=== PATIENT | female | born 1935 | race Caucasian/White ===

== ENCOUNTER 2016-12-12 03:39 | Inpatient (IN) | payer MEDICARE, BC ==
[~2016-12-12] VITALS: Ht 157.5 cm; Wt 140.0 kg
[2016-12-12] VITALS (15 sets, daily range): BP systolic 123–216; BP diastolic 53–117; PULSE 79–127; RESP 18–26; TEMP 97.6–99.5; O2SAT 96–100
[~2016-12-12 03:39] MED LIST: ASPI1TAB91 PO; CIPR250T2 PO; FURO1TAB62 PO; GABA300C5 PO; HYDR-3516 PO; HYDR50TA15 PO; LANTINJ SQ; LEVO88TA2 PO; LIPI20TA PO; LISI-515 PO; METF1000 PO; METO25TA3 PO; NIFE30TA61 PO; NITR1CAP36 PO; TRIA1TAB21 PO; WARF-23 PO
[2016-12-12] MEDS ORDERED: SODIUM CHLOR 0.9% 1000 ML INJ 1,000 ML IV SCH (04:05)
[2016-12-12] MEDS ORDERED: ONDANSETRON HCL 4 MG/2 ML VIAL IVP ONE (04:15)
[2016-12-12] MEDS ORDERED: SODIUM CHLORIDE 0.9% FLUSH 5 ML FLUSH IVF PRN ×2 (04:15→06:45)
[2016-12-12] MEDS ORDERED: PANTOPRAZOLE INJ 80 MG in SODIUM CHLORIDE 0.9% INJ 35 ML IV ONE (04:15)
[2016-12-12] MEDS ORDERED: METOCLOPRAMIDE HCL 10 MG/2 ML VIAL IV PUSH ONE (04:30)
--- NOTE | 2016-12-12 04:46 | RADRPT ---
EXAM DATE/TIME: 12/12/2016 04:07 [facility] COMPARISON: CHEST SINGLE AP, October 31, 2016, 12:54. INDICATIONS : Shortness of breath. MEDICAL HISTORY : Hypertension. Cardiovascular disease. Diabetes mellitus type II. SURGICAL HISTORY : None. ENCOUNTER: Initial ACUITY: 1 day PAIN SCORE: 0/10 LOCATION: Bilateral chest FINDINGS: A single view of the chest demonstrates the lungs to be symmetrically aerated without evidence of mas s, infiltrate or effusion. The cardiomediastinal contours are unremarkable. Osseous structures are intact. CONCLUSION: Lungs are clear. Joe Reyes MD on December 12, 2016 at 4:44 Board Certified Radiologist. This report was verified electronically.
[2016-12-12 04:55] LABS: AUTOMATED NEUTROPHIL # 11.4 TH/MM3 (1.8-7.7); BASOPHIL # 0.1 TH/MM3 (0-0.2); BASOPHIL % 0.5 % (0.0-2.0); EOSINOPHIL % 0.1 % (0.0-4.0); HEMATOCRIT 31.3 % (35.0-46.0); LYMPH % 10.3 % (9.0-44.0); LYMPHOCYTE # 1.4 TH/MM3 (1.0-4.8); MEAN CELL VOLUME 77.3 FL (80.0-100.0); MEAN CORPUSCULAR HEMOGLOBIN 23.7 PG (27.0-34.0); MEAN CORPUSCULAR HGB CONC 30.7 % (32.0-36.0); MONO % 5.3 % (0.0-8.0); NEUT % 83.8 % (16.0-70.0); PLATELET COUNT 364 TH/MM3 (150-450); RED BLOOD COUNT 4.04 MIL/MM3 (4.00-5.30); RED CELL DISTRIBUTION WIDTH 18.2 % (11.6-17.2); WHITE BLOOD COUNT 13.6 TH/MM3 (4.0-11.0)
[2016-12-12] MEDS: PANTOPRAZOLE INJ 80 MG in SODIUM CHLORIDE 0.9% INJ 100 ML IV SCH ×2 (04:57→16:47)
[2016-12-12] MEDS ORDERED: HYDROmorphone HCL PF 1 MG/ML VIAL IV PUSH ONE ×2 (05:00)
--- NOTE | 2016-12-12 05:02 | PD ---
HPI Chief Complaint: GI Complaint Time Seen by Provider: 04:05 Travel History International Travel<30 days: No Contact w/Intl Traveler<30days: No Traveled to known affect area: No History of Present Illness HPI 81-year-old female presents to the emergency department for complaint of one day of nausea vomiting blood generalized abdominal pain and black tarry stools. Patient also reports generalized weakness. No near-syncope or syncope. No chest pain or shortness of breath. Patient has history of atrial fibrillation and is prescribed Coumadin. Patient took her last dose of Coumadin Wednesday morning. Patient denies nonsteroidal anti-inflammatory use. No prior history of GI bleed gastritis peptic ulcer disease does have history of diverticulitis. No hematochezia positive melena. PFSH Past Medical History Hx Anticoagulant Therapy: Yes (COUMADIN) Arthritis: Yes Asthma: No Autoimmune Disease: No Blood Disorders: No Anxiety: No Depression: No Heart Rhythm Problems: No Cancer: No Cardiovascular Problems: Yes (A FIB) High Cholesterol: No Chemotherapy: No Chest Pain: Yes Congestive Heart Failure: No COPD: No Cerebrovascular Accident: Yes Diabetes: Yes Patient Takes Glucophage: No Diminished Hearing: Yes Endocrine: Yes GERD: No Genitourinary: No Headaches: Yes Hiatal Hernia: No Hypertension: Yes Immune Disorder: No Kidney Stones: No Musculoskeletal: Yes Neurologic: Yes (cva x3-4 latest 01/07) Psychiatric: No Reproductive: No Respiratory: No Migraines: Yes Radiation Therapy: No Renal Failure: No Seizures: No Sickle Cell Disease: No Sleep Apnea: No Thyroid Disease: No Ulcer: No Influenza Vaccination: Yes ?: Not Menopausal: Yes : 5 Para: 5 Past Surgical History Abdominal Surgery: Yes (GALLBLADDER OUT 1973) AICD: No Arteriovenous Shunt: No Cardiac Surgery: No Cholecystectomy: Yes Ear Surgery: No Endocrine Surgery: No Eye Surgery: Yes (cataracts x 2) Genitourinary Surgery: No Gynecologic Surgery: Yes Hysterectomy: Yes Insulin Pump: No Joint Replacement: Yes (KNEE REPLACEMENTS ) Oral Surgery: No Pacemaker: No Thoracic Surgery: No Other Surgery: Yes Social History Alcohol Use: No Tobacco Use: No Substance Use: No Allergies-Medications (Allergen,Severity, Reaction): Coded Allergies: Penicillin (Verified Allergy, Severe, 12/12/16) *MDRO Multi-Drug Resistant Organism (Verified Adverse Reaction, Unknown, 1 /21/17) 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/02/2016 Reported Meds & Prescriptions Reported Meds & Active Scripts Active Nitrofurantoin Macrocrystal 100 Mg Cap 100 Mg PO BID Ciprofloxacin (Ciprofloxacin HCl) 250 Mg Tab 250 Mg PO BID Metoprolol Tartrate 25 Mg Tab 12.5 Mg PO Q12HR Hydrocodone-Acetaminophen 5-325 mg Tab 1 Tab PO Q4H PRN Gabapentin 300 Mg Cap 300 Mg PO BID Reported Aspirin Adult Low Strength (Aspirin) 81 Mg Tabdr 81 Mg PO DAILY Triazolam 0.25 Mg Tab 0.25 Mg PO HS Lisinopril 20 Mg Tab 20 Mg PO BID Lantus Solostar Pen Inj (Insulin Glargine) 300 Unit/3 Ml Pen 90 Units SQ HS Nifedipine ER 24 HR (Nifedipine) 30 Mg Tab 30 Mg PO DAILY Warfarin 5 Mg Tab 5 Mg PO DAILY Levothyroxine (Levothyroxine Sodium) 88 Mcg Tab 88 Mcg PO DAILY Lipitor (Atorvastatin Calcium) 20 Mg Tab 20 Mg PO HS Metformin (Metformin HCl) 1,000 Mg Tab 1,000 Mg PO BID With meals Lasix (Furosemide) 20 Mg Tab 20 Mg PO DAILY Hydralazine (Hydralazine HCl) 50 Mg Tab 50 Mg PO TID Take with a meal Review of Systems Except as stated in HPI: all other systems reviewed are Neg General / Constitutional: No: Fever, Chills HENT: No: Congestion Cardiovascular: No: Chest Pain or Discomfort Respiratory: No: Shortness of Breath Gastrointestinal: Positive: Nausea, Vomiting, Diarrhea, Abdominal Pain, No: Hematemesis (coffee-ground emesis), Hematochezia, Loss of Appetite (brown stool) Genitourinary: No: Dysuria Skin: No Rash Neurologic: Positive: Weakness Psychiatric: Positive: Anxiety Hematologic/Lymphatic: Positive: Easy Bruising, No: Lymph Node Enlargement Physical Exam Narrative GENERAL: Well-developed morbidly obese female in no respiratory distress appears anxious and ill. SKIN: Warm and dry. HEAD: Normocephalic. EYES: No scleral icterus. No injection or drainage. NECK: Supple, trachea midline. No JVD or lymphadenopathy. CARDIOVASCULAR: Regular rate and rhythm without murmurs, gallops, or rubs. RESPIRATORY: Breath sounds equal bilaterally. No accessory muscle use. GASTROINTESTINAL: Abdomen soft, diffusely mildly tender to direct palpation without guarding or rebound, nondistended. MUSCULOSKELETAL: No cyanosis, or edema. BACK: Nontender without obvious deformity. No CVA tenderness. Data Data Last Documented VS Vital Signs Date Time Temp Pulse Resp B/P Pulse Ox O2 Delivery O2 Flow Rate FiO2 12/12/16 05:52 111 18 168/114 98 Nasal Cannula 2 12/12/16 04:03 99.5 Orders Basic Metabolic Panel (Bmp) (12/12/16 04:05) Comprehensive Metabolic Panel (12/12/16 04:05) Prothrombin Time / Inr (Pt) (12/12/16 04:05) Urinalysis - C+S If Indicated (12/12/16 04:05) Type And Screen (12/12/16 04:05) Chest, Single Ap (12/12/16 04:05) Ecg Monitoring (12/12/16 04:05) Iv Access Insert/Monitor (12/12/16 04:05) Oximetry (12/12/16 04:05) Ondansetron Inj (Zofran Inj) (12/12/16 04:15) Sodium Chlor 0.9% 1000 Ml Inj (Ns 1000 M (12/12/16 04:05) Sodium Chloride 0.9% Flush (Ns Flush) (12/12/16 04:15) Pantoprazole Inj (Protonix Inj) (12/12/16 04:15) Pantoprazole Inj (Protonix Inj) (12/12/16 04:15) Complete Blood Count With Diff (12/12/16 04:23) Lactic Acid (12/12/16 04:23) Blood Culture (12/12/16 04:23) Metoclopramide Inj (Reglan Inj) (12/12/16 04:30) Hydromorphone Pf Inj (Dilaudid Pf Inj) (12/12/16 05:00) Hydromorphone Pf Inj (Dilaudid Pf Inj) (12/12/16 05:00) Ct Abd/Pel W/O Iv Contrast (12/12/16 04:57) Metronidazole 500 Mg Inj (Flagyl 500 Mg (12/12/16 06:00) Levofloxacin 500 Mg Premix Inj (Levaquin (12/12/16 06:00) Troponin I (12/12/16 05:51) Labs Laboratory Tests Test 12/12/16 12/12/16 12/12/16 04:15 04:21 04:50 Lactic Acid Level 2.3 mmol/L White Blood Count 13.6 TH/MM3 Red Blood Count 4.04 MIL/MM3 Hemoglobin 9.6 GM/DL Hematocrit 31.3 % Mean Corpuscular Volume 77.3 FL Mean Corpuscular Hemoglobin 23.7 PG Mean Corpuscular Hemoglobin 30.7 % Concent Red Cell Distribution Width 18.2 % Platelet Count 364 TH/MM3 Mean Platelet Volume 8.1 FL Neutrophils (%) (Auto) 83.8 % Lymphocytes (%) (Auto) 10.3 % Monocytes (%) (Auto) 5.3 % Eosinophils (%) (Auto) 0.1 % Basophils (%) (Auto) 0.5 % Neutrophils # (Auto) 11.4 TH/MM3 Lymphocytes # (Auto) 1.4 TH/MM3 Monocytes # (Auto) 0.7 TH/MM3 Eosinophils # (Auto) 0.0 TH/MM3 Basophils # (Auto) 0.1 TH/MM3 CBC Comment AUTO DIFF Differential Comment AUTO DIFF CONFIRMED Ovalocytes 1+ Prothrombin Time 21.7 SEC Prothromb Time International 1.9 RATIO Ratio Sodium Level 137 MEQ/L Potassium Level 4.6 MEQ/L Chloride Level 101 MEQ/L Carbon Dioxide Level 26.5 MEQ/L Anion Gap 10 MEQ/L Blood Urea Nitrogen 13 MG/DL Creatinine 0.83 MG/DL Estimat Glomerular Filtration 66 ML/MIN Rate Random Glucose 211 MG/DL Calcium Level 9.0 MG/DL Total Bilirubin 0.5 MG/DL Aspartate Amino Transf 36 U/L (AST/SGOT) Alanine Aminotransferase 31 U/L (ALT/SGPT) Alkaline Phosphatase 133 U/L Total Protein 8.4 GM/DL Albumin 3.1 GM/DL Blood Type A POSITIVE Antibody Screen NEGATIVE Blood Bank Comment Urine Color YELLOW Urine Turbidity CLEAR Urine pH 6.5 Urine Specific [place] 1.012 Urine Protein NEG mg/dL Urine Glucose (UA) 300 mg/dL Urine Ketones NEG mg/dL Urine Occult Blood NEG Urine Nitrite NEG Urine Bilirubin NEG Urine Urobilinogen LESS THAN 2.0 MG/DL Urine Leukocyte Esterase NEG Urine RBC 1 /hpf Urine WBC LESS THAN 1 /hpf Urine Squamous Epithelial <1 /hpf Cells Urine Mucus FEW /lpf Microscopic Urinalysis Comment CULT NOT INDICATED MDM Medical Decision Making Medical Screen Exam Complete: Yes Emergency Medical Condition: Yes Medical Record Reviewed: Yes Interpretation(s) EKG: Atrial fibrillation with rapid ventricular response rate [address] elevation or injury pattern change noted Differential Diagnosis gi bleed, gastritis peptic ulcer disease diverticulitis Coumadin coagulopathy Narrative Course Patient placed on patent clerk IV access obtained specimens collected and sent for resulting patient administered Protonix 80 mg IV and Protonix infusion ; IV fluids for maintenance and also Zofran area patient receive Zofran en route and continues to complain of nausea; denies nonsteroidal anti- inflammatory use. Denies issues with INR being out of range. Overall does abdominal discomfort 5/10 in intensity but complains of nausea is worse. Patient administered Reglan for ongoing complaint of nausea no vomiting No bowel movement no hematochezia or melena at this time @ 0450 patient complains of severe new onset abdominal pain; dilaudid administered and patient sent for stat CT abd/pel w/o as no labs available At 5:50 AM patient reports that she feels well denies any nausea denies any abdominal pain and is requesting something to drink. Patient now clarifies that she did have vomiting of brown emesis and she has been having brown watery diarrheal stools but denies any gross blood per rectum and has not vomited any red blood. Patient again denies any fever chills chest pain shortness of breath neck pain. CT results pending. Lab values remarkable for leukocytosis 13,600 with left shift 83% neutrophils patient has normal platelet count with chronic anemia hemoglobin is 9.6 hemoglobin from last visit 10/30/16 was 8.7; lactic acid is elevated however at 2.3 bicarbonate and anion gap values are normal range. INR is 1.9 mildly subtherapeutic. Urinalysis is normal. Chest x -ray reveals no acute infiltrate or abnormality and no subdiaphragmatic free air. Diagnosis Primary Impression: GI bleed Qualified Code: K29.71 - Gastrointestinal hemorrhage associated with gastritis , unspecified gastritis type Additional Impression: Abdominal pain Monalisa Bhakta MD Dec 12, 2016 05:02
[2016-12-12 05:04] LABS: INTERNATIONAL NORMALIZED RATIO 1.9 RATIO; PROTHROMBIN TIME - PATIENT 21.7 SEC (9.8-11.6)
[2016-12-12 05:08] LABS: BLOOD, URINE NEG (NEG); COMMENT (UR) CULT NOT INDICATED; CULTURE IF INDICATED CULT NOT INDICATED; GLUCOSE,URINE 300 mg/dL (NEG); KETONE, URINE NEG (NEG); MUCUS URINE FEW /lpf (OCC); NITRITE,URINE NEG (NEG); PH, URINE 6.5 (5.0-8.5); SQUAMOUS EPITHELIAL CELL URINE <1 /hpf (0-5); URINE COLOR YELLOW (YELLW/STRAW)
[2016-12-12 05:10] LABS: HEMO FLAGS AUTO DIFF
[2016-12-12 05:22] LABS: ALT (GPT) 31 U/L (10-53); ANION GAP 10 MEQ/L (5-15); AST (GOT) 36 U/L (15-37); BICARBONATE 26.5 MEQ/L (21.0-32.0); BLOOD UREA NITROGEN 13 MG/DL (7-18); CHLORIDE 101 MEQ/L (98-107); GLOMERULAR FILTRATION RATE 66 ML/MIN (>89); SODIUM (NA) 137 MEQ/L (136-145)
[2016-12-12 05:23] LABS: ALKALINE PHOSPHATASE 133 U/L (45-117); TOTAL BILIRUBIN ADULT 0.5 MG/DL (0.2-1.0)
[2016-12-12 05:32] LABS: POTASSIUM 4.6 MEQ/L (3.5-5.1)
[2016-12-12 05:52] LABS: OVALOCYTES 1+ (NORMAL)
[2016-12-12 05:53] LABS: SCAN/DIFF AUTO DIFF CONFIRMED
[2016-12-12] MEDS ORDERED: LEVOFLOXACIN 500 MG PREMIX INJ 100 ML IV ONE (06:00)
[2016-12-12] MEDS ORDERED: metroNIDAZOLE 500 MG INJ 100 ML IV ONE (06:00)
--- NOTE | 2016-12-12 06:01 | RADRPT ---
EXAM DATE/TIME: 12/12/2016 05:06 [facility] COMPARISON: CT ABDOMEN & PELVIS W/O CONTRAST, October 26, 2016, 4:41. INDICATIONS : Abdominal pain with blood in stool and vomiting blood. ORAL CONTRAST: No oral contrast ingested. RADIATION DOSE: 24.19 CTDIvol (mGy) MEDICAL HISTORY : Cerebrovascular disease. Cardiovascular disease Diabetes mellitus type 2.Hypertension SURGICAL HISTORY : Cholecystectomy. Total knee replacement, left.Total knee replacement, right. ENCOUNTER: Initial ACUITY: 1 day PAIN SCALE: 7/10 LOCATION: abdomen TECHNIQUE: Volumetric scanning of the abdomen and pelvis was performed. Using automated exposure control and ad justment of the mA and/or kV according to patient size, radiation dose was kept as low as reasonably achievable to obtain optimal diagnostic quality images. FINDINGS: LOWER LUNGS: There is a 9 mm nodule medial right lower lung; this nodule measured 7 mm in October 2016. Small hi atus hernia and surrounding hiatal fat similar configuration to prior. LIVER: Homogeneous density without lesion for noncontrast technique. There is no dilation of the biliary tr ee. Cholecystectomy. SPLEEN: Normal size without lesion. PANCREAS: Within normal limits. KIDNEYS: Normal in size and shape. There is no mass, stone, or hydronephrosis. Again noted is a 2 mm calcifi cation in the proximal right ureter without evidence of hydronephrosis or dilation of the proximal ur eter. ADRENAL GLANDS: Within normal limits. VASCULAR: There is no aortic aneurysm. BOWEL/MESENTERY: No dilated loops of small and large bowel. A few small sigmoid diverticula without radiographic evid ence of diverticulitis. ABDOMINAL WALL: Moderate-sized fat containing hiatus hernia with separation between the rectus muscles measuring 4.8 cm is similar in size and configuration when compared to prior CT. Multiple subcutaneous varices in the lower abdominal wall, stable. RETROPERITONEUM: There is no lymphadenopathy. BLADDER: Valdez catheter in nondistended bladder. REPRODUCTIVE: Within normal limits. INGUINAL: There is no lymphadenopathy or hernia. MUSCULOSKELETAL: Within normal limits for patient age. CONCLUSION: 1. Increase size of right lower lung nodule, now measuring 9 mm. 2. Nonobstructing 2 mm calcified stone in the proximal right ureter is unchanged in position when com pared to prior CT scan. No evidence of hydronephrosis. 3. Multiple other findings are also stable, including fat containing umbilical hernia, scattered sigm oid diverticula, and small hiatus hernia. Joe Reyes MD on December 12, 2016 at 5:51 Board Certified Radiologist. This report was verified electronically.
[2016-12-12] MEDS ORDERED: MORPHINE SULFATE 4 MG/ML INJ IV PRN (06:45)
[2016-12-12] MEDS ORDERED: BISACODYL 10 MG SUPP PR PRN (06:45)
[2016-12-12] MEDS ORDERED: DEXTROSE 50% IN WATER 50 ML VIAL(D50) IV PUSH PRN ×2 (06:45→14:00)
[2016-12-12] MEDS ORDERED: GLUCAGON 1 MG/ML VIAL OTHER PRN ×2 (06:45→14:00)
[2016-12-12] MEDS ORDERED: ACETAMINOPHEN/HYDROcodone 325 MG/5 MG TAB PO PRN (06:45)
[2016-12-12] MEDS ORDERED: SODIUM CHLORIDE 0.9% FLUSH 5 ML FLUSH FLUSH PRN (06:45)
[2016-12-12] MEDS ORDERED: ONDANSETRON HCL 4 MG/2 ML VIAL IVP PRN (06:45)
[2016-12-12] MEDS ORDERED: ACETAMINOPHEN 325 MG TAB PO PRN (06:45)
[2016-12-12] MEDS: metroNIDAZOLE 500 MG INJ 100 ML IV SCH ×3 (06:58→20:07)
[2016-12-12] MEDS: SODIUM CHLOR 0.9% 1000 ML INJ 1,000 ML IV SCH ×2 (07:04→12:49)
[2016-12-12] MEDS: CIPROFLOXACIN 400 MG PREMIX 200 ML IV SCH ×2 (07:28→20:07)
[2016-12-12] MEDS: INSULIN ASPART SUPPLEMENTAL SCALE SQ SCH ×4 (07:28→20:07)
[2016-12-12] MEDS: SODIUM CHLORIDE 0.9% FLUSH 5 ML FLUSH IVF SCH ×2 (09:00→20:07)
--- NOTE | 2016-12-12 09:28 | PD.CONS ---
HPI History of Present Illness This is a 81 year old who called for [facility] because she was having nausea, vomiting, and diarrhea and was not able to eat for a few days. She reports that her diarrhea was brown, but states that the [facility] worker said that it looked like GI bleeding. She was having LUQ pain that "felt like my stomach was going to explode." It was steady without radiation for about 2-3 days and then subsided after she was medicated here in the hospital. She reports her emesis consisted of coffee ground emesis. She reports that she did have heartburn for 2-3 days before her other symptoms began. She reports a decreased appetite and has not been able to eat. She did try an OTC medicine at home, but cannot recall what this was. She takes Coumadin for atrial fibrillation and last took this on Wednesday. She has a remote history of gastric ulcers and was evaluated with endoscopy > 10 years. She does not believe that she has ever had a colonoscopy. She does not take any ibuprofen or aleve and does not drink ETOH. 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/02/2016 Medications Allergies Coded Allergies Type Severity Reaction Last Updated Verified Penicillin Allergy Severe 12/12/16 Yes *MDRO Multi-Drug Resistant Organism Adverse Reaction Unknown 12/12/16 Yes Active Scripts Medications Dose Route/Sig Days Date Category Dose Instructions Nitrofurantoin Macrocrystal 100 Mg Cap 100 Mg PO BID 11/03/16 Rx pt does not know if she is on this Ciprofloxacin (Ciprofloxacin HCl) 250 Mg Tab 250 Mg PO BID 11/03/16 Rx pt does not know if she is on this Metoprolol Tartrate 25 Mg Tab 12.5 Mg PO Q12HR 10/31/16 Rx Hydrocodone-Acetaminophen 5-325 mg Tab 1 Tab PO Q4H PRN 10/29/16 Rx Gabapentin 300 Mg Cap 300 Mg PO BID 10/29/16 Rx Aspirin Adult Low Strength (Aspirin) 81 Mg Tabdr 81 Mg PO DAILY 10/26/16 Reported Triazolam 0.25 Mg Tab 0.25 Mg PO HS 10/26/16 Reported Lisinopril 20 Mg Tab 20 Mg PO BID 10/26/16 Reported Lantus Solostar Pen Inj (Insulin Glargine) 300 Unit/3 Ml Pen 90 Units SQ HS 10/26/16 Reported Nifedipine ER 24 HR (Nifedipine) 30 Mg Tab 30 Mg PO DAILY 10/26/16 Reported Warfarin 5 Mg Tab 5 Mg PO DAILY 10/26/16 Reported Levothyroxine (Levothyroxine Sodium) 88 Mcg Tab 88 Mcg PO DAILY 10/26/16 Reported Lipitor (Atorvastatin Calcium) 20 Mg Tab 20 Mg PO HS 10/26/16 Reported Metformin (Metformin HCl) 1,000 Mg Tab 1,000 Mg PO BID 10/26/16 Reported With meals Lasix (Furosemide) 20 Mg Tab 20 Mg PO DAILY 10/26/16 Reported Hydralazine (Hydralazine HCl) 50 Mg Tab 50 Mg PO TID 10/26/16 Reported Take with a meal Family History No esophageal, gastric, or colorectal cancer. Social History Quit smoking 40 years ago. She did smoke for 10-15 years No etoh No illicit drug use ([place]rina [place]) Review of Systems Constitutional: COMPLAINS OF: Fatigue Respiratory: COMPLAINS OF: Wheezing, Shortness of breath, DENIES: Cough Cardiovascular: DENIES: Chest pain, Lower Extremity Edema Gastrointestinal: COMPLAINS OF: Abdominal pain, Black stools (Pt denies, evac states melena), Diarrhea, Nausea, Vomiting, Heartburn, Hematemesis Musculoskeletal: COMPLAINS OF: Joint pain Integumentary: DENIES: Rash Hematologic/lymphatic: COMPLAINS OF: Bruising Psychiatric: DENIES: Confusion (poor historian) ([place]rina [place]) GI Exam Vitals I&O Vital Signs Date Time Temp Pulse Resp B/P Pulse Ox O2 Delivery O2 Flow Rate FiO2 12/12/16 08:00 94 19 144/71 99 Nasal Cannula 2 12/12/16 07:47 100 Nasal Cannula 3.00 12/12/16 05:52 111 18 168/114 98 Nasal Cannula 2 12/12/16 05:07 190/77 1/21/17 04:30 210/117 12/12/16 04:09 97 Nasal Cannula 2 12/12/16 04:03 99.5 127 26 216/105 96 I/O 12/11/16 12/11/16 12/11/16 12/12/16 12/12/16 12/12/16 07:00 15:00 23:00 07:00 15:00 23:00 Output Total 450 ml Balance -450 ml Output Urine Total 450 ml Imaging Last Impressions Abdomen/Pelvis CT 12/12/16 0457 Signed Impressions: Service Date/Time: Monday, December 12, 2016 05:06 - CONCLUSION: 1. Increase size of right lower lung nodule, now measuring 9 mm. 2. Nonobstructing 2 mm calcified stone in the proximal right ureter is unchanged in position when compared to prior CT scan. No evidence of hydronephrosis. 3. Multiple other findings are also stable, including fat containing umbilical hernia, scattered sigmoid diverticula, and small hiatus hernia. Joe Reyes MD Chest X-Ray 12/12/16 0405 Signed Impressions: Service Date/Time: Monday, December 12, 2016 04:07 - CONCLUSION: Lungs are clear. Joe Reyes MD Laboratory Test 12/12/16 12/12/16 12/12/16 04:15 04:21 04:50 Lactic Acid Level 2.3 mmol/L White Blood Count 13.6 TH/MM3 Red Blood Count 4.04 MIL/MM3 Hemoglobin 9.6 GM/DL Hematocrit 31.3 % Mean Corpuscular Volume 77.3 FL Mean Corpuscular Hemoglobin 23.7 PG Mean Corpuscular Hemoglobin 30.7 % Concent Red Cell Distribution Width 18.2 % Platelet Count 364 TH/MM3 Mean Platelet Volume 8.1 FL Neutrophils (%) (Auto) 83.8 % Lymphocytes (%) (Auto) 10.3 % Monocytes (%) (Auto) 5.3 % Eosinophils (%) (Auto) 0.1 % Basophils (%) (Auto) 0.5 % Neutrophils # (Auto) 11.4 TH/MM3 Lymphocytes # (Auto) 1.4 TH/MM3 Monocytes # (Auto) 0.7 TH/MM3 Eosinophils # (Auto) 0.0 TH/MM3 Basophils # (Auto) 0.1 TH/MM3 CBC Comment AUTO DIFF Differential Comment AUTO DIFF CONFIRMED Ovalocytes 1+ Prothrombin Time 21.7 SEC Prothromb Time International 1.9 RATIO Ratio Sodium Level 137 MEQ/L Potassium Level 4.6 MEQ/L Chloride Level 101 MEQ/L Carbon Dioxide Level 26.5 MEQ/L Anion Gap 10 MEQ/L Blood Urea Nitrogen 13 MG/DL Creatinine 0.83 MG/DL Estimat Glomerular Filtration 66 ML/MIN Rate Random Glucose 211 MG/DL Calcium Level 9.0 MG/DL Total Bilirubin 0.5 MG/DL Aspartate Amino Transf 36 U/L (AST/SGOT) Alanine Aminotransferase 31 U/L (ALT/SGPT) Alkaline Phosphatase 133 U/L Troponin I LESS THAN 0.02 NG/ML Total Protein 8.4 GM/DL Albumin 3.1 GM/DL Blood Type A POSITIVE Antibody Screen NEGATIVE Blood Bank Comment Urine Color YELLOW Urine Turbidity CLEAR Urine pH 6.5 Urine Specific [place] 1.012 Urine Protein NEG mg/dL Urine Glucose (UA) 300 mg/dL Urine Ketones NEG mg/dL Urine Occult Blood NEG Urine Nitrite NEG Urine Bilirubin NEG Urine Urobilinogen LESS THAN 2.0 MG/DL Urine Leukocyte Esterase NEG Urine RBC 1 /hpf Urine WBC LESS THAN 1 /hpf Urine Squamous Epithelial <1 /hpf Cells Urine Mucus FEW /lpf Microscopic Urinalysis Comment CULT NOT INDICATED Date/Time Procedure Status Source Growth 12/12/16 04:20 Aerobic Blood Culture Received Blood Peripheral Pending 12/12/16 04:20 Anaerobic Blood Culture Received Blood Peripheral Pending Physical Examination HEENT: Pupils round and reactive to light; normocephalic; atraumatic; no jaundice. Throat is clear. NECK: Neck is supple, no JVD, no lymphadenopathy. CHEST: Expiratory wheezing, mild shortness of breath, mildly tachypneic CARDIAC: Irregular, HR 90-130 ABDOMEN: Soft, obese, mild distention, large umbilical hernia- some ecchymosis right below this, tenderness at hernia site,no hepatosplenomegaly; bowel sounds are present in all four quadrants. EXTREMITIES: Mild BLE edema. SKIN: Normal; no rash; no jaundice. SYSTEMS SUPPORT ENGINEER: No focal deficits; alert and oriented times three. (Katrina [place]) Assessment and Plan Plan ASSESSMENT: - Upper GIB, Coffee ground emesis, Melena. Reported remote hx of PUD- EGD > 10 years ago. Never had colonoscopy. Not actively bleeding at this time. Had Coumadin on Wednesday. INR 1.9. Protonix gtt. Coumadin on hold. EGD in a few days when more stable. - Anemia secondary to blood loss. 9.6/31.3. No active bleeding at this lion.e - Leukocytosis. WBC 13.6. Flagyl/Cipro per primary - N/V/D, Abdominal pain. Abdomen/Pelvis CT (12/12/16)-----> 1. Increase size of right lower lung nodule, now measuring 9 mm. 2. Nonobstructing 2 mm calcified stone in the proximal right ureter is unchanged in position when compared to prior CT scan. No evidence of hydronephrosis. 3. Multiple other findings are also stable, including fat containing umbilical hernia, scattered sigmoid diverticula, and small hiatus hernia. - Large Umbilical hernia. CT with fat containing umbilical hernia. This is very tender on exam, difficult to reduce- ecchymosis below hernia. - SOB, Wheezing, abnormal imaging on CT with lung nodule. Her lung nodule was described as stable tiny low retrosternal lymph node in January of 2016, 6 mm in October of 2016, and now 9 mm. Per primary. - Atrial fibrillation. On coumadin at home, last had on Wednesday. - HTN, DM, TIA, Hypothyroidism per primary PLAN: - Clear liquids - Cont. Protonix Gtt - Monitor HH - Transfuse as necessary - Hold coumadin for now - Plan for egd in a few days once more stable, ? Wednesday - Supportive care - Further recommendations to follow based on results of above - Pt seen and examined by Dr. Bourgeois and myself and this note is written on his behalf (Katrina South) Physician Comments Seen and examined with Ms. Akosua MAYER, no active bleeding at this time and no diarrhea, possible egd/colonoscopy next week. Monitor for bleeding. Stool tests ordered. Will follow, thank you (Ludwig Bourgeois MD) Katrina South Dec 12, 2016 09:27 Ludwig Bourgeois MD Dec 12, 2016 16:47
[2016-12-12] MEDS: SODIUM CHLORIDE 0.9% FLUSH 5 ML FLUSH FLUSH SCH ×2 (09:29→20:07)
[2016-12-12] MEDS: GABAPENTIN 300 MG CAP PO SCH ×2 (10:20→20:06)
--- NOTE | 2016-12-12 13:09 | HHI.HP ---
[facility] No Primary Care Physician Admission Diagnosis gi bleed/gastritis; h/o afib w/ coumadin Diagnoses: (1) Abdominal pain (2) GI bleed (3) Hernia (4) Lung nodule (5) DM2 (diabetes mellitus, type 2) (6) HTN (hypertension) Chief Complaint: Intractable nausea and vomiting Travel History International Travel<30 Days: No Contact w/Intl Traveler <30 Da: No Traveled to Known Affected Are: No Sepsis Criteria SIRS Criteria (2 or more): Heart rate over 90, WBC > 50423, < 4000 or > 10% bands Sepsis Criteria (SIRS+source): Infect source susp/known Severe Sepsis (+one): Lactate >2 History of Present Illness 81-year-old female with a PMH of HTN, DM, Hypothyroidism and h/o CVA who was brought to the ER by EMS secondary to complaints of abdominal pain, nausea, vomiting and diarrhea x2 days along with black tarry stool 1 day . Abdominal pain rated tender and over [address] abdomen/pelvis with hernia and worsening pulmonary nodule. H&H admission 9.6/31.3 and WBC of 13.6. Patient denies any hemoptysis, hematuria. She has no chest pain however report some shortness of breath. Review of Systems Other Other 12 systems reviewed and are negative except for the one mentioned in history of present illness Past Family Social History Past Medical History Atrial fibrillation PUD HTN DM 3 "mini strokes" Obesity Hypothyroidism Past Surgical History EGD Hysterectomy Cholecystectomy Left elbow surgery Bilateral knee replacement Bilateral cataract surgery Reported Medications Nitrofurantoin Macrocrystal 100 Mg Cap 100 Mg PO BID Ciprofloxacin (Ciprofloxacin HCl) 250 Mg Tab 250 Mg PO BID Metoprolol Tartrate 25 Mg Tab 12.5 Mg PO Q12HR Hydrocodone-Acetaminophen 5-325 mg Tab 1 Tab PO Q4H PRN Gabapentin 300 Mg Cap 300 Mg PO BID Reported Aspirin Adult Low Strength (Aspirin) 81 Mg Tabdr 81 Mg PO DAILY Triazolam 0.25 Mg Tab 0.25 Mg PO HS Lisinopril 20 Mg Tab 20 Mg PO BID Lantus Solostar Pen Inj (Insulin Glargine) 300 Unit/3 Ml Pen 90 Units SQ HS Nifedipine ER 24 HR (Nifedipine) 30 Mg Tab 30 Mg PO DAILY Warfarin 5 Mg Tab 5 Mg PO DAILY Levothyroxine (Levothyroxine Sodium) 88 Mcg Tab 88 Mcg PO DAILY Lipitor (Atorvastatin Calcium) 20 Mg Tab 20 Mg PO HS Metformin (Metformin HCl) 1,000 Mg Tab 1,000 Mg PO BID With meals Lasix (Furosemide) 20 Mg Tab 20 Mg PO DAILY Hydralazine (Hydralazine HCl) 50 Mg Tab 50 Mg PO TID Take with a meal Allergies: Coded Allergies: Penicillin (Verified Allergy, Severe, 12/12/16) *MDRO Multi-Drug Resistant Organism (Verified Adverse Reaction, Unknown, ) 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 positive for DM. Social History Quit smoking 40 years ago. She did smoke for 10-15 years No etoh No illicit drug use Physical Exam Vital Signs Vital Signs Date Time Temp Pulse Resp B/P Pulse Ox O2 Delivery O2 Flow Rate FiO2 12/12/16 12:00 98.5 96 20 153/75 99 Nasal Cannula 2 12/12/16 10:00 86 19 147/73 100 Nasal Cannula 2 12/12/16 08:00 98.8 94 19 144/71 99 Nasal Cannula 2 12/12/16 07:47 100 Nasal Cannula 3.00 12/12/16 05:52 111 18 168/114 98 Nasal Cannula 2 12/12/16 05:07 190/77 12/12/16 04:30 210/117 12/12/16 04:09 97 Nasal Cannula 2 12/12/16 04:03 99.5 127 26 216/105 96 Physical Exam GENERAL: This is a well-nourished, well-developed obese patient, in no apparent distress. SKIN: No rashes, ecchymoses or lesions. Cool and dry. HEAD: Atraumatic. Normocephalic. No temporal or scalp tenderness. EYES: Pupils equal round and reactive. Extraocular motions intact. No scleral icterus. No injection or drainage. ENT: Nose without bleeding, purulent drainage or septal hematoma. Throat without erythema, tonsillar hypertrophy or exudate. Uvula midline. Airway patent. NECK: Trachea midline. No JVD or lymphadenopathy. Supple, nontender, no meningeal signs. CARDIOVASCULAR: Regular rate and rhythm without murmurs, gallops, or rubs. RESPIRATORY: Clear to auscultation. Breath sounds equal bilaterally. No wheezes , rales, or rhonchi. GASTROINTESTINAL: Abdomen soft, mildly tender, nondistended. No hepato- splenomegaly; palpable incisional hernia. No guarding. MUSCULOSKELETAL: Extremities without clubbing, cyanosis, or edema. No joint tenderness, effusion, or edema noted. No calf tenderness. Negative Homans sign bilaterally. NEUROLOGICAL: Awake and alert. Cranial nerves II through XII intact. Motor and sensory grossly within normal limits. Five out of 5 muscle strength in all muscle groups. Normal speech. Laboratory Laboratory Tests Test 12/12/16 12/12/16 12/12/16 04:15 04:21 04:50 Lactic Acid Level 2.3 White Blood Count 13.6 Red Blood Count 4.04 Hemoglobin 9.6 Hematocrit 31.3 Mean Corpuscular Volume 77.3 Mean Corpuscular Hemoglobin 23.7 Mean Corpuscular Hemoglobin 30.7 Concent Red Cell Distribution Width 18.2 Platelet Count 364 Mean Platelet Volume 8.1 Neutrophils (%) (Auto) 83.8 Lymphocytes (%) (Auto) 10.3 Monocytes (%) (Auto) 5.3 Eosinophils (%) (Auto) 0.1 Basophils (%) (Auto) 0.5 Neutrophils # (Auto) 11.4 Lymphocytes # (Auto) 1.4 Monocytes # (Auto) 0.7 Eosinophils # (Auto) 0.0 Basophils # (Auto) 0.1 CBC Comment AUTO DIFF Differential Comment AUTO DIFF CONFIRMED Ovalocytes 1+ Prothrombin Time 21.7 Prothromb Time International 1.9 Ratio Sodium Level 137 Potassium Level 4.6 Chloride Level 101 Carbon Dioxide Level 26.5 Anion Gap 10 Blood Urea Nitrogen 13 Creatinine 0.83 Estimat Glomerular Filtration 66 Rate Random Glucose 211 Calcium Level 9.0 Total Bilirubin 0.5 Aspartate Amino Transf 36 (AST/SGOT) Alanine Aminotransferase 31 (ALT/SGPT) Alkaline Phosphatase 133 Troponin I LESS THAN 0.02 Total Protein 8.4 Albumin 3.1 Blood Type A POSITIVE Antibody Screen NEGATIVE Blood Bank Comment Urine Color YELLOW Urine Turbidity CLEAR Urine pH 6.5 Urine Specific [place] 1.012 Urine Protein NEG Urine Glucose (UA) 300 Urine Ketones NEG Urine Occult Blood NEG Urine Nitrite NEG Urine Bilirubin NEG Urine Urobilinogen LESS THAN 2.0 Urine Leukocyte Esterase NEG Urine RBC 1 Urine WBC LESS THAN 1 Urine Squamous Epithelial <1 Cells Urine Mucus FEW Microscopic Urinalysis Comment CULT NOT INDICATED Date/Time Procedure Status Source Growth 12/12/16 04:20 Aerobic Blood Culture Received Blood Peripheral Pending 12/12/16 04:20 Anaerobic Blood Culture Received Blood Peripheral Pending Result Diagram: 12/12/16 0421 12/12/16 0421 Imaging Last Impressions Abdomen/Pelvis CT 12/12/16 0457 Signed Impressions: Service Date/Time: Monday, December 12, 2016 05:06 - CONCLUSION: 1. Increase size of right lower lung nodule, now measuring 9 mm. 2. Nonobstructing 2 mm calcified stone in the proximal right ureter is unchanged in position when compared to prior CT scan. No evidence of hydronephrosis. 3. Multiple other findings are also stable, including fat containing umbilical hernia, scattered sigmoid diverticula, and small hiatus hernia. Joe Reyes MD Chest X-Ray 12/12/16 0405 Signed Impressions: Service Date/Time: Monday, December 12, 2016 04:07 - CONCLUSION: Lungs are clear. Joe Reyes MD Assessment and Plan Problem List: (1) Sepsis ICD Code: A41.9 Status: Acute (2) GI bleed ICD Code: K92.2 Status: Acute (3) Lung nodule ICD Code: R91.1 Status: Acute (4) DM2 (diabetes mellitus, type 2) ICD Code: E11.9 Status: Chronic (5) HTN (hypertension) ICD Code: I10 Status: Chronic (6) Diabetes mellitus ICD Code: E11.9 Status: Chronic Assessment and Plan 81-year-old female with 1-Severe Sepsis:Heart rate over 90, WBC > 36440, < 4000 or > 10% bands and Lactate >2. Source likely intra-abdominal. Status post Levaquin 1 in ED, currently on Cipro and Flagyl IV and monitor culture. 2-Upper GI bleed: Gastroenterology has been consulted and plan for EGD with possible colonoscopy. Hold Coumadin and continue Protonix gtt. monitor H&H 3-Acute on chronic anemia: Likely GI bleed, H&H's 9.6/31.3 currently stable. Continue to monitor H&H and transfuse for hemoglobin less than 8 or if patient becomes symptomatic 4-Intractable nausea and vomiting: CT abdomen noted and reviewed by me with finding of fat containing umbilical hernia. Patient is known to have a history of umbilical/incisional hernia however at this time it does not appear incarcerated, and in the presence of sepsis patient may not be a surgical candidate. Continue conservative management and only consider surgical evaluation if worsening condition. Treat with Analgesics, antiemetics 5-Atrial fibrillation: Currently rate controlled, hold Coumadin; resume beta brayan 6-Diabetes type 2: Hold Lantus, start insulin sliding scale 7-Hypertension, history of CHF, CAD: Resume outpatient medications 8-Hypothyroidism: Resume Synthroid 9-Lung nodule: CT noted and reviewed by me with finding of Increase size of right lower lung nodule, now measuring 9 mm. outpatient follow-up with pulmonary medicine. May need to repeat CT chest in 3 months. DuoNeb when necessary 10-DVT prophylaxis: Bilateral SCDs Code Status Full code Discussed Condition With Patient Physician Certification 2 Midnight Certification Type: Admission for Inpatient Services Order for Inpatient Services The services are ordered in accordance with Medicare regulations or non- Medicare payer requirements, as applicable. In the case of services not specified as inpatient-only, they are appropriately provided as inpatient services in accordance with the 2-midnight benchmark. Estimated LOS (days): 2 days is the estimated time the patient will need to remain in the hospital, assuming treatment plan goals are met and no additional complications. Post-Hospital Plan: Not yet determined Problem Qualifiers (1) GI bleed: Qualified Code: K29.71 - Gastrointestinal hemorrhage associated with gastritis , unspecified gastritis type Brad Rizvi MD Dec 12, 2016 13:09 specified as inpatient-only, they are appropriately provided as inpatient services in accordance with the 2-midnight benchmark. days is the estimated time the patient will need to remain in the hospital, assuming treatment plan goals are met and no additional complications. Problem Qualifiers (1) GI bleed: Qualified Code: K29.71 - Gastrointestinal hemorrhage associated with gastritis , unspecified gastritis type Brad Rizvi MD Dec 12, 2016 13:09
[2016-12-12] MEDS ORDERED: RESP: ALBUTEROL 2.5 MG/IPRATROPIUM 0.5 MG NEB (PRN) NEB (14:00)
[2016-12-12] MEDS: hydrALAZINE HCL 50 MG TAB PO SCH (16:46)
[2016-12-12] MEDS: LISINOPRIL 20 MG TAB PO SCH (20:06)
[2016-12-12] MEDS: METOPROLOL TARTRATE 25 MG TAB PO SCH (20:06)
[2016-12-12] MEDS: ATORVASTATIN 20 MG TAB PO SCH (20:07)
[2016-12-12] MEDS ORDERED: TRIAZOLAM 0.25 MG PO SCH (21:00)
[2016-12-13] VITALS: BP 127/58; PULSE 77; RESP 18; TEMP 98.4; O2SAT 92
[2016-12-13] MEDS: SODIUM CHLOR 0.9% 1000 ML INJ 1,000 ML IV SCH ×2 (00:35→22:24)
[2016-12-13] MEDS: PANTOPRAZOLE INJ 80 MG in SODIUM CHLORIDE 0.9% INJ 100 ML IV SCH ×3 (00:35→22:39)
[2016-12-13 04:00] VITALS: BP 152/69; PULSE 78; RESP 18; TEMP 98.1; O2SAT 92
[2016-12-13 04:41] LABS: AUTOMATED NEUTROPHIL # 6.3 TH/MM3 (1.8-7.7); BASOPHIL # 0.1 TH/MM3 (0-0.2); EOSINOPHIL # 0.1 TH/MM3 (0-0.4); EOSINOPHIL % 1.4 % (0.0-4.0); HEMATOCRIT 25.8 % (35.0-46.0); HEMO FLAGS DIFF FINAL; LYMPH % 20.3 % (9.0-44.0); LYMPHOCYTE # 1.9 TH/MM3 (1.0-4.8); MEAN CELL VOLUME 77.6 FL (80.0-100.0); MEAN CORPUSCULAR HGB CONC 32.3 % (32.0-36.0); MONO % 10.1 % (0.0-8.0); NEUT % 67.2 % (16.0-70.0); PLATELET COUNT 265 TH/MM3 (150-450); RED BLOOD COUNT 3.32 MIL/MM3 (4.00-5.30); WHITE BLOOD COUNT 9.4 TH/MM3 (4.0-11.0)
[2016-12-13 04:49] LABS: INTERNATIONAL NORMALIZED RATIO 1.8 RATIO; PROTHROMBIN TIME - PATIENT 20.4 SEC (9.8-11.6)
[2016-12-13 04:57] LABS: ALKALINE PHOSPHATASE 110 U/L (45-117); ALT (GPT) 26 U/L (10-53); ANION GAP 9 MEQ/L (5-15); AST (GOT) 35 U/L (15-37); BLOOD UREA NITROGEN 8 MG/DL (7-18); CHLORIDE 108 MEQ/L (98-107); GLOMERULAR FILTRATION RATE 74 ML/MIN (>89); POTASSIUM 4.3 MEQ/L (3.5-5.1); SODIUM (NA) 143 MEQ/L (136-145); TOTAL BILIRUBIN ADULT 0.5 MG/DL (0.2-1.0)
[2016-12-13] MEDS: LEVOTHYROXINE SODIUM 88 MCG TAB PO SCH (05:10)
[2016-12-13] MEDS: metroNIDAZOLE 500 MG INJ 100 ML IV SCH ×3 (05:10→22:41)
[2016-12-13] MEDS: INSULIN ASPART SUPPLEMENTAL SCALE SQ SCH ×4 (05:10→22:40)
[2016-12-13 08:00] VITALS: BP 159/65; PULSE 83; RESP 17; TEMP 99.1; O2SAT 94
[2016-12-13] MEDS: SODIUM CHLORIDE 0.9% FLUSH 5 ML FLUSH IVF SCH ×2 (09:00→21:00)
[2016-12-13] MEDS: CIPROFLOXACIN 400 MG PREMIX 200 ML IV SCH ×2 (09:25→22:23)
[2016-12-13] MEDS: hydrALAZINE HCL 50 MG TAB PO SCH ×3 (09:27→16:37)
[2016-12-13] MEDS: SODIUM CHLORIDE 0.9% FLUSH 5 ML FLUSH FLUSH SCH ×2 (09:28→21:00)
[2016-12-13] MEDS: GABAPENTIN 300 MG CAP PO SCH ×2 (09:28→22:26)
[2016-12-13] MEDS: FUROSEMIDE 20 MG TAB PO SCH (09:28)
[2016-12-13] MEDS: LISINOPRIL 20 MG TAB PO SCH ×2 (09:28→22:25)
[2016-12-13] MEDS: NIFEdipine 30 MG SUSTAINED RELEASE TAB PO SCH (09:28)
[2016-12-13] MEDS: METOPROLOL TARTRATE 25 MG TAB PO SCH ×2 (09:28→22:26)
[2016-12-13 10:00] VITALS: O2SAT 93
[2016-12-13 12:00] VITALS: BP 139/64; PULSE 75; RESP 16; TEMP 98.6; O2SAT 93
--- NOTE | 2016-12-13 12:34 | HHI.PR ---
Subjective Remarks Follow-up GI bleed/severe sepsis 12/13/16-patient seen and examined; currently afebrile and denies any bleeding episodes since admission. Alert and oriented 3 in no acute event overnight. Objective Vitals Vital Signs Date Time Temp Pulse Resp B/P Pulse Ox O2 Delivery O2 Flow Rate FiO2 12/13/16 10:00 93 21 12/13/16 08:00 99.1 83 17 159/65 94 12/13/16 04:00 98.1 78 18 152/69 92 12/13/16 00:00 98.4 77 18 127/58 92 12/12/16 20:07 83 12/12/16 20:00 98.2 83 18 133/57 96 12/12/16 17:27 96 Nasal Cannula 2.00 12/12/16 16:00 97.6 79 19 147/67 96 12/12/16 14:00 98.1 92 18 142/67 96 12/12/16 13:41 84 17 123/53 97 I/O 12/12/16 12/12/16 12/12/16 12/13/16 12/13/16 12/13/16 07:00 15:00 23:00 07:00 15:00 23:00 Intake Total 1505 ml 890 ml Output Total 450 ml 650 ml 1700 ml 1450 ml Balance -450 ml -650 ml -195 ml -560 ml Intake Oral 780 ml 480 ml IV Total 725 ml 410 ml Output Urine Total 450 ml 650 ml 1700 ml 1450 ml # Bowel Movements 0 Result Diagram: 12/13/16 0414 12/13/16 0414 Imaging Last Impressions Abdomen/Pelvis CT 12/12/16 0457 Signed Impressions: Service Date/Time: Monday, December 12, 2016 05:06 - CONCLUSION: 1. Increase size of right lower lung nodule, now measuring 9 mm. 2. Nonobstructing 2 mm calcified stone in the proximal right ureter is unchanged in position when compared to prior CT scan. No evidence of hydronephrosis. 3. Multiple other findings are also stable, including fat containing umbilical hernia, scattered sigmoid diverticula, and small hiatus hernia. Joe Reyes MD Chest X-Ray 12/12/16 0400 Signed Impressions: Service Date/Time: Monday, December 12, 2016 04:07 - CONCLUSION: Lungs are clear. Joe Reyes MD Objective Remarks GENERAL: NAD and sitting in the chair SKIN: Warm and dry. HEAD: Normocephalic. EYES: No scleral icterus. No injection or drainage. NECK: Supple, trachea midline. No JVD or lymphadenopathy. CARDIOVASCULAR: Regular rate and rhythm without murmurs, gallops, or rubs. RESPIRATORY: Breath sounds equal bilaterally. No accessory muscle use. GASTROINTESTINAL: Abdomen soft, non-tender, nondistended. MUSCULOSKELETAL: No cyanosis, or edema. BACK: Nontender without obvious deformity. No CVA tenderness. A/P Problem List: (1) Sepsis ICD Code: A41.9 Status: Acute (2) GI bleed ICD Code: K92.2 Status: Acute (3) Lung nodule ICD Code: R91.1 Status: Acute (4) DM2 (diabetes mellitus, type 2) ICD Code: E11.9 Status: Chronic (5) HTN (hypertension) ICD Code: I10 Status: Chronic (6) Diabetes mellitus ICD Code: E11.9 Status: Chronic Assessment and Plan 81-year-old female with 1-Severe Sepsis: Now resolved. Source likely intra-abdominal. Status post Levaquin 1 in ED, currently on Cipro and Flagyl IV and monitor culture. 2-Upper GI bleed: Gastroenterology has been consulted and plan for EGD with possible colonoscopy 12/14/16. Hold Coumadin and continue Protonix gtt. monitor H&H 3-Acute on chronic anemia: Likely GI bleed, H&H's 9.6/31.3 currently stable. Continue to monitor H&H and transfuse for hemoglobin less than 8 or if patient becomes symptomatic 4-Intractable nausea and vomiting: Now resolved ;CT abdomen with finding of fat containing umbilical hernia. Patient is known to have a history of umbilical/ incisional hernia however at this time it does not appear incarcerated, and in the presence of sepsis patient may not be a surgical candidate. Continue conservative management and only consider surgical evaluation if worsening condition. Treat with Analgesics, antiemetics 5-Atrial fibrillation: Currently rate controlled, hold Coumadin; continue beta brayan 6-Diabetes type 2: Hold Lantus, start insulin sliding scale 7-Hypertension, history of CHF, CAD: Continue outpatient medications 8-Hypothyroidism: Continue Synthroid 9-Lung nodule: CT Abdomen/pelvis with finding of Increase size of right lower lung nodule, now measuring 9 mm. outpatient follow-up with pulmonary medicine. May need to repeat CT chest in 3 months. DuoNeb when necessary 10-DVT prophylaxis: Bilateral SCDs Problem Qualifiers (1) GI bleed: Qualified Code: K29.71 - Gastrointestinal hemorrhage associated with gastritis , unspecified gastritis type Brad Rizvi MD Dec 13, 2016 12:34
[2016-12-13 16:00] VITALS: BP 131/61; PULSE 76; RESP 16; TEMP 99.3; O2SAT 95
[2016-12-13] MEDS: ATORVASTATIN 20 MG TAB PO SCH (22:25)
[2016-12-13] MEDS: TEMAZEPAM 15 MG CAP PO PRN (22:40)
[2016-12-14] VITALS (9 sets, daily range): BP systolic 116–142; BP diastolic 54–62; PULSE 74–116; RESP 18–20; TEMP 96–99; O2SAT 90–96
[2016-12-14] MEDS: LEVOTHYROXINE SODIUM 88 MCG TAB PO SCH (06:37)
[2016-12-14] MEDS: metroNIDAZOLE 500 MG INJ 100 ML IV SCH ×3 (06:38→20:44)
[2016-12-14] MEDS: PANTOPRAZOLE INJ 80 MG in SODIUM CHLORIDE 0.9% INJ 100 ML IV SCH ×3 (06:38→22:27)
[2016-12-14] MEDS: INSULIN ASPART SUPPLEMENTAL SCALE SQ SCH ×4 (06:51→20:44)
[2016-12-14] MEDS: CIPROFLOXACIN 400 MG PREMIX 200 ML IV SCH ×2 (08:17→20:43)
[2016-12-14] MEDS: METOPROLOL TARTRATE 25 MG TAB PO SCH ×2 (08:18→20:43)
[2016-12-14] MEDS: NIFEdipine 30 MG SUSTAINED RELEASE TAB PO SCH (08:18)
[2016-12-14] MEDS: hydrALAZINE HCL 50 MG TAB PO SCH ×3 (08:18→18:08)
[2016-12-14] MEDS: FUROSEMIDE 20 MG TAB PO SCH (08:18)
[2016-12-14] MEDS: GABAPENTIN 300 MG CAP PO SCH ×2 (08:18→20:43)
[2016-12-14] MEDS: LISINOPRIL 20 MG TAB PO SCH ×2 (08:18→20:43)
[2016-12-14] MEDS: SODIUM CHLORIDE 0.9% FLUSH 5 ML FLUSH FLUSH SCH ×2 (08:19→20:43)
[2016-12-14] MEDS: SODIUM CHLORIDE 0.9% FLUSH 5 ML FLUSH IVF SCH ×2 (08:19→20:43)
--- NOTE | 2016-12-14 11:54 | HHI.PR ---
Subjective Remarks Follow-up GI bleed/severe sepsis 12/13/16-patient seen and examined; currently afebrile and denies any bleeding episodes since admission. Alert and oriented 3 in no acute event overnight. 12/14/16-patient seen and examined; up and ambulated this morning, currently afebrile and nothing by mouth. Denies any more GI bleed. Plan for EGD today. Objective Vitals Vital Signs Date Time Temp Pulse Resp B/P Pulse Ox O2 Delivery O2 Flow Rate FiO2 12/14/16 08:18 96 21 12/14/16 08:00 97.8 82 20 131/61 90 12/14/16 04:00 98.6 75 20 129/54 92 12/14/16 00:00 99.0 77 20 131/61 96 12/13/16 16:00 99.3 76 16 131/61 95 12/13/16 12:00 98.6 75 16 139/64 93 I/O 12/13/16 12/13/16 12/13/16 12/14/16 12/14/16 12/14/16 07:00 15:00 23:00 07:00 15:00 23:00 Intake Total 890 ml 1440 ml 1780 ml 541 ml Output Total 1450 ml 1150 ml 1350 ml 1100 ml Balance -560 ml 290 ml 430 ml -559 ml Intake Oral 480 ml 1440 ml 1140 ml 120 ml IV Total 410 ml 640 ml 421 ml Output Urine Total 1450 ml 1150 ml 1350 ml 1100 ml # Bowel Movements 1 Result Diagram: 12/13/16 0414 12/13/16 0414 Objective Remarks GENERAL: NAD and sitting in the chair SKIN: Warm and dry. HEAD: Normocephalic. EYES: No scleral icterus. No injection or drainage. NECK: Supple, trachea midline. No JVD or lymphadenopathy. CARDIOVASCULAR: Regular rate and rhythm without murmurs, gallops, or rubs. RESPIRATORY: Breath sounds equal bilaterally. No accessory muscle use. GASTROINTESTINAL: Abdomen soft, non-tender, nondistended. MUSCULOSKELETAL: No cyanosis, or edema. BACK: Nontender without obvious deformity. No CVA tenderness. A/P Problem List: (1) Sepsis ICD Code: A41.9 Status: Acute (2) GI bleed ICD Code: K92.2 Status: Acute (3) Lung nodule ICD Code: R91.1 Status: Acute (4) DM2 (diabetes mellitus, type 2) ICD Code: E11.9 Status: Chronic (5) HTN (hypertension) ICD Code: I10 Status: Chronic (6) Diabetes mellitus ICD Code: E11.9 Status: Chronic Assessment and Plan 81-year-old female with 1-Severe Sepsis: Now resolved. Source likely intra-abdominal. Status post Levaquin 1 in ED, currently on Cipro and Flagyl IV and culture remain negative. 2-Upper GI bleed: Gastroenterology has been consulted and plan for EGD today . Hold Coumadin and continue Protonix gtt. monitor H&H 3-Acute on chronic anemia: Likely GI bleed, H&H's 9.6/31.3 currently stable. Continue to monitor H&H and transfuse for hemoglobin less than 8 or if patient becomes symptomatic 4-Intractable nausea and vomiting: Now resolved ;CT abdomen with finding of fat containing umbilical hernia. Patient is known to have a history of umbilical/ incisional hernia however at this time it does not appear incarcerated, and in the presence of sepsis patient may not be a surgical candidate. Continue conservative management and only consider surgical evaluation if worsening condition. Treat with Analgesics, antiemetics 5-Atrial fibrillation: Currently rate controlled, hold Coumadin; continue beta brayan 6-Diabetes type 2: Hold Lantus, continue insulin sliding scale 7-Hypertension, history of CHF, CAD: Continue outpatient medications 8-Hypothyroidism: Continue Synthroid 9-Lung nodule: CT Abdomen/pelvis with finding of Increase size of right lower lung nodule, now measuring 9 mm. outpatient follow-up with pulmonary medicine. May need to repeat CT chest in 3 months. DuoNeb when necessary 10-DVT prophylaxis: Bilateral SCDs Problem Qualifiers (1) GI bleed: Qualified Code: K29.71 - Gastrointestinal hemorrhage associated with gastritis , unspecified gastritis type Brad Rizvi MD Dec 14, 2016 11:54
[2016-12-14] MEDS ORDERED: PROPOFOL 200 MG/20 ML AMP IV ONE (16:00)
[2016-12-14] MEDS: SODIUM CHLOR 0.9% 1000 ML INJ 1,000 ML IV SCH (20:43)
[2016-12-14] MEDS: ATORVASTATIN 20 MG TAB PO SCH (20:45)
--- NOTE | 2016-12-14 22:10 | EKG ---
Date Performed: 12/12/2016 Time Performed: 04:46:41 PTAGE: 81 years EKG: ATRIAL FIBRILLATION WITH RAPID VENTRICULAR RESPONSE MODERATE ST DEPRESSION ABNORMAL ECG NO PREVIOUS TRACING Compared to prior tracing no significant change DOCTOR: Papito Aguirre Interpretating Date/Time 12/14/2016 22:08:36
[2016-12-14] MEDS: TEMAZEPAM 15 MG CAP PO PRN (22:27)
[2016-12-15] VITALS: BP 141/74; PULSE 59; RESP 20; TEMP 98.8; O2SAT 94
[2016-12-15 05:29] LABS: AUTOMATED NEUTROPHIL # 7.4 TH/MM3 (1.8-7.7); BASOPHIL # 0.1 TH/MM3 (0-0.2); BASOPHIL % 0.7 % (0.0-2.0); EOSINOPHIL # 0.3 TH/MM3 (0-0.4); EOSINOPHIL % 2.4 % (0.0-4.0); LYMPH % 17.8 % (9.0-44.0); LYMPHOCYTE # 1.9 TH/MM3 (1.0-4.8); MEAN CELL VOLUME 77.7 FL (80.0-100.0); MEAN CORPUSCULAR HEMOGLOBIN 24.5 PG (27.0-34.0); MEAN CORPUSCULAR HGB CONC 31.5 % (32.0-36.0); MONO % 8.8 % (0.0-8.0); NEUT % 70.3 % (16.0-70.0); PLATELET COUNT 268 TH/MM3 (150-450); RED BLOOD COUNT 3.48 MIL/MM3 (4.00-5.30); RED CELL DISTRIBUTION WIDTH 18.3 % (11.6-17.2); WHITE BLOOD COUNT 10.5 TH/MM3 (4.0-11.0)
[2016-12-15 05:33] LABS: HEMO FLAGS AUTO DIFF
[2016-12-15] MEDS: metroNIDAZOLE 500 MG INJ 100 ML IV SCH (05:43)
[2016-12-15] MEDS: LEVOTHYROXINE SODIUM 88 MCG TAB PO SCH (05:43)
[2016-12-15 05:56] LABS: BICARBONATE 25.6 MEQ/L (21.0-32.0); POTASSIUM 3.6 MEQ/L (3.5-5.1)
[2016-12-15] MEDS: INSULIN ASPART SUPPLEMENTAL SCALE SQ SCH ×2 (06:22→10:39)
[2016-12-15 08:00] VITALS: BP 131/60; PULSE 83; RESP 18; TEMP 97.3; O2SAT 96
[2016-12-15 08:04] VITALS: PULSE 85
[2016-12-15 08:25] LABS: SCAN/DIFF AUTO DIFF CONFIRMED
[2016-12-15] MEDS: CIPROFLOXACIN 400 MG PREMIX 200 ML IV SCH (08:34)
[2016-12-15] MEDS: NIFEdipine 30 MG SUSTAINED RELEASE TAB PO SCH (08:36)
[2016-12-15] MEDS: GABAPENTIN 300 MG CAP PO SCH (08:36)
[2016-12-15] MEDS: LISINOPRIL 20 MG TAB PO SCH (08:36)
[2016-12-15] MEDS: hydrALAZINE HCL 50 MG TAB PO SCH ×2 (08:36→13:17)
[2016-12-15] MEDS: FUROSEMIDE 20 MG TAB PO SCH (08:36)
[2016-12-15] MEDS: METOPROLOL TARTRATE 25 MG TAB PO SCH (08:36)
[2016-12-15] MEDS: SODIUM CHLORIDE 0.9% FLUSH 5 ML FLUSH FLUSH SCH (09:00)
[2016-12-15] MEDS: SODIUM CHLORIDE 0.9% FLUSH 5 ML FLUSH IVF SCH (09:00)
[2016-12-15] MEDS: PANTOPRAZOLE INJ 80 MG in SODIUM CHLORIDE 0.9% INJ 100 ML IV SCH (10:33)
[2016-12-15 12:00] VITALS: BP 132/64; PULSE 86; RESP 17; TEMP 97.7; O2SAT 97
--- NOTE | 2016-12-15 13:20 | HHI.FF ---
Face to Face Verification Diagnosis: (1) GI bleed (2) DM2 (diabetes mellitus, type 2) Physical Therapy Order: Evaluate and Treat Home Health Nursing Order: Signs/symptoms of disease process I have seen patient Mirella Lucas on 12/15/16. My clinical findings support the need for the requested home health care services because: Deconditioned w/ increased weakness I certify that my clinical findings support that this patient is homebound because: Poor cardiac reserve Brad Rizvi MD Dec 15, 2016 13:20
[2016-12-15] MEDS ORDERED: REST15CA PO (13:23)
--- NOTE | 2016-12-15 13:27 | HHI.PR ---
Subjective Remarks Follow-up GI bleed/severe sepsis 12/13/16-patient seen and examined; currently afebrile and denies any bleeding episodes since admission. Alert and oriented 3 in no acute event overnight. 12/14/16-patient seen and examined; up and ambulated this morning, currently afebrile and nothing by mouth. Denies any more GI bleed. Plan for EGD today. 12/15/16-patient seen and examined, stable and no complaint. Had EGD yesterday. No acute event overnight. Objective Vitals Vital Signs Date Time Temp Pulse Resp B/P Pulse Ox O2 Delivery O2 Flow Rate FiO2 12/15/16 12:00 97.7 86 17 132/64 97 12/15/16 08:04 85 12/15/16 08:00 97.3 83 18 131/60 96 12/15/16 00:00 98.8 59 20 141/74 94 12/14/16 20:00 96.0 116 19 142/62 94 12/14/16 19:59 94 12/14/16 16:07 71 16 157/69 99 12/14/16 16:00 71 16 156/65 96 12/14/16 16:00 97.9 78 18 116/54 92 12/14/16 15:50 98.3 72 16 134/58 96 12/14/16 14:29 97.8 82 20 131/61 96 I/O 12/14/16 12/14/16 12/14/16 12/15/16 12/15/16 12/15/16 07:00 15:00 23:00 07:00 15:00 23:00 Intake Total 541 ml 0 ml 790 ml 410 ml Output Total 1100 ml 950 ml Balance -559 ml -950 ml 790 ml 410 ml Intake Oral 120 ml 0 ml 240 ml 120 ml IV Total 421 ml 350 ml 290 ml Other 200 ml Output Urine Total 1100 ml 950 ml # Voids 3 3 # Bowel Movements 0 0 1 Result Diagram: 12/15/1644612/15/16446 Imaging Last Impressions Abdomen/Pelvis CT 12/12/16456 Signed Impressions: Service Date/Time: Monday, December 12, 2016 05:06 - CONCLUSION: 1. Increase size of right lower lung nodule, now measuring 9 mm. 2. Nonobstructing 2 mm calcified stone in the proximal right ureter is unchanged in position when compared to prior CT scan. No evidence of hydronephrosis. 3. Multiple other findings are also stable, including fat containing umbilical hernia, scattered sigmoid diverticula, and small hiatus hernia. Joe Reyes MD Chest X-Ray 12/12/16 0405 Signed Impressions: Service Date/Time: Wednesday, December 12, 2016 04:07 - CONCLUSION: Lungs are clear. Joe Reyes MD Objective Remarks GENERAL: NAD and sitting in the chair SKIN: Warm and dry. HEAD: Normocephalic. EYES: No scleral icterus. No injection or drainage. NECK: Supple, trachea midline. No JVD or lymphadenopathy. CARDIOVASCULAR: Regular rate and rhythm without murmurs, gallops, or rubs. RESPIRATORY: Breath sounds equal bilaterally. No accessory muscle use. GASTROINTESTINAL: Abdomen soft, non-tender, nondistended. MUSCULOSKELETAL: No cyanosis, or edema. BACK: Nontender without obvious deformity. No CVA tenderness. Procedures EGD 12/14/16 A/P Problem List: (1) Sepsis ICD Code: A41.9 Status: Acute (2) GI bleed ICD Code: K92.2 Status: Acute (3) Lung nodule ICD Code: R91.1 Status: Acute (4) DM2 (diabetes mellitus, type 2) ICD Code: E11.9 Status: Chronic (5) HTN (hypertension) ICD Code: I10 Status: Chronic (6) Diabetes mellitus ICD Code: E11.9 Status: Chronic Assessment and Plan 81-year-old female with 1-Severe Sepsis: Now resolved. Source likely intra-abdominal. Status post Levaquin 1 in ED, currently on Cipro and Flagyl IV and culture NTD therefore discontinued antibiotics. 2-Upper GI bleed: Gastroenterology has been consulted and s/p EGD 12/14/16 finding of Hooks's esophagus pathology report pending.. Resumed Coumadin on discharge and continue Protonix . monitor H&H 3-Acute on chronic anemia: Likely GI bleed, H&H's 9.6/31.3 currently stable. Continue to monitor H&H and transfuse for hemoglobin less than 8 or if patient becomes symptomatic 4-Intractable nausea and vomiting: Now resolved ;CT abdomen with finding of fat containing umbilical hernia. Patient is known to have a history of umbilical/ incisional hernia however at this time it does not appear incarcerated, and in the presence of sepsis patient may not be a surgical candidate. Continue conservative management and only consider surgical evaluation if worsening condition. Treat with Analgesics, antiemetics 5-Atrial fibrillation: Currently rate controlled, resume Coumadin; continue beta brayan 6-Diabetes type 2: Resume Lantus on discharge, continue insulin sliding scale 7-Hypertension, history of CHF, CAD: Continue outpatient medications 8-Hypothyroidism: Continue Synthroid 9-Lung nodule: CT Abdomen/pelvis with finding of Increase size of right lower lung nodule, now measuring 9 mm. outpatient follow-up with pulmonary medicine. May need to repeat CT chest in 3 months. DuoNeb when necessary 10-DVT prophylaxis: Bilateral SCDs Problem Qualifiers (1) GI bleed: Qualified Code: K29.71 - Gastrointestinal hemorrhage associated with gastritis , unspecified gastritis type Brad Rizvi MD Dec 15, 2016 13:27
[2016-12-15] MEDS ORDERED: PROT40TA PO (13:28)
--- NOTE | 2016-12-15 13:32 | HHI.DS ---
Discharge Summary Admission Date Dec 12, 2016 at 06:35 Discharge Date: Dec 15, 2016 Admitting Diagnosis gi bleed/gastritis; h/o afib w/ coumadin (1) Sepsis ICD Code: A41.9 (2) GI bleed ICD Code: K92.2 (3) Lung nodule ICD Code: R91.1 (4) DM2 (diabetes mellitus, type 2) ICD Code: E11.9 (5) HTN (hypertension) ICD Code: I10 (6) Diabetes mellitus ICD Code: E11.9 Procedures EGD 12/14/16 Brief History - From Admission 81-year-old female with a PMH of HTN, DM, Hypothyroidism and h/o CVA who was brought to the ER by EMS secondary to complaints of abdominal pain, nausea, vomiting and diarrhea x2 days along with black tarry stool 1 day . Abdominal pain rated tender and over [address] abdomen/pelvis with hernia and worsening pulmonary nodule. H&H admission 9.6/31.3 and WBC of 13.6. Patient denies any hemoptysis, hematuria. She has no chest pain however report some shortness of breath. CBC/BMP: 12/15/16 0447 12/15/16 0447 Significant Findings Laboratory Tests Test 12/13/16 12/15/16 04:14 04:47 Red Blood Count 3.32 MIL/MM3 3.48 MIL/MM3 (4.00-5.30) (4.00-5.30) Hemoglobin 8.3 GM/DL 8.5 GM/DL (11.6-15.3) (11.6-15.3) Hematocrit 25.8 % 27.0 % (35.0-46.0) (35.0-46.0) Mean Corpuscular Volume 77.6 FL 77.7 FL (80.0-100.0) (80.0-100.0) Mean Corpuscular Hemoglobin 25.0 PG 24.5 PG (27.0-34.0) (27.0-34.0) Red Cell Distribution Width 18.0 % 18.3 % (11.6-17.2) (11.6-17.2) Monocytes (%) (Auto) 10.1 % 8.8 % (0.0-8.0) (0.0-8.0) Prothrombin Time 20.4 SEC (9.8-11.6) Chloride Level 108 MEQ/L (98-107) Estimat Glomerular Filtration 74 ML/MIN (>89) 68 ML/MIN (>89) Rate Random Glucose 124 MG/DL 177 MG/DL (74-106) (74-106) Calcium Level 7.8 MG/DL 8.0 MG/DL (8.5-10.1) (8.5-10.1) Albumin 2.3 GM/DL (3.4-5.0) Mean Corpuscular Hemoglobin 31.5 % Concent (32.0-36.0) Neutrophils (%) (Auto) 70.3 % (16.0-70.0) Imaging Last Impressions Abdomen/Pelvis CT 12/12/16 5370 Signed Impressions: Service Date/Time: Monday, December 12, 2016 05:06 - CONCLUSION: 1. Increase size of right lower lung nodule, now measuring 9 mm. 2. Nonobstructing 2 mm calcified stone in the proximal right ureter is unchanged in position when compared to prior CT scan. No evidence of hydronephrosis. 3. Multiple other findings are also stable, including fat containing umbilical hernia, scattered sigmoid diverticula, and small hiatus hernia. Joe Reyes MD Chest X-Ray 12/12/16 0405 Signed Impressions: Service Date/Time: Monday, December 12, 2016 04:07 - CONCLUSION: Lungs are clear. Joe Reyes MD PE at Discharge GENERAL: NAD and sitting in the chair SKIN: Warm and dry. HEAD: Normocephalic. EYES: No scleral icterus. No injection or drainage. NECK: Supple, trachea midline. No JVD or lymphadenopathy. CARDIOVASCULAR: Regular rate and rhythm without murmurs, gallops, or rubs. RESPIRATORY: Breath sounds equal bilaterally. No accessory muscle use. GASTROINTESTINAL: Abdomen soft, non-tender, nondistended. MUSCULOSKELETAL: No cyanosis, or edema. BACK: Nontender without obvious deformity. No CVA tenderness. Hospital Course Patient was admitted initially treated for sepsis for which she was started on an continue on antibiotics including Cipro and Flagyl likely secondary to intra- abdominal processes. Culture were monitored and as sepsis resolved, antibiotics were discontinued prior to discharge. On admission, she was found to have upper GI bleed for which gastroenterology was consulted, patient placed on Protonix drip and she underwent colonoscopy on 12/14/16. Oral hypoglycemic agent was held and patient was started on sliding scale insulin with monitoring of blood glucose. She was continued on her treatment for atrial fibrillation except Coumadin and aspirin which were held. Her symptoms of nausea and vomiting improved on her diet was advanced accordingly. PT was consulted. Patient conditions improve prior to discharge and her vitals remained stable. Pt Condition on Discharge: Stable Discharge Disposition: Disch w/ Home Health Serv Discharge Time: > 30 minutes Discharge Instructions DIET: Follow Instructions for: Diabetic Diet Activities you can perform: Regular-No Restrictions Follow up Referrals: Gastroenterology PCP Follow-up - 1 Week New Orders: PT/INR New Medications: Pantoprazole (Protonix) 40 Mg Tab 40 MG PO DAILY Reflux #30 Ref 0 TAB Temazepam (Restoril) 15 Mg Cap 15 MG PO HS PRN INSOMNIA/MAY REPEAT X1 DOSE #10 CAP Continued Medications: Atorvastatin (Lipitor) 20 Mg Tab 20 MG PO HS Cholesterol Management #30 Ref 0 TAB Furosemide (Lasix) 20 Mg Tab 20 MG PO DAILY #30 Ref 0 TAB Gabapentin (Gabapentin) 300 Mg Cap 300 MG PO BID Pain #60 Ref 0 CAP Hydralazine (Hydralazine) 50 Mg Tab 50 MG PO TID Take with a meal Blood Pressure Management Ref 0 TAB Insulin Glargine Inj (Lantus Solostar Pen Inj) 300 Unit/3 Ml Pen 90 UNITS SQ HS Blood Sugar Management Ref 0 PEN Levothyroxine (Levothyroxine) 88 Mcg Tab 88 MCG PO DAILY Thyroid #30 Ref 0 TAB Lisinopril (Lisinopril) 20 Mg Tab 20 MG PO BID #30 Ref 0 TAB Metformin (Metformin) 1,000 Mg Tab 1000 MG PO BID With meals Blood Sugar Management #60 Ref 0 TAB Metoprolol Tartrate (Metoprolol Tartrate) 25 Mg Tab 12.5 MG PO Q12HR Blood Pressure Management #60 TAB Nifedipine ER 24 HR (Nifedipine ER 24 HR) 30 Mg Tab 30 MG PO DAILY #30 Ref 0 TAB Triazolam (Triazolam) 0.25 Mg Tab 0.25 MG PO HS Insomnia #30 Ref 0 TAB Warfarin (Warfarin) 5 Mg Tab 5 MG PO DAILY Blood Clot Prevention #30 Ref 0 TAB Discontinued Medications: Aspirin DR (Aspirin Adult Low Strength) 81 Mg Tabdr 81 MG PO DAILY TAB Hydrocodone-Acetaminophen (Hydrocodone-Acetaminophen) 5-325 mg Tab 1 TAB PO Q4H PRN PAIN SCALE 1 TO 10 #20 TAB Brad Rizvi MD Dec 15, 2016 13:32
== END 2016-12-15 15:49 | disposition home health service (06) | DRG 377 ==
LOC: NEPC 03:39 → NEDA 06:35 → NEDH 10:56 → N07B 13:41
PROVIDERS: ADMIT Hospitalist; ATTEND Hospitalist
PROC: 0DB68ZX Excision of Stomach, Via Natural or Artificial Opening Endoscopic, Diagnostic (ICD-10-PCS; 2016-12-14)
PROC: 0DB58ZX Excision of Esophagus, Via Natural or Artificial Opening Endoscopic, Diagnostic (ICD-10-PCS; principal; 2016-12-14 15:43)
DX: K29.71 Gastritis, unspecified, with bleeding (principal); A41.9 Sepsis, unspecified organism; R65.20 Severe sepsis without septic shock; I48.91 Unspecified atrial fibrillation; I50.9 Heart failure, unspecified; R63.0 Anorexia; N20.1 Calculus of ureter; I10 Essential (primary) hypertension; G43.909 Migraine, unspecified, not intractable, without status migrainosus; E11.9 Type 2 diabetes mellitus without complications; E03.9 Hypothyroidism, unspecified; D50.0 Iron deficiency anemia secondary to blood loss (chronic); H91.90 Unspecified hearing loss, unspecified ear; K44.9 Diaphragmatic hernia without obstruction or gangrene; M19.90 Unspecified osteoarthritis, unspecified site; E66.9 Obesity, unspecified; K42.9 Umbilical hernia without obstruction or gangrene; I25.10 Atherosclerotic heart disease of native coronary artery without angina pectoris; K57.30 Diverticulosis of large intestine without perforation or abscess without bleeding; R91.1 Solitary pulmonary nodule; Z79.4 Long term (current) use of insulin; Z96.653 Presence of artificial knee joint, bilateral; Z87.11 Personal history of peptic ulcer disease; Z79.01 Long term (current) use of anticoagulants; Z86.73 Personal history of transient ischemic attack (TIA), and cerebral infarction without residual deficits; Z87.891 Personal history of nicotine dependence
CPT/HCPCS: 51702; 71010; 74176; 80048; 80053; 81001; 82948; 83605; 84484; 85025; 85610; 86850; 86900; 86901; 87040; 88305; 88312; 93005; 96361; 96365; 96367; 96375; C9113; J0744; J1170; J1815; J1956; J2405; J2765; J7030

== ENCOUNTER 2017-02-09 19:07 | Inpatient (IN) | payer BC, MEDICARE ==
[~2017-02-09] VITALS: Ht 157.5 cm; Wt 113.6 kg
[~2017-02-09 19:07] MED LIST changes: -ASPI1TAB91 PO; -CIPR250T2 PO; -HYDR-3516 PO; -NITR1CAP36 PO; +PROT40TA PO; +REST15CA PO
[2017-02-09 19:13] VITALS: PULSE 124; RESP 16; TEMP 97.9; O2SAT 96
[2017-02-09] MEDS ORDERED: SODIUM CHLOR 0.9% 1000 ML INJ 1,000 ML IV SCH (19:17)
--- NOTE | 2017-02-09 19:18 | PD ---
HPI Chief Complaint: GI Complaint Time Seen by Provider: 19:17 Travel History International Travel<30 days: No Contact w/Intl Traveler<30days: No Traveled to known affect area: No History of Present Illness HPI 81-year-old female arrives to the ER by EMS. She has had nausea vomiting and diarrhea for 2 days. Any oral intake causes vomiting. She also has had chest pain for about 1-2 hours. The onset occurred at rest. Location is epigastric. Patient tried lauren gracia for the nausea which didn't help and in fact cause vomiting. She's had no fever or cough. There is no shortness of breath. The patient lives alone. She is not sure who her primary care provider is. Her past medical history includes atrial fibrillation on Coumadin hypercholesterolemia, hypertension, diabetes, CVA. PFSH Past Medical History Hx Anticoagulant Therapy: Yes (COUMADIN) Arthritis: Yes Asthma: No Autoimmune Disease: No Blood Disorders: No Anxiety: No Depression: No Heart Rhythm Problems: No Cancer: No Cardiovascular Problems: Yes (A FIB) High Cholesterol: No Chemotherapy: No Chest Pain: Yes Congestive Heart Failure: No COPD: No Cerebrovascular Accident: Yes Diabetes: Yes Diminished Hearing: Yes Endocrine: Yes GERD: No Genitourinary: No Headaches: Yes Hiatal Hernia: No Hypertension: Yes Immune Disorder: No Kidney Stones: No Musculoskeletal: Yes Neurologic: Yes (cva x3-4 latest 01/07) Psychiatric: No Reproductive: No Respiratory: No Migraines: Yes Radiation Therapy: No Renal Failure: No Seizures: No Sickle Cell Disease: No Sleep Apnea: No Thyroid Disease: No Ulcer: No Menopausal: Yes : 5 Para: 5 Past Surgical History Abdominal Surgery: Yes (GALLBLADDER OUT 1973) AICD: No Arteriovenous Shunt: No Cardiac Surgery: No Cholecystectomy: Yes Ear Surgery: No Endocrine Surgery: No Eye Surgery: Yes (cataracts x 2) Genitourinary Surgery: No Gynecologic Surgery: Yes Hysterectomy: Yes Insulin Pump: No Joint Replacement: Yes (KNEE REPLACEMENTS ) Oral Surgery: No Pacemaker: No Thoracic Surgery: No Other Surgery: Yes Social History Alcohol Use: No Tobacco Use: No Substance Use: No Allergies-Medications (Allergen,Severity, Reaction): Coded Allergies: Penicillin (Verified Allergy, Severe, 02/09/17) *MDRO Multi-Drug Resistant Organism (Verified Adverse Reaction, Unknown, ) 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/02/2016 Reported Meds & Prescriptions Reported Meds & Active Scripts Active Protonix (Pantoprazole Sodium) 40 Mg Tab 40 Mg PO DAILY Restoril (Temazepam) 15 Mg Cap 15 Mg PO HS PRN Metoprolol Tartrate 25 Mg Tab 12.5 Mg PO Q12HR Gabapentin 300 Mg Cap 300 Mg PO BID Reported Triazolam 0.25 Mg Tab 0.25 Mg PO HS Lisinopril 20 Mg Tab 20 Mg PO BID Lantus Solostar Pen Inj (Insulin Glargine) 300 Unit/3 Ml Pen 90 Units SQ HS Nifedipine ER 24 HR (Nifedipine) 30 Mg Tab 30 Mg PO DAILY Warfarin 5 Mg Tab 5 Mg PO DAILY Levothyroxine (Levothyroxine Sodium) 88 Mcg Tab 88 Mcg PO DAILY Lipitor (Atorvastatin Calcium) 20 Mg Tab 20 Mg PO HS Metformin (Metformin HCl) 1,000 Mg Tab 1,000 Mg PO BID With meals Lasix (Furosemide) 20 Mg Tab 20 Mg PO DAILY Hydralazine (Hydralazine HCl) 50 Mg Tab 50 Mg PO TID Take with a meal Review of Systems Except as stated in HPI: all other systems reviewed are Neg General / Constitutional: No: Fever, Chills Gastrointestinal: Positive: Nausea, Vomiting, Diarrhea, Abdominal Pain Physical Exam Narrative GENERAL: 81-year-old female mild distress speaking full sentences SKIN: Warm and dry. HEAD: Atraumatic. Normocephalic. EYES: Pupils equal and round. No scleral icterus. No injection or drainage. ENT: No nasal bleeding or discharge. Mucous membranes pink and moist. NECK: Trachea midline. No JVD. CARDIOVASCULAR: Regular rate and rhythm. No murmur appreciated. RESPIRATORY: No accessory muscle use. Clear to auscultation. Breath sounds equal bilaterally. GASTROINTESTINAL: Soft. TTP epigastric. No rigidity or guarding. MUSCULOSKELETAL: No obvious deformities. No clubbing. No cyanosis. No edema. NEUROLOGICAL: Awake and alert. No obvious cranial nerve deficits. Motor grossly within normal limits. Normal speech. PSYCHIATRIC: Appropriate mood and affect; insight and judgment normal. Data Data Last Documented VS Vital Signs Date Time Temp Pulse Resp B/P Pulse Ox O2 Delivery O2 Flow Rate FiO2 02/09/17 19:13 97.9 124 16 96 Tachycardia observed Orders Complete Blood Count With Diff (02/09/17:17) Comprehensive Metabolic Panel (02/09/17:) Lipase (02/09/17:) Lactic Acid (02/09/17:) Prothrombin Time / Inr (Pt) (02/09/17:17) Act Partial Throm Time (Ptt) (02/09/17:17) Urinalysis - C+S If Indicated (02/09/17:) Iv Access Insert/Monitor (02/09/17:17) Ecg Monitoring (02/09/17:17) Oximetry (02/09/17:17) Ondansetron Inj (Zofran Inj) (02/09/17 19:30) Sodium Chlor 0.9% 1000 Ml Inj (Ns 1000 M (02/09/17:17) Sodium Chloride 0.9% Flush (Ns Flush) (02/09/17 19:30) Electrocardiogram (02/09/17:) Chest, Single Ap (02/09/17:17) Al-Mag Hy-Si 40-40-4 Mg/Ml Liq (Mag-Al P (02/09/17 19:30) Lidocaine 2% Viscous (Xylocaine 2% Visco (02/09/17 19:30) ^ Straight Catheter (02/09/17 21:01) Urine Culture (02/09/17 22:00) Ceftriaxone Inj (Rocephin Inj) (02/09/17 23:45) Ondansetron Inj (Zofran Inj) (02/09/17 23:45) Diltiazem Inj (Cardizem Inj) (02/09/17 23:45) Insulin Human Regular Inj (Novolin R Inj (02/10/17 00:00) B-Type Natriuretic Peptide (02/10/17 00:07) Place In Observation (02/10/17 ) Vital Signs (Adult) Q4H (02/10/17 00:08) Activity Oob With Assistance (02/10/17 00:08) Break And Load Operator / Telemetry .CONTINUOUS (02/10/17 00:08) Intake + Output PAMELA.QSHIFT (02/10/17 00:08) Diet Heart Healthy (02/10/17 Breakfast) Sodium Chloride 0.9% Flush (Ns Flush) (02/10/17 00:15) Sodium Chloride 0.9% Flush (Ns Flush) (02/10/17 09:00) Ondansetron Inj (Zofran Inj) (02/10/17 00:15) Basic Metabolic Panel (Bmp) (02/11/17 06:00) Complete Blood Count With Diff (02/11/17 06:00) Pt Request For Service (02/10/17 00:08) Case Management Consult (02/10/17 00:08) Enoxaparin Inj (Lovenox Inj) (02/10/17 09:00) Naloxone Inj (Narcan Inj) (02/10/17 00:15) Enteric Path (Stool) (02/10/17 00:11) C Diff Toxin Pcr (02/10/17 00:13) Admit Order (Ed Use Only) (02/10/17 00:45) Labs Laboratory Tests Test 02/09/17 02/09/17 19:48 22:00 White Blood Count 11.2 TH/MM3 Red Blood Count 4.09 MIL/MM3 Hemoglobin 9.5 GM/DL Hematocrit 30.6 % Mean Corpuscular Volume 74.7 FL Mean Corpuscular Hemoglobin 23.3 PG Mean Corpuscular Hemoglobin 31.2 % Concent Red Cell Distribution Width 19.9 % Platelet Count 338 TH/MM3 Mean Platelet Volume 7.8 FL Neutrophils (%) (Auto) 90.6 % Lymphocytes (%) (Auto) 5.8 % Monocytes (%) (Auto) 3.3 % Eosinophils (%) (Auto) 0.0 % Basophils (%) (Auto) 0.3 % Neutrophils # (Auto) 10.1 TH/MM3 Lymphocytes # (Auto) 0.7 TH/MM3 Monocytes # (Auto) 0.4 TH/MM3 Eosinophils # (Auto) 0.0 TH/MM3 Basophils # (Auto) 0.0 TH/MM3 CBC Comment AUTO DIFF Differential Comment AUTO DIFF CONFIRMED Platelet Estimate NORMAL Platelet Morphology Comment NORMAL Ovalocytes 1+ Prothrombin Time 26.3 SEC Prothromb Time International 2.3 RATIO Ratio Activated Partial 32.9 SEC Thromboplast Time Sodium Level 133 MEQ/L Potassium Level 5.3 MEQ/L Chloride Level 98 MEQ/L Carbon Dioxide Level 24.0 MEQ/L Anion Gap 11 MEQ/L Blood Urea Nitrogen 18 MG/DL Creatinine 1.06 MG/DL Estimat Glomerular Filtration 50 ML/MIN Rate Random Glucose 341 MG/DL Lactic Acid Level 2.3 mmol/L Calcium Level 9.2 MG/DL Total Bilirubin 0.5 MG/DL Aspartate Amino Transf 26 U/L (AST/SGOT) Alanine Aminotransferase 34 U/L (ALT/SGPT) Alkaline Phosphatase 124 U/L Total Protein 8.3 GM/DL Albumin 3.2 GM/DL Lipase 66 U/L B-Type Natriuretic Peptide 76 PG/ML Urine Color LIGHT-YELLOW Urine Turbidity CLEAR Urine pH 7.0 Urine Specific [place] 1.013 Urine Protein NEG mg/dL Urine Glucose (UA) 1000 mg/dL Urine Ketones 40 mg/dL Urine Occult Blood NEG Urine Nitrite NEG Urine Bilirubin NEG Urine Urobilinogen LESS THAN 2.0 MG/DL Urine Leukocyte Esterase LARGE Urine RBC 2 /hpf Urine WBC 77 /hpf Urine Squamous Epithelial 1 /hpf Cells Urine Transitional Epithelial 1 /hpf Cells Urine Renal Epithelial Cells <1 /hpf Microscopic Urinalysis Comment CULTURE INDICATED MDM Medical Decision Making Medical Screen Exam Complete: Yes Emergency Medical Condition: Yes Medical Record Reviewed: Yes Differential Diagnosis Constipation, Gastritis, Acute Cholecystitis, Biliary Colic, Pancreatitis, SNEED , Hepatitis, Bowel Obstruction, Cystitis, Mesenteric Ischemia, AAA, Appendicitis , Renal Stone/Hydronephrosis, GERD, perforated viscous Narrative Course CBC & BMP Diagram 02/09/17 19:48 EKG: Afib, rate 100, normal axis Lactic acid 2.3 LFTs are essentially normal Lipase 60 Urinalysis shows UTI INR 2.3 Last 24 hours Impressions Chest X-Ray 02/09/171916 Signed Impressions: Service Date/Time: Thursday, February 09, 2017 19:27 - CONCLUSION: No acute cardiopulmonary disease. KDc Pearson MD Patient has a UTI. She has urinated several times since arrival here. Reassessment at 11:30PM reveals persistent nausea as well as Afiv w RVR tachycardia at a rate of about 105 to 130 or so. Diltiazem ordered. Rocephin ordered. Zofran ordered. 10 units insulin ordered for hyperglycemia/hyperK. The patient will be admitted for antiemetic, antibiotics and rate control. d/w Dr Dorado. Sepsis Criteria SIRS Criteria (2 or more): Heart rate over 90 Sepsis Criteria (SIRS+source): Infect source susp/known Severe Sepsis (+one): Lactate >2 Diagnosis Primary Impression: UTI (urinary tract infection) Qualified Code: N30.00 - Acute cystitis without hematuria Additional Impressions: Atrial fibrillation with RVR Hyperkalemia Admitting Information Admitting Physician Requests: Observation Deeajy Aguirre MD Feb 09, 2017 19:18
[2017-02-09] MEDS ORDERED: LIDOCAINE VISCOUS 2% SOLN 15 ML UDC PO ONE (19:30)
[2017-02-09] MEDS ORDERED: ALUMINUM/MAGNESIUM/SIMETH 30 ML CUP PO ONE (19:30)
[2017-02-09] MEDS ORDERED: ONDANSETRON HCL 4 MG/2 ML VIAL IVP ONE (19:30)
[2017-02-09] MEDS: SODIUM CHLORIDE 0.9% FLUSH 10 ML FLUSH IV FLUSH PRN ×2 (19:51→23:57)
--- NOTE | 2017-02-09 19:59 | RADRPT ---
EXAM DATE/TIME: 02/09/2017 19:27 [facility] COMPARISON: CHEST SINGLE AP, December 12, 2016, 4:07. INDICATIONS : Vomiting. MEDICAL HISTORY : Hypertension. Cardiovascular disease. Diabetes mellitus type II. SURGICAL HISTORY : None. ENCOUNTER: Initial ACUITY: 1 day PAIN SCORE: 0/10 LOCATION: Bilateral chest FINDINGS: The lungs are clear without infiltrate, nodule, or mass. There is no appreciable pleural effusion fo r technique. Heart and mediastinum are unremarkable. There are atherosclerotic calcifications of the aorta due to chronic atherosclerotic disease. CONCLUSION: No acute cardiopulmonary disease. Rae Pearson MD on February 09, 2017 at 19:57 Board Certified Radiologist. This report was verified electronically.
[2017-02-09 20:07] LABS: AUTOMATED NEUTROPHIL # 10.1 TH/MM3 (1.8-7.7); BASOPHIL % 0.3 % (0.0-2.0); HEMATOCRIT 30.6 % (35.0-46.0); LYMPH % 5.8 % (9.0-44.0); LYMPHOCYTE # 0.7 TH/MM3 (1.0-4.8); MEAN CELL VOLUME 74.7 FL (80.0-100.0); MEAN CORPUSCULAR HEMOGLOBIN 23.3 PG (27.0-34.0); MEAN CORPUSCULAR HGB CONC 31.2 % (32.0-36.0); MONO % 3.3 % (0.0-8.0); NEUT % 90.6 % (16.0-70.0); PLATELET COUNT 338 TH/MM3 (150-450); RED BLOOD COUNT 4.09 MIL/MM3 (4.00-5.30); RED CELL DISTRIBUTION WIDTH 19.9 % (11.6-17.2); WHITE BLOOD COUNT 11.2 TH/MM3 (4.0-11.0)
[2017-02-09 20:18] LABS: APTT (PATIENT) 32.9 SEC (24.3-30.1); INTERNATIONAL NORMALIZED RATIO 2.3 RATIO; PROTHROMBIN TIME - PATIENT 26.3 SEC (9.8-11.6)
[2017-02-09 20:20] LABS: HEMO FLAGS AUTO DIFF
[2017-02-09 20:31] LABS: ANION GAP 11 MEQ/L (5-15); AST (GOT) 26 U/L (15-37); BLOOD UREA NITROGEN 18 MG/DL (7-18); CHLORIDE 98 MEQ/L (98-107); GLOMERULAR FILTRATION RATE 50 ML/MIN (>89); POTASSIUM 5.3 MEQ/L (3.5-5.1); SODIUM (NA) 133 MEQ/L (136-145)
[2017-02-09 20:35] LABS: ALKALINE PHOSPHATASE 124 U/L (45-117); ALT (GPT) 34 U/L (10-53); TOTAL BILIRUBIN ADULT 0.5 MG/DL (0.2-1.0)
[2017-02-09 21:24] LABS: OVALOCYTES 1+ (NORMAL)
[2017-02-09 21:25] LABS: PLATELET ESTIMATE SMEAR NORMAL (NORMAL); PLATELET MORPHOLOGY NORMAL (NORMAL); SCAN/DIFF AUTO DIFF CONFIRMED
[2017-02-09 22:47] LABS: BLOOD, URINE NEG (NEG); COMMENT (UR) CULTURE INDICATED; CULTURE IF INDICATED CULTURE INDICATED; GLUCOSE,URINE 1000 mg/dL (NEG); KETONE, URINE 40 mg/dL (NEG); NITRITE,URINE NEG (NEG); RENAL EPITHELIAL CELLS <1 /hpf; SQUAMOUS EPITHELIAL CELL URINE 1 /hpf (0-5); TRANSITIONAL EPI CELLS, URINE 1 /hpf; URINE COLOR LIGHT-YELLOW (YELLW/STRAW)
[2017-02-09] MEDS ORDERED: cefTRIAXone INJ 1,000 MG in SODIUM CHLORIDE 0.9% INJ 100 ML IV ONE (23:45)
[2017-02-09] MEDS ORDERED: DILTIAZEM HCL 25 MG/5 ML VIAL IV ONE (23:45)
[2017-02-09] MEDS ORDERED: ONDANSETRON HCL 4 MG/2 ML VIAL IV PUSH ONE (23:45)
[2017-02-10] VITALS (7 sets, daily range): BP systolic 123–188; BP diastolic 58–84; PULSE 75–102; RESP 17–18; TEMP 97.1–98.1; O2SAT 93–99
[2017-02-10] MEDS ORDERED: INSULIN HUMAN REGULAR 1,000 UNITS/10 ML VIAL OTHER ONE
[2017-02-10] MEDS ORDERED: SODIUM CHLORIDE 0.9% FLUSH 10 ML FLUSH IV FLUSH PRN (00:15)
[2017-02-10] MEDS ORDERED: NALOXONE HCL 0.4 MG/ML AMP IV PRN (00:15)
[2017-02-10] MEDS ORDERED: ONDANSETRON HCL 4 MG/2 ML VIAL IVP PRN (00:15)
--- NOTE | 2017-02-10 03:06 | HHI.HP ---
HPI Service [facility] Primary Care Physician Unknown Admission Diagnosis UTI, N/V/D, AFib RVR Diagnoses: Chief Complaint: Nausea, vomiting, diarrhea Travel History International Travel<30 Days: No Contact w/Intl Traveler <30 Da: No Traveled to Known Affected Are: No History of Present Illness History from patient, your physician communication, and review of medical records. Patient reported that for the past 2 days, she has been having nausea, vomiting , diarrhea. She also reports of lower abdominal pain. States that her vomitus is coffee- ground in color. However denies any black color stool or red color stool. Denies any urinary burning or pain on urination. Patient reports of history of GI ulcers. She also did have recent hospitalization for which she was admitted for GI bleed. EGD results at that timereviewed. Parents esophagus was essentially and. Patient is also on Coumadin at home. Her INR is 2.3 Apart from the above, patient denies any chest pain/shortness of breath/ palpitations/focal weakness. She denies any dizziness/passing out episodes. Review of Systems Except as stated in HPI: all other systems reviewed are Neg Past Family Social History Past Medical History htn dm lipid 3 tia on coumadin afib? 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/02/2016 Family History none that she knows of Social History live by self, cooks herself. no longer driving Uses a walker. Lives with niece. Quit smoking many years ago. Denies any alcohol abuse or drug abuse. Physical Exam Vital Signs Vital Signs Date Time Temp Pulse Resp B/P Pulse Ox O2 Delivery O2 Flow Rate FiO2 02/10/17 01:59 102 18 170/80 99 Nasal Cannula 2 02/09/17 19:13 97.9 124 16 96 Physical Exam GENERAL: This is a well-nourished, well-developed patient, in no apparent distress. Obese. Looks chronically ill. Pallor present. SKIN: No rashes, ecchymoses or lesions. Cool and dry. HEAD: Atraumatic. Normocephalic. No temporal or scalp tenderness. EYES: No scleral icterus. No injection or drainage. ENT: Nose without bleeding, purulent drainage or septal hematoma. Airway patent. NECK: Trachea midline. No JVD CARDIOVASCULAR: Regular rate and rhythm without murmurs, gallops, or rubs. RESPIRATORY: Clear to auscultation. Breath sounds equal bilaterally. No wheezes , rales, or rhonchi. GASTROINTESTINAL: Abdomen soft, non-tender, nondistended. No guarding. MUSCULOSKELETAL: Extremities without clubbing, cyanosis, or edema. . No calf tenderness. NEUROLOGICAL: Awake and alert. Motor and sensory grossly within normal limits. Normal speech. Laboratory Laboratory Tests Test 02/09/17 02/09/17 19:48 22:00 White Blood Count 11.2 Red Blood Count 4.09 Hemoglobin 9.5 Hematocrit 30.6 Mean Corpuscular Volume 74.7 Mean Corpuscular Hemoglobin 23.3 Mean Corpuscular Hemoglobin 31.2 Concent Red Cell Distribution Width 19.9 Platelet Count 338 Mean Platelet Volume 7.8 Neutrophils (%) (Auto) 90.6 Lymphocytes (%) (Auto) 5.8 Monocytes (%) (Auto) 3.3 Eosinophils (%) (Auto) 0.0 Basophils (%) (Auto) 0.3 Neutrophils # (Auto) 10.1 Lymphocytes # (Auto) 0.7 Monocytes # (Auto) 0.4 Eosinophils # (Auto) 0.0 Basophils # (Auto) 0.0 CBC Comment AUTO DIFF Differential Comment AUTO DIFF CONFIRMED Platelet Estimate NORMAL Platelet Morphology Comment NORMAL Ovalocytes 1+ Prothrombin Time 26.3 Prothromb Time International 2.3 Ratio Activated Partial 32.9 Thromboplast Time Sodium Level 133 Potassium Level 5.3 Chloride Level 98 Carbon Dioxide Level 24.0 Anion Gap 11 Blood Urea Nitrogen 18 Creatinine 1.06 Estimat Glomerular Filtration 50 Rate Random Glucose 341 Lactic Acid Level 2.3 Calcium Level 9.2 Total Bilirubin 0.5 Aspartate Amino Transf 26 (AST/SGOT) Alanine Aminotransferase 34 (ALT/SGPT) Alkaline Phosphatase 124 Total Protein 8.3 Albumin 3.2 Lipase 66 B-Type Natriuretic Peptide 76 Urine Color LIGHT-YELLOW Urine Turbidity CLEAR Urine pH 7.0 Urine Specific [place] 1.013 Urine Protein NEG Urine Glucose (UA) 1000 Urine Ketones 40 Urine Occult Blood NEG Urine Nitrite NEG Urine Bilirubin NEG Urine Urobilinogen LESS THAN 2.0 Urine Leukocyte Esterase LARGE Urine RBC 2 Urine WBC 77 Urine Squamous Epithelial 1 Cells Urine Transitional Epithelial 1 Cells Urine Renal Epithelial Cells <1 Microscopic Urinalysis Comment CULTURE INDICATED Date/Time Procedure Status Source Growth 02/09/17 22:00 Urine Culture Received Urine Random Urine Pending Result Diagram: 02/09/17194702/09/171947 Imaging Vital Signs Date Time Temp Pulse Resp B/P Pulse Ox O2 Delivery O2 Flow Rate FiO2 02/10/17 04:01 97.8 96 18 123/84 97 02/10/17 01:59 102 18 170/80 99 Nasal Cannula 2 02/09/17 19:13 97.9 124 16 96 Assessment and Plan Problem List: (1) GI bleed ICD Code: K92.2 Status: Acute (2) Abdominal pain ICD Code: R10.9 Status: Acute (3) UTI (urinary tract infection) ICD Code: N39.0 Status: Acute Assessment and Plan Impression: Nausea/vomiting/diarrhearule out diverticulitis/colitis/perforated ulcer Coffee-ground emesis per patient's reportwould need to rule out GI bleed in a patient on Coumadin, with EGD studies revealing Hooks's esophagus Abnormal UAlikely UTI Lactic acid acidosis Hypertension next and diabetes next and hyperlipidemia History of TIAs 3 Chronic anticoagulation on Coumadin History of atrial fibrillation Previous history of tobacco abusequit 40 years ago Plan: Nothing by mouth. IV hydration. Pain control. Serial hemoglobin hematocrit. Would obtain CT abdomen and pelvis without IV contrast. Start patient on pantoprazole IV drip. GI consult. Hold Coumadin. Hold Lovenox. For now, I would start patient on ciprofloxacin 400 g IV every 12 hours, with Flagyl 500 mg IV every 6 hours. For both UTI and intra-abdominal source of infection. DVT prophylaxisSCDs GI prophylaxis on pantoprazole. Discussed Condition With patient, ER physician, patient's nurse Problem Qualifiers (1) UTI (urinary tract infection): Qualified Code: N30.00 - Acute cystitis without hematuria Genny Dorado MD Feb 10, 2017 03:06
[2017-02-10] MEDS ORDERED: DIATRIZOATE MEGLUM/DIATRIZOATE SOD 9 ML CUP PO ONE (03:15)
[2017-02-10] MEDS ORDERED: MORPHINE SULFATE 4 MG/ML INJ IV PUSH PRN (03:30)
[2017-02-10] MEDS ORDERED: GLUCAGON 1 MG/ML VIAL OTHER PRN (03:30)
[2017-02-10] MEDS ORDERED: DEXTROSE 50% IN WATER 50 ML VIAL(D50) IV PUSH PRN (03:30)
[2017-02-10] MEDS ORDERED: PANTOPRAZOLE INJ 80 MG in SODIUM CHLORIDE 0.9% INJ 35 ML IV ONE (04:15)
[2017-02-10] MEDS: metroNIDAZOLE 500 MG INJ 100 ML IV SCH ×3 (04:22→17:22)
[2017-02-10] MEDS: PANTOPRAZOLE INJ 80 MG in SODIUM CHLORIDE 0.9% INJ 100 ML IV SCH ×2 (05:28→17:18)
[2017-02-10 05:51] LABS: HEMATOCRIT 28.1 % (35.0-46.0)
[2017-02-10 06:02] LABS: REVIEW FLAG FINAL
--- NOTE | 2017-02-10 08:33 | RADRPT ---
EXAM DATE/TIME: 02/10/2017 07:47 [facility] COMPARISON: CT ABDOMEN & PELVIS W/O CONTRAST, December 12, 2016, 5:06. INDICATIONS: Abdominal pain. Nausea and vomiting. ORAL CONTRAST: Partial prescribed oral contrast ingested. RADIATION DOSE: 31.94 CTDIvol (mGy) MEDICAL HISTORY: Cerebrovascular disease. Cardiovascular disease Diabetes mellitus type 2.Hypertension SURGICAL HISTORY: Cholecystectomy. ENCOUNTER: Initial ACUITY: 2 days PAIN SCALE: 3/10 LOCATION: Abdomen TECHNIQUE: Volumetric scanning of the abdomen and pelvis was performed. Using automated exposure control and ad justment of the mA and/or kV according to patient size, radiation dose was kept as low as reasonably achievable to obtain optimal diagnostic quality images. FINDINGS: There has been interval increase in size of the right lower nodule which now measures 12 mm. PET/CT scan would be helpful for further characterization of this nodule. A small hiatal hernia is noted. Evaluation of the solid organs of the abdomen is limited by the lack of intravenous contrast. Uncomplicated sigmoid diverticulosis is noted. No acute diverticulitis is noted. There i s a midline ventral abdominal wall hernia which contains only fat. Patient is status post cholecystectomy. Dege nerative changes and scoliosis of the thoracolumbar spine are noted. No bowel obstruction is noted. There is air within the urinary bladder which may be related to previous instrumentation. CONCLUSION: 1. Non-calcified nodule within the right lower lobe has increased in size compared to previous exami nation and now measures 12 mm. PET/CT scan would be helpful for further characterization of this justin picious nodule. 2. Uncomplicated sigmoid diverticulosis. 3. Small hiatal hernia. 4. Stable midline ventral abdominal wall hernia containing only fat. 5. Degenerative changes and scoliosis of the thoracolumbar spine. Olman Noland MD on February 10, 2017 at 8:16 Board Certified Radiologist. This report was verified electronically.
[2017-02-10] MEDS ORDERED: ENOXAPARIN SODIUM 40 MG/0.4 ML SYRINGE SQ SCH (09:00)
[2017-02-10] MEDS: SODIUM CHLORIDE 0.9% FLUSH 10 ML FLUSH IV FLUSH SCH ×2 (09:00→21:00)
[2017-02-10] MEDS: CIPROFLOXACIN 400 MG PREMIX 200 ML IV SCH ×2 (09:21→21:54)
--- NOTE | 2017-02-10 09:46 | EKG ---
Date Performed: 02/09/2017 Time Performed: 20:28:12 PTAGE: 81 years EKG: Sinus rhythm WITH PREMATURE ATRIAL COMPLEXES LOW QRS VOLTAGE IN PRECORDIAL LEADS ABNORMAL RHYTHM ECG PREVIOUS TRACING : 12/12/2016 04.46 DOCTOR: Luis Alejandre Interpretating Date/Time 02/10/2017 09:45:54
[2017-02-10 13:25] LABS: HEMATOCRIT 26.2 % (35.0-46.0)
[2017-02-10 13:26] LABS: REVIEW FLAG FINAL
--- NOTE | 2017-02-10 14:14 | PD.CONS ---
HPI History of Present Illness This is a 81 year old female patient who came to the er for evaluation of nausea and vomiting, consisting of dark colored emesis. When this initially started 2 nights ago, she was vomiting undigested food and clear and later bilious material. She reports that she did not have any other symptoms at first , just the nausea and vomiting. She took an over the counter antiemetic, but this did not help. She denies any fevers, chills, abdominal pain. She does not typically have any issues with heartburn or reflux. Yesterday, she reports that her emesis became a dark color and she passed a liquid brown stool. She also reports that she had severe generalized weakness to the point that she was not able to get out of bed and she was not able to keep anything down so she called [facility] for help. She denies any sick contacts, suspicious foods. Prior to two nights ago, her appetite was good and she has not had any abnormal weight loss. She does not take any NSAIDs. She does take coumadin for a hx of CVA. She last took this 2 days ago. Of note, she does have a hx of DM and reports that this is not well controlled. 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/02/2016 Medications Allergies Coded Allergies Type Severity Reaction Last Updated Verified Penicillin Allergy Severe 02/09/17 Yes *MDRO Multi-Drug Resistant Organism Adverse Reaction Unknown 02/09/17 Yes Active Scripts Medications Dose Route/Sig Days Date Category Dose Instructions Protonix (Pantoprazole Sodium) 40 Mg Tab 40 Mg PO DAILY 12/15/16 Rx Restoril (Temazepam) 15 Mg Cap 15 Mg PO HS PRN 12/15/16 Rx Metoprolol Tartrate 25 Mg Tab 12.5 Mg PO Q12HR 10/31/16 Rx Gabapentin 300 Mg Cap 300 Mg PO BID 10/29/16 Rx Triazolam 0.25 Mg Tab 0.25 Mg PO HS 10/26/16 Reported Lisinopril 20 Mg Tab 20 Mg PO BID 10/26/16 Reported Lantus Solostar Pen Inj (Insulin Glargine) 300 Unit/3 Ml Pen 90 Units SQ HS 10/26/16 Reported Nifedipine ER 24 HR (Nifedipine) 30 Mg Tab 30 Mg PO DAILY 10/26/16 Reported Warfarin 5 Mg Tab 5 Mg PO DAILY 10/26/16 Reported Levothyroxine (Levothyroxine Sodium) 88 Mcg Tab 88 Mcg PO DAILY 10/26/16 Reported Lipitor (Atorvastatin Calcium) 20 Mg Tab 20 Mg PO HS 10/26/16 Reported Metformin (Metformin HCl) 1,000 Mg Tab 1,000 Mg PO BID 10/26/16 Reported With meals Lasix (Furosemide) 20 Mg Tab 20 Mg PO DAILY 10/26/16 Reported Hydralazine (Hydralazine HCl) 50 Mg Tab 50 Mg PO TID 10/26/16 Reported Take with a meal Family History No esophageal, gastric, or colorectal cancer. Father from [place] Social History Quit smoking 40 years ago. She did smoke for 10-15 years No etoh No illicit drug use (Katrina South) Review of Systems Constitutional: COMPLAINS OF: Fatigue, DENIES: Fever, Weight loss, Chills, Change in appetite Respiratory: COMPLAINS OF: Shortness of breath, DENIES: Cough Cardiovascular: COMPLAINS OF: Chest pain, Lower Extremity Edema (loose stool x 1) Gastrointestinal: COMPLAINS OF: Diarrhea, Hematemesis (Questionable , dark emesis), DENIES: Abdominal pain, Black stools, Bloody stools, Constipation, Swelling of Abdomen, Heartburn Musculoskeletal: COMPLAINS OF: Back pain Hematologic/lymphatic: COMPLAINS OF: Bruising Neurologic: COMPLAINS OF: Headache Psychiatric: DENIES: Confusion (Katrina South) GI Exam Vitals I&O Vital Signs Date Time Temp Pulse Resp B/P Pulse Ox O2 Delivery O2 Flow Rate FiO2 02/10/17 08:10 97.5 95 17 188/82 96 02/10/17 04:01 97.8 96 18 123/84 97 02/10/17 01:59 102 18 170/80 99 Nasal Cannula 2 02/09/17 19:13 97.9 124 16 96 Imaging Last Impressions Abdomen/Pelvis CT 02/10/17 0000 Signed Impressions: Service Date/Time: Friday, February 10, 2017 07:47 - CONCLUSION: 1. Non-calcified nodule within the right lower lobe has increased in size compared to previous examination and now measures 12 mm. PET/CT scan would be helpful for further characterization of this suspicious nodule. 2. Uncomplicated sigmoid diverticulosis. 3. Small hiatal hernia. 4. Stable midline ventral abdominal wall hernia containing only fat. 5. Degenerative changes and scoliosis of the thoracolumbar spine. Olman Noland MD Chest X-Ray 02/09/17 1917 Signed Impressions: Service Date/Time: Thursday, February 09, 2017 19:27 - CONCLUSION: No acute cardiopulmonary disease. Rae Pearson MD Laboratory Test 02/09/17 02/09/17 02/10/17 02/10/17 19:48 22:00 05:40 13:05 White Blood Count 11.2 TH/MM3 Red Blood Count 4.09 MIL/MM3 Hemoglobin 9.5 GM/DL 8.8 GM/DL 8.1 GM/DL Hematocrit 30.6 % 28.1 % 26.2 % Mean Corpuscular Volume 74.7 FL Mean Corpuscular Hemoglobin 23.3 PG Mean Corpuscular Hemoglobin 31.2 % Concent Red Cell Distribution Width 19.9 % Platelet Count 338 TH/MM3 Mean Platelet Volume 7.8 FL Neutrophils (%) (Auto) 90.6 % Lymphocytes (%) (Auto) 5.8 % Monocytes (%) (Auto) 3.3 % Eosinophils (%) (Auto) 0.0 % Basophils (%) (Auto) 0.3 % Neutrophils # (Auto) 10.1 TH/MM3 Lymphocytes # (Auto) 0.7 TH/MM3 Monocytes # (Auto) 0.4 TH/MM3 Eosinophils # (Auto) 0.0 TH/MM3 Basophils # (Auto) 0.0 TH/MM3 CBC Comment AUTO DIFF Differential Comment AUTO DIFF CONFIRMED Platelet Estimate NORMAL Platelet Morphology Comment NORMAL Ovalocytes 1+ Prothrombin Time 26.3 SEC Prothromb Time International 2.3 RATIO Ratio Activated Partial 32.9 SEC Thromboplast Time Sodium Level 133 MEQ/L Potassium Level 5.3 MEQ/L Chloride Level 98 MEQ/L Carbon Dioxide Level 24.0 MEQ/L Anion Gap 11 MEQ/L Blood Urea Nitrogen 18 MG/DL Creatinine 1.06 MG/DL Estimat Glomerular Filtration 50 ML/MIN Rate Random Glucose 341 MG/DL Lactic Acid Level 2.3 mmol/L Calcium Level 9.2 MG/DL Total Bilirubin 0.5 MG/DL Aspartate Amino Transf 26 U/L (AST/SGOT) Alanine Aminotransferase 34 U/L (ALT/SGPT) Alkaline Phosphatase 124 U/L Total Protein 8.3 GM/DL Albumin 3.2 GM/DL Lipase 66 U/L B-Type Natriuretic Peptide 76 PG/ML Urine Color LIGHT-YELLOW Urine Turbidity CLEAR Urine pH 7.0 Urine Specific Center 1.013 Urine Protein NEG mg/dL Urine Glucose (UA) 1000 mg/dL Urine Ketones 40 mg/dL Urine Occult Blood NEG Urine Nitrite NEG Urine Bilirubin NEG Urine Urobilinogen LESS THAN 2.0 MG/DL Urine Leukocyte Esterase LARGE Urine RBC 2 /hpf Urine WBC 77 /hpf Urine Squamous Epithelial 1 /hpf Cells Urine Transitional Epithelial 1 /hpf Cells Urine Renal Epithelial Cells <1 /hpf Microscopic Urinalysis Comment CULTURE INDICATED Blood Type A POSITIVE Antibody Screen NEGATIVE Date/Time Procedure Status Source Growth 02/09/17 22:00 Urine Culture - Preliminary Resulted Urine Random Urine IMMATURE GROWTH - REINCUBATE Physical Examination HEENT: Normocephalic; atraumatic; no jaundice. CHEST: Expiratory wheezing, diminished bases. CARDIAC: RRR ABDOMEN: Soft, nondistended, nontender; no hepatosplenomegaly; bowel sounds are present in all four quadrants. umbilical hernia, reducible, tender on exam EXTREMITIES: Bleedema. SKIN: Multiple ecchymotic areas. DELIVERY OF SHOPPING NEWS: No focal deficits; alert and oriented times three. (Katrina South) Assessment and Plan Plan ASSESSMENT: - N/V, ? Dark emesis. Abdomen/Pelvis CT (02/10/17)---> 1. Non-calcified nodule within the right lower lobe has increased in size compared to previous examination and now measures 12 mm. PET/CT scan would be helpful for further characterization of this suspicious nodule. 2. Uncomplicated sigmoid diverticulosis. 3. Small hiatal hernia. 4. Stable midline ventral abdominal wall hernia containing only fat. Degenerative changes and scoliosis of the thoracolumbar spine. She states this was originally undigested food, then bilious, then dark in color with scant amount of streaks of red blood. She has not vomited today. .. INR 2.3. On coumadin at home. Of note, hx of dm, uncontrolled. Had EGD (12/14/16)----> Sanchez's esophagus, Gastritis in antrum, HH. Pathology with reactive gastropathy, as may be seen with bile reflux or drug therapy, gastric mucosa with intestinal metaplasia, consistent with sanchez's esophagus, small fragment of benign squamous mucosa. PPI. HH .. No further episodes today. Will continue protonix gtt, monitor hh. - Anemia. HH .. - Hx TIA, Afib. Coumadin on hold. - Large Umbilical hernia. CT with fat containing umbilical hernia. Tender on exam, reducible. - Wheezing, Abnormal imaging on CT with lung nodule. Lung nodule has been increasing in size since January of 2016. In January 2016, this was described as stable tiny low retrosternal lymph node, then in October of 2016, this was 6mm, In November 9mm, now 12mm in January. She reports that she wheezes "all the time" and denies ever being told she has any pulmonary issues. Defer to primary. - Atrial fibrillation. On coumadin at home, last had 2 days ago - HTN, DM, TIA, Hypothyroidism per primary PLAN: - Clear liquids - Cont. Protonix - Monitor HH - Transfuse as necessary - Consider GES - Pt would like to try to avoid procedures unless absolutely necessary - Pt seen and examined by Dr. Dexter and myself and this note is written on her behalf (Katrina South) Physician Comments seen, examined agree with above clear liquid diet (Jacqui Dexter MD) Katrina South Feb 10, 2017 14:14 Jacqui Dexter MD Feb 10, 2017 17:11
[2017-02-10] MEDS: ACETAMINOPHEN 325 MG TAB PO PRN (14:41)
[2017-02-10 18:39] LABS: HEMATOCRIT 27.7 % (35.0-46.0)
[2017-02-10 18:45] LABS: REVIEW FLAG FINAL
[2017-02-10 20:46] LABS: FERRITIN 19 NG/ML (8-252); TRANSFERRIN IRON PROFILE 342 MG/DL (200-360)
[2017-02-11] VITALS (8 sets, daily range): BP systolic 117–132; BP diastolic 58–75; PULSE 69–88; RESP 18–20; TEMP 97.2–98.6; O2SAT 93–97
[2017-02-11] MEDS: metroNIDAZOLE 500 MG INJ 100 ML IV SCH ×3 (01:25→11:19)
[2017-02-11] MEDS: PANTOPRAZOLE INJ 80 MG in SODIUM CHLORIDE 0.9% INJ 100 ML IV SCH ×2 (01:25→10:30)
[2017-02-11] MEDS: SODIUM CHLORIDE 0.9% FLUSH 10 ML FLUSH IV FLUSH SCH ×2 (09:00→20:53)
[2017-02-11] MEDS: CIPROFLOXACIN 400 MG PREMIX 200 ML IV SCH ×2 (09:08→20:52)
[2017-02-11] MEDS ORDERED: PNEUMOCOCCAL POLYVALENT INJ 25 MCG/0.5 ML SYR IM ONE (10:00)
[2017-02-11 10:06] LABS: AUTOMATED NEUTROPHIL # 6.3 TH/MM3 (1.8-7.7); BASOPHIL % 0.5 % (0.0-2.0); EOSINOPHIL # 0.1 TH/MM3 (0-0.4); EOSINOPHIL % 1.5 % (0.0-4.0); HEMATOCRIT 27.7 % (35.0-46.0); LYMPH % 21.5 % (9.0-44.0); MEAN CELL VOLUME 75.1 FL (80.0-100.0); MEAN CORPUSCULAR HGB CONC 30.7 % (32.0-36.0); MONO % 8.6 % (0.0-8.0); NEUT % 67.9 % (16.0-70.0); PLATELET COUNT 254 TH/MM3 (150-450); RED BLOOD COUNT 3.69 MIL/MM3 (4.00-5.30); RED CELL DISTRIBUTION WIDTH 19.3 % (11.6-17.2); WHITE BLOOD COUNT 9.2 TH/MM3 (4.0-11.0)
[2017-02-11 10:09] LABS: HEMO FLAGS AUTO DIFF
[2017-02-11 10:14] LABS: INTERNATIONAL NORMALIZED RATIO 1.6 RATIO; PROTHROMBIN TIME - PATIENT 18.6 SEC (9.8-11.6)
[2017-02-11 10:50] LABS: BICARBONATE 26.8 MEQ/L (21.0-32.0); POTASSIUM 4.1 MEQ/L (3.5-5.1)
[2017-02-11 10:52] LABS: OVALOCYTES 1+ (NORMAL)
[2017-02-11 10:53] LABS: SCAN/DIFF AUTO DIFF CONFIRMED
--- NOTE | 2017-02-11 12:20 | HHI.GIFU ---
Subjective Remarks Resting in bed. No n/v today. No bleeding today. Awaiting GES. (Katrina South) Objective Vitals I&O Vital Signs Date Time Temp Pulse Resp B/P Pulse Ox O2 Delivery O2 Flow Rate FiO2 02/11/17 08:05 97.2 69 20 123/59 96 02/11/17 06:22 97.8 86 18 128/75 97 02/11/17 01:27 97.9 88 18 130/73 97 02/10/17 20:40 75 02/10/17 19:59 97.9 86 18 134/78 97 02/10/17 16:42 98.1 80 17 131/61 93 02/10/17 14:22 97.1 78 18 125/58 96 I/O 02/10/17 02/10/17 02/10/17 02/11/17 02/11/17 02/11/17 07:00 15:00 23:00 07:00 15:00 23:00 Intake Total 500 ml Balance 500 ml Intake IV Total 500 ml # Bowel Movements 1 Laboratory Laboratory Tests Test 02/10/17 02/10/17 02/11/17 13:05 17:59 09:50 Hemoglobin 8.1 8.6 8.5 Hematocrit 26.2 27.7 27.7 Iron Level 35 Total Iron Binding Capacity 479 Percent Iron Saturation 7.3 Ferritin 19 Vitamin B12 Level 239 Folate GREATER THAN 20.0 White Blood Count 9.2 Red Blood Count 3.69 Mean Corpuscular Volume 75.1 Mean Corpuscular Hemoglobin 23.0 Mean Corpuscular Hemoglobin 30.7 Concent Red Cell Distribution Width 19.3 Platelet Count 254 Mean Platelet Volume 7.3 Neutrophils (%) (Auto) 67.9 Lymphocytes (%) (Auto) 21.5 Monocytes (%) (Auto) 8.6 Eosinophils (%) (Auto) 1.5 Basophils (%) (Auto) 0.5 Neutrophils # (Auto) 6.3 Lymphocytes # (Auto) 2.0 Monocytes # (Auto) 0.8 Eosinophils # (Auto) 0.1 Basophils # (Auto) 0.0 CBC Comment AUTO DIFF Differential Comment AUTO DIFF CONFIRMED Ovalocytes 1+ Prothrombin Time 18.6 Prothromb Time International 1.6 Ratio Sodium Level 134 Potassium Level 4.1 Chloride Level 101 Carbon Dioxide Level 26.8 Anion Gap 6 Blood Urea Nitrogen 11 Creatinine 0.94 Estimat Glomerular Filtration 57 Rate Random Glucose 176 Calcium Level 8.7 Date/Time Procedure Status Source Growth 02/09/17 22:00 Urine Culture - Preliminary Resulted Urine Random Urine Group D Enterococcus Imaging Last Impressions Abdomen/Pelvis CT 02/10/17 0000 Signed Impressions: Service Date/Time: Friday, February 10, 2017 07:47 - CONCLUSION: 1. Non-calcified nodule within the right lower lobe has increased in size compared to previous examination and now measures 12 mm. PET/CT scan would be helpful for further characterization of this suspicious nodule. 2. Uncomplicated sigmoid diverticulosis. 3. Small hiatal hernia. 4. Stable midline ventral abdominal wall hernia containing only fat. 5. Degenerative changes and scoliosis of the thoracolumbar spine. Olman Noland MD Chest X-Ray 02/09/17 1917 Signed Impressions: Service Date/Time: Thursday, February 09, 2017 19:27 - CONCLUSION: No acute cardiopulmonary disease. Rae Pearson MD Physical Exam HEENT: Normocephalic; atraumatic; no jaundice. CHEST: Diminished bases. CARDIAC: RRR ABDOMEN: Soft, nondistended, nontender; no hepatosplenomegaly; bowel sounds are present in all four quadrants. umbilical hernia, reducible, tender on exam EXTREMITIES: Ble edema. SKIN: Multiple ecchymotic areas. [employer]: No focal deficits; alert and oriented times three. (Katrina South) Assessment and Plan Plan ASSESSMENT: - N/V, ? Dark emesis. Abdomen/Pelvis CT (02/10/17)---> 1. Non-calcified nodule within the right lower lobe has increased in size compared to previous examination and now measures 12 mm. PET/CT scan would be helpful for further characterization of this suspicious nodule. 2. Uncomplicated sigmoid diverticulosis. 3. Small hiatal hernia. 4. Stable midline ventral abdominal wall hernia containing only fat. Degenerative changes and scoliosis of the thoracolumbar spine. She states this was originally undigested food, then bilious, then dark in color with scant amount of streaks of red blood. On coumadin at home. Of note, hx of dm, uncontrolled. Had EGD (12/14/16)----> Sanchez's esophagus, Gastritis in antrum, HH. Pathology with reactive gastropathy, as may be seen with bile reflux or drug therapy, gastric mucosa with intestinal metaplasia, consistent with sanchez's esophagus, small fragment of benign squamous mucosa. PPI. HH .. No n/v. No bleeding. GES pending. Protonix gtt - Anemia. HH .. - Hx TIA, Afib. Coumadin on hold. - Large Umbilical hernia. CT with fat containing umbilical hernia. Tender on exam, reducible. - Wheezing, Abnormal imaging on CT with lung nodule. Lung nodule has been increasing in size since January of 2016. In January 2016, this was described as stable tiny low retrosternal lymph node, then in October of 2016, this was 6mm, In November 9mm, now 12mm in January. She reports that she wheezes "all the time" and denies ever being told she has any pulmonary issues. Defer to primary. - Atrial fibrillation. On coumadin at home, last had 2 days ago - HTN, DM, TIA, Hypothyroidism per primary PLAN: - Clear liquids- will advance after GES - Await GES - D/C protonix gtt - Protonix 40mg po BID - Monitor HH - Transfuse as necessary - Pt would like to try to avoid procedures unless absolutely necessary - Pt seen and examined by Dr. Dexter and myself and this note is written on her behalf (Katrina South) Physician Comments seen, examined agree with above (Jacqui Dexter MD) Katrina South Feb 11, 2017 12:20 Jacqui Dexter MD Feb 11, 2017 16:58
[2017-02-11] MEDS: ACETAMINOPHEN 325 MG TAB PO PRN ×2 (12:39→18:51)
[2017-02-11] MEDS ORDERED: GLUCAGON 1 MG/ML VIAL OTHER PRN (13:15)
[2017-02-11] MEDS ORDERED: DEXTROSE 50% IN WATER 50 ML VIAL(D50) IV PUSH PRN (13:15)
--- NOTE | 2017-02-11 13:49 | HHI.PR ---
Subjective Remarks The patient states she has not had any further vomiting since being in the hospital. She is hungry and wants to eat. Tolerating clears. She denies any abdominal pain now or in the past. She states she has had an intermittent problem with vomiting over the past year and seems to be related to the food she eats. She has not had any abdominal pain with this. She does have a 16 year history of type 2 diabetes. She states she lives by herself and has a caregiver that comes in to clean her house and get her medications for her. The patient states that she has a living will and that her nephew is her healthcare power of commercial litigation attorney. The patient states that she is DO NOT RESUSCITATE and that her nephew is aware of this. The patient denies ever noticing any blood in her stool or in her vomitus. Her hemoglobin has been stable since being in the hospital. Objective Vitals Vital Signs Date Time Temp Pulse Resp B/P Pulse Ox O2 Delivery O2 Flow Rate FiO2 02/11/17 12:09 98.0 75 18 117/59 95 02/11/17 08:05 97.2 69 20 123/59 96 02/11/17 06:22 97.8 86 18 128/75 97 02/11/17 01:27 97.9 88 18 130/73 97 02/10/17 20:40 75 02/10/17 19:59 97.9 86 18 134/78 97 02/10/17 16:42 98.1 80 17 131/61 93 02/10/17 14:22 97.1 78 18 125/58 96 I/O 02/10/17 02/10/17 02/10/17 02/11/17 02/11/17 02/11/17 07:00 15:00 23:00 07:00 15:00 23:00 Intake Total 500 ml Balance 500 ml Intake IV Total 500 ml # Bowel Movements 1 Result Diagram: 02/11/17 0950 02/11/17 0950 Objective Remarks GENERAL: Well-nourished, well-developed very pleasant morbidly obese elderly female patient. SKIN: Warm and dry. HEAD: Normocephalic. EYES: No scleral icterus. No injection or drainage. NECK: Supple, trachea midline. No JVD or lymphadenopathy. CARDIOVASCULAR: Regular rate and rhythm without murmurs, gallops, or rubs. RESPIRATORY: Breath sounds equal bilaterally. Clear to auscultation anteriorly. No accessory muscle use. GASTROINTESTINAL: Bowel sounds normal. Abdomen soft, non-tender, nondistended. EXTREMITIES: Trace pedal edema NEUROLOGICAL: Awake, alert, and oriented x 3. Non-focal. A/P Problem List: (1) Vomiting ICD Code: R11.10 Status: Acute (2) UTI (urinary tract infection) ICD Code: N39.0 Status: Acute (3) DM2 (diabetes mellitus, type 2) ICD Code: E11.9 Status: Chronic (4) HTN (hypertension) ICD Code: I10 Status: Chronic (5) Atrial fibrillation with RVR ICD Code: I48.91 Status: Resolved (6) Atrial fibrillation ICD Code: I48.91 Status: Chronic (7) Chronic anemia ICD Code: D64.9 Status: Chronic Assessment and Plan -Intermittent vomiting going on for 1 year. Highly suspicious for gastroparesis in a patient with long-standing diabetes. There was a question of coffee-ground emesis however the patient denies ever having any blood in her stool or vomit and hemoglobin has been stable. Discussed with GI today. Will DC Protonix drip. Proceed with gastric emptying scan. Diabetic diet as tolerated. Trial of Reglan pending gastric emptying studying scan. Patient has not had any further vomiting since admission. Abdominal CT scan negative for any acute findings. -History of esophagitis and Hooks's esophagus - diagnosed on EGD 12/14/16 - continue PPI. -Enterococcal UTI. Continue Cipro. DC Flagyl. -Chronic microcytic anemia of hemoglobin around 8-9. Hemoccult is pending. Iron is low so I will start her on supplementation. -Mild Lactic acid acidosis -lactate 2.3. Blood pressure has been stable. Mild elevation was Likely secondary to dehydration. -Paroxysmal atrial fibrillation, she had some elevated rate in the emergency department. Received Cardizem 15 mg IV in the ED. Rate has been controlled since. Appears to be in normal sinus rhythm on telemetry. I will resume metoprolol and Coumadin, pharmacy consult. Monitor on telemetry. -Hypertension - we'll resume home meds carefully to hold if blood pressure low. -Type 2 diabetes. Blood sugars are running higher. We'll place her on insulin sliding scale. She is on a higher dose of long-acting insulin as an outpatient but will put her on Levemir 5 units twice a day for now. Medium sliding scale insulin with NovoLog. -History of TIA/CVA - resume Coumadin. -Previous history of tobacco abusequit 40 years ago -Mild hyponatremia and hyperkalemia likely secondary to dehydration, resolved. Will monitor electrolytes. -Morbid obesity. -DVT prophylaxis on Coumadin. -DO NOT RESUSCITATE status. Problem Qualifiers (1) UTI (urinary tract infection): Qualified Code: N30.00 - Acute cystitis without hematuria (2) Atrial fibrillation: Qualified Code: I48.0 - Paroxysmal atrial fibrillation Alexus Castellanos MD Feb 11, 2017 13:49
[2017-02-11] MEDS ORDERED: METOCLOPRAMIDE HCL 10 MG/2 ML VIAL ONE (15:00)
--- NOTE | 2017-02-11 17:41 | RADRPT ---
EXAM DATE/TIME: 02/11/2017 13:32 [facility] COMPARISON: No previous studies available for comparison. INDICATIONS : Nausea and vomiting for 2 days. DOSE: 1.0 mCi Tc99m Sulfur Colloid Labeled Whole egg PO MEDICATONS: 1.) 5 mg Reglan IV at 90 minutes IMAGIN hrs MEDICAL HISTORY : Hypertension. Diabetes mellitus type 2. SURGICAL HISTORY : Hysterectomy. Cholecystectomy. Total knee replacement, right. ENCOUNTER: Initial ACUITY: 2 days PAIN SCALE: 3/10 LOCATION: Bilateral Abdomen. TECHNIQUE: Following the oral ingestion of radiotracer-labeled meal, dynamic sequential images in the [place] projec tion were acquired with simultaneous computer acquisition. The data set was decay-corrected. FINDINGS: LAG PHASE: There is 90 minutes before onset of gastric emptying. EMPTYING: Gastric emptying kinetics are linear. The decay-corrected, back-extrapolated half-time of emptying i s never reached as no emptying occurs before Reglan administration (Normal for this lab is 45- 90 min utes.) INTERVENTION: Reglan was given at 90 minutes resulting in almost complete emptying. CONCLUSION: Prolonged lag phase and delayed gastric emptying suggesting gastroparesis. Clinical c orrelation is recommended. Olman Noland MD on February 11, 2017 at 17:37 Board Certified Radiologist. This report was verified electronically.
[2017-02-11] MEDS: INSULIN ASPART SUPPLEMENTAL SCALE SQ SCH ×2 (17:46→20:55)
[2017-02-11] MEDS: ATORVASTATIN 20 MG TAB PO SCH (20:53)
[2017-02-11] MEDS: METOPROLOL TARTRATE 25 MG TAB PO SCH (20:53)
[2017-02-11] MEDS: GABAPENTIN 300 MG CAP PO SCH (20:53)
[2017-02-11] MEDS: PANTOPRAZOLE SOD 40 MG DELAYED RELEASE TAB PO SCH (20:53)
[2017-02-11] MEDS: FERROUS SULFATE 325 MG (65 MG ELEMENTAL IRON) TAB PO SCH (20:53)
[2017-02-11] MEDS: INSULIN DETEMIR 100 UNITS/ML VIAL SQ SCH (20:57)
[2017-02-11] MEDS: TEMAZEPAM 15 MG CAP PO PRN (21:48)
[2017-02-11] MEDS: LISINOPRIL 20 MG TAB PO SCH (21:48)
[2017-02-12 00:18] VITALS: BP 119/58; PULSE 74; RESP 20; TEMP 98.7; O2SAT 95
[2017-02-12 06:00] LABS: AUTOMATED NEUTROPHIL # 6.5 TH/MM3 (1.8-7.7); BASOPHIL % 0.4 % (0.0-2.0); EOSINOPHIL # 0.1 TH/MM3 (0-0.4); EOSINOPHIL % 1.6 % (0.0-4.0); HEMATOCRIT 26.4 % (35.0-46.0); LYMPH % 16.6 % (9.0-44.0); LYMPHOCYTE # 1.5 TH/MM3 (1.0-4.8); MEAN CELL VOLUME 75.8 FL (80.0-100.0); MEAN CORPUSCULAR HEMOGLOBIN 23.5 PG (27.0-34.0); MEAN CORPUSCULAR HGB CONC 31.1 % (32.0-36.0); MONO % 11.8 % (0.0-8.0); NEUT % 69.6 % (16.0-70.0); PLATELET COUNT 251 TH/MM3 (150-450); RED BLOOD COUNT 3.48 MIL/MM3 (4.00-5.30); RED CELL DISTRIBUTION WIDTH 19.1 % (11.6-17.2); WHITE BLOOD COUNT 9.3 TH/MM3 (4.0-11.0)
[2017-02-12 06:04] LABS: INTERNATIONAL NORMALIZED RATIO 1.4 RATIO; PROTHROMBIN TIME - PATIENT 15.8 SEC (9.8-11.6)
[2017-02-12 06:12] LABS: HEMO FLAGS AUTO DIFF
[2017-02-12] MEDS: LEVOTHYROXINE SODIUM 88 MCG TAB PO SCH (06:15)
[2017-02-12] MEDS: INSULIN ASPART SUPPLEMENTAL SCALE SQ SCH ×4 (06:15→21:16)
[2017-02-12 08:07] LABS: SCAN/DIFF AUTO DIFF CONFIRMED
[2017-02-12 08:17] VITALS: BP 134/59; PULSE 64; RESP 18; TEMP 98; O2SAT 95
[2017-02-12] MEDS ORDERED: PANTOPRAZOLE SOD 40 MG DELAYED RELEASE TAB PO SCH (09:00)
[2017-02-12] MEDS: NIFEdipine 30 MG SUSTAINED RELEASE TAB PO SCH (09:47)
[2017-02-12] MEDS: FUROSEMIDE 20 MG TAB PO SCH (09:47)
[2017-02-12] MEDS: INSULIN DETEMIR 100 UNITS/ML VIAL SQ SCH ×2 (09:47→21:17)
[2017-02-12] MEDS: PANTOPRAZOLE SOD 40 MG DELAYED RELEASE TAB PO SCH ×2 (09:47→21:16)
[2017-02-12] MEDS: GABAPENTIN 300 MG CAP PO SCH ×2 (09:48→21:15)
[2017-02-12] MEDS: METOPROLOL TARTRATE 25 MG TAB PO SCH ×2 (09:48→21:00)
[2017-02-12] MEDS: FERROUS SULFATE 325 MG (65 MG ELEMENTAL IRON) TAB PO SCH ×2 (09:51→21:16)
[2017-02-12] MEDS: CIPROFLOXACIN 400 MG PREMIX 200 ML IV SCH (10:01)
[2017-02-12] MEDS: SODIUM CHLORIDE 0.9% FLUSH 10 ML FLUSH IV FLUSH SCH ×2 (10:02→21:00)
[2017-02-12] MEDS: LISINOPRIL 20 MG TAB PO SCH ×2 (10:03→21:16)
[2017-02-12 11:31] VITALS: BP 138/60; PULSE 73; RESP 19; O2SAT 96
--- NOTE | 2017-02-12 12:35 | HHI.GIFU ---
Subjective Remarks Resting in bed. No n/v. tolerating diet. Went over GES results and our recommendations for gastroparesis diet, verbalizes understanding. (Katrina South) Objective Vitals I&O Vital Signs Date Time Temp Pulse Resp B/P Pulse Ox O2 Delivery O2 Flow Rate FiO2 02/12/17 11:31 73 19 138/60 96 02/12/17 08:17 98.0 64 18 134/59 95 02/12/17 00:18 98.7 74 20 119/58 95 02/11/17 20:00 78 02/11/17 19:54 98.6 80 20 132/59 95 02/11/17 19:51 12 02/11/17 16:55 72 02/11/17 16:15 97.3 87 18 128/58 93 Laboratory Laboratory Tests Test 02/12/17 04:44 White Blood Count 9.3 Red Blood Count 3.48 Hemoglobin 8.2 Hematocrit 26.4 Mean Corpuscular Volume 75.8 Mean Corpuscular Hemoglobin 23.5 Mean Corpuscular Hemoglobin 31.1 Concent Red Cell Distribution Width 19.1 Platelet Count 251 Mean Platelet Volume 7.8 Neutrophils (%) (Auto) 69.6 Lymphocytes (%) (Auto) 16.6 Monocytes (%) (Auto) 11.8 Eosinophils (%) (Auto) 1.6 Basophils (%) (Auto) 0.4 Neutrophils # (Auto) 6.5 Lymphocytes # (Auto) 1.5 Monocytes # (Auto) 1.1 Eosinophils # (Auto) 0.1 Basophils # (Auto) 0.0 CBC Comment AUTO DIFF Differential Comment AUTO DIFF CONFIRMED Prothrombin Time 15.8 Prothromb Time International 1.4 Ratio Date/Time Procedure Status Source Growth 02/09/17 22:00 Urine Culture - Final Complete Urine Random Urine Enterococcus Faecalis Imaging Last Impressions Gastric Emptying Nuclear Medicine 02/11/17 0000 Signed Impressions: Service Date/Time: January 13:32 - CONCLUSION: Prolonged lag phase and delayed gastric emptying suggesting gastroparesis. Clinical correlation is recommended. Olman Noland MD Abdomen/Pelvis CT 02/10/17 0000 Signed Impressions: Service Date/Time: Friday, February 10, 2017 07:47 - CONCLUSION: 1. Non-calcified nodule within the right lower lobe has increased in size compared to previous examination and now measures 12 mm. PET/CT scan would be helpful for further characterization of this suspicious nodule. 2. Uncomplicated sigmoid diverticulosis. 3. Small hiatal hernia. 4. Stable midline ventral abdominal wall hernia containing only fat. 5. Degenerative changes and scoliosis of the thoracolumbar spine. Olman Noland MD Chest X-Ray 02/09/17 1917 Signed Impressions: Service Date/Time: Thursday, February 09, 2017 19:27 - CONCLUSION: No acute cardiopulmonary disease. Rae Pearson MD Physical Exam HEENT: Normocephalic; atraumatic; no jaundice. CHEST: Diminished bases. CARDIAC: RRR ABDOMEN: Soft, nondistended, nontender; no hepatosplenomegaly; bowel sounds are present in all four quadrants. umbilical hernia, reducible, tender on exam EXTREMITIES: Ble edema. SKIN: Multiple ecchymotic areas. COMPUTER APPLICATIONS DEVELOPER: No focal deficits; alert and oriented times three. (Katrina South) Assessment and Plan Plan ASSESSMENT: - Gastroparesis, N/V. Gastric Emptying Nuclear Medicine (02/11/17)----> Prolonged lag phase and delayed gastric emptying suggesting gastroparesis. Clinical correlation is recommended. D/W patient gastroparesis diet with patient and she verbalizes understanding. Will avoid bethanechol with her hx of wheezing. Trial of EES. She is doing okay at this time, but has frequent hospitalizations for n/v. - N/V, ? Dark emesis. Abdomen/Pelvis CT (02/10/17)---> 1. Non-calcified nodule within the right lower lobe has increased in size compared to previous examination and now measures 12 mm. PET/CT scan would be helpful for further characterization of this suspicious nodule. 2. Uncomplicated sigmoid diverticulosis. 3. Small hiatal hernia. 4. Stable midline ventral abdominal wall hernia containing only fat. Degenerative changes and scoliosis of the thoracolumbar spine. She states this was originally undigested food, then bilious, then dark in color with scant amount of streaks of red blood. On coumadin at home. Of note, hx of dm, uncontrolled. Had EGD (12/14/16)----> Sanchez's esophagus, Gastritis in antrum, HH. Pathology with reactive gastropathy, as may be seen with bile reflux or drug therapy, gastric mucosa with intestinal metaplasia, consistent with sanchez's esophagus, small fragment of benign squamous mucosa. PPI. HH Stable 8.2/.4. - Anemia. HH 8.2/.4. - Hx TIA, Afib. Coumadin - Large Umbilical hernia. CT with fat containing umbilical hernia. Tender on exam, reducible. - Wheezing, Abnormal imaging on CT with lung nodule. Lung nodule has been increasing in size since January of 2016. In January 2016, this was described as stable tiny low retrosternal lymph node, then in October of 2016, this was 6mm, In November 9mm, now 12mm in January. She reports that she wheezes "all the time" and denies ever being told she has any pulmonary issues. Defer to primary. - Atrial fibrillation. On coumadin at home, last had 2 days ago - HTN, DM, TIA, Hypothyroidism per primary PLAN: - Soft diet - Trial of EES - Protonix 40mg po BID - Gastroparesis diet d/w patient, verbalizes understanding - Okay to d/c home from GI standpoint - FU PATRICK 2 weeks - GI will sign off, please reconsult as needed - Pt seen and examined by Dr. Dexter and myself and this note is written on her behalf (Katrina South) Physician Comments seen, examined agree with above (Jacqui Dexter MD) Katrina South Feb 12, 2017 12:35 Jacqui Dexter MD Feb 12, 2017 16:41
[2017-02-12 15:41] VITALS: BP 126/60; PULSE 61; RESP 18; TEMP 98.4; O2SAT 96
[2017-02-12] MEDS ORDERED: WARFARIN SOD 1 MG TAB PO SCH (16:00)
--- NOTE | 2017-02-12 16:47 | HHI.FF ---
Face to Face Verification Diagnosis: (1) Gastroparesis (2) DM2 (diabetes mellitus, type 2) (3) Chronic anemia (4) Atrial fibrillation (5) Vomiting (6) HTN (hypertension) Physical Therapy Order: Evaluate and Treat Home Health Nursing Order: Medical education Signs/symptoms of disease process Nursing assessment with vital signs I have seen patient Mirella Lucas on 02/12/17. My clinical findings support the need for the requested home health care services because: Ltd mobility - disease progression Patient has SOB Deconditioned w/ increased weakness Limited ability to care for self Need for psychosocial assistance I certify that my clinical findings support that this patient is homebound because: Unsteady gait/balance Unsafe to leave home unassisted Need for psychosocial assistance Alexus Castellanos MD Feb 12, 2017 16:46
[2017-02-12] MEDS: ERYTHROMYCIN ETHYLSUCCINATE 200 MG/5 ML SUSP 100 ML BOTTLE PO SCH ×2 (17:05→22:28)
[2017-02-12] MEDS: WARFARIN SOD 5 MG TAB PO SCH (17:05)
--- NOTE | 2017-02-12 18:09 | HHI.PR ---
Subjective Remarks Patient seen at 5 PM. She denies any further nausea or vomiting. She is tolerating diet well. Objective Vitals Vital Signs Date Time Temp Pulse Resp B/P Pulse Ox O2 Delivery O2 Flow Rate FiO2 02/12/17 15:41 98.4 61 18 126/60 96 02/12/17 11:31 73 19 138/60 96 02/12/17 08:17 98.0 64 18 134/59 95 02/12/17 00:18 98.7 74 20 119/58 95 02/11/17 20:00 78 02/11/17 19:54 98.6 80 20 132/59 95 02/11/17 19:51 12 Result Diagram: 02/12/17 0444 02/11/17 0950 Objective Remarks GENERAL: Well-nourished, well-developed very pleasant morbidly obese elderly female patient. SKIN: Warm and dry. HEAD: Normocephalic. EYES: No scleral icterus. No injection or drainage. NECK: Supple, trachea midline. No JVD or lymphadenopathy. CARDIOVASCULAR: Regular rate and rhythm without murmurs, gallops, or rubs. RESPIRATORY: Breath sounds equal bilaterally. Clear to auscultation anteriorly. No accessory muscle use. GASTROINTESTINAL: Bowel sounds normal. Abdomen soft, non-tender, nondistended. EXTREMITIES: Trace pedal edema NEUROLOGICAL: Awake, alert, and oriented x 3. Non-focal. A/P Problem List: (1) Vomiting ICD Code: R11.10 Status: Acute (2) UTI (urinary tract infection) ICD Code: N39.0 Status: Acute (3) DM2 (diabetes mellitus, type 2) ICD Code: E11.9 Status: Chronic (4) HTN (hypertension) ICD Code: I10 Status: Chronic (5) Atrial fibrillation with RVR ICD Code: I48.91 Status: Resolved (6) Atrial fibrillation ICD Code: I48.91 Status: Chronic (7) Chronic anemia ICD Code: D64.9 Status: Chronic Assessment and Plan -Intermittent vomiting going on for 1 year. Highly suspicious for gastroparesis in a patient with long-standing diabetes. Gastric emptying scan has confirmed gastroparesis and she has had no further vomiting since admission. Continue erythromycin. There was a question of coffee-ground emesis however the patient denies ever having any blood in her stool or vomit and hemoglobin has been stable. Abdominal CT scan negative for any acute findings. -History of esophagitis and Hooks's esophagus - diagnosed on EGD 12/14/16 - continue PPI. -Enterococcal UTI. Continue Cipro. -Chronic microcytic anemia of hemoglobin around 8-9. Hemoccult is pending however no stool for collection. Iron is low so I will start her on supplementation. -Mild Lactic acid acidosis -lactate 2.3. Blood pressure has been stable. Mild elevation was Likely secondary to dehydration. -Paroxysmal atrial fibrillation, she had some elevated rate in the emergency department. Received Cardizem 15 mg IV in the ED. Rate has been controlled since. Appears to be in normal sinus rhythm on telemetry. Continue metoprolol and Coumadin, pharmacy consult. Monitor on telemetry. -Hypertension -continue home meds carefully to hold if blood pressure low. -Type 2 diabetes. Blood sugars are running higher. Increase Levemir to 15 units twice a day. We'll place her on insulin sliding scale. Medium sliding scale insulin with NovoLog. -History of TIA/CVA - resume Coumadin. -Previous history of tobacco abusequit 40 years ago -Mild hyponatremia and hyperkalemia likely secondary to dehydration, resolved. Will monitor electrolytes. -Morbid obesity. -DVT prophylaxis on Coumadin. -DO NOT RESUSCITATE status. Discharge Planning Likely discharge home tomorrow morning. Problem Qualifiers (1) UTI (urinary tract infection): Qualified Code: N30.00 - Acute cystitis without hematuria (2) Atrial fibrillation: Qualified Code: I48.0 - Paroxysmal atrial fibrillation Alexus Castellanos MD Feb 12, 2017 18:08
[2017-02-12 19:46] VITALS: BP 112/53; PULSE 73; RESP 20; TEMP 98.7; O2SAT 95
[2017-02-12 20:00] VITALS: PULSE 74
[2017-02-12] MEDS: ATORVASTATIN 20 MG TAB PO SCH (21:16)
[2017-02-12] MEDS: CIPROFLOXACIN 250 MG TAB PO SCH (22:29)
[2017-02-13] VITALS (7 sets, daily range): BP systolic 107–135; BP diastolic 55–70; PULSE 68–75; RESP 20–22; TEMP 97.7–98.3; O2SAT 91–96
[2017-02-13] MEDS: ERYTHROMYCIN ETHYLSUCCINATE 200 MG/5 ML SUSP 100 ML BOTTLE PO SCH ×3 (06:00→22:25)
[2017-02-13] MEDS: LEVOTHYROXINE SODIUM 88 MCG TAB PO SCH (06:00)
[2017-02-13] MEDS: INSULIN ASPART SUPPLEMENTAL SCALE SQ SCH ×4 (06:01→21:00)
[2017-02-13 06:09] LABS: INTERNATIONAL NORMALIZED RATIO 1.2 RATIO; PROTHROMBIN TIME - PATIENT 13.9 SEC (9.8-11.6)
[2017-02-13] MEDS: SODIUM CHLORIDE 0.9% FLUSH 10 ML FLUSH IV FLUSH SCH ×2 (09:00→21:00)
[2017-02-13] MEDS: FERROUS SULFATE 325 MG (65 MG ELEMENTAL IRON) TAB PO SCH ×2 (10:20→22:17)
[2017-02-13] MEDS: NIFEdipine 30 MG SUSTAINED RELEASE TAB PO SCH (10:20)
[2017-02-13] MEDS: FUROSEMIDE 20 MG TAB PO SCH (10:21)
[2017-02-13] MEDS: LISINOPRIL 20 MG TAB PO SCH ×2 (10:21→22:16)
[2017-02-13] MEDS: GABAPENTIN 300 MG CAP PO SCH ×2 (10:21→22:16)
[2017-02-13] MEDS: CIPROFLOXACIN 250 MG TAB PO SCH ×2 (10:22→22:16)
[2017-02-13] MEDS: PANTOPRAZOLE SOD 40 MG DELAYED RELEASE TAB PO SCH ×2 (10:22→22:17)
[2017-02-13] MEDS: METOPROLOL TARTRATE 25 MG TAB PO SCH ×2 (10:25→22:17)
[2017-02-13] MEDS: INSULIN DETEMIR 100 UNITS/ML VIAL SQ SCH ×2 (10:26→22:18)
[2017-02-13] MEDS ORDERED: WARFARIN SOD 1 MG TAB PO ONE (16:00)
--- NOTE | 2017-02-13 17:07 | HHI.PR ---
Subjective Remarks For some reason, case management did not start arranging home health care until 5 p.m. tonight. has rash on groin/buttocks Objective Vitals Vital Signs Date Time Temp Pulse Resp B/P Pulse Ox O2 Delivery O2 Flow Rate FiO2 02/13/17 16:33 97.7 72 22 133/61 93 02/13/17 12:11 98.3 72 20 118/58 96 02/13/17 08:33 98.0 72 20 119/58 91 02/13/17 04:03 98.2 68 20 107/57 91 02/13/17 00:08 98.1 75 20 109/55 92 02/12/17 20:00 74 02/12/17 19:46 98.7 73 20 112/53 95 Result Diagram: 02/12/17 0444 02/11/17 0950 Objective Remarks GENERAL: Well-nourished, well-developed very pleasant morbidly obese elderly female patient. SKIN: Warm and dry. HEAD: Normocephalic. EYES: No scleral icterus. No injection or drainage. NECK: Supple, trachea midline. No JVD or lymphadenopathy. CARDIOVASCULAR: Regular rate and rhythm without murmurs, gallops, or rubs. RESPIRATORY: Breath sounds equal bilaterally. Clear to auscultation anteriorly. No accessory muscle use. GASTROINTESTINAL: Bowel sounds normal. Abdomen soft, non-tender, nondistended. EXTREMITIES: Trace pedal edema NEUROLOGICAL: Awake, alert, and oriented x 3. Non-focal. patient observed to get up by herself and ambulate with walker A/P Problem List: (1) Vomiting ICD Code: R11.10 Status: Acute (2) UTI (urinary tract infection) ICD Code: N39.0 Status: Acute (3) DM2 (diabetes mellitus, type 2) ICD Code: E11.9 Status: Chronic (4) HTN (hypertension) ICD Code: I10 Status: Chronic (5) Atrial fibrillation with RVR ICD Code: I48.91 Status: Resolved (6) Atrial fibrillation ICD Code: I48.91 Status: Chronic (7) Chronic anemia ICD Code: D64.9 Status: Chronic Assessment and Plan -Intermittent vomiting going on for 1 year. Highly suspicious for gastroparesis in a patient with long-standing diabetes. Gastric emptying scan has confirmed gastroparesis and she has had no further vomiting since admission. Continue erythromycin. There was a question of coffee-ground emesis however the patient denies ever having any blood in her stool or vomit and hemoglobin has been stable. Abdominal CT scan negative for any acute findings. -History of esophagitis and Hooks's esophagus - diagnosed on EGD 12/14/16 - continue PPI. -Enterococcal UTI. Continue Cipro. -Chronic microcytic anemia of hemoglobin around 8-9. Hemoccult is pending however no stool for collection. Iron is low so I will start her on supplementation. -Mild Lactic acid acidosis -lactate 2.3. Blood pressure has been stable. Mild elevation was Likely secondary to dehydration. -Paroxysmal atrial fibrillation, she had some elevated rate in the emergency department. Received Cardizem 15 mg IV in the ED. Rate has been controlled since. Appears to be in normal sinus rhythm on telemetry. Continue metoprolol and Coumadin, pharmacy consult. Monitor on telemetry. -Hypertension -continue home meds carefully to hold if blood pressure low. -Type 2 diabetes. Blood sugars are running higher. Increase Levemir to 30 units twice a day. We'll place her on insulin sliding scale. Medium sliding scale insulin with NovoLog. confirmed with niece - she does take 90 units of lantus qhs. -History of TIA/CVA - resume Coumadin. -Previous history of tobacco abusequit 40 years ago -Mild hyponatremia and hyperkalemia likely secondary to dehydration, resolved. Will monitor electrolytes. -Morbid obesity. -DVT prophylaxis on Coumadin. -DO NOT RESUSCITATE status. Discharge Planning discharge home tomorrow morning. Problem Qualifiers (1) UTI (urinary tract infection): Qualified Code: N30.00 - Acute cystitis without hematuria (2) Atrial fibrillation: Qualified Code: I48.0 - Paroxysmal atrial fibrillation Alexus Castellanos MD Feb 13, 2017 17:07
[2017-02-13] MEDS: WARFARIN SOD 5 MG TAB PO SCH (17:15)
[2017-02-13] MEDS ORDERED: NYSTATIN 100,000 UNIT/GM CREAM 15 GM TOPICAL ONE (17:30)
[2017-02-13] MEDS ORDERED: ERYT250T13 PO (17:45)
[2017-02-13] MEDS ORDERED: CIPR250T52 PO (17:45)
[2017-02-13] MEDS ORDERED: FERR325T PO (17:45)
[2017-02-13] MEDS ORDERED: ERYT200S2 PO (17:45)
[2017-02-13] MEDS ORDERED: PILL SPLITTER OTHER PRN (21:45)
[2017-02-13] MEDS: ATORVASTATIN 20 MG TAB PO SCH (22:17)
[2017-02-13] MEDS: TEMAZEPAM 15 MG CAP PO PRN (22:17)
[2017-02-14 00:08] VITALS: PULSE 69
[2017-02-14 04:51] VITALS: BP 113/57; PULSE 71; RESP 18; TEMP 97.6; O2SAT 95
[2017-02-14] MEDS: LEVOTHYROXINE SODIUM 88 MCG TAB PO SCH (06:02)
[2017-02-14] MEDS: ERYTHROMYCIN ETHYLSUCCINATE 200 MG/5 ML SUSP 100 ML BOTTLE PO SCH (06:02)
[2017-02-14] MEDS: INSULIN ASPART SUPPLEMENTAL SCALE SQ SCH ×2 (06:41→12:28)
[2017-02-14 08:04] VITALS: BP 130/62; PULSE 69; RESP 20; TEMP 97; O2SAT 94
[2017-02-14] MEDS: FERROUS SULFATE 325 MG (65 MG ELEMENTAL IRON) TAB PO SCH (08:20)
[2017-02-14] MEDS: CIPROFLOXACIN 250 MG TAB PO SCH (08:20)
[2017-02-14] MEDS: METOPROLOL TARTRATE 25 MG TAB PO SCH (08:21)
[2017-02-14] MEDS: FUROSEMIDE 20 MG TAB PO SCH (08:21)
[2017-02-14] MEDS: GABAPENTIN 300 MG CAP PO SCH (08:21)
[2017-02-14] MEDS: LISINOPRIL 20 MG TAB PO SCH (08:21)
[2017-02-14] MEDS: NIFEdipine 30 MG SUSTAINED RELEASE TAB PO SCH (08:25)
[2017-02-14] MEDS: PANTOPRAZOLE SOD 40 MG DELAYED RELEASE TAB PO SCH (08:25)
[2017-02-14] MEDS: INSULIN DETEMIR 100 UNITS/ML VIAL SQ SCH (08:25)
[2017-02-14 08:57] LABS: INTERNATIONAL NORMALIZED RATIO 1.4 RATIO; PROTHROMBIN TIME - PATIENT 15.7 SEC (9.8-11.6)
[2017-02-14] MEDS: SODIUM CHLORIDE 0.9% FLUSH 10 ML FLUSH IV FLUSH SCH (09:00)
--- NOTE | 2017-02-14 10:39 | HHI.DS ---
Discharge Summary Admission Date Feb 10, 2017 at 17:11 Discharge Date: Feb 14, 2017 Admitting Diagnosis UTI, N/V/D, AFib RVR (1) Vomiting ICD Code: R11.10 (2) UTI (urinary tract infection) ICD Code: N39.0 (3) DM2 (diabetes mellitus, type 2) ICD Code: E11.9 (4) HTN (hypertension) ICD Code: I10 (5) Atrial fibrillation with RVR ICD Code: I48.91 (6) Atrial fibrillation ICD Code: I48.91 (7) Chronic anemia ICD Code: D64.9 Procedures None Brief History - From Admission History from patient, your physician communication, and review of medical records. Patient reported that for the past 2 days, she has been having nausea, vomiting , diarrhea. She also reports of lower abdominal pain. States that her vomitus is coffee- ground in color. However denies any black color stool or red color stool. Denies any urinary burning or pain on urination. Patient reports of history of GI ulcers. She also did have recent hospitalization for which she was admitted for GI bleed. EGD results at that timereviewed. Parents esophagus was essentially and. Patient is also on Coumadin at home. Her INR is 2.3 Apart from the above, patient denies any chest pain/shortness of breath/ palpitations/focal weakness. She denies any dizziness/passing out episodes. CBC/BMP: 02/12/17 0444 02/11/17 0950 Significant Findings Laboratory Tests Test 02/12/17 02/13/17 02/14/17 04:44 05:30 08:20 Red Blood Count 3.48 MIL/MM3 (4.00-5.30) Hemoglobin 8.2 GM/DL (11.6-15.3) Hematocrit 26.4 % (35.0-46.0) Mean Corpuscular Volume 75.8 FL (80.0-100.0) Mean Corpuscular Hemoglobin 23.5 PG (27.0-34.0) Mean Corpuscular Hemoglobin 31.1 % Concent (32.0-36.0) Red Cell Distribution Width 19.1 % (11.6-17.2) Monocytes (%) (Auto) 11.8 % (0.0-8.0) Monocytes # (Auto) 1.1 TH/MM3 (0-0.9) Prothrombin Time 15.8 SEC 13.9 SEC 15.7 SEC (9.8-11.6) (9.8-11.6) (9.8-11.6) Imaging Last Impressions Gastric Emptying Nuclear Medicine 02/11/17 0000 Signed Impressions: Service Date/Time: January 13:32 - CONCLUSION: Prolonged lag phase and delayed gastric emptying suggesting gastroparesis. Clinical correlation is recommended. Olman Noland MD Abdomen/Pelvis CT 02/10/17 0000 Signed Impressions: Service Date/Time: Friday, February 10, 2017 07:47 - CONCLUSION: 1. Non-calcified nodule within the right lower lobe has increased in size compared to previous examination and now measures 12 mm. PET/CT scan would be helpful for further characterization of this suspicious nodule. 2. Uncomplicated sigmoid diverticulosis. 3. Small hiatal hernia. 4. Stable midline ventral abdominal wall hernia containing only fat. 5. Degenerative changes and scoliosis of the thoracolumbar spine. Omlan Noland MD Chest X-Ray 02/09/17 191 Signed Impressions: Service Date/Time: Thursday, February 09, 2017 19:27 - CONCLUSION: No acute cardiopulmonary disease. Rae Pearson MD PE at Discharge GENERAL: Well-nourished, well-developed very pleasant morbidly obese elderly female patient. SKIN: Warm and dry. HEAD: Normocephalic. EYES: No scleral icterus. No injection or drainage. NECK: Supple, trachea midline. No JVD or lymphadenopathy. CARDIOVASCULAR: Regular rate and rhythm without murmurs, gallops, or rubs. RESPIRATORY: Breath sounds equal bilaterally. Clear to auscultation anteriorly. No accessory muscle use. GASTROINTESTINAL: Bowel sounds normal. Abdomen soft, non-tender, nondistended. EXTREMITIES: Trace pedal edema NEUROLOGICAL: Awake, alert, and oriented x 3. Non-focal. patient observed to get up by herself and ambulate with walker Hospital Course -Intermittent vomiting going on for 1 year. Highly suspicious for gastroparesis in a patient with long-standing diabetes. Gastric emptying scan has confirmed gastroparesis and she has had no further vomiting since admission. Continue erythromycin. There was a question of coffee-ground emesis however the patient denies ever having any blood in her stool or vomit and hemoglobin has been stable. Abdominal CT scan negative for any acute findings. -History of esophagitis and Hooks's esophagus - diagnosed on EGD 12/14/16 - continue PPI. -Enterococcal UTI. Continue Cipro. -Chronic microcytic anemia of hemoglobin around 8-9. Hemoccult is pending however no stool for collection. Iron is low so I will start her on supplementation. -Mild Lactic acid acidosis -lactate 2.3. Blood pressure has been stable. Mild elevation was Likely secondary to dehydration. -Paroxysmal atrial fibrillation, she had some elevated rate in the emergency department. Received Cardizem 15 mg IV in the ED. Rate has been controlled since. Appears to be in normal sinus rhythm on telemetry. Continue metoprolol and Coumadin. -Hypertension -continue home meds carefully to hold if blood pressure low. -Type 2 diabetes. cont basal insulin, home dose verified. -History of TIA/CVA - Coumadin. -Previous history of tobacco abusequit 40 years ago -Mild hyponatremia and hyperkalemia likely secondary to dehydration, resolved. -Morbid obesity. Pt Condition on Discharge: Stable Discharge Disposition: Disch w/ Home Health Serv Discharge Time: > 30 minutes Discharge Instructions DIET: Follow Instructions for: Heart Healthy Diet, Diabetic Diet Activities you can perform: Regular-No Restrictions New Medications: Ciprofloxacin (Cipro) 250 Mg Tab 250 MG PO Q12HR Infection #8 TAB Erythromycin Base (Erythromycin Base) 250 Mg Tab 250 MG PO TIDAC gastroparesis #90 Ref 0 TAB Erythromycin Ethylsuccinate Liq (E.E.S. Liq) 200 Mg/5 Ml Susp 100 MG PO Q8HR gastroparesis #30 BOTTLE Ferrous Sulfate (Ferrous Sulfate) 325 Mg Tab 325 MG PO BID anemia #60 TAB Continued Medications: Atorvastatin (Lipitor) 20 Mg Tab 20 MG PO HS Cholesterol Management #30 Ref 0 TAB Furosemide (Lasix) 20 Mg Tab 20 MG PO DAILY #30 Ref 0 TAB Gabapentin (Gabapentin) 300 Mg Cap 300 MG PO BID Pain #60 Ref 0 CAP Hydralazine (Hydralazine) 50 Mg Tab 50 MG PO TID Take with a meal Blood Pressure Management Ref 0 TAB Insulin Glargine Inj (Lantus Solostar Pen Inj) 300 Unit/3 Ml Pen 90 UNITS SQ HS Blood Sugar Management Ref 0 PEN Levothyroxine (Levothyroxine) 88 Mcg Tab 88 MCG PO DAILY Thyroid #30 Ref 0 TAB Lisinopril (Lisinopril) 20 Mg Tab 20 MG PO BID #30 Ref 0 TAB Metformin (Metformin) 1,000 Mg Tab 1000 MG PO BID With meals Blood Sugar Management #60 Ref 0 TAB Metoprolol Tartrate (Metoprolol Tartrate) 25 Mg Tab 12.5 MG PO Q12HR Blood Pressure Management #60 TAB Nifedipine ER 24 HR (Nifedipine ER 24 HR) 30 Mg Tab 30 MG PO DAILY #30 Ref 0 TAB Pantoprazole (Protonix) 40 Mg Tab 40 MG PO DAILY Reflux #30 Ref 0 TAB Temazepam (Restoril) 15 Mg Cap 15 MG PO HS PRN INSOMNIA/MAY REPEAT X1 DOSE #10 CAP Triazolam (Triazolam) 0.25 Mg Tab 0.25 MG PO HS Insomnia #30 Ref 0 TAB Warfarin (Warfarin) 5 Mg Tab 5 MG PO DAILY Blood Clot Prevention #30 Ref 0 TAB Alexus Castellanos MD Feb 14, 2017 10:39
[2017-02-14 11:52] VITALS: BP 144/65; PULSE 70; RESP 20; TEMP 98.2; O2SAT 97
== END 2017-02-14 14:45 | disposition home or self-care (01) | DRG 690 ==
LOC: NEPC 19:07 → NEDA 02-10 00:46 → NEPFCDU 02-10 02:22 → OBSVTOIN 02-10 17:11
PROVIDERS: ADMIT Family Medicine; ATTEND Family Medicine
DX: N39.0 Urinary tract infection, site not specified (principal); E87.2 Acidosis; E11.65 Type 2 diabetes mellitus with hyperglycemia; E87.1 Hypo-osmolality and hyponatremia; K22.70 Barrett's esophagus without dysplasia; E87.5 Hyperkalemia; E86.0 Dehydration; I48.0 Paroxysmal atrial fibrillation; E11.43 Type 2 diabetes mellitus with diabetic autonomic (poly)neuropathy; K31.84 Gastroparesis; I10 Essential (primary) hypertension; K20.9 Esophagitis, unspecified; Z68.42 Body mass index [BMI] 45.0-49.9, adult; E66.01 Morbid (severe) obesity due to excess calories; M41.9 Scoliosis, unspecified; B95.2 Enterococcus as the cause of diseases classified elsewhere; D50.9 Iron deficiency anemia, unspecified; R91.1 Solitary pulmonary nodule; R06.2 Wheezing; R21 Rash and other nonspecific skin eruption; K57.30 Diverticulosis of large intestine without perforation or abscess without bleeding; K44.9 Diaphragmatic hernia without obstruction or gangrene; K43.9 Ventral hernia without obstruction or gangrene; K42.9 Umbilical hernia without obstruction or gangrene; K29.70 Gastritis, unspecified, without bleeding; E78.5 Hyperlipidemia, unspecified; E03.9 Hypothyroidism, unspecified; Z79.01 Long term (current) use of anticoagulants; Z86.73 Personal history of transient ischemic attack (TIA), and cerebral infarction without residual deficits; Z87.11 Personal history of peptic ulcer disease; Z96.653 Presence of artificial knee joint, bilateral; Z79.4 Long term (current) use of insulin; Z66 Do not resuscitate
CPT/HCPCS: 71010; 74176; 76937; 78264; 80048; 80053; 81001; 82607; 82728; 82746; 82948; 83540; 83550; 83605; 83690; 83880; 85014; 85018; 85025; 85610; 85730; 86850; 86900; 86901; 87077; 87086; 87186; 90471; 90732; 93005; 96361; 96365; 96375; 96376; A9541; C9113; G0009; J0696; J0744; J1815; J2405; J2765; J7030; Q9963

== ENCOUNTER 2017-06-08 18:57 | Inpatient (IN) | payer MEDICARE ==
[~2017-06-08] VITALS: Ht 160 cm; Wt 135.5 kg
[~2017-06-08 18:57] MED LIST changes: +CIPR250T52 PO; +ERYT200S2 PO; +ERYT250T13 PO; +FERR325T PO
[2017-06-08 19:51] VITALS: BP 127/60; PULSE 95; RESP 22; TEMP 97.8; O2SAT 94
--- NOTE | 2017-06-08 21:14 | RADRPT ---
EXAM DATE/TIME: 06/08/2017 20:37 [facility] COMPARISON: No previous studies available for comparison. INDICATIONS : Lower back pain after fall. MEDICAL HISTORY : Cerebrovascular disease. Cardiovascular disease Diabetes mellitus type 2.Hypertension SURGICAL HISTORY : Cholecystectomy. ENCOUNTER: Initial ACUITY: 2 days PAIN SCORE: 10/10 LOCATION: Lower back. FINDINGS: Moderate disc space narrowing L3-4 through L5-S1. Severe disc space narrowing at L1-2 and L2-3 with e ndplate sclerosis and osteophytosis. Vacuum disc phenomenon at L1-2 through L3-4. Moderate facet hype rtrophic changes. Diffuse atherosclerotic calcification of the aorta and iliac vessels. No compressio n deformity. CONCLUSION: Degenerative changes and atherosclerosis. Matias Dykes MD on June 08, 2017 at 21:12 Board Certified Radiologist. This report was verified electronically.
--- NOTE | 2017-06-08 21:15 | RADRPT ---
EXAM DATE/TIME: 06/08/2017 20:46 [facility] COMPARISON: CHEST PA & LAT, June 15, 2015, 8:57. INDICATIONS : Rib pain after fall last night. MEDICAL HISTORY : Cerebrovascular disease. Cardiovascular disease Diabetes mellitus type 2.Hypertension SURGICAL HISTORY : Cholecystectomy. ENCOUNTER: Initial ACUITY: 2 days PAIN SCORE: 6/10 LOCATION: Bilateral chest FINDINGS: There is cardiomegaly and mild interstitial prominence. Aortic calcification is noted. Osseous struct ures are intact. There is a right azygos fissure, and a nodular density measuring 2 cm in this region may be related to the azygos vein however a mass is difficult to exclude. CONCLUSION: Interstitial prominence and right suprahilar nodular density may be related to the azygos vein howeve r a mass is difficult to exclude. Matias Dykes MD on June 08, 2017 at 21:12 Board Certified Radiologist. This report was verified electronically.
[2017-06-08] MEDS ORDERED: ACETAMINOPHEN 500 MG CPLT PO ONE (22:15)
--- NOTE | 2017-06-08 22:19 | PD ---
HPI Chief Complaint: Fall Time Seen by Provider: 22:06 Travel History International Travel<30 days: No Contact w/Intl Traveler<30days: No Traveled to known affect area: No History of Present Illness HPI Patient comes in complaining of achy low back pain that began around 3:30 this morning. Patient states she got up to get a peach out of the fridge, which she could not find one then lost her balance and fell hitting her back against the refrigerator door. Patient denies hitting her head or loss of consciousness. Patient reports fire department came helped her get back to bed. Patient felt that she was fine until she tried to stand up earlier tonight and still having pain. Pain is achy in her lower lumbar spine without radiation. Patient denies doing anything for this. Pain is worse with movement. Denies any numbness or tingling, change in bowel or bladder, hitting her head, loss of consciousness, chest pain, or shortness of breath. PFSH Past Medical History Hx Anticoagulant Therapy: Yes (COUMADIN) Arthritis: Yes Asthma: No Autoimmune Disease: No Blood Disorders: No Anxiety: No Depression: No Heart Rhythm Problems: No Cancer: No Cardiovascular Problems: Yes (A FIB) High Cholesterol: No Chemotherapy: No Chest Pain: Yes Congestive Heart Failure: No COPD: No Cerebrovascular Accident: Yes (x three) Diabetes: Yes Patient Takes Glucophage: Yes Diminished Hearing: No Endocrine: Yes GERD: No Genitourinary: No Headaches: Yes Hiatal Hernia: No Hypertension: Yes Immune Disorder: No Kidney Stones: No Musculoskeletal: Yes Neurologic: Yes (cva x3-4 latest 01/07) Psychiatric: No Reproductive: No Respiratory: No Immunizations Current: Yes Migraines: Yes Radiation Therapy: No Renal Failure: No Seizures: No Sickle Cell Disease: No Sleep Apnea: Yes Thyroid Disease: No Ulcer: No Menopausal: Yes : 5 Para: 5 Past Surgical History Abdominal Surgery: Yes (GALLBLADDER OUT 1973) AICD: No Arteriovenous Shunt: No Cardiac Surgery: No Cholecystectomy: Yes Ear Surgery: No Endocrine Surgery: No Eye Surgery: Yes (cataract) Genitourinary Surgery: No Gynecologic Surgery: Yes Hysterectomy: Yes Insulin Pump: No Joint Replacement: Yes (KNEE REPLACEMENTS ) Oral Surgery: No Pacemaker: No Thoracic Surgery: No Other Surgery: Yes Social History Alcohol Use: No Tobacco Use: No Substance Use: No Allergies-Medications (Allergen,Severity, Reaction): Coded Allergies: Penicillin (Verified Allergy, Severe, rash, 06/09/17) *MDRO Multi-Drug Resistant Organism (Verified Adverse Reaction, Unknown, ) 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 Ecotrin Low Strength (Aspirin) 81 Mg Tabdr 81 Mg PO DAILY Spironolactone 50 Mg Tab 50 Mg PO DAILY Hydralazine (Hydralazine HCl) 100 Mg Tab 50 Mg PO TID Take with meals Lisinopril 20 Mg Tab 20 Mg PO BID Lantus Solostar Pen Inj (Insulin Glargine) 300 Unit/3 Ml Pen 90 Units SQ HS Nifedipine ER 24 HR (Nifedipine) 30 Mg Tab 30 Mg PO DAILY Warfarin 5 Mg Tab 5 Mg PO DAILY Levothyroxine (Levothyroxine Sodium) 88 Mcg Tab 88 Mcg PO DAILY Lipitor (Atorvastatin Calcium) 20 Mg Tab 20 Mg PO HS Metformin (Metformin HCl) 1,000 Mg Tab 1,000 Mg PO BID With meals Lasix (Furosemide) 20 Mg Tab 20 Mg PO DAILY Review of Systems Except as stated in HPI: all other systems reviewed are Neg Physical Exam Narrative GENERAL: Well-developed, overly nourished, in no acute distress, pleasant, and non-ill appearing. SKIN: Focused skin assessment warm and dry. HEAD: Atraumatic. Normocephalic. EYES: Pupils equal and round. EOMI. No scleral icterus. No injection or drainage. ENT: No nasal bleeding or discharge. Mucous membranes pink and moist. NECK: Trachea midline. Supple. No nuclear rigidity. CARDIOVASCULAR: Dorsal pulses 2+, intact, equal bilaterally. No pedal edema. RESPIRATORY: No accessory muscle use. No respiratory distress. Clear to auscultation. Breath sounds equal bilaterally. GASTROINTESTINAL: Abdomen soft, non-tender, nondistended. Hepatic and splenic margins not palpable. No pulsatile mass. MUSCULOSKELETAL: No obvious deformities. No clubbing. No cyanosis. No edema. Full range of motion. Patient reports tenderness to paravertebral spinal muscles and lumbar spine. There is no tenderness or crepitus of thr midline throughout the spine. Straight leg test negative bilaterally. NEUROLOGICAL: Awake and alert. No obvious cranial nerve deficits. Motor grossly within normal limits. Normal speech. PSYCHIATRIC: Appropriate mood and affect; insight and judgment normal. Data Data Last Documented VS Vital Signs Date Time Temp Pulse Resp B/P Pulse Ox O2 Delivery O2 Flow Rate FiO2 06/08/17 19:51 97.8 95 22 127/60 94 Orders Chest, Pa & Lat (06/08/17 ) Spine, Lumbar - Ltd (Ap & Lat) (06/08/17 ) Urinalysis - C+S If Indicated (06/08/17 22:04) Acetaminophen (Tylenol) (06/08/17 22:15) Urine Culture (06/08/17 22:15) Nitrofurantoin Monohyd Macrocr (Macrobid (06/08/17 23:00) Ondansetron Odt (Zofran Odt) (06/09/17 00:00) Basic Metabolic Panel (Bmp) (06/09/17 00:47) Complete Blood Count With Diff (06/09/17 00:47) Prothrombin Time / Inr (Pt) (06/09/17 00:47) Act Partial Throm Time (Ptt) (06/09/17 00:47) Iv Access Insert/Monitor (06/09/17 00:47) Ecg Monitoring (06/09/17 00:47) Oximetry (06/09/17 00:47) Ondansetron Inj (Zofran Inj) (06/09/17 01:00) Sodium Chloride 0.9% Flush (Ns Flush) (06/09/17 01:00) Sodium Chlorid 0.9% 500 Ml Inj (Ns 500 M (06/09/17 01:00) Ct Abd/Pel W/O Iv Contrast (06/09/17 00:53) Ceftriaxone Inj (Rocephin Inj) (06/09/17 01:15) Ct Brain W/O Iv Contrast(Rout) (06/09/17 ) Promethazine Inj (Phenergan Inj) (06/09/17 03:30) Admit Order (Ed Use Only) (06/09/17 03:56) Place In Observation (06/09/17 ) Vital Signs (Adult) Q4H (06/09/17 03:55) Activity Oob With Assistance (06/09/17 03:55) Dam Tender / Telemetry .CONTINUOUS (06/09/17 03:55) Sodium Chloride 0.9% Flush (Ns Flush) (06/09/17 04:00) Sodium Chloride 0.9% Flush (Ns Flush) (06/09/17 09:00) Ondansetron Inj (Zofran Inj) (06/09/17 04:00) Metoclopramide Inj (Reglan Inj) (06/09/17 04:00) Basic Metabolic Panel (Bmp) (06/10/17 06:00) Complete Blood Count With Diff (06/10/17 06:00) Pt Request For Service (06/09/17 03:55) Naloxone Inj (Narcan Inj) (06/09/17 04:00) Labs Laboratory Tests Test 06/08/17 06/09/17 06/09/17 22:15 02:33 03:30 Urine Color YELLOW Urine Turbidity HAZY Urine pH 5.0 Urine Specific [place] 1.015 Urine Protein NEG mg/dL Urine Glucose (UA) NEG mg/dL Urine Ketones NEG mg/dL Urine Occult Blood NEG Urine Nitrite POS Urine Bilirubin NEG Urine Urobilinogen LESS THAN 2.0 MG/DL Urine Leukocyte Esterase SMALL Urine RBC 1 /hpf Urine WBC 13 /hpf Urine Squamous Epithelial 2 /hpf Cells Urine Bacteria MANY /hpf Urine Hyaline Casts 13 /lpf Urine Mucus FEW /lpf Microscopic Urinalysis Comment CULTURE INDICATED White Blood Count 11.5 TH/MM3 Red Blood Count 4.15 MIL/MM3 Hemoglobin 11.3 GM/DL Hematocrit 35.0 % Mean Corpuscular Volume 84.2 FL Mean Corpuscular Hemoglobin 27.2 PG Mean Corpuscular Hemoglobin 32.3 % Concent Red Cell Distribution Width 17.6 % Platelet Count 266 TH/MM3 Mean Platelet Volume 8.0 FL Neutrophils (%) (Auto) 87.9 % Lymphocytes (%) (Auto) 6.7 % Monocytes (%) (Auto) 5.0 % Eosinophils (%) (Auto) 0.1 % Basophils (%) (Auto) 0.3 % Neutrophils # (Auto) 10.1 TH/MM3 Lymphocytes # (Auto) 0.8 TH/MM3 Monocytes # (Auto) 0.6 TH/MM3 Eosinophils # (Auto) 0.0 TH/MM3 Basophils # (Auto) 0.0 TH/MM3 CBC Comment DIFF FINAL Differential Comment Prothrombin Time 20.4 SEC Prothromb Time International 1.8 RATIO Ratio Activated Partial 31.1 SEC Thromboplast Time Sodium Level 139 MEQ/L Potassium Level 6.3 MEQ/L Chloride Level 107 MEQ/L Carbon Dioxide Level 24.0 MEQ/L Anion Gap 8 MEQ/L Blood Urea Nitrogen 29 MG/DL Creatinine 1.21 MG/DL Estimat Glomerular Filtration 43 ML/MIN Rate Random Glucose 206 MG/DL Calcium Level 9.1 MG/DL [facility] Medical Decision Making Medical Screen Exam Complete: Yes Emergency Medical Condition: Yes Interpretation(s) Chest x-ray or by the radiologist shows: Interstitial prominence and right suprahilar nodular density may be related to the azygos vein however a mass is difficult to exclude. Lumbar spine x-ray read by the radiologist shows: Degenerative changes and atherosclerosis. CT the head read by the radiologist shows: Normal examination for a patient of this age. No significant change has occurred. CT abdomen and pelvis read by the radiologist shows: 1. There continues to be a nodular infiltrate in the right lung base measuring approximately 1.4 cm. This may be slightly increased in size compared to the prior exam. Recommend a PET CT on a nonemergent outpatient basis for evaluation of hypermetabolic activity. 2. Umbilical hernia containing mesenteric fat. No change. 3. Scattered sigmoid diverticulosis without inflammatory changes. 4. No new or significant changes compared to the prior study. EKG reviewed by Dr. Moctezuma shows sinus tachycardia with a ventricular rate of 105. No STEMI. Differential Diagnosis Fracture, strain, contusion, other Narrative Course After patient was discharged. Patient became nauseous and vomited. Patient was given Zofran and watched in the ER. Patient vomited a second time. At this time patient had an IV started with additional laboratory and radiological studies ordered. Patient was ordered Zofran IV along with small amount of fluids and a gram or Rocephin for her UTI. We'll reassess pending laboratory and radiological results. Patient denies any abdominal pain states she feels nauseous and has felt nauseous most of the day. Abdomen is soft, nontender, without guarding or distention. No signs of surgical abdomen at this time. Bowel sounds are slightly hypoactive. 0318 patient reassessed. Patient still feels nauseous and has vomited some more despite IV Zofran. We'll try dose of Phenergan. Plan on admitting patient in observation pending CT results for intractable vomiting. I discussed this with the patient is agreeable for admission. 0600 Discussed patients hyperkalemia with Dr. Moctezuma, who recommends repeating potassium prior to giving Kayexalate unless there are EKG changes and giving a little more fluid. Physician Communication Physician Communication [id number] Dorado, who is agreeable to admit the patient. 0607 discussed patient's elevated potassium with Dr. Dorado, who recommends not giving any more fluids and and just wait for the repeat lab. Diagnosis Primary Impression: Intractable vomiting with nausea Qualified Code: R11.2 - Intractable vomiting with nausea, unspecified vomiting type Additional Impressions: Low back pain Qualified Code: M54.5 - Acute midline low back pain without sciatica Incidental lung nodule UTI (urinary tract infection) Qualified Code: N30.00 - Acute cystitis without hematuria Hyperkalemia Admitting Information Admitting Physician Requests: Observation Patient Instructions: Acute Low Back Pain (ED), General Instructions, Urinary Tract Infection in Women (ED) Additional Instructions: Follow-up with your primary care physician in 2-3 days for reevaluation and further evaluation of incidental finding noted on chest x-ray. Use over-the- counter Tylenol as needed for pain. Follow instructions on the packaging. Take all medication as prescribed. Return to the emergency department if symptoms get worse. Med/Other Pt SpecificInfo: Prescription(s) given Condition: Stable Van [place] Jun 08, 2017 22:19 [place] Jun 08, 2017 22:19
[2017-06-08 22:33] LABS: BACTERIA, URINE MANY /hpf; BLOOD, URINE NEG (NEG); COMMENT (UR) CULTURE INDICATED; CULTURE IF INDICATED CULTURE INDICATED; GLUCOSE,URINE NEG (NEG); HYALINE CAST, URINE 13 /lpf (RARE); KETONE, URINE NEG (NEG); MUCUS URINE FEW /lpf (OCC); SQUAMOUS EPITHELIAL CELL URINE 2 /hpf (0-5); URINE COLOR YELLOW (YELLW/STRAW)
[2017-06-08 22:37] LABS: NITRITE,URINE POS (NEG)
[2017-06-08] MEDS ORDERED: MACR100C2 PO (22:50)
[2017-06-08] MEDS ORDERED: NITROFURANTOIN MONOHYD MACROCR 100 MG CAP PO ONE (23:00)
[2017-06-09] VITALS (9 sets, daily range): BP systolic 125–190; BP diastolic 68–89; PULSE 67–108; RESP 18–20; TEMP 97–98.5; O2SAT 94–98
[2017-06-09] MEDS ORDERED: ONDANSETRON ODT 4 MG TAB PO ONE
[2017-06-09] MEDS ORDERED: ONDANSETRON HCL 4 MG/2 ML VIAL IVP ONE (01:00)
[2017-06-09] MEDS ORDERED: SODIUM CHLORID 0.9% 500 ML INJ 500 ML IV ONE ×2 (01:00→06:15)
[2017-06-09] MEDS ORDERED: SODIUM CHLORIDE 0.9% FLUSH 10 ML FLUSH IV FLUSH PRN ×2 (01:00→04:00)
[2017-06-09] MEDS ORDERED: cefTRIAXone INJ 1,000 MG in SODIUM CHLORIDE 0.9% INJ 100 ML IV ONE (01:15)
[2017-06-09 02:55] LABS: AUTOMATED NEUTROPHIL # 10.1 TH/MM3 (1.8-7.7); BASOPHIL % 0.3 % (0.0-2.0); EOSINOPHIL % 0.1 % (0.0-4.0); HEMO FLAGS DIFF FINAL; LYMPH % 6.7 % (9.0-44.0); LYMPHOCYTE # 0.8 TH/MM3 (1.0-4.8); MEAN CELL VOLUME 84.2 FL (80.0-100.0); MEAN CORPUSCULAR HEMOGLOBIN 27.2 PG (27.0-34.0); MEAN CORPUSCULAR HGB CONC 32.3 % (32.0-36.0); NEUT % 87.9 % (16.0-70.0); PLATELET COUNT 266 TH/MM3 (150-450); RED BLOOD COUNT 4.15 MIL/MM3 (4.00-5.30); RED CELL DISTRIBUTION WIDTH 17.6 % (11.6-17.2); WHITE BLOOD COUNT 11.5 TH/MM3 (4.0-11.0)
[2017-06-09 03:07] LABS: APTT (PATIENT) 31.1 SEC (24.3-30.1); INTERNATIONAL NORMALIZED RATIO 1.8 RATIO; PROTHROMBIN TIME - PATIENT 20.4 SEC (9.8-11.6)
--- NOTE | 2017-06-09 03:07 | RADRPT ---
EXAM DATE/TIME: 06/09/2017 02:58 [facility] COMPARISON: CT BRAIN W/O CONTRAST, October 27, 2015, 12:28. INDICATIONS : Trauma. Fall. RADIATION DOSE: 47.73 CTDIvol (mGy) MEDICAL HISTORY : Cardiovascular disease. Cardiovascular disease Hypertension.Diabetes SURGICAL HISTORY : Cholecystectomy. Hysterectomy.Bilateral knees ENCOUNTER: Initial ACUITY: 1 day PAIN SCALE: 3/10 LOCATION: cranial TECHNIQUE: Multiple contiguous axial images were obtained of the head. Using automated exposure control and adj ustment of the mA and/or kV according to patient size, radiation dose was kept as low as reasonably a chievable to obtain optimal diagnostic quality images. DICOM format image data is available electro nically for review and comparison. FINDINGS: CEREBRUM: The ventricles are normal for age. Stable bilateral cortical atrophy and chronic white matter changes . No evidence of midline shift, mass lesion, hemorrhage or acute infarction. No extra-axial fluid co llections are seen. POSTERIOR FOSSA: The cerebellum and brainstem are intact. The 4th ventricle is midline. The cerebellopontine angle i s unremarkable. EXTRACRANIAL: The visualized portion of the orbits is intact. SKULL: The calvaria is intact. No evidence of skull fracture. CONCLUSION: Normal examination for a patient of this age. No significant change has occurred. Yobany Burgess MD on June 09, 2017 at 3:03 Board Certified Radiologist. This report was verified electronically.
--- NOTE | 2017-06-09 03:27 | RADRPT ---
EXAM DATE/TIME: 06/09/2017 03:02 [facility] COMPARISON: CT ABDOMEN & PELVIS W/O CONTRAST, February 10, 2017, 7:47. INDICATIONS : Fall. Back and buttock pain. ORAL CONTRAST: No oral contrast ingested. RADIATION DOSE: 31.27 CTDIvol (mGy) ; High dose protocol; Patient body habitus MEDICAL HISTORY : Cerebrovascular disease. Cardiovascular disease Hypertension.Diabetes SURGICAL HISTORY : Cholecystectomy. Hysterectomy.Bilateral knees ENCOUNTER: Initial ACUITY: 1 day PAIN SCALE: 8/10 LOCATION: back and buttock TECHNIQUE: Volumetric scanning of the abdomen and pelvis was performed. Using automated exposure control and ad justment of the mA and/or kV according to patient size, radiation dose was kept as low as reasonably achievable to obtain optimal diagnostic quality images. DICOM format image data is available electro nically for review and comparison. The lack of IV contrast limits the diagnosis for certain organ pa thology. FINDINGS: LOWER LUNGS: Focal nodular density in right lung base. Left lung base is clear LIVER: Homogeneous density without lesion. There is no dilation of the biliary tree. No gallbladder, surgi rodri removed.. SPLEEN: Normal size without lesion. PANCREAS: Within normal limits. KIDNEYS: Normal in size and shape. There is no mass, stone, or hydronephrosis. ADRENAL GLANDS: Within normal limits. VASCULAR: There is no aortic aneurysm. BOWEL/MESENTERY: The stomach, small bowel, and colon demonstrate no acute abnormality. There is no free intraperitone al air or fluid. No inflammatory changes. There is some scattered diverticulosis of the sigmoid colon . No significant change. ABDOMINAL WALL: Umbilical hernia containing mesenteric fat. No change. RETROPERITONEUM: There is no lymphadenopathy. BLADDER: No wall thickening or mass. REPRODUCTIVE: Within normal limits. INGUINAL: There is no lymphadenopathy or hernia. MUSCULOSKELETAL: Within normal limits for patient age. Bony degenerative changes. No acute bony fracture. CONCLUSION: 1. There continues to be a nodular infiltrate in the right lung base measuring approximately 1.4 cm. This may be slightly increased in size compared to the prior exam. Recommend a PET CT on a nonemergen t outpatient basis for evaluation of hypermetabolic activity. 2. Umbilical hernia containing mesenteric fat. No change. 3. Scattered sigmoid diverticulosis without inflammatory changes. 4. No new or significant changes compared to the prior study. Yobany Burgess MD on June 09, 2017 at 3:18 Board Certified Radiologist. This report was verified electronically.
[2017-06-09] MEDS ORDERED: PROMETHAZINE INJ 25 MG/ML VIAL IM ONE (03:30)
[2017-06-09] MEDS ORDERED: ONDANSETRON HCL 4 MG/2 ML VIAL IVP PRN (04:00)
[2017-06-09] MEDS ORDERED: NALOXONE HCL 0.4 MG/ML AMP IV PRN (04:00)
[2017-06-09] MEDS ORDERED: METOCLOPRAMIDE HCL 10 MG/2 ML VIAL IV PUSH PRN (04:00)
[2017-06-09 05:54] LABS: POTASSIUM 6.3 MEQ/L (3.5-5.1)
[2017-06-09] MEDS ORDERED: SODIUM POLYSTYRENE SULFONATE SUSP 15 GM/60 ML CUP PO ONE ×2 (06:15→08:15)
[2017-06-09] MEDS: SODIUM CHLORIDE 0.9% FLUSH 10 ML FLUSH IV FLUSH SCH ×2 (07:18→21:31)
[2017-06-09] MEDS ORDERED: INSULIN HUMAN REGULAR 1,000 UNITS/10 ML VIAL IV PUSH ONE (07:30)
[2017-06-09] MEDS ORDERED: CALCIUM GLUCONATE 10% 1 GM/10 ML VIAL IV PUSH ONE (07:30)
[2017-06-09] MEDS ORDERED: SODIUM POLYSTYRENE SULFONATE 30 GM/120 ML ENEMA RECTAL ONE (07:30)
[2017-06-09] MEDS ORDERED: DEXTROSE 50% IN WATER 50 ML VIAL(D50) IV PUSH ONE (07:30)
[2017-06-09] MEDS ORDERED: DEXTROSE 50% IN WATER 50 ML VIAL(D50) ONE (07:51)
--- NOTE | 2017-06-09 08:36 | EKG ---
Date Performed: 06/09/2017 Time Performed: 06:23:57 PTAGE: 82 years EKG: SINUS TACHYCARDIA ABNORMAL RHYTHM ECG PREVIOUS TRACING : 02/09/2017 20.28 DOCTOR: Luis Alejandre Interpretating Date/Time 06/09/2017 08:35:22
[2017-06-09] MEDS: SODIUM CHLOR 0.9% 1000 ML INJ 1,000 ML IV SCH ×2 (08:48→21:31)
[2017-06-09] MEDS ORDERED: GLUCAGON 1 MG/ML VIAL OTHER PRN (09:30)
[2017-06-09] MEDS ORDERED: DEXTROSE 50% IN WATER 50 ML VIAL(D50) IV PRN (09:30)
[2017-06-09] MEDS ORDERED: PILL SPLITTER OTHER PRN (09:45)
[2017-06-09] MEDS: NIFEdipine 30 MG SUSTAINED RELEASE TAB PO SCH (09:52)
[2017-06-09] MEDS: METOPROLOL TARTRATE 25 MG TAB PO SCH ×2 (09:52→21:30)
[2017-06-09] MEDS: PANTOPRAZOLE SODIUM 40 MG VIAL IV PUSH SCH (09:52)
--- NOTE | 2017-06-09 10:06 | HHI.HP ---
Status post Fall, Intractable Nausea and vomit. [facility] Unknown Admission Diagnosis intractable vomiting, UTI Diagnoses: Chief Complaint: Fall, intractable nausea and vomiting Travel History International Travel<30 Days: No Contact w/Intl Traveler <30 Da: No Traveled to Known Affected Are: No History of Present Illness 82-year-old female with past medical history of HTN, DM, HLD, TIA, gastroparesis who presented after a fall and was admitted for intractable nausea and vomiting. The patient states that yesterday she was getting a pH out of the refrigerator, lost her balance, slipped and fell backwards on the floor. The patient denies any injury, head trauma, or pain from the fall. She denies any lightheadedness or dizziness. Reportedly she had problems ambulating and thus she was brought to the ED. While in the ED, the patient had intractable nausea and vomiting. Patient states she's been having nausea and vomiting for the past 3 or 4 days and has not been tolerating any oral intake. She has "slight" generalized abdominal pain. She denies any diarrhea. She reports subjective chills, denies any fevers. She reports good urine output. She denies any recent medication changes. She denies any chest pain, shortness breath, palpitations. The patient is not the best historian. She does live alone. She states her niece checks in on her and manages her medications. She does not know what medication she is on. She denies any history of arrhythmia or atrial fibrillation. She states that she has a home physician and a home carrier operator that come to see her at her house. Review of Systems Except as stated in HPI: all other systems reviewed are Neg Past Family Social History Past Medical History Hypertension Hyperlipidemia Diabetes mellitus Gastroparesis History of TIA 3 on Coumadin Questionable history of atrial fibrillation Morbid Obesity Past Surgical History Hysterectomy Bilateral knee replacement Bilateral cataract surgery Cholecystectomy Appendectomy Reported Medications Unconfirmed, discussed with RN, patient's niece to bring in meds Reported Meds & Active Scripts Active Macrobid (Nitrofurantoin Monoh/Nitrofur Macro) 100 Mg Cap 100 Mg PO BID 10 Days Erythromycin Base 250 Mg Tab 250 Mg PO TIDAC Cipro (Ciprofloxacin HCl) 250 Mg Tab 250 Mg PO Q12HR E.E.S. Liq (Erythromycin Ethylsuccinate) 200 Mg/5 Ml Susp 100 Mg PO Q8HR Protonix (Pantoprazole Sodium) 40 Mg Tab 40 Mg PO DAILY Restoril (Temazepam) 15 Mg Cap 15 Mg PO HS PRN Metoprolol Tartrate 25 Mg Tab 12.5 Mg PO Q12HR Gabapentin 300 Mg Cap 300 Mg PO BID Reported Lisinopril 20 Mg Tab 20 Mg PO BID Lantus Solostar Pen Inj (Insulin Glargine) 300 Unit/3 Ml Pen 90 Units SQ HS Nifedipine ER 24 HR (Nifedipine) 30 Mg Tab 30 Mg PO DAILY Warfarin 5 Mg Tab 5 Mg PO DAILY Levothyroxine (Levothyroxine Sodium) 88 Mcg Tab 88 Mcg PO DAILY Lipitor (Atorvastatin Calcium) 20 Mg Tab 20 Mg PO HS Metformin (Metformin HCl) 1,000 Mg Tab 1,000 Mg PO BID With meals Lasix (Furosemide) 20 Mg Tab 20 Mg PO DAILY Allergies: Coded Allergies: Penicillin (Verified Allergy, Severe, rash, 06/09/17) *MDRO Multi-Drug Resistant Organism (Verified Adverse Reaction, Unknown, ) 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 Ordered Medications Current Medications Medications (Trade) Dose Ordered Sig/Isaiah Route Start Time Stop Time Status Last Admin (NS Flush) 2 ml UNSCH PRN IV FLUSH 06/09/17 04:00 (NS Flush) 2 ml BID IV FLUSH 06/09/17 09:00 06/09/17 07:18 (Zofran Inj) 4 mg Q6H PRN IVP 06/09/17 04:00 06/09/17 07:18 (Reglan Inj) 5 mg Q6H PRN IV PUSH 06/09/17 04:00 06/09/17 07:18 Naloxone HCl 0.4 mg 0.4 mg UNSCH PRN IV 06/09/17 04:00 (NS 1000 ml Inj) 1,000 ml @ 100 mls/hr Q10H IV 06/09/17 09:00 06/09/17 08:48 (D50w (Vial) Inj) 50 ml UNSCH PRN IV 06/09/17 09:30 (Glucagon Inj) 1 mg UNSCH PRN OTHER 06/09/17 09:30 (Protonix Inj) 40 mg DAILY IV PUSH 06/09/17 09:30 (Lopressor) 12.5 mg Q12HR PO 06/09/17 09:30 (Procardia Xl) 30 mg DAILY PO 06/09/17 09:30 Miscellaneous 1 ea 1 ea UNSCH PRN OTHER 06/09/17 09:45 (Rocephin Inj/NS Inj) 100 ml @ 200 mls/hr Q24H IV 06/09/17 23:59 UNV Family History Reviewed with the patient, no family history pertinent to current chief complaint Social History Denies any alcohol or tobacco use Lives at home by herself Physical Exam Vital Signs Vital Signs Date Time Temp Pulse Resp B/P Pulse Ox O2 Delivery O2 Flow Rate FiO2 06/09/17 08:31 108 20 177/79 96 Room Air 06/09/17 07:00 97.8 105 20 178/83 97 Room Air 06/08/17 19:51 97.8 95 22 127/60 94 Physical Exam GENERAL: Well-developed, morbidly obese. Appears acutely uncomfortable, but does not appear to be in acute distress. SKIN: Warm and dry. Venous stasis changes of the lower extremities. HEENT: Normocephalic. Pupils equal and round. Mucous membranes pink and moist. CARDIOVASCULAR: Tachycardic rate and irregular rhythm. No murmur appreciated. RESPIRATORY: No accessory muscle use. Clear to auscultation. Breath sounds equal bilaterally. GASTROINTESTINAL: Abdomen soft, generalized TTP, nondistended. Bowel sounds x4. MUSCULOSKELETAL: No obvious deformities. No clubbing or cyanosis. No edema. NEUROLOGICAL: Awake and alert. No focal neurological deficits. Moves upper and lower extremities spontaneously. Normal speech. PSYCHIATRIC: Appropriate mood and affect; insight and judgment fair to normal. Laboratory Laboratory Tests Test 06/08/17 06/09/17 06/09/17 06/09/17 22:15 02:33 03:30 06:15 Urine Color YELLOW Urine Turbidity HAZY Urine pH 5.0 Urine Specific [place] 1.015 Urine Protein NEG Urine Glucose (UA) NEG Urine Ketones NEG Urine Occult Blood NEG Urine Nitrite POS Urine Bilirubin NEG Urine Urobilinogen LESS THAN 2.0 Urine Leukocyte Esterase SMALL Urine RBC 1 Urine WBC 13 Urine Squamous Epithelial 2 Cells Urine Bacteria MANY Urine Hyaline Casts 13 Urine Mucus FEW Microscopic Urinalysis Comment CULTURE INDICATED White Blood Count 11.5 Red Blood Count 4.15 Hemoglobin 11.3 Hematocrit 35.0 Mean Corpuscular Volume 84.2 Mean Corpuscular Hemoglobin 27.2 Mean Corpuscular Hemoglobin 32.3 Concent Red Cell Distribution Width 17.6 Platelet Count 266 Mean Platelet Volume 8.0 Neutrophils (%) (Auto) 87.9 Lymphocytes (%) (Auto) 6.7 Monocytes (%) (Auto) 5.0 Eosinophils (%) (Auto) 0.1 Basophils (%) (Auto) 0.3 Neutrophils # (Auto) 10.1 Lymphocytes # (Auto) 0.8 Monocytes # (Auto) 0.6 Eosinophils # (Auto) 0.0 Basophils # (Auto) 0.0 CBC Comment DIFF FINAL Differential Comment Prothrombin Time 20.4 Prothromb Time International 1.8 Ratio Activated Partial 31.1 Thromboplast Time Sodium Level 139 Potassium Level 6.3 6.8 Chloride Level 107 Carbon Dioxide Level 24.0 Anion Gap 8 Blood Urea Nitrogen 29 Creatinine 1.21 Estimat Glomerular Filtration 43 Rate Random Glucose 206 Calcium Level 9.1 Date/Time Procedure Status Source Growth 06/08/17 22:15 Urine Culture Worksheet Urine Random Urine Pending Result Diagram: 06/09/17 0233 06/09/17 0615 Imaging Last Impressions Abdomen/Pelvis CT 06/09/17 0053 Signed Impressions: Service Date/Time: Friday, June 09, 2017 03:02 - CONCLUSION: 1. There continues to be a nodular infiltrate in the right lung base measuring approximately 1.4 cm. This may be slightly increased in size compared to the prior exam. Recommend a PET CT on a nonemergent outpatient basis for evaluation of hypermetabolic activity. 2. Umbilical hernia containing mesenteric fat. No change. 3. Scattered sigmoid diverticulosis without inflammatory changes. 4. No new or significant changes compared to the prior study. Yobany Burgess MD Head CT 06/09/17 0000 Signed Impressions: Service Date/Time: Friday, June 09, 2017 02:58 - CONCLUSION: Normal examination for a patient of this age. No significant change has occurred. Yobany Burgess MD Lumbar Spine X-Ray 06/08/17 0000 Signed Impressions: Service Date/Time: Thursday, June 08, 2017 20:37 - CONCLUSION: Degenerative changes and atherosclerosis. Matias Dykes MD Chest X-Ray 06/08/17 0000 Signed Impressions: Service Date/Time: Thursday, June 08, 2017 20:46 - CONCLUSION: Interstitial prominence and right suprahilar nodular density may be related to the azygos vein however a mass is difficult to exclude. Matias Dykes MD Assessment and Plan Assessment and Plan 82-year-old female with past medical history of HTN, DM, HLD, TIA, gastroparesis who presented after a fall and was admitted for intractable nausea and vomiting Fall: Sounds mechanical. Patient denies any injury or pain. Head CT unremarkable. Lumbar spine x-ray with chronic degenerative changes, nothing acute. -PT eval -Case management consult Intractable nausea and vomiting: Patient with history of gastroparesis and similar presentations. Gastric imaging study 02/11/[address] with no acute findings. -IVF -Antiemetics as needed -Consult gastroenterology -Start scheduled Reglan -IV Protonix -Check LFTs and lipase Hyperkalemia: Potassium 6.3/6.8. Initial EKG showed T waves with possible minimal peaking. Patient given Kayexalate orally and per rectum, IV calcium, IV insulin and dextrose. -Repeat EKG -Serial BMPs UTI: UA with evidence of UTI. -Continue empiric IV Rocephin and follow up urine culture results Question history of atrial fibrillation: The patient currently has tachycardia ~ 110. It does appear she is on metoprolol at home. Rhythm does appear irregular , but there appear to be P waves. -Repeat EKG pending -Monitor on telemetry -Resume metoprolol BLAYNE: Creatinine 1.21, previously 0.94 on 02/11/17. Likely due to dehydration. -IVF and follow-up BMP Chronic anticoagulation with history of TIA: On Coumadin with INR subtherapeutic at 1.8. Reconcile and resume home Coumadin dose. Monitor INR. Accelerated hypertension: It appears patient is on lisinopril at home, will hold with hyperkalemia. It appears patient is on metoprolol and nifedipine as well, will resume. IV hydralazine as needed. added Clonidine 0.1 mg every six hours as needed for systolic blood pressure over 160 mm Hg. Pulmonary nodule: Incidentally seen on chest and abdominal imaging. Recommendation for outpatient PET CT. Other chronic medical conditions seem stable at this time: Reconcile and resume home medications as indicated. Code Status Full Code. Discussed Condition With Patient, ED RN, case management, Dr. Huggins Attending Statement Patient seen in the presence of nurse and SALES ACCOUNT DIRECTOR, stable no nausea or vomit at this time she has Accelerated hypertension, following closely her Potassium level at this time Pending the new laboratory, examined, at this time GI specialist's FORM SETTER SUPERVISOR in to see patient. Lauri Lynn Jun 09, 2017 10:06 Job Zhang MD Jun 09, 2017 14:40
[2017-06-09] MEDS ORDERED: hydrALAZINE HCL 20 MG/ML VIAL IV PUSH PRN (10:15)
--- NOTE | 2017-06-09 10:39 | EKG ---
Date Performed: 06/09/2017 Time Performed: 09:49:44 PTAGE: 82 years EKG: SINUS TACHYCARDIA WITH FREQUENT SUPRAVENTRICULAR PREMATURE COMPLEXES ABNORMAL RHYTHM ECG PREVIOUS TRACING : 06/09/2017 06.23 DOCTOR: Luis Alejandre Interpretating Date/Time 06/09/2017 10:38:38
--- NOTE | 2017-06-09 13:17 | PD.CONS ---
HPI History of Present Illness This is a 82 year old female with HTN, DM, hx TIA who presented after a fall and with c/o nausea which started the "next day." CT scan did now show any acute findings. Pt is poor historian and too somnolent to give much history. SHe is known to us from previous admission, she was seen in january and found to have gastroparesis, discharged on trial of EES, which she says has helped and she has been better since last admission. 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 Denies abd pain but is tender in the epigastric and LUQ area on exam. Denies fevers, diarrhea, hematemesis, blood in stool. 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/02/2016 Family History Reviewed with the patient, no family history pertinent to current chief complaint Social History Denies any alcohol or tobacco use Lives at home by herself (Celi Barnard) Review of Systems Constitutional: DENIES: Fever Ears, nose, mouth, throat: DENIES: Vertigo Respiratory: DENIES: Hemoptysis Cardiovascular: DENIES: Chest pain Gastrointestinal: COMPLAINS OF: Abdominal pain, Nausea, Vomiting, DENIES: Black stools, Bloody stools, Constipation, Diarrhea, Hematemesis Genitourinary: DENIES: Hematuria Musculoskeletal: DENIES: Joint Swelling Integumentary: DENIES: Jaundice Neurologic: DENIES: Headache Psychiatric: DENIES: Anxiety (Celi Barnard) GI Exam Vitals I&O Vital Signs Date Time Temp Pulse Resp B/P Pulse Ox O2 Delivery O2 Flow Rate FiO2 06/09/17 11:26 97.8 94 18 156/89 98 Nasal Cannula 2 06/09/17 10:28 97.8 108 20 163/81 97 Nasal Cannula 2 06/09/17 08:31 108 20 177/79 96 Nasal Cannula 2 06/09/17 07:00 102 20 97 Room Air 06/09/17 07:00 97.8 105 20 178/83 97 Nasal Cannula 2 06/08/17 19:51 97.8 95 22 127/60 94 I/O 06/08/17 06/08/17 06/08/17 06/09/17 06/09/17 06/09/17 07:00 15:00 23:00 07:00 15:00 23:00 Output Total 500 ml Balance -500 ml Output Urine Total 500 ml # Voids 3 # Bowel Movements 0 Imaging Last Impressions Abdomen/Pelvis CT 06/09/17 0053 Signed Impressions: Service Date/Time: Friday, June 09, 2017 03:02 - CONCLUSION: 1. There continues to be a nodular infiltrate in the right lung base measuring approximately 1.4 cm. This may be slightly increased in size compared to the prior exam. Recommend a PET CT on a nonemergent outpatient basis for evaluation of hypermetabolic activity. 2. Umbilical hernia containing mesenteric fat. No change. 3. Scattered sigmoid diverticulosis without inflammatory changes. 4. No new or significant changes compared to the prior study. Yobany Burgess MD Head CT 06/09/17 0000 Signed Impressions: Service Date/Time: Friday, June 09, 2017 02:58 - CONCLUSION: Normal examination for a patient of this age. No significant change has occurred. Yobany Burgess MD Lumbar Spine X-Ray 06/08/17 0000 Signed Impressions: Service Date/Time: Thursday, June 08, 2017 20:37 - CONCLUSION: Degenerative changes and atherosclerosis. Matias Dykes MD Chest X-Ray 06/08/17 0000 Signed Impressions: Service Date/Time: Thursday, June 08, 2017 20:46 - CONCLUSION: Interstitial prominence and right suprahilar nodular density may be related to the azygos vein however a mass is difficult to exclude. Matias Dykes MD Laboratory Test 06/08/17 06/09/17 06/09/17 06/09/17 22:15 02:33 03:30 06:15 Urine Color YELLOW Urine Turbidity HAZY Urine pH 5.0 Urine Specific [place] 1.015 Urine Protein NEG mg/dL Urine Glucose (UA) NEG mg/dL Urine Ketones NEG mg/dL Urine Occult Blood NEG Urine Nitrite POS Urine Bilirubin NEG Urine Urobilinogen LESS THAN 2.0 MG/DL Urine Leukocyte Esterase SMALL Urine RBC 1 /hpf Urine WBC 13 /hpf Urine Squamous Epithelial 2 /hpf Cells Urine Bacteria MANY /hpf Urine Hyaline Casts 13 /lpf Urine Mucus FEW /lpf Microscopic Urinalysis Comment CULTURE INDICATED White Blood Count 11.5 TH/MM3 Red Blood Count 4.15 MIL/MM3 Hemoglobin 11.3 GM/DL Hematocrit 35.0 % Mean Corpuscular Volume 84.2 FL Mean Corpuscular Hemoglobin 27.2 PG Mean Corpuscular Hemoglobin 32.3 % Concent Red Cell Distribution Width 17.6 % Platelet Count 266 TH/MM3 Mean Platelet Volume 8.0 FL Neutrophils (%) (Auto) 87.9 % Lymphocytes (%) (Auto) 6.7 % Monocytes (%) (Auto) 5.0 % Eosinophils (%) (Auto) 0.1 % Basophils (%) (Auto) 0.3 % Neutrophils # (Auto) 10.1 TH/MM3 Lymphocytes # (Auto) 0.8 TH/MM3 Monocytes # (Auto) 0.6 TH/MM3 Eosinophils # (Auto) 0.0 TH/MM3 Basophils # (Auto) 0.0 TH/MM3 CBC Comment DIFF FINAL Differential Comment Prothrombin Time 20.4 SEC Prothromb Time International 1.8 RATIO Ratio Activated Partial 31.1 SEC Thromboplast Time Sodium Level 139 MEQ/L Potassium Level 6.3 MEQ/L 6.8 MEQ/L Chloride Level 107 MEQ/L Carbon Dioxide Level 24.0 MEQ/L Anion Gap 8 MEQ/L Blood Urea Nitrogen 29 MG/DL Creatinine 1.21 MG/DL Estimat Glomerular Filtration 43 ML/MIN Rate Random Glucose 206 MG/DL Calcium Level 9.1 MG/DL Date/Time Procedure Status Source Growth 06/08/17 22:15 Urine Culture Worksheet Urine Random Urine Pending Physical Examination HEENT: PERRL; normocephalic; atraumatic; no jaundice. CHEST: CTA CARDIAC: RRR ABDOMEN: Soft, obese,TTP epigastrium; no hepatosplenomegaly; bowel sounds are present in all four quadrants. EXTREMITIES: No clubbing, cyanosis, or edema. SKIN: Normal; no rash; no jaundice. TELEVISION REPAIRMAN: lethargic (Celi Barnard) Assessment and Plan Plan ASSESSMENT - nausea, epigastric TTP - no vomiting. No acute findings on CT. hx gastroparesis per [facility] 01/2017. She says she has been taking EES and it helped her n/v and she was doing better after last d/c in January. She denied abd pain but she was tender on exam in the epigastrium. 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
[2017-06-09] MEDS: METOCLOPRAMIDE HCL 10 MG/2 ML VIAL IV PUSH SCH ×2 (13:54→21:31)
[2017-06-09] MEDS ORDERED: CLON0.1T PO (15:05)
[2017-06-09] MEDS ORDERED: FERR324T4 PO (15:05)
[2017-06-09] MEDS ORDERED: BETH10TA2 PO (15:05)
[2017-06-09] MEDS ORDERED: ASPI-147 PO (15:05)
[2017-06-09] MEDS ORDERED: HYDR-3801 PO (15:05)
[2017-06-09] MEDS ORDERED: SPIR50TA PO (15:05)
[2017-06-09] MEDS ORDERED: NOVOLOGP2 SQ (15:05)
[2017-06-09] MEDS: cloNIDine HCL 0.1 MG TAB PO PRN (15:10)
[2017-06-09] MEDS: hydrALAZINE HCL 100 MG TAB PO SCH (17:28)
[2017-06-09] MEDS: INSULIN ASPART SUPPLEMENTAL SCALE SQ SCH ×2 (17:31→21:31)
[2017-06-09 19:03] LABS: BICARBONATE 23.8 MEQ/L (21.0-32.0); POTASSIUM 5.3 MEQ/L (3.5-5.1)
[2017-06-09] MEDS: BETHANECHOL CHL 10 MG TAB PO SCH (21:30)
[2017-06-09 22:00] LABS: BICARBONATE 25.5 MEQ/L (21.0-32.0); POTASSIUM 4.8 MEQ/L (3.5-5.1)
[2017-06-09 22:03] LABS: INDIRECT BILIRUBIN 0.4 MG/DL (0.0-0.8); TOTAL BILIRUBIN ADULT 0.6 MG/DL (0.2-1.0)
[2017-06-09] MEDS: cefTRIAXone INJ 1,000 MG in SODIUM CHLORIDE 0.9% INJ 100 ML IV SCH (23:13)
[2017-06-10] VITALS (8 sets, daily range): BP systolic 129–156; BP diastolic 58–71; PULSE 68–83; RESP 17–20; TEMP 97.1–98.7; O2SAT 90–97
[2017-06-10] MEDS ORDERED: ACETAMINOPHEN 325 MG TAB PO ONE ×2 (05:00→19:45)
[2017-06-10] MEDS: BETHANECHOL CHL 10 MG TAB PO SCH ×3 (05:04→20:27)
[2017-06-10] MEDS: METOCLOPRAMIDE HCL 10 MG/2 ML VIAL IV PUSH SCH ×3 (05:05→20:28)
[2017-06-10] MEDS: SODIUM CHLOR 0.9% 1000 ML INJ 1,000 ML IV SCH ×2 (05:12→20:42)
[2017-06-10] MEDS: INSULIN ASPART SUPPLEMENTAL SCALE SQ SCH ×4 (06:22→20:46)
[2017-06-10 07:08] LABS: MRSA PCR NEGATIVE (NEGATIVE); STAPH AUREUS PCR POSITIVE (NEGATIVE)
[2017-06-10 08:33] LABS: AUTOMATED NEUTROPHIL # 8.4 TH/MM3 (1.8-7.7); BASOPHIL # 0.1 TH/MM3 (0-0.2); BASOPHIL % 0.5 % (0.0-2.0); EOSINOPHIL # 0.2 TH/MM3 (0-0.4); EOSINOPHIL % 1.5 % (0.0-4.0); HEMATOCRIT 31.4 % (35.0-46.0); HEMO FLAGS DIFF FINAL; LYMPH % 7.4 % (9.0-44.0); LYMPHOCYTE # 0.8 TH/MM3 (1.0-4.8); MEAN CELL VOLUME 84.7 FL (80.0-100.0); MEAN CORPUSCULAR HEMOGLOBIN 26.9 PG (27.0-34.0); MEAN CORPUSCULAR HGB CONC 31.7 % (32.0-36.0); MONO % 9.3 % (0.0-8.0); NEUT % 81.3 % (16.0-70.0); PLATELET COUNT 216 TH/MM3 (150-450); RED BLOOD COUNT 3.71 MIL/MM3 (4.00-5.30); RED CELL DISTRIBUTION WIDTH 17.4 % (11.6-17.2); WHITE BLOOD COUNT 10.3 TH/MM3 (4.0-11.0)
[2017-06-10 08:39] LABS: INTERNATIONAL NORMALIZED RATIO 1.4 RATIO; PROTHROMBIN TIME - PATIENT 15.3 SEC (9.8-11.6)
[2017-06-10 08:55] LABS: BICARBONATE 24.2 MEQ/L (21.0-32.0); POTASSIUM 4.8 MEQ/L (3.5-5.1)
[2017-06-10] MEDS: hydrALAZINE HCL 100 MG TAB PO SCH ×3 (09:38→18:30)
[2017-06-10] MEDS: PANTOPRAZOLE SODIUM 40 MG VIAL IV PUSH SCH (09:38)
--- NOTE | 2017-06-10 09:38 | HHI.PR ---
Subjective Remarks Says nausea and vomiting improved she is tolerating clear liquid diets she feels comfortable to try full liquid diet. No abdominal pain. She had diarrhea 3 days ago. No bowel movement since then. No fever or chills. No chest pain or shortness of breath. Objective Vitals Vital Signs Date Time Temp Pulse Resp B/P Pulse Ox O2 Delivery O2 Flow Rate FiO2 06/10/17 04:00 98.0 76 17 156/71 97 06/10/17 04:00 70 06/10/17 00:00 71 06/10/17 00:00 97.1 70 18 143/64 91 06/09/17 20:00 67 06/09/17 20:00 97.0 70 18 125/68 98 06/09/17 15:30 98.5 90 20 169/79 96 06/09/17 15:07 89 06/09/17 14:30 98.1 91 20 190/87 94 06/09/17 13:20 98.1 97 18 160/82 98 Nasal Cannula 2 06/09/17 11:26 97.8 94 18 156/89 98 Nasal Cannula 2 06/09/17 10:28 97.8 108 20 163/81 97 Nasal Cannula 2 I/O 06/09/17 06/09/17 06/09/17 06/10/17 06/10/17 06/10/17 07:00 15:00 23:00 07:00 15:00 23:00 Intake Total 1600 ml 800 ml Output Total 500 ml 100 ml Balance -500 ml 1500 ml 800 ml Intake IV Total 1600 ml 800 ml Output Urine Total 500 ml 100 ml # Voids 3 4 4 # Bowel Movements 0 0 Result Diagram: 06/10/17 0740 06/10/17 0740 Imaging Last Impressions Abdomen/Pelvis CT 06/09/17 0053 Signed Impressions: Service Date/Time: Friday, June 09, 2017 03:02 - CONCLUSION: 1. There continues to be a nodular infiltrate in the right lung base measuring approximately 1.4 cm. This may be slightly increased in size compared to the prior exam. Recommend a PET CT on a nonemergent outpatient basis for evaluation of hypermetabolic activity. 2. Umbilical hernia containing mesenteric fat. No change. 3. Scattered sigmoid diverticulosis without inflammatory changes. 4. No new or significant changes compared to the prior study. Yobany Burgess MD Head CT 06/09/17 0000 Signed Impressions: Service Date/Time: Friday, June 09, 2017 02:58 - CONCLUSION: Normal examination for a patient of this age. No significant change has occurred. Yobany Burgess MD Lumbar Spine X-Ray 06/08/17 0000 Signed Impressions: Service Date/Time: Thursday, June 08, 2017 20:37 - CONCLUSION: Degenerative changes and atherosclerosis. Matias Dykes MD Chest X-Ray 06/08/17 0000 Signed Impressions: Service Date/Time: Thursday, June 08, 2017 20:46 - CONCLUSION: Interstitial prominence and right suprahilar nodular density may be related to the azygos vein however a mass is difficult to exclude. Matias Dykes MD Objective Remarks GENERAL: Well-developed, morbidly obese. Appears acutely uncomfortable, but does not appear to be in acute distress. SKIN: Warm and dry. Venous stasis changes of the lower extremities. HEENT: Normocephalic. Pupils equal and round. Mucous membranes pink and moist. CARDIOVASCULAR: Tachycardic rate and irregular rhythm. No murmur appreciated. RESPIRATORY: No accessory muscle use. Clear to auscultation. Breath sounds equal bilaterally. GASTROINTESTINAL: Abdomen soft, generalized TTP, nondistended. Bowel sounds x4. MUSCULOSKELETAL: No obvious deformities. No clubbing or cyanosis. No edema. NEUROLOGICAL: Awake and alert. No focal neurological deficits. Moves upper and lower extremities spontaneously. Normal speech. PSYCHIATRIC: Appropriate mood and affect; insight and judgment fair to normal. A/P Assessment and Plan 82-year-old female with past medical history of HTN, DM, HLD, TIA, gastroparesis who presented after a fall and was admitted for intractable nausea and vomiting Fall: Sounds mechanical. Patient denies any injury or pain. Head CT unremarkable. Lumbar spine x-ray with chronic degenerative changes, nothing acute. -PT eval -Case management consult Intractable nausea and vomiting: Resolving. Advance diet to Full liquid diet. if patient doesn't tolerate will give CLD and also poss EGD if doesn't improve per GI./ Patient with history of gastroparesis and similar presentations. Gastric imaging study 02/11/[address] with no acute findings. -IVF -Antiemetics as needed -Consult gastroenterology -Start scheduled Reglan -IV Protonix -Check LFTs and lipase Hyperkalemia: Potassium 6.3/6.8. Initial EKG showed T waves with possible minimal peaking. Patient given Kayexalate orally and per rectum, IV calcium, IV insulin and dextrose. -Repeat EKG -Serial BMPs UTI: UA with evidence of UTI. -Continue empiric IV Rocephin and follow up urine culture results Question history of atrial fibrillation: The patient currently has tachycardia ~ 110. It does appear she is on metoprolol at home. Rhythm does appear irregular , but there appear to be P waves. -Repeat EKG pending -Monitor on telemetry -Resume metoprolol BLAYNE: Creatinine 1.21, previously 0.94 on 02/11/17. Likely due to dehydration. -IVF and follow-up BMP Chronic anticoagulation with history of TIA: On Coumadin with INR subtherapeutic at 1.8. Reconcile and resume home Coumadin dose. Monitor INR. Accelerated hypertension: It appears patient is on lisinopril at home, will hold with hyperkalemia. It appears patient is on metoprolol and nifedipine as well, will resume. IV hydralazine as needed. added Clonidine 0.1 mg every six hours as needed for systolic blood pressure over 160 mm Hg. Pulmonary nodule: Incidentally seen on chest and abdominal imaging. Recommendation for outpatient PET CT. Other chronic medical conditions seem stable at this time: Reconcile and resume home medications as indicated. Code Status Full Code. Discussed Condition With Patient, nurse Mi Romeo MD Jun 10, 2017 09:38
[2017-06-10] MEDS: METOPROLOL TARTRATE 25 MG TAB PO SCH ×2 (09:39→20:29)
[2017-06-10] MEDS: SODIUM CHLORIDE 0.9% FLUSH 10 ML FLUSH IV FLUSH SCH ×2 (09:39→20:28)
[2017-06-10] MEDS: ASPIRIN EC 81 MG TABEC PO SCH (09:39)
[2017-06-10] MEDS: NIFEdipine 30 MG SUSTAINED RELEASE TAB PO SCH (12:57)
--- NOTE | 2017-06-10 13:46 | PD.WCN.NOT ---
Wound Consult Description: R buttock and L buttock Communicated with: ALEE jones and Doctor Romeo Recommendation: Please cleanse wound to R buttock with normal saline or wound cleanser and apply Xeroform gauze dressing just over wound bed in single layer.Apply skin prep periwound before covering wound with dry bordered gauze. change dressing daily or PRN if saturated or dislodged.If periwound becomes denuded, excoriated or presents with erosion please do not reapply dressing. Please leave open to air and apply Calazime barrier cream BID or PRN Please apply skin prep to resolving L buttock Deep tissue injury BID and leave open to air. Additional Information: Patient seen on for evaluation of pressure injury to sacral area Patient turned to L side with assistance of public relations writer and ALEE jones to reveal small circular wound to R buttock. Wound measures 0.5x 0.5 x 0.3. Wound etiology is mixed with moisture and pressure.Wound is depth is greater than partial thickness, no facia, tendon, muscle or bone is visible, indicating stage 3.Wound bed is dry and is noted with 100% pale red non granulation tissue. Wound margins are are defined and attached. Periwound presents with blanchable erythema. Wound cleansed with normal saline and left open to air. ALEE Castillo to apply dressing when supplies are obtained. L buttock is noted with small light purple colored non blanchable area measuring 1cm x 0.5 cm. Left wound open to air. ALEE Castillo to apply skin prep to wound. Kerrie French [facility] Jun 10, 2017 13:46
--- NOTE | 2017-06-10 14:21 | HHI.GIFU ---
Subjective Remarks Pt resting in bed, denies n/v, abd pain, diarrhea. Would like to eat more. ( Celi Barnard) Objective Vitals I&O Vital Signs Date Time Temp Pulse Resp B/P Pulse Ox O2 Delivery O2 Flow Rate FiO2 06/10/17 11:30 98.7 76 20 129/61 90 06/10/17 07:30 98.7 70 20 133/61 97 06/10/17 04:00 98.0 76 17 156/71 97 06/10/17 04:00 70 06/10/17 00:00 71 06/10/17 00:00 97.1 70 18 143/64 91 06/09/17 20:00 67 06/09/17 20:00 97.0 70 18 125/68 98 06/09/17 15:30 98.5 90 20 169/79 96 06/09/17 15:07 89 06/09/17 14:30 98.1 91 20 190/87 94 I/O 06/09/17 06/09/17 06/09/17 06/10/17 06/10/17 06/10/17 06:59 14:59 22:59 06:59 14:59 22:59 Intake Total 1600 ml 800 ml Output Total 500 ml 100 ml Balance -500 ml 1500 ml 800 ml Intake IV Total 1600 ml 800 ml Output Urine Total 500 ml 100 ml # Voids 2 1 4 4 # Bowel Movements 0 0 Laboratory Laboratory Tests Test 06/09/17 06/09/17 06/10/17 06/10/17 17:33 21:23 05:00 07:40 Sodium Level 138 140 141 Potassium Level 5.3 4.8 4.8 Chloride Level 105 107 109 Carbon Dioxide Level 23.8 25.5 24.2 Anion Gap 9 8 8 Blood Urea Nitrogen 20 21 18 Creatinine 0.98 1.02 0.87 Estimat Glomerular Filtration 54 52 62 Rate Random Glucose 185 133 139 Calcium Level 8.9 9.0 8.7 Lipase 38 Total Bilirubin 0.6 Direct Bilirubin 0.2 Indirect Bilirubin 0.4 Aspartate Amino Transf 44 (AST/SGOT) Alanine Aminotransferase 56 (ALT/SGPT) Alkaline Phosphatase 109 Total Protein 7.0 Albumin 2.7 Nasal Screen MRSA (PCR) NEGATIVE Staphylococcus aureus POSITIVE (PCR)(LAB) White Blood Count 10.3 Red Blood Count 3.71 Hemoglobin 10.0 Hematocrit 31.4 Mean Corpuscular Volume 84.7 Mean Corpuscular Hemoglobin 26.9 Mean Corpuscular Hemoglobin 31.7 Concent Red Cell Distribution Width 17.4 Platelet Count 216 Mean Platelet Volume 7.5 Neutrophils (%) (Auto) 81.3 Lymphocytes (%) (Auto) 7.4 Monocytes (%) (Auto) 9.3 Eosinophils (%) (Auto) 1.5 Basophils (%) (Auto) 0.5 Neutrophils # (Auto) 8.4 Lymphocytes # (Auto) 0.8 Monocytes # (Auto) 1.0 Eosinophils # (Auto) 0.2 Basophils # (Auto) 0.1 CBC Comment DIFF FINAL Differential Comment Prothrombin Time 15.3 Prothromb Time International 1.4 Ratio Date/Time Procedure Status Source Growth 06/08/17 22:15 Urine Culture - Final Complete Urine Random Urine Escherichia Coli Esbl Positive Imaging Last Impressions Abdomen/Pelvis CT 06/09/17 0053 Signed Impressions: Service Date/Time: Friday, June 09, 2017 03:02 - CONCLUSION: 1. There continues to be a nodular infiltrate in the right lung base measuring approximately 1.4 cm. This may be slightly increased in size compared to the prior exam. Recommend a PET CT on a nonemergent outpatient basis for evaluation of hypermetabolic activity. 2. Umbilical hernia containing mesenteric fat. No change. 3. Scattered sigmoid diverticulosis without inflammatory changes. 4. No new or significant changes compared to the prior study. Yobany Burgess MD Head CT 06/09/17 0000 Signed Impressions: Service Date/Time: Friday, June 09, 2017 02:58 - CONCLUSION: Normal examination for a patient of this age. No significant change has occurred. Yobany Burgess MD Lumbar Spine X-Ray 06/08/17 0000 Signed Impressions: Service Date/Time: Thursday, June 08, 2017 20:37 - CONCLUSION: Degenerative changes and atherosclerosis. Matias Dykes MD Chest X-Ray 06/08/17 0000 Signed Impressions: Service Date/Time: Thursday, June 08, 2017 20:46 - CONCLUSION: Interstitial prominence and right suprahilar nodular density may be related to the azygos vein however a mass is difficult to exclude. Matias Dykes MD Physical Exam HEENT: PERRL, normocephalic; atraumatic; no jaundice. CHEST: diminished CARDIAC: Regular rate and rhythm with no murmur gallop or rubs. ABDOMEN: Soft, obese, nontender; no hepatosplenomegaly; bowel sounds are present in all four quadrants. EXTREMITIES: No clubbing, cyanosis, or edema. SKIN: Normal; no rash; no jaundice. PROCUREMENT COST COORDINATOR: No focal deficits; alert and oriented times three. (Celi Barnard) Assessment and Plan Plan ASSESSMENT - nausea, epigastric TTP - no vomiting. Improved. No acute findings on CT. hx gastroparesis per GES 01/2017. She says she has been taking EES and it helped her n/v and she was doing better after last d/c in January. Lilpase WNL - elev LFTs - mild elev over prev AST 44, ALT 56, ALP 109 Tbil 0.6 not obstructive pattern. 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
[2017-06-10] MEDS ORDERED: WARFARIN SOD 5 MG TAB PO SCH (16:00)
[2017-06-10] MEDS: cefTRIAXone INJ 1,000 MG in SODIUM CHLORIDE 0.9% INJ 100 ML IV SCH (23:25)
[2017-06-11] VITALS (7 sets, daily range): BP systolic 125–173; BP diastolic 59–88; PULSE 72–84; RESP 17–20; TEMP 96.7–99.2; O2SAT 90–95
[2017-06-11] MEDS: SODIUM CHLOR 0.9% 1000 ML INJ 1,000 ML IV SCH ×3 (01:00→21:00)
[2017-06-11] MEDS: METOCLOPRAMIDE HCL 10 MG/2 ML VIAL IV PUSH SCH ×3 (05:39→20:59)
[2017-06-11] MEDS: BETHANECHOL CHL 10 MG TAB PO SCH ×3 (05:40→20:59)
[2017-06-11] MEDS: INSULIN ASPART SUPPLEMENTAL SCALE SQ SCH ×4 (06:17→21:02)
[2017-06-11 08:08] LABS: INTERNATIONAL NORMALIZED RATIO 1.2 RATIO; PROTHROMBIN TIME - PATIENT 13.8 SEC (9.8-11.6)
[2017-06-11 08:25] LABS: INDIRECT BILIRUBIN 0.3 MG/DL (0.0-0.8); TOTAL BILIRUBIN ADULT 0.4 MG/DL (0.2-1.0)
[2017-06-11] MEDS: PANTOPRAZOLE SODIUM 40 MG VIAL IV PUSH SCH (08:50)
[2017-06-11] MEDS: hydrALAZINE HCL 100 MG TAB PO SCH ×3 (08:50→16:53)
[2017-06-11] MEDS: METOPROLOL TARTRATE 25 MG TAB PO SCH ×2 (08:50→20:42)
[2017-06-11] MEDS: ASPIRIN EC 81 MG TABEC PO SCH (08:50)
[2017-06-11] MEDS: NIFEdipine 30 MG SUSTAINED RELEASE TAB PO SCH (08:50)
[2017-06-11] MEDS: SODIUM CHLORIDE 0.9% FLUSH 10 ML FLUSH IV FLUSH SCH ×2 (08:51→20:43)
[2017-06-11 08:57] LABS: MRSA PCR NEGATIVE (NEGATIVE); STAPH AUREUS PCR POSITIVE (NEGATIVE)
[2017-06-11] MEDS ORDERED: MISCELLANEOUS PHARMACY INFORMATION XX PRN (11:45)
--- NOTE | 2017-06-11 11:45 | HHI.PR ---
Subjective Remarks Feels somehow improving. Says no more nausea no vomiting. Says she had a normal bowel movement yesterday. Denies fever or chills. No abdominal pain at this time. Feels comfortable to advance diet. She also complains of insomnia night and would like some sleeping aid. Urine cultures with Escherichia coli ESBL positive started Invanz consult ID, discussed with the patient. Objective Vitals Vital Signs Date Time Temp Pulse Resp B/P Pulse Ox O2 Delivery O2 Flow Rate FiO2 06/11/17 11:24 76 06/11/17 08:00 74 06/11/17 08:00 99.2 79 20 172/72 94 06/11/17 04:00 97.8 82 17 150/71 90 06/11/17 04:00 78 06/11/17 00:00 96.7 84 17 136/61 95 06/11/17 00:00 72 06/10/17 20:00 82 06/10/17 20:00 97.6 83 17 130/58 91 06/10/17 16:23 76 06/10/17 15:50 98.2 76 20 138/65 97 I/O 06/10/17 06/10/17 06/10/17 06/11/17 06/11/17 06/11/17 06:59 14:59 22:59 06:59 14:59 22:59 Intake Total 800 ml 1661 ml 800 ml 800 ml Balance 800 ml 1661 ml 800 ml 800 ml Intake Oral 1661 ml IV Total 800 ml 800 ml 800 ml # Voids 4 7 2 4 # Bowel Movements 0 1 Result Diagram: 06/10/17 0740 06/10/17 0740 Imaging Last Impressions Abdomen/Pelvis CT 06/09/17 0053 Signed Impressions: Service Date/Time: Friday, June 09, 2017 03:02 - CONCLUSION: 1. There continues to be a nodular infiltrate in the right lung base measuring approximately 1.4 cm. This may be slightly increased in size compared to the prior exam. Recommend a PET CT on a nonemergent outpatient basis for evaluation of hypermetabolic activity. 2. Umbilical hernia containing mesenteric fat. No change. 3. Scattered sigmoid diverticulosis without inflammatory changes. 4. No new or significant changes compared to the prior study. oYbany Burgess MD Head CT 06/09/17 0000 Signed Impressions: Service Date/Time: Friday, June 09, 2017 02:58 - CONCLUSION: Normal examination for a patient of this age. No significant change has occurred. Yobany Burgess MD Lumbar Spine X-Ray 06/08/17 0000 Signed Impressions: Service Date/Time: Thursday, June 08, 2017 20:37 - CONCLUSION: Degenerative changes and atherosclerosis. Matias Dykes MD Chest X-Ray 06/08/17 0000 Signed Impressions: Service Date/Time: Thursday, June 08, 2017 20:46 - CONCLUSION: Interstitial prominence and right suprahilar nodular density may be related to the azygos vein however a mass is difficult to exclude. Matias Dykes MD Objective Remarks GENERAL: Well-developed, morbidly obese. Appears acutely uncomfortable, but does not appear to be in acute distress. SKIN: Warm and dry. Venous stasis changes of the lower extremities. HEENT: Normocephalic. Pupils equal and round. Mucous membranes pink and moist. CARDIOVASCULAR: Tachycardic rate and irregular rhythm. No murmur appreciated. RESPIRATORY: No accessory muscle use. Clear to auscultation. Breath sounds equal bilaterally. GASTROINTESTINAL: Abdomen soft, generalized TTP, nondistended. Bowel sounds x4. MUSCULOSKELETAL: No obvious deformities. No clubbing or cyanosis. No edema. NEUROLOGICAL: Awake and alert. No focal neurological deficits. Moves upper and lower extremities spontaneously. Normal speech. PSYCHIATRIC: Appropriate mood and affect; insight and judgment fair to normal. A/P Assessment and Plan 82-year-old female with past medical history of HTN, DM, HLD, TIA, gastroparesis who presented after a fall and was admitted for intractable nausea and vomiting. N/V improving, diet advanced. Mechanical fal;l at home imaging OK. Patient also with UTI, E coli ESBL positive, with abx multiresistance, start Invanz IV as sensitive, consult ID for recommendations at [place]. S/P mechanical fall: Patient denies any injury or pain. Head CT unremarkable. Lumbar spine x-ray with chronic degenerative changes, nothing acute. PT eval Case management consult Intractable nausea and vomiting: Resolving. Advance diet to Full liquid diet. if patient doesn't tolerate will give CLD and also poss EGD if doesn't improve per GI./ Patient with history of gastroparesis and similar presentations. Gastric imaging study 02/11/[address] with no acute findings. IVF Antiemetics as needed Consult gastroenterology, appreciate recommendations. Start scheduled Reglan IV Protonix Check LFTs and lipase Advance diet as tolerated HHD/ ADA/ Low residue diet Hyperkalemia: Resolved. Monitor. Potassium 6.3/6.8 on admission . Initial EKG showed T waves with possible minimal peaking. Patient given Kayexalate orally and per rectum, IV calcium, IV insulin and dextrose. -Repeat EKG ok -Serial BMPs UTI with e Coli ESBL and multiple abx resistance. -Start Invanz IV as sensitive to it . Consult ID for recommendations at [place] Questionable history of atrial fibrillation: The patient currently has tachycardia ~110. It does appear she is on metoprolol at home. Rhythm does appear irregular, but there appear to be P waves. -Repeat EKG pending -Monitor on telemetry -Resume metoprolol BLAYNE: Resolving. Creatinine 1.21 on admission, previously 0.94 on 02/11/17. Likely due to dehydration. -IVF, follow-up BMP Chronic anticoagulation with history of TIA: On Coumadin with INR subtherapeutic at 1.8. Reconcile and resume home Coumadin dose. Monitor INR. Accelerated hypertension: It appears patient is on lisinopril at home, will hold with hyperkalemia. It appears patient is on metoprolol and nifedipine as well, will resume. IV hydralazine as needed. added Clonidine 0.1 mg every six hours as needed for systolic blood pressure over 160 mm Hg. Pulmonary nodule: Incidentally seen on chest and abdominal imaging. Recommendation for outpatient PET CT. Insomnia: Temazepam as needed at night Other chronic medical conditions seem stable at this time: Reconcile and resume home medications as indicated. Code Status Full Code. Discussed Condition With Patient, nurse Discharge plan Patient with UTI Escherichia coli. ESBL, started Invanz, of infectious disease discharge. Discharge when cleared by infectious disease. Physical therapy recommends rehabilitation at discharge. Mi Romeo MD Jun 11, 2017 11:45
[2017-06-11] MEDS: cloNIDine HCL 0.1 MG TAB PO PRN (12:03)
[2017-06-11] MEDS: ERTAPENEM INJ 1,000 MG in SODIUM CHLORIDE 0.9% INJ 100 ML IV SCH (15:13)
[2017-06-11] MEDS: WARFARIN SOD 7.5 MG TAB PO SCH (15:21)
--- NOTE | 2017-06-11 15:40 | HHI.GIFU ---
Subjective Remarks Pt resting in bed. States she feels so much better. Tolerating diet. No n/v today. No abdominal pain. (Katrina South) Objective Vitals I&O Vital Signs Date Time Temp Pulse Resp B/P Pulse Ox O2 Delivery O2 Flow Rate FiO2 06/11/17 12:00 98.7 75 20 173/77 95 06/11/17 11:24 76 06/11/17 08:00 74 06/11/17 08:00 99.2 79 20 172/72 94 06/11/17 04:00 97.8 82 17 150/71 90 06/11/17 04:00 78 06/11/17 00:00 96.7 84 17 136/61 95 06/11/17 00:00 72 06/10/17 20:00 82 06/10/17 20:00 97.6 83 17 130/58 91 06/10/17 16:23 76 06/10/17 15:50 98.2 76 20 138/65 97 I/O 06/10/17 06/10/17 06/10/17 06/11/17 06/11/17 06/11/17 07:00 15:00 23:00 07:00 15:00 23:00 Intake Total 800 ml 1661 ml 800 ml 800 ml 1400 ml Balance 800 ml 1661 ml 800 ml 800 ml 1400 ml Intake Oral 1661 ml 600 ml IV Total 800 ml 800 ml 800 ml 800 ml # Voids 4 7 2 4 4 # Bowel Movements 0 1 Laboratory Laboratory Tests Test 06/10/17 06/11/17 15:45 07:04 Nasal Screen MRSA (PCR) NEGATIVE Staphylococcus aureus POSITIVE (PCR)(LAB) Prothrombin Time 13.8 Prothromb Time International 1.2 Ratio Total Bilirubin 0.4 Direct Bilirubin 0.1 Indirect Bilirubin 0.3 Aspartate Amino Transf 26 (AST/SGOT) Alanine Aminotransferase 42 (ALT/SGPT) Alkaline Phosphatase 93 Total Protein 6.6 Albumin 2.6 Date/Time Procedure Status Source Growth 06/08/17 22:15 Urine Culture - Final Complete Urine Random Urine Escherichia Coli Esbl Positive Imaging Last Impressions Abdomen/Pelvis CT 06/09/17 0053 Signed Impressions: Service Date/Time: Friday, June 09, 2017 03:02 - CONCLUSION: 1. There continues to be a nodular infiltrate in the right lung base measuring approximately 1.4 cm. This may be slightly increased in size compared to the prior exam. Recommend a PET CT on a nonemergent outpatient basis for evaluation of hypermetabolic activity. 2. Umbilical hernia containing mesenteric fat. No change. 3. Scattered sigmoid diverticulosis without inflammatory changes. 4. No new or significant changes compared to the prior study. Yobany Burgess MD Head CT 06/09/17 0000 Signed Impressions: Service Date/Time: Friday, June 09, 2017 02:58 - CONCLUSION: Normal examination for a patient of this age. No significant change has occurred. Yobany Burgess MD Lumbar Spine X-Ray 06/08/17 0000 Signed Impressions: Service Date/Time: Thursday, June 08, 2017 20:37 - CONCLUSION: Degenerative changes and atherosclerosis. Matias Dykes MD Chest X-Ray 06/08/17 0000 Signed Impressions: Service Date/Time: Thursday, June 08, 2017 20:46 - CONCLUSION: Interstitial prominence and right suprahilar nodular density may be related to the azygos vein however a mass is difficult to exclude. Matias Dykes MD Physical Exam HEENT: Normocephalic; atraumatic CHEST: Expiratory wheezing CARDIAC: RRR ABDOMEN: Soft, obese, nontender; no hepatosplenomegaly; bowel sounds are present in all four quadrants. EXTREMITIES: BLE edema. SKIN: Normal; no rash; no jaundice. PUBLIC HEALTH SANITARIAN: No focal deficits; alert and oriented times three. (Kartina South [facility]) Assessment and Plan Plan ASSESSMENT - Nausea and epigastric pain with hx of gastroparesis. Abdomen/Pelvis CT ()----> 1. There continues to be a nodular infiltrate in the right lung base measuring approximately 1.4 cm. This may be slightly increased in size compared to the prior exam. Recommend a PET CT on a nonemergent outpatient basis for evaluation of hypermetabolic activity. 2. Umbilical hernia containing mesenteric fat. No change. 3. Scattered sigmoid diverticulosis without inflammatory changes. 4. No new or significant changes compared to the prior study. Bethanechol, Reglan. Much improved. Tolerating diet. No n/v. - Elevated LFTs. Improved. T. Bili 0.4, AST 26, ALT 42, ALk Phosph 93. - Hooks's esophagus. PPI - UTI with E. Coli ESBL. Invanz - Hx TIA. Coumadin. - HTN, Pulmonary nodule, per attending PLAN: - JOAN - Cont. Bethanechol - Cont. Reglan - Cont. PPI - Supportive care - Further recommendations to follow based on results - Pt seen and examined by Dr. Dexter and myself and this note is written on her behalf (Katrina South) Katrina South Jun 11, 2017 15:40 Jacqui Dexter MD Jun 11, 2017 22:16
[2017-06-11 17:20] LABS: AUTOMATED NEUTROPHIL # 6.1 TH/MM3 (1.8-7.7); BASOPHIL % 0.6 % (0.0-2.0); EOSINOPHIL # 0.2 TH/MM3 (0-0.4); EOSINOPHIL % 2.8 % (0.0-4.0); HEMATOCRIT 31.5 % (35.0-46.0); HEMO FLAGS DIFF FINAL; LYMPH % 15.8 % (9.0-44.0); LYMPHOCYTE # 1.4 TH/MM3 (1.0-4.8); MEAN CELL VOLUME 85.2 FL (80.0-100.0); MEAN CORPUSCULAR HEMOGLOBIN 27.4 PG (27.0-34.0); MEAN CORPUSCULAR HGB CONC 32.2 % (32.0-36.0); MONO % 10.1 % (0.0-8.0); NEUT % 70.7 % (16.0-70.0); PLATELET COUNT 205 TH/MM3 (150-450); RED BLOOD COUNT 3.69 MIL/MM3 (4.00-5.30); RED CELL DISTRIBUTION WIDTH 17.4 % (11.6-17.2); WHITE BLOOD COUNT 8.6 TH/MM3 (4.0-11.0)
[2017-06-11 18:18] LABS: ALKALINE PHOSPHATASE 99 U/L (45-117); ALT (GPT) 42 U/L (10-53); ANION GAP 8 MEQ/L (5-15); AST (GOT) 28 U/L (15-37); BICARBONATE 25.2 MEQ/L (21.0-32.0); BLOOD UREA NITROGEN 10 MG/DL (7-18); CHLORIDE 106 MEQ/L (98-107); GLOMERULAR FILTRATION RATE 58 ML/MIN (>89); POTASSIUM 4.3 MEQ/L (3.5-5.1); SODIUM (NA) 139 MEQ/L (136-145); TOTAL BILIRUBIN ADULT 0.3 MG/DL (0.2-1.0)
[2017-06-11 19:21] LABS: BLOOD, URINE NEG (NEG); GLUCOSE,URINE 300 mg/dL (NEG); KETONE, URINE NEG (NEG); NITRITE,URINE NEG (NEG); SQUAMOUS EPITHELIAL CELL URINE <1 /hpf (0-5); URINE COLOR YELLOW (YELLW/STRAW)
--- NOTE | 2017-06-11 19:34 | PD.ID.CON ---
History of Present Illness Service ID Consult Requested By Dr Romeo Reason for Consult ESBL + UTI Primary Care Physician Unknown Diagnoses: History of Present Illness 82 yo female with multiple med problems including morbid obesity and h/o frequent UTIs presented after a fall and was admitted for intractable nausea and vomiting. Endorses malaise, fever chills She's been having nausea and vomiting for the past 3 or 4 days and has not been tolerating any oral intake. She apparently was taking macrobid on presentation but she is poor historian and could hnot confirm it. It was on her o.p profile She had no fever and mild leukocytosis on presentation and her urinalysis was somewhat abnormal Urine clx was positive for ESBL + E.coli sensitivivt to Bacrim, resistant to Cipro She was started on Ertapenem Blood clx are pending BLAYNE on presenation, now resolviong Review of Systems Neurologic: COMPLAINS OF: Abnormal gait, Poor Balance Except as stated in HPI: all other systems reviewed are Neg Past Family Social History Allergies: Coded Allergies: Penicillin (Verified Allergy, Severe, rash, 06/09/17) *MDRO Multi-Drug Resistant Organism (Verified Adverse Reaction, Unknown, ) ESBL - E. coli (urine) 07/2015,10/2015,06/08/17 MRSA PCR Screen POSITIVE - 06/02/2016 Past Medical History Hypertension Hyperlipidemia Diabetes mellitus Gastroparesis History of TIA 3 on Coumadin Questionable history of atrial fibrillation Morbid Obesity Past Surgical History Hysterectomy Bilateral knee replacement Bilateral cataract surgery Cholecystectomy Appendectomy Active Ordered Medications Medications where reviewed in EMR Antibiotics Include: Ertapenem Family History Reviewed with the patient, no family history pertinent to current chief complaint Social History Denies any alcohol or tobacco use Lives at home by herself Physical Exam Vital Signs Vital Signs Date Time Temp Pulse Resp B/P Pulse Ox O2 Delivery O2 Flow Rate FiO2 06/11/17 16:00 98.8 73 20 127/59 93 06/11/17 12:00 98.7 75 20 173/77 95 06/11/17 11:24 76 06/11/17 08:00 74 06/11/17 08:00 99.2 79 20 172/72 94 06/11/17 04:00 97.8 82 17 150/71 90 06/11/17 04:00 78 06/11/17 00:00 96.7 84 17 136/61 95 7/21/17 00:00 72 06/10/17 20:00 82 06/10/17 20:00 97.6 83 17 130/58 91 Physical Exam CONSTITUTIONAL/GENERAL: This is a morbidly obese patient, in no apparent distress. TUBES/LINES/DRAINS: SKIN: No jaundice, rashes, or lesions. Skin temperature appropriate. Not diaphoretic. HEAD: Atraumatic. Normocephalic. EYES: Pupils equal and round and reactive. Extraocular motions intact. No scleral icterus. No injection or drainage. Fundi not examined. ENT: Hearing grossly normal. Nose without bleeding or purulent drainage. Oral mucosae without visible erythema, exudates, masses, or lesions. NECK: Trachea midline. Supple, nontender. CARDIOVASCULAR: Regular rate and rhythm without murmurs, gallops, or rubs. No JVD. Peripheral pulses symmetric. RESPIRATORY/CHEST: Symmetric, unlabored respirations. Clear to auscultation. Breath sounds equal bilaterally. No wheezes, rales, or rhonchi. GASTROINTESTINAL: Abdomen soft, non-tender, nondistended. No hepato-splenomegaly , or palpable masses. No guarding. Bowel sounds present. GENITOURINARY: Without palpable bladder distension. No suprapubioc tenderness MUSCULOSKELETAL: Extremities without clubbing, cyanosis, or edema. No joint tenderness or effusion noted. No mottling or clubbing. LYMPHATICS: No palpable cervical or supraclavicular adenopathy. NEUROLOGICAL: Awake and alert. Motor and sensory grossly within normal limits. Follows commands. Clear speech. Moves all extremities. PSYCHIATRIC: No obvious anxiety/depression. no apparent hallucinations or other psychotic thought process. Laboratory Laboratory Tests Test 06/11/17 06/11/17 06/11/17 07:04 16:02 16:07 Prothrombin Time 13.8 Prothromb Time International 1.2 Ratio Total Bilirubin 0.4 0.3 Direct Bilirubin 0.1 Indirect Bilirubin 0.3 Aspartate Amino Transf 26 28 (AST/SGOT) Alanine Aminotransferase 42 42 (ALT/SGPT) Alkaline Phosphatase 93 99 Total Protein 6.6 6.7 Albumin 2.6 2.6 White Blood Count 8.6 Red Blood Count 3.69 Hemoglobin 10.1 Hematocrit 31.5 Mean Corpuscular Volume 85.2 Mean Corpuscular Hemoglobin 27.4 Mean Corpuscular Hemoglobin 32.2 Concent Red Cell Distribution Width 17.4 Platelet Count 205 Mean Platelet Volume 8.0 Neutrophils (%) (Auto) 70.7 Lymphocytes (%) (Auto) 15.8 Monocytes (%) (Auto) 10.1 Eosinophils (%) (Auto) 2.8 Basophils (%) (Auto) 0.6 Neutrophils # (Auto) 6.1 Lymphocytes # (Auto) 1.4 Monocytes # (Auto) 0.9 Eosinophils # (Auto) 0.2 Basophils # (Auto) 0.0 CBC Comment DIFF FINAL Differential Comment Sodium Level 139 Potassium Level 4.3 Chloride Level 106 Carbon Dioxide Level 25.2 Anion Gap 8 Blood Urea Nitrogen 10 Creatinine 0.92 Estimat Glomerular Filtration 58 Rate Random Glucose 271 Calcium Level 8.5 Date/Time Procedure Status Source Growth 06/11/17 16:07 Aerobic Blood Culture Received Blood Other Pending 06/11/17 16:07 Anaerobic Blood Culture Received Blood Other Pending 06/08/17 22:15 Urine Culture - Final Complete Urine Random Urine Escherichia Coli Esbl Positive Result Diagram: 06/11/17 1602 06/11/17 1607 Imaging Last Impressions Abdomen/Pelvis CT 06/09/17 0053 Signed Impressions: Service Date/Time: Friday, June 09, 2017 03:02 - CONCLUSION: 1. There continues to be a nodular infiltrate in the right lung base measuring approximately 1.4 cm. This may be slightly increased in size compared to the prior exam. Recommend a PET CT on a nonemergent outpatient basis for evaluation of hypermetabolic activity. 2. Umbilical hernia containing mesenteric fat. No change. 3. Scattered sigmoid diverticulosis without inflammatory changes. 4. No new or significant changes compared to the prior study. Yobany Burgess MD Head CT 06/09/17 0000 Signed Impressions: Service Date/Time: Friday, June 09, 2017 02:58 - CONCLUSION: Normal examination for a patient of this age. No significant change has occurred. Yobany Burgess MD Lumbar Spine X-Ray 06/08/17 0000 Signed Impressions: Service Date/Time: Thursday, June 08, 2017 20:37 - CONCLUSION: Degenerative changes and atherosclerosis. Matias Dykes MD Chest X-Ray 06/08/17 0000 Signed Impressions: Service Date/Time: Thursday, June 08, 2017 20:46 - CONCLUSION: Interstitial prominence and right suprahilar nodular density may be related to the azygos vein however a mass is difficult to exclude. Matias Dykes MD Assessment and Plan Assessment and Plan Recurrent UTI Pt presented with intractable nause, vomiting and BLAYNE sp fall, presumably 2/2 UTI Mult med problems Pulm nodule, incidental - cont Ertapnem while BC are pending - if blood clx negative might consider to switch her to bactrim however will first try in -pt - because of the pts age close monitoring of renal fnx and K (potassium) will be warranted while on bactrim Discussed Condition With ALEE Rosas,Norma Chambers MD Jun 11, 2017 19:34
[2017-06-11] MEDS: TEMAZEPAM 15 MG CAP PO PRN (22:12)
[2017-06-12] VITALS (11 sets, daily range): BP systolic 94–171; BP diastolic 52–81; PULSE 72–90; RESP 17–24; TEMP 97–99.3; O2SAT 94–96
[2017-06-12] MEDS: BETHANECHOL CHL 10 MG TAB PO SCH ×3 (05:19→22:20)
[2017-06-12] MEDS: METOCLOPRAMIDE HCL 10 MG/2 ML VIAL IV PUSH SCH ×3 (05:20→22:20)
[2017-06-12] MEDS: INSULIN ASPART SUPPLEMENTAL SCALE SQ SCH ×4 (05:43→22:44)
[2017-06-12 07:11] LABS: INTERNATIONAL NORMALIZED RATIO 1.3 RATIO; PROTHROMBIN TIME - PATIENT 14.4 SEC (9.8-11.6)
[2017-06-12] MEDS: PANTOPRAZOLE SODIUM 40 MG VIAL IV PUSH SCH (08:21)
[2017-06-12] MEDS: ASPIRIN EC 81 MG TABEC PO SCH (08:21)
[2017-06-12] MEDS: hydrALAZINE HCL 100 MG TAB PO SCH ×3 (08:21→17:26)
[2017-06-12] MEDS: NIFEdipine 30 MG SUSTAINED RELEASE TAB PO SCH (08:21)
[2017-06-12] MEDS: METOPROLOL TARTRATE 25 MG TAB PO SCH ×2 (08:22→22:20)
[2017-06-12] MEDS: SODIUM CHLORIDE 0.9% FLUSH 10 ML FLUSH IV FLUSH SCH ×2 (08:22→21:00)
[2017-06-12] MEDS: SODIUM CHLOR 0.9% 1000 ML INJ 1,000 ML IV SCH ×2 (08:24→17:31)
--- NOTE | 2017-06-12 09:07 | HHI.PR ---
Subjective Remarks Patient tells me she feels well. Denies any chest pain, shortness of breath. Nausea and vomiting seem to have resolved. 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 nothing fell into her eye Objective Vitals Vital Signs Date Time Temp Pulse Resp B/P Pulse Ox O2 Delivery O2 Flow Rate FiO2 06/12/17 08:00 97.8 78 18 171/81 94 06/12/17 04:00 97.3 80 17 141/65 94 06/12/17 00:00 98.1 77 18 119/76 94 06/11/17 20:00 98.3 79 17 125/88 92 06/11/17 16:00 98.8 73 20 127/59 93 06/11/17 12:00 98.7 75 20 173/77 95 06/11/17 11:24 76 I/O 06/11/17 06/11/17 06/11/17 06/12/17 06/12/17 06/12/17 07:00 15:00 23:00 07:00 15:00 23:00 Intake Total 800 ml 1400 ml 665 ml Balance 800 ml 1400 ml 665 ml Intake Oral 600 ml 240 ml IV Total 800 ml 800 ml 425 ml # Voids 4 4 2 5 # Bowel Movements 1 1 Result Diagram: 06/11/17 1602 06/11/17 1607 Imaging Last Impressions Abdomen/Pelvis CT 06/09/17 0053 Signed Impressions: Service Date/Time: Friday, June 09, 2017 03:02 - CONCLUSION: 1. There continues to be a nodular infiltrate in the right lung base measuring approximately 1.4 cm. This may be slightly increased in size compared to the prior exam. Recommend a PET CT on a nonemergent outpatient basis for evaluation of hypermetabolic activity. 2. Umbilical hernia containing mesenteric fat. No change. 3. Scattered sigmoid diverticulosis without inflammatory changes. 4. No new or significant changes compared to the prior study. Yobany Burgess MD Head CT 06/09/17 0000 Signed Impressions: Service Date/Time: Friday, June 09, 2017 02:58 - CONCLUSION: Normal examination for a patient of this age. No significant change has occurred. Yobany Burgess MD Lumbar Spine X-Ray 06/08/17 0000 Signed Impressions: Service Date/Time: Thursday, June 08, 2017 20:37 - CONCLUSION: Degenerative changes and atherosclerosis. Matias Dykes MD Chest X-Ray 06/08/17 0000 Signed Impressions: Service Date/Time: Thursday, June 08, 2017 20:46 - CONCLUSION: Interstitial prominence and right suprahilar nodular density may be related to the azygos vein however a mass is difficult to exclude. Matias Dykes MD Objective Remarks GENERAL: Well-developed, morbidly obese. Appears comfortable today. SKIN: mild erythema around the eyelids. Venous stasis changes of the lower extremities. HEENT: Normocephalic. EOMI no conjunctival injection and not drainage from the eyes. Mucous membranes pink and moist. CARDIOVASCULAR: appear regular w not murmurs RESPIRATORY: No accessory muscle use. Clear to auscultation. Breath sounds equal bilaterally. GASTROINTESTINAL: Abdomen soft, non tender this morning, nondistended. Bowel sounds x4. MUSCULOSKELETAL: No obvious deformities. trance edema NEUROLOGICAL: Awake and alert. No focal neurological deficits. Moves upper and lower extremities spontaneously. Normal speech. PSYCHIATRIC: Appropriate mood and affect; insight and judgment fair to normal. A/P Assessment and Plan 82-year-old female with past medical history of HTN, DM, HLD, TIA, gastroparesis who presented after a fall and was admitted for intractable nausea and vomiting. S/P mechanical fall: Patient denies any injury or pain. Head CT unremarkable. Lumbar spine x-ray with chronic degenerative changes, nothing acute. PT eval. Case management assisting w d/c planning. Anticipating discharging her home with home health PT. UTI with e Coli ESBL and multiple abx resistance. -on Invanz IV as sensitive to it . ID following. Blood cultures pending. Urine culture growing ESBL Escherichia coli Intractable nausea and vomiting: Resolved. GI following Gastric imaging study showed gastroparesis. Abdominal CT with no acute findings. IVF, Antiemetics as needed, on Reglan IV Protonix. LFTs and lipase levels normal per Hyperkalemia: Resolved. Potassium 6.3/6.8 on admission . Initial EKG showed T waves with possible minimal peaking. Patient given Kayexalate orally and per rectum, IV calcium, IV insulin and dextrose. Questionable history of atrial fibrillation: Improving On metoprolol. Today rhythm appears regular. -EKG shows sinus tachycardia with PVCs. BLAYNE: Resolved. Likely due to dehydration. Chronic anticoagulation with history of TIA: On Coumadin with INR subtherapeutic at 1.3. On Coumadin dose. Monitor INR. Pharmacy pharmacy to assist with dosing Accelerated hypertension: on metoprolol and nifedipine. I have resumed home dose of lisinopril (was held due to hyperkalemia) IV hydralazine as needed. Clonidine 0.1 mg every six hours as needed for systolic blood pressure over 160 mm Hg. Pulmonary nodule: Incidentally seen on chest and abdominal imaging. Recommendation for outpatient PET CT. Insomnia: Temazepam as needed at night Other chronic medical conditions seem stable at this time: Reconcile and resume home medications as indicated. Discharge Planning blood cultures pending, awaiting final results will hopefully will be available tomorrow. ID following. On IV ertapenem. Awaiting final recs. anticipate d/c home w home health PT and for IV infusion if ok w ID. Nasrin Stacy MD Jun 12, 2017 09:07
[2017-06-12] MEDS ORDERED: RESP: ALBUTEROL 2.5 MG/IPRATROPIUM 0.5 MG NEB (PRN) NEB (09:30)
[2017-06-12] MEDS: ERTAPENEM INJ 1,000 MG in SODIUM CHLORIDE 0.9% INJ 100 ML IV SCH (12:40)
[2017-06-12] MEDS: LISINOPRIL 20 MG TAB PO SCH ×2 (12:58→22:20)
[2017-06-12] MEDS: cloNIDine HCL 0.1 MG TAB PO PRN (14:14)
[2017-06-12] MEDS: WARFARIN SOD 7.5 MG TAB PO SCH (15:57)
[2017-06-12] MEDS: TEMAZEPAM 15 MG CAP PO PRN (22:20)
[2017-06-13] VITALS (7 sets, daily range): BP systolic 144–170; BP diastolic 68–82; PULSE 72–85; RESP 17–24; TEMP 96.2–97.7; O2SAT 94–96
[2017-06-13] MEDS: SODIUM CHLOR 0.9% 1000 ML INJ 1,000 ML IV SCH (03:30)
[2017-06-13 06:50] LABS: BICARBONATE 24.7 MEQ/L (21.0-32.0); POTASSIUM 4.5 MEQ/L (3.5-5.1)
[2017-06-13] MEDS: METOCLOPRAMIDE HCL 10 MG/2 ML VIAL IV PUSH SCH ×3 (07:16→20:54)
[2017-06-13] MEDS: BETHANECHOL CHL 10 MG TAB PO SCH ×3 (07:16→20:53)
[2017-06-13 07:26] LABS: INTERNATIONAL NORMALIZED RATIO 1.3 RATIO; PROTHROMBIN TIME - PATIENT 14.9 SEC (9.8-11.6)
[2017-06-13] MEDS: INSULIN ASPART SUPPLEMENTAL SCALE SQ SCH ×4 (07:31→20:59)
--- NOTE | 2017-06-13 07:55 | HHI.PR ---
Subjective Remarks No acute events overnight. Afebrile, VSS. Patient with no complaints this am. Denies fever/chills. Denies dysuria. Objective Vitals Vital Signs Date Time Temp Pulse Resp B/P Pulse Ox O2 Delivery O2 Flow Rate FiO2 06/13/17 04:00 97.5 73 18 151/75 96 06/13/17 00:00 96.8 85 17 144/68 94 06/12/17 20:00 97.0 78 18 151/75 96 06/12/17 16:00 97.9 85 18 147/70 94 06/12/17 14:14 99.3 78 171/72 06/12/17 13:00 99.3 79 24 167/72 94 06/12/17 12:00 74 06/12/17 11:04 96 21 06/12/17 09:27 72 169/80 06/12/17 08:00 97.8 78 18 171/81 94 06/12/17 08:00 86 06/12/17 08:00 77 I/O 06/12/17 06/12/17 06/12/17 06/13/17 06/13/17 06/13/17 07:00 15:00 23:00 07:00 15:00 23:00 Intake Total 1286 ml 240 ml 240 ml 1679 ml Balance 1286 ml 240 ml 240 ml 1679 ml Intake Oral 480 ml 240 ml 240 ml IV Total 806 ml 1679 ml # Voids 5 3 2 2 # Bowel Movements 1 0 1 Result Diagram: 06/11/17 1602 06/13/17 0557 Objective Remarks GENERAL: Well-developed, morbidly obese. Appears comfortable today. SKIN: mild erythema around the eyelids. Venous stasis changes of the lower extremities. HEENT: Normocephalic. EOMI no conjunctival injection and not drainage from the eyes. Mucous membranes pink and moist. CARDIOVASCULAR: appear regular w not murmurs RESPIRATORY: No accessory muscle use. Clear to auscultation. Breath sounds equal bilaterally. GASTROINTESTINAL: Abdomen soft, non tender this morning, nondistended. Bowel sounds x4. MUSCULOSKELETAL: No obvious deformities. trance edema NEUROLOGICAL: Awake and alert. No focal neurological deficits. Moves upper and lower extremities spontaneously. Normal speech. PSYCHIATRIC: Appropriate mood and affect; insight and judgment fair to normal. A/P Assessment and Plan 82-year-old female with past medical history of HTN, DM, HLD, TIA, gastroparesis who presented after a fall and was admitted for intractable nausea and vomiting. S/P mechanical fall: Patient denies any injury or pain. Head CT unremarkable. Lumbar spine x-ray with chronic degenerative changes, nothing acute. PT eval. Case management assisting w d/c planning. DC to home with home PT. UTI with e Coli ESBL and multiple abx resistance. -on Invanz IV as sensitive to it . ID following. Blood cultures pending. Urine culture growing ESBL Escherichia coli. Per ID recommendations, patient will likely be discharged to home tomorrow on PO Bactrim. Awaiting culture results through the weekend. Intractable nausea and vomiting: Resolved. GI following Gastric imaging study showed gastroparesis. Abdominal CT with no acute findings. IVF, Antiemetics as needed, on Reglan IV Protonix. LFTs and lipase levels normal per Hyperkalemia: Resolved. Potassium 6.3/6.8 on admission . Initial EKG showed T waves with possible minimal peaking. Patient given Kayexalate orally and per rectum, IV calcium, IV insulin and dextrose. Questionable history of atrial fibrillation: Improving On metoprolol. Today rhythm appears regular. -EKG shows sinus tachycardia with PVCs. BLAYNE: Resolved. Likely due to dehydration. Chronic anticoagulation with history of TIA: Remains on Coumadin with INR subtherapeutic at 1.3. On Coumadin dose. Monitor INR. Pharmacy pharmacy to assist with dosing Accelerated hypertension: on metoprolol and nifedipine. Home dose of lisinopril resumed (was held due to hyperkalemia) IV hydralazine as needed. Clonidine 0.1 mg every six hours as needed for systolic blood pressure over 160 mm Hg. Pulmonary nodule: Incidentally seen on chest and abdominal imaging. Recommendation for outpatient PET CT. Insomnia: Temazepam as needed at night Other chronic medical conditions seem stable at this time: Reconcile and resume home medications as indicated. Discharge Planning Awaiting final blood culture results Likely DC to home tomorrow with PO Bactrim Home with HHC/PT CM assisting Dena Daily MD R3 Jun 13, 2017 07:55
[2017-06-13] MEDS: ASPIRIN EC 81 MG TABEC PO SCH (10:04)
[2017-06-13] MEDS: hydrALAZINE HCL 100 MG TAB PO SCH ×3 (10:04→18:26)
[2017-06-13] MEDS: PANTOPRAZOLE SODIUM 40 MG VIAL IV PUSH SCH (10:04)
[2017-06-13] MEDS: SODIUM CHLORIDE 0.9% FLUSH 10 ML FLUSH IV FLUSH SCH ×2 (10:04→21:01)
[2017-06-13] MEDS: METOPROLOL TARTRATE 25 MG TAB PO SCH ×2 (10:05→20:53)
[2017-06-13] MEDS: LISINOPRIL 20 MG TAB PO SCH ×2 (10:05→20:53)
[2017-06-13] MEDS: NIFEdipine 30 MG SUSTAINED RELEASE TAB PO SCH (10:07)
--- NOTE | 2017-06-13 12:50 | HHI.GIFU ---
Subjective Remarks Sitting up in bed. States she is doing well and wants to go home. Denies abdominal pain. No further nausea/vomiting. (Gisselle Perez) Objective Vitals I&O Vital Signs Date Time Temp Pulse Resp B/P Pulse Ox O2 Delivery O2 Flow Rate FiO2 06/13/17 08:00 96.2 72 24 170/74 96 06/13/17 04:00 97.5 73 18 151/75 96 06/13/17 00:00 96.8 85 17 144/68 94 06/12/17 21:00 75 06/12/17 20:00 97.0 78 18 151/75 96 06/12/17 16:00 97.9 85 18 147/70 94 06/12/17 14:14 99.3 78 171/72 06/12/17 13:00 99.3 79 24 167/72 94 I/O 06/12/17 06/12/17 06/12/17 06/13/17 06/13/17 06/13/17 07:00 15:00 23:00 07:00 15:00 23:00 Intake Total 1286 ml 240 ml 240 ml 1679 ml Balance 1286 ml 240 ml 240 ml 1679 ml Intake Oral 480 ml 240 ml 240 ml IV Total 806 ml 1679 ml # Voids 5 3 2 2 # Bowel Movements 1 0 1 Laboratory Laboratory Tests Test 06/13/17 06/13/17 05:51 05:57 Prothrombin Time 14.9 Prothromb Time International 1.3 Ratio Sodium Level 139 Potassium Level 4.5 Chloride Level 107 Carbon Dioxide Level 24.7 Anion Gap 7 Blood Urea Nitrogen 12 Creatinine 0.78 Estimat Glomerular Filtration 71 Rate Random Glucose 174 Calcium Level 8.8 Date/Time Procedure Status Source Growth 06/11/17 16:07 Aerobic Blood Culture - Preliminary Resulted Blood Other NO GROWTH IN 2 DAYS 06/11/17 16:07 Anaerobic Blood Culture - Preliminary Resulted Blood Other NO GROWTH IN 2 DAYS 06/08/17 22:15 Urine Culture - Final Complete Urine Random Urine Escherichia Coli Esbl Positive Imaging Last Impressions Abdomen/Pelvis CT 06/09/17 0053 Signed Impressions: Service Date/Time: Friday, June 09, 2017 03:02 - CONCLUSION: 1. There continues to be a nodular infiltrate in the right lung base measuring approximately 1.4 cm. This may be slightly increased in size compared to the prior exam. Recommend a PET CT on a nonemergent outpatient basis for evaluation of hypermetabolic activity. 2. Umbilical hernia containing mesenteric fat. No change. 3. Scattered sigmoid diverticulosis without inflammatory changes. 4. No new or significant changes compared to the prior study. Yobany Burgess MD Head CT 06/09/17 0000 Signed Impressions: Service Date/Time: Friday, June 09, 2017 02:58 - CONCLUSION: Normal examination for a patient of this age. No significant change has occurred. Yobany Burgess MD Lumbar Spine X-Ray 06/08/17 0000 Signed Impressions: Service Date/Time: Thursday, June 08, 2017 20:37 - CONCLUSION: Degenerative changes and atherosclerosis. Matias Dykes MD Chest X-Ray 06/08/17 0000 Signed Impressions: Service Date/Time: Thursday, June 08, 2017 20:46 - CONCLUSION: Interstitial prominence and right suprahilar nodular density may be related to the azygos vein however a mass is difficult to exclude. Matias Dykes MD Physical Exam HEENT: Normocephalic; atraumatic CHEST: CTA CARDIAC: RRR ABDOMEN: Soft, obese, nontender; no hepatosplenomegaly; bowel sounds are present in all four quadrants. EXTREMITIES: BLE edema. SKIN: Normal; no rash; no jaundice. BROACH SETTER: No focal deficits; alert and oriented times three. (Gisselle Perez) Assessment and Plan Plan ASSESSMENT - Nausea and epigastric pain with hx of gastroparesis. Resolved. Abdomen/Pelvis CT (06/09/17)----> 1. There continues to be a nodular infiltrate in the right lung base measuring approximately 1.4 cm. This may be slightly increased in size compared to the prior exam. Recommend a PET CT on a nonemergent outpatient basis for evaluation of hypermetabolic activity. 2. Umbilical hernia containing mesenteric fat. No change. 3. Scattered sigmoid diverticulosis without inflammatory changes. 4. No new or significant changes compared to the prior study. Bethanechol, Reglan. Much improved. Tolerating diet. No n/v. - Elevated LFTs. Improved. T. Bili 0.3, AST 28, ALT 42, ALk Phosph 99. - Hooks's esophagus. PPI - UTI with E. Coli ESBL. Invanz - Hx TIA. Coumadin. - HTN, Pulmonary nodule, per attending PLAN: - JOAN - Cont. Bethanechol - Cont. Reglan - Cont. PPI - Supportive care Patient seen and examined by Dr. Dexter and myself and this note is written on her behalf (Gisselle Perez) Physician Comments seen, examined agree with above ok to dc home from gi point gi will sign off fu gi in 2 weeks (Jacqui Dexter MD) Gisselle Perez Jun 13, 2017 12:50 Jaqcui Dexter MD Jun 13, 2017 13:58
[2017-06-13] MEDS: ERTAPENEM INJ 1,000 MG in SODIUM CHLORIDE 0.9% INJ 100 ML IV SCH (13:48)
[2017-06-13] MEDS ORDERED: WARFARIN SOD 1 MG TAB PO ONE (16:00)
[2017-06-13] MEDS: WARFARIN SOD 7.5 MG TAB PO SCH (16:16)
[2017-06-13] MEDS: ACETAMINOPHEN 325 MG TAB PO PRN (16:18)
[2017-06-13] MEDS: TEMAZEPAM 15 MG CAP PO PRN (20:53)
[2017-06-14] VITALS: BP 156/73; PULSE 70; PULSE 79; RESP 20; TEMP 96.9; O2SAT 94
[2017-06-14] MEDS: ACETAMINOPHEN 325 MG TAB PO PRN (03:22)
[2017-06-14 04:00] VITALS: BP 148/70; PULSE 75; PULSE 78; RESP 18; TEMP 96.7; O2SAT 95
[2017-06-14] MEDS: BETHANECHOL CHL 10 MG TAB PO SCH ×2 (05:55→13:33)
[2017-06-14] MEDS: METOCLOPRAMIDE HCL 10 MG/2 ML VIAL IV PUSH SCH ×2 (05:56→13:32)
[2017-06-14] MEDS: INSULIN ASPART SUPPLEMENTAL SCALE SQ SCH ×3 (06:01→17:32)
[2017-06-14 07:57] LABS: AUTOMATED NEUTROPHIL # 5.8 TH/MM3 (1.8-7.7); BASOPHIL # 0.1 TH/MM3 (0-0.2); BASOPHIL % 0.7 % (0.0-2.0); EOSINOPHIL # 0.4 TH/MM3 (0-0.4); EOSINOPHIL % 4.5 % (0.0-4.0); HEMATOCRIT 33.3 % (35.0-46.0); HEMO FLAGS DIFF FINAL; LYMPH % 19.5 % (9.0-44.0); LYMPHOCYTE # 1.7 TH/MM3 (1.0-4.8); MEAN CELL VOLUME 84.4 FL (80.0-100.0); MEAN CORPUSCULAR HEMOGLOBIN 27.2 PG (27.0-34.0); MEAN CORPUSCULAR HGB CONC 32.2 % (32.0-36.0); MONO % 9.2 % (0.0-8.0); NEUT % 66.1 % (16.0-70.0); PLATELET COUNT 251 TH/MM3 (150-450); RED BLOOD COUNT 3.94 MIL/MM3 (4.00-5.30); RED CELL DISTRIBUTION WIDTH 17.1 % (11.6-17.2); WHITE BLOOD COUNT 8.8 TH/MM3 (4.0-11.0)
[2017-06-14 08:00] VITALS: BP 136/71; PULSE 75; RESP 20; TEMP 98.5; O2SAT 96
[2017-06-14 08:03] LABS: INTERNATIONAL NORMALIZED RATIO 1.6 RATIO; PROTHROMBIN TIME - PATIENT 17.5 SEC (9.8-11.6)
[2017-06-14 08:21] LABS: BICARBONATE 26.2 MEQ/L (21.0-32.0); POTASSIUM 4.5 MEQ/L (3.5-5.1)
[2017-06-14] MEDS: ASPIRIN EC 81 MG TABEC PO SCH (08:43)
[2017-06-14] MEDS: LISINOPRIL 20 MG TAB PO SCH (08:43)
[2017-06-14] MEDS: METOPROLOL TARTRATE 25 MG TAB PO SCH (08:43)
[2017-06-14] MEDS: NIFEdipine 30 MG SUSTAINED RELEASE TAB PO SCH (08:43)
[2017-06-14] MEDS: PANTOPRAZOLE SODIUM 40 MG VIAL IV PUSH SCH (08:44)
[2017-06-14] MEDS: hydrALAZINE HCL 100 MG TAB PO SCH ×3 (08:44→17:29)
[2017-06-14] MEDS: SODIUM CHLORIDE 0.9% FLUSH 10 ML FLUSH IV FLUSH SCH (08:45)
--- NOTE | 2017-06-14 11:04 | HHI.PR ---
Subjective Remarks Follow up with UTI/Recurrent falls 06/14/17-Patient seen and examined; denies any febrile episode. no dysuria. No report of fall. Wants to go home Objective Vitals Vital Signs Date Time Temp Pulse Resp B/P Pulse Ox O2 Delivery O2 Flow Rate FiO2 06/14/17 08:00 98.5 75 20 136/71 96 06/14/17 04:00 96.7 75 18 148/70 95 06/14/17 04:00 78 06/14/17 00:00 70 06/14/17 00:00 96.9 79 20 156/73 94 06/13/17 21:05 74 06/13/17 20:00 96.5 75 18 167/82 94 06/13/17 17:30 97.7 76 20 154/80 96 06/13/17 12:00 97.5 72 18 156/72 96 I/O 06/13/17 06/13/17 06/13/17 06/14/17 06/14/17 06/14/17 06:59 14:59 22:59 06:59 14:59 22:59 Intake Total 240 ml 1679 ml 1829 ml Output Total 200 ml Balance 240 ml 1679 ml 1829 ml -200 ml Intake Oral 240 ml 1090 ml IV Total 1679 ml 739 ml Output Urine Total 200 ml # Voids 2 4 # Bowel Movements 1 1 Result Diagram: 06/14/17 0714 06/14/17 0714 Imaging Last Impressions Abdomen/Pelvis CT 06/09/17 0053 Signed Impressions: Service Date/Time: Friday, June 09, 2017 03:02 - CONCLUSION: 1. There continues to be a nodular infiltrate in the right lung base measuring approximately 1.4 cm. This may be slightly increased in size compared to the prior exam. Recommend a PET CT on a nonemergent outpatient basis for evaluation of hypermetabolic activity. 2. Umbilical hernia containing mesenteric fat. No change. 3. Scattered sigmoid diverticulosis without inflammatory changes. 4. No new or significant changes compared to the prior study. Yobany Burgess MD Head CT 06/09/17 0000 Signed Impressions: Service Date/Time: Friday, June 09, 2017 02:58 - CONCLUSION: Normal examination for a patient of this age. No significant change has occurred. Yobany Burgess MD Lumbar Spine X-Ray 06/08/17 0000 Signed Impressions: Service Date/Time: Thursday, June 08, 2017 20:37 - CONCLUSION: Degenerative changes and atherosclerosis. Matias Dykes MD Chest X-Ray 06/08/17 0000 Signed Impressions: Service Date/Time: Thursday, June 08, 2017 20:46 - CONCLUSION: Interstitial prominence and right suprahilar nodular density may be related to the azygos vein however a mass is difficult to exclude. Matias Dykes MD Objective Remarks GENERAL: NAD SKIN: Warm and dry. HEAD: Normocephalic. EYES: No scleral icterus. No injection or drainage. NECK: Supple, trachea midline. No JVD or lymphadenopathy. CARDIOVASCULAR: Regular rate and rhythm without murmurs, gallops, or rubs. RESPIRATORY: Breath sounds equal bilaterally. No accessory muscle use. GASTROINTESTINAL: Abdomen soft, non-tender, nondistended. MUSCULOSKELETAL: No cyanosis, or edema. BACK: Nontender without obvious deformity. No CVA tenderness. A/P Problem List: (1) Urinary tract infection ICD Code: N39.0 Status: Acute (2) ESBL (extended spectrum beta-lactamase) producing bacteria infection ICD Code: A49.9 Status: Acute (3) Physical deconditioning ICD Code: R53.81 Status: Chronic Assessment and Plan 82-year-old female with past medical history of HTN, DM, HLD, TIA, gastroparesis who presented after a fall and was admitted for intractable nausea and vomiting. S/P mechanical fall: Patient denies any injury or pain. Head CT unremarkable. Lumbar spine x-ray with chronic degenerative changes, nothing acute. PT eval. UTI with e Coli ESBL and multiple abx resistance. -Currently Invanz IV per ID. Patient will be discharged home on by mouth antibiotics pending final recommendation from Dr. Rosas Intractable nausea and vomiting: Resolved. Abdominal CT with no acute findings. Continue with Antiemetics as needed, on Reglan , Protonix. Appreciate input from gastroenterology Hyperkalemia: Resolved. Questionable history of atrial fibrillation: Improving On metoprolol. -EKG shows sinus tachycardia with PVCs. BLAYNE: Resolved. Likely due to dehydration. Chronic anticoagulation with history of TIA: Remains on Coumadin with INR subtherapeutic at 1.6. On Coumadin dose. Accelerated hypertension: on metoprolol and nifedipine as well as lisinopril ; Clonidine 0.1 mg every six hours as needed for systolic blood pressure over 160 mm Hg. Pulmonary nodule: Incidentally seen on chest and abdominal imaging. Recommendation for outpatient PET CT. Insomnia: Temazepam as needed at night Other chronic medical conditions seem stable at this time: Continue home medications as indicated. Brad Rizvi MD Jun 14, 2017 11:04 Brad Rizvi MD Jun 14, 2017 11:04
--- NOTE | 2017-06-14 12:11 | HHI.FF ---
Face to Face Verification Diagnosis: (1) E. coli UTI (urinary tract infection) (2) Diabetes mellitus Physical Therapy Order: Evaluate and Treat Home Health Nursing Order: Signs/symptoms of disease process I have seen patient Mirella Lucas on 06/14/17. My clinical findings support the need for the requested home health care services because: Deconditioned w/ increased weakness I certify that my clinical findings support that this patient is homebound because: Poor cardiac reserve Brad Rizvi MD Jun 14, 2017 12:11
[2017-06-14 13:30] VITALS: BP 153/97; PULSE 79; RESP 18; TEMP 97.8; O2SAT 96
[2017-06-14] MEDS: ERTAPENEM INJ 1,000 MG in SODIUM CHLORIDE 0.9% INJ 100 ML IV SCH (13:32)
[2017-06-14 16:00] VITALS: BP 149/77; PULSE 84; RESP 18; TEMP 97; O2SAT 98
--- NOTE | 2017-06-14 16:26 | HHI.DS ---
Discharge Summary Admission Date Jun 09, 2017 at 09:54 Discharge Date: Jun 14, 2017 Admitting Diagnosis intractable vomiting, UTI (1) Urinary tract infection ICD Code: N39.0 (2) ESBL (extended spectrum beta-lactamase) producing bacteria infection ICD Code: A49.9 (3) Physical deconditioning ICD Code: R53.81 Procedures none Brief History - From Admission 82-year-old female with past medical history of HTN, DM, HLD, TIA, gastroparesis who presented after a fall and was admitted for intractable nausea and vomiting. The patient states that yesterday she was getting a pH out of the refrigerator, lost her balance, slipped and fell backwards on the floor. The patient denies any injury, head trauma, or pain from the fall. She denies any lightheadedness or dizziness. Reportedly she had problems ambulating and thus she was brought to the ED. While in the ED, the patient had intractable nausea and vomiting. Patient states she's been having nausea and vomiting for the past 3 or 4 days and has not been tolerating any oral intake. She has "slight" generalized abdominal pain. She denies any diarrhea. She reports subjective chills, denies any fevers. She reports good urine output. She denies any recent medication changes. She denies any chest pain, shortness breath, palpitations. The patient is not the best historian. She does live alone. She states her niece checks in on her and manages her medications. She does not know what medication she is on. She denies any history of arrhythmia or atrial fibrillation. She states that she has a home physician and a home furnace charger that come to see her at her house. CBC/BMP: 06/14/17 0714 06/14/17 0714 Significant Findings Laboratory Tests Test 06/11/17 06/12/17 06/13/17 06/13/17 16:30 06:19 05:51 05:57 Urine Glucose (UA) 300 mg/dL (NEG) Urine Leukocyte Esterase SMALL (NEG) Prothrombin Time 14.4 SEC 14.9 SEC (9.8-11.6) (9.8-11.6) Estimat Glomerular Filtration 71 ML/MIN (>89) Rate Random Glucose 174 MG/DL (74-106) Test 06/14/17 07:14 Red Blood Count 3.94 MIL/MM3 (4.00-5.30) Hemoglobin 10.7 GM/DL (11.6-15.3) Hematocrit 33.3 % (35.0-46.0) Monocytes (%) (Auto) 9.2 % (0.0-8.0) Eosinophils (%) (Auto) 4.5 % (0.0-4.0) Prothrombin Time 17.5 SEC (9.8-11.6) Estimat Glomerular Filtration 73 ML/MIN (>89) Rate Random Glucose 160 MG/DL (74-106) Imaging Last Impressions Abdomen/Pelvis CT 06/09/17 0053 Signed Impressions: Service Date/Time: Friday, June 09, 2017 03:02 - CONCLUSION: 1. There continues to be a nodular infiltrate in the right lung base measuring approximately 1.4 cm. This may be slightly increased in size compared to the prior exam. Recommend a PET CT on a nonemergent outpatient basis for evaluation of hypermetabolic activity. 2. Umbilical hernia containing mesenteric fat. No change. 3. Scattered sigmoid diverticulosis without inflammatory changes. 4. No new or significant changes compared to the prior study. Yobany Burgess MD Head CT 06/09/17 0000 Signed Impressions: Service Date/Time: Friday, June 09, 2017 02:58 - CONCLUSION: Normal examination for a patient of this age. No significant change has occurred. Yobany Burgess MD Lumbar Spine X-Ray 06/08/17 0000 Signed Impressions: Service Date/Time: Thursday, June 08, 2017 20:37 - CONCLUSION: Degenerative changes and atherosclerosis. Matias Dykes MD Chest X-Ray 06/08/17 0000 Signed Impressions: Service Date/Time: Thursday, June 08, 2017 20:46 - CONCLUSION: Interstitial prominence and right suprahilar nodular density may be related to the azygos vein however a mass is difficult to exclude. Matias Dykes MD PE at Discharge GENERAL: NAD SKIN: Warm and dry. HEAD: Normocephalic. EYES: No scleral icterus. No injection or drainage. NECK: Supple, trachea midline. No JVD or lymphadenopathy. CARDIOVASCULAR: Regular rate and rhythm without murmurs, gallops, or rubs. RESPIRATORY: Breath sounds equal bilaterally. No accessory muscle use. GASTROINTESTINAL: Abdomen soft, non-tender, nondistended. MUSCULOSKELETAL: No cyanosis, or edema. BACK: Nontender without obvious deformity. No CVA tenderness. Hospital Course S/P mechanical fall: Patient denies any injury or pain. Head CT unremarkable. Lumbar spine x-ray with chronic degenerative changes, nothing acute. PT eval. UTI with e Coli ESBL and multiple abx resistance. -Currently Invanz IV per ID. Patient will be discharged home on by mouth antibiotics pending final recommendation from Dr. Rosas Intractable nausea and vomiting: Resolved. Abdominal CT with no acute findings. Continue with Antiemetics as needed, on Reglan , Protonix. Appreciate input from gastroenterology Hyperkalemia: Resolved. Questionable history of atrial fibrillation: Improving On metoprolol. -EKG shows sinus tachycardia with PVCs. BLAYNE: Resolved. Likely due to dehydration. Chronic anticoagulation with history of TIA: Remains on Coumadin with INR subtherapeutic at 1.6. On Coumadin dose. Accelerated hypertension: on metoprolol and nifedipine as well as lisinopril ; Clonidine 0.1 mg every six hours as needed for systolic blood pressure over 160 mm Hg. Pulmonary nodule: Incidentally seen on chest and abdominal imaging. Recommendation for outpatient PET CT. Insomnia: Temazepam as needed at night Other chronic medical conditions seem stable at this time: Continue home medications as indicated. Pt Condition on Discharge: Stable Discharge Disposition: Disch w/ Home Health Serv Discharge Time: > 30 minutes Discharge Instructions DIET: Follow Instructions for: Diabetic Diet Activities you can perform: Regular-No Restrictions Follow up Referrals: PCP Follow-up - 1 Week New Orders: BASIC METABOLIC PROF - 2-3 Days PT/INR - 2-3 Days New Medications: Metoclopramide (Reglan) 5 Mg Tab 5 MG PO TIDAC Prevent Stress Ulcers #90 Ref 0 TAB Metoprolol Tartrate (Metoprolol Tartrate) 25 Mg Tab 12.5 MG PO Q12HR Blood Pressure Management #60 TAB Nifedipine ER 24 HR (Nifedipine ER 24 HR) 30 Mg Tab 30 MG PO DAILY Blood Pressure Management #30 TAB Warfarin (Coumadin) 7.5 Mg Tab 7.5 MG PO DAILY@16 Prevent Blood Clot #30 TAB Continued Medications: Aspirin DR (Ecotrin Low Strength) 81 Mg Tabdr 81 MG PO DAILY #30 Ref 0 TAB Atorvastatin (Lipitor) 20 Mg Tab 20 MG PO HS Cholesterol Management #30 Ref 0 TAB Bethanechol (Bethanechol) 10 Mg Tab 10 MG PO Q8HR Urinary Symptom Managemen Ref [address] (Ferrous Sulfate DR) 324 Mg Tabdr 324 MG PO DAILY Nutritional Supplement #30 Ref 0 TAB Furosemide (Lasix) 20 Mg Tab 20 MG PO DAILY #30 Ref 0 TAB Hydralazine (Hydralazine) 100 Mg Tab 50 MG PO TID Take with meals Blood Pressure Management Ref 0 TAB Insulin Aspart Inj (Novolog Inj) 1,000 Unit/10 Ml Vial 0 SQ DIRECTED Sliding Scale as directed. Blood Sugar Management #10 Ref 0 ML Insulin Glargine Inj (Lantus Solostar Pen Inj) 300 Unit/3 Ml Pen 90 UNITS SQ HS Blood Sugar Management Ref 0 PEN Levothyroxine (Levothyroxine) 88 Mcg Tab 88 MCG PO DAILY Thyroid #30 Ref 0 TAB Lisinopril (Lisinopril) 20 Mg Tab 20 MG PO BID #30 Ref 0 TAB Metformin (Metformin) 1,000 Mg Tab 1000 MG PO BID With meals Blood Sugar Management #60 Ref 0 TAB Spironolactone (Spironolactone) 50 Mg Tab 50 MG PO DAILY #30 Ref 0 TAB Discontinued Medications: Nifedipine ER 24 HR (Nifedipine ER 24 HR) 30 Mg Tab 30 MG PO DAILY #30 Ref 0 TAB Temazepam (Restoril) 15 Mg Cap 15 MG PO HS PRN INSOMNIA/MAY REPEAT X1 DOSE #10 CAP Warfarin (Warfarin) 5 Mg Tab 5 MG PO DAILY Blood Clot Prevention #30 Ref 0 TAB Brad Rizvi MD Jun 14, 2017 16:26
[2017-06-14] MEDS ORDERED: COUM7.5T PO (16:31)
[2017-06-14] MEDS ORDERED: NIFE30TA8 PO (16:31)
[2017-06-14] MEDS ORDERED: METO25TA3 PO (16:31)
[2017-06-14] MEDS ORDERED: REGL5TAB PO (16:31)
[2017-06-14] MEDS ORDERED: SULFAMETHOXAZOLE-TRIMETHOPRIM DS 800-160 MG TAB PO SCH (17:00)
[2017-06-14] MEDS ORDERED: BACT800T5 PO (17:23)
[2017-06-14] MEDS: WARFARIN SOD 7.5 MG TAB PO SCH (17:29)
--- NOTE | 2017-06-14 17:30 | HHI.IDPN ---
Subjective Subjective Remarks doing well blood clx negative @ 72 hrs no fever Antibiotics ertapenem Allergies: Coded Allergies: Penicillin (Verified Allergy, Severe, rash, 06/09/17) *MDRO Multi-Drug Resistant Organism (Verified Adverse Reaction, Unknown, ) ESBL - E. coli (urine) 07/2015,10/2015,06/08/17 MRSA PCR Screen POSITIVE - 06/02/2016 Objective . Vital Signs Date Time Temp Pulse Resp B/P Pulse Ox O2 Delivery O2 Flow Rate FiO2 06/14/17 13:30 97.8 79 18 153/97 96 06/14/17 08:00 98.5 75 20 136/71 96 06/14/17 04:00 96.7 75 18 148/70 95 06/14/17 04:00 78 06/14/17 00:00 70 06/14/17 00:00 96.9 79 20 156/73 94 06/13/17 21:05 74 06/13/17 20:00 96.5 75 18 167/82 94 06/13/17 17:30 97.7 76 20 154/80 96 06/13/17 06/13/17 06/14/17 15:00 23:00 07:00 Intake Total 2519 ml 989 ml Output Total 200 ml Balance 2519 ml 989 ml -200 ml Intake Oral 840 ml 250 ml IV Total 1679 ml 739 ml Output Urine Total 200 ml # Voids 3 1 # Bowel Movements 1 0 . Laboratory Tests Test 06/14/17 07:14 White Blood Count 8.8 TH/MM3 Red Blood Count 3.94 MIL/MM3 Hemoglobin 10.7 GM/DL Hematocrit 33.3 % Mean Corpuscular Volume 84.4 FL Mean Corpuscular Hemoglobin 27.2 PG Mean Corpuscular Hemoglobin 32.2 % Concent Red Cell Distribution Width 17.1 % Platelet Count 251 TH/MM3 Mean Platelet Volume 7.7 FL Neutrophils (%) (Auto) 66.1 % Lymphocytes (%) (Auto) 19.5 % Monocytes (%) (Auto) 9.2 % Eosinophils (%) (Auto) 4.5 % Basophils (%) (Auto) 0.7 % Neutrophils # (Auto) 5.8 TH/MM3 Lymphocytes # (Auto) 1.7 TH/MM3 Monocytes # (Auto) 0.8 TH/MM3 Eosinophils # (Auto) 0.4 TH/MM3 Basophils # (Auto) 0.1 TH/MM3 CBC Comment DIFF FINAL Differential Comment Laboratory Tests Test 06/13/17 06/14/17 05:57 07:14 Sodium Level 139 MEQ/L 139 MEQ/L Potassium Level 4.5 MEQ/L 4.5 MEQ/L Chloride Level 107 MEQ/L 106 MEQ/L Carbon Dioxide Level 24.7 MEQ/L 26.2 MEQ/L Anion Gap 7 MEQ/L 7 MEQ/L Blood Urea Nitrogen 12 MG/DL 9 MG/DL Creatinine 0.78 MG/DL 0.76 MG/DL Estimat Glomerular Filtration 71 ML/MIN 73 ML/MIN Rate Random Glucose 174 MG/DL 160 MG/DL Calcium Level 8.8 MG/DL 9.0 MG/DL Imaging Last Impressions Abdomen/Pelvis CT 06/09/17 0053 Signed Impressions: Service Date/Time: Friday, June 09, 2017 03:02 - CONCLUSION: 1. There continues to be a nodular infiltrate in the right lung base measuring approximately 1.4 cm. This may be slightly increased in size compared to the prior exam. Recommend a PET CT on a nonemergent outpatient basis for evaluation of hypermetabolic activity. 2. Umbilical hernia containing mesenteric fat. No change. 3. Scattered sigmoid diverticulosis without inflammatory changes. 4. No new or significant changes compared to the prior study. Yobany Burgess MD Head CT 06/09/17 0000 Signed Impressions: Service Date/Time: Friday, June 09, 2017 02:58 - CONCLUSION: Normal examination for a patient of this age. No significant change has occurred. Yobany Burgess MD Lumbar Spine X-Ray 06/08/17 0000 Signed Impressions: Service Date/Time: Thursday, June 08, 2017 20:37 - CONCLUSION: Degenerative changes and atherosclerosis. Matias Dykes MD Chest X-Ray 06/08/17 0000 Signed Impressions: Service Date/Time: Thursday, June 08, 2017 20:46 - CONCLUSION: Interstitial prominence and right suprahilar nodular density may be related to the azygos vein however a mass is difficult to exclude. Matias Dykes MD Physical Exam CONSTITUTIONAL/GENERAL: This is a morbidly obese patient, in no apparent distress. TUBES/LINES/DRAINS: SKIN: No jaundice, rashes, or lesions. Skin temperature appropriate. Not diaphoretic. CARDIOVASCULAR: Regular rate and rhythm without murmurs, gallops, or rubs. RESPIRATORY/CHEST: Symmetric, unlabored respirations. Clear to auscultation. Breath sounds equal bilaterally. GASTROINTESTINAL: Abdomen soft, non-tender, nondistended. Bowel sounds present. MUSCULOSKELETAL: Extremities without clubbing, cyanosis, or edema. NEUROLOGICAL: Awake and alert. Motor and sensory grossly within normal limits. Follows commands. Clear speech. Moves all extremities. PSYCHIATRIC: No obvious anxiety/depression. no apparent hallucinations or other psychotic thought process. Assessment & Plan Remarks Recurrent UTI ESBL + E.coli Pt presented with intractable nause, vomiting and BLAYNE: resolved sp fall, presumably 2/2 UTI Mult med problems Pulm nodule, incidental - dc Ertapnem while BC are pending - switch to bactrim DS bid x 7days - because of the pts age close monitoring of renal fnx and K (potassium) will be warranted while on bactrim (BMP q 2 days x 3) OK to dc from ID standpoint Discussed Condition With RN Dr Dmitri Rosas,Norma Chambers MD Jun 14, 2017 17:29
== END 2017-06-14 19:12 | disposition home health service (06) | DRG 74 ==
LOC: NEPD 18:57 → NEDA 06-09 03:57 → OBSVTOIN 06-09 09:54 → HOCB 06-09 13:45
PROVIDERS: ADMIT Hospitalist; ATTEND Hospitalist
DX: E11.43 Type 2 diabetes mellitus with diabetic autonomic (poly)neuropathy (principal); N17.9 Acute kidney failure, unspecified; E87.5 Hyperkalemia; Z68.43 Body mass index [BMI] 50.0-59.9, adult; N39.0 Urinary tract infection, site not specified; I48.91 Unspecified atrial fibrillation; E86.0 Dehydration; K31.84 Gastroparesis; K22.70 Barrett's esophagus without dysplasia; E78.5 Hyperlipidemia, unspecified; E66.01 Morbid (severe) obesity due to excess calories; B96.20 Unspecified Escherichia coli [E. coli] as the cause of diseases classified elsewhere; K57.30 Diverticulosis of large intestine without perforation or abscess without bleeding; R91.1 Solitary pulmonary nodule; G47.00 Insomnia, unspecified; Z86.73 Personal history of transient ischemic attack (TIA), and cerebral infarction without residual deficits; Z79.4 Long term (current) use of insulin; Z79.84 Long term (current) use of oral hypoglycemic drugs; Z79.01 Long term (current) use of anticoagulants
CPT/HCPCS: 70450; 71020; 72100; 74176; 76937; 80048; 80053; 80076; 81001; 82948; 83690; 84132; 85025; 85610; 85730; 87040; 87077; 87086; 87186; 87640; 87641; 93005; 94150; 96365; 96372; 96375; C9113; J0610; J0696; J1335; J1815; J2405; J2550; J2765; J7030; J7040

== ENCOUNTER 2017-07-22 12:44 | Emergency (ER) | payer MEDICARE ==
[~2017-07-22 12:44] MED LIST changes: +ASPI-147 PO; +BACT800T5 PO; +BETH10TA2 PO; -CIPR250T52 PO; +CLON0.1T PO; +COUM7.5T PO; -ERYT200S2 PO; -ERYT250T13 PO; +FERR324T4 PO; -FERR325T PO; -GABA300C5 PO; +HYDR-3801 PO; -HYDR50TA15 PO; -NIFE30TA61 PO; +NIFE30TA8 PO; +NOVOLOGP2 SQ; -PROT40TA PO; +REGL5TAB PO; -REST15CA PO; +SPIR50TA PO; -TRIA1TAB21 PO; -WARF-23 PO
[2017-07-22] MEDS ORDERED: SODIUM CHLORIDE 0.9% FLUSH 10 ML FLUSH IV FLUSH PRN (13:30)
--- NOTE | 2017-07-22 13:47 | PD ---
HPI Chief Complaint: Lump, Cyst, Hernia Time Seen by Provider: 13:29 Travel History International Travel<30 days: No Contact w/Intl Traveler<30days: No Traveled to known affect area: No History of Present Illness HPI Patient is an 82-year-old female presenting to the emergency department for evaluation of a possible second umbilical hernia. Patient stated that her home health nurse practitioner evaluated her this morning and noticed a second hernia at the umbilicus and sent her to the emergency department to be evaluated. Patient reports having intermittent nausea and vomiting is been going on for several weeks. She has not vomited today nor does she feel nauseated at this time. Patient states she noticed the pain at the hernia site yesterday but did not have any pain until it was pressed on today. 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) Immunizations Current: Yes Migraines: Yes Sleep Apnea: Yes Menopausal: Yes : 5 Para: 5 Past Surgical History Abdominal Surgery: Yes (GALLBLADDER OUT 1973) AICD: No Arteriovenous Shunt: No Cardiac Surgery: No Cholecystectomy: Yes Ear Surgery: No Endocrine Surgery: No Eye Surgery: Yes (cataract) Genitourinary Surgery: No Gynecologic Surgery: Yes Hysterectomy: Yes Insulin Pump: No Joint Replacement: Yes (KNEE REPLACEMENTS ) Oral Surgery: No Pacemaker: No Thoracic Surgery: No Other Surgery: Yes Social History Alcohol Use: No Tobacco Use: No Substance Use: No Allergies-Medications (Allergen,Severity, Reaction): Coded Allergies: penicillin G (Unverified Allergy, Severe, rash, 07/22/17) *MDRO Multi-Drug Resistant Organism (Verified Adverse Reaction, Unknown, ) ESBL - E. coli (urine) 07/2015,10/2015,06/08/17 MRSA PCR Screen POSITIVE - 06/02/2016 Reported Meds & Prescriptions Reported Meds & Active Scripts Active Bactrim DS (Sulfamethoxazole-Trimethoprim) 800-160 Mg Tab 1 Tab PO BID Reglan (Metoclopramide HCl) 5 Mg Tab 5 Mg PO TIDAC Metoprolol Tartrate 25 Mg Tab 12.5 Mg PO Q12HR Nifedipine ER 24 HR (Nifedipine) 30 Mg Tab 30 Mg PO DAILY Coumadin (Warfarin) 7.5 Mg Tab 7.5 Mg PO DAILY@[address] (Ferrous Sulfate) 324 Mg Tabdr 324 Mg PO DAILY Bethanechol 10 Mg Tab 10 Mg PO Q8HR Clonidine (Clonidine HCl) 0.1 Mg Tab 0.1 Mg PO Q6HR PRN Novolog Inj (Insulin Aspart) 1,000 Unit/10 Ml Vial 0 SQ DIRECTED Sliding Scale as directed. Ecotrin Low Strength (Aspirin) 81 Mg Tabdr 81 Mg PO DAILY Spironolactone 50 Mg Tab 50 Mg PO DAILY Hydralazine (Hydralazine HCl) 100 Mg Tab 50 Mg PO TID Take with meals Lisinopril 20 Mg Tab 20 Mg PO BID Lantus Solostar Pen Inj (Insulin Glargine) 300 Unit/3 Ml Pen 90 Units SQ HS Levothyroxine (Levothyroxine Sodium) 88 Mcg Tab 88 Mcg PO DAILY Lipitor (Atorvastatin Calcium) 20 Mg Tab 20 Mg PO HS Metformin (Metformin HCl) 1,000 Mg Tab 1,000 Mg PO BID With meals Lasix (Furosemide) 20 Mg Tab 20 Mg PO DAILY Review of Systems Except as stated in HPI: all other systems reviewed are Neg Gastrointestinal: Positive: Nausea, Vomiting, Other (umbilical hernia) Physical Exam Narrative GENERAL: Obese, alert, elderly female. Resting comfortably in no acute distress. SKIN: Warm and dry. HEAD: Atraumatic. Normocephalic. EYES: Pupils equal and round. No scleral icterus. No injection or drainage. ENT: No nasal bleeding or discharge. Mucous membranes pink and moist. NECK: Trachea midline. No JVD. CARDIOVASCULAR: Regular rate and rhythm. RESPIRATORY: No accessory muscle use. Clear to auscultation. Breath sounds equal bilaterally. GASTROINTESTINAL: Abdomen soft, non-tender, nondistended. Hepatic and splenic margins not palpable. Small, reducible umbilical hernia just lateral to the umbilicus and a second hernia inferior and medial to the first. Both are easily reducible, no surrounding erythema or warmth. MUSCULOSKELETAL: Extremities without clubbing, cyanosis, or edema. No obvious deformities. NEUROLOGICAL: Awake and alert. No obvious cranial nerve deficits. Motor grossly within normal limits. Five out of 5 muscle strength in the arms and legs. Normal speech. PSYCHIATRIC: Appropriate mood and affect; insight and judgment normal. Data Data Last Documented VS Vital Signs Date Time Temp Pulse Resp B/P (MAP) Pulse Ox O2 Delivery O2 Flow Rate FiO2 07/22/17 15:47 74 07/22/17 15:40 18 94 Room Air Orders Orders Vascular Access Team Consult/P PRN (07/22/17 13:23) Vascular Poc Ultrasound (07/22/17 ) Complete Blood Count With Diff (07/22/17 13:28) Comprehensive Metabolic Panel (07/22/17 13:28) Lipase (07/22/17 13:28) Iv Access Insert/Monitor (07/22/17 13:28) Ecg Monitoring (07/22/17 13:28) Oximetry (07/22/17 13:28) Sodium Chloride 0.9% Flush (Ns Flush) (07/22/17 13:30) Urinalysis - C+S If Indicated (07/22/17 14:22) Cath For Specimen (07/22/17 14:22) Chest, Single Ap (07/22/17 ) Urine Culture (07/22/17 14:40) Sulfamet-Trimeth Ds 800-160 Mg (Bactrim (07/22/17 15:30) Labs Laboratory Tests Test 07/22/17 13:40 07/22/17 14:40 White Blood Count 16.8 TH/MM3 Red Blood Count 3.68 MIL/MM3 Hemoglobin 10.0 GM/DL Hematocrit 31.6 % Mean Corpuscular Volume 85.8 FL Mean Corpuscular Hemoglobin 27.0 PG Mean Corpuscular Hemoglobin Concent 31.5 % Red Cell Distribution Width 18.3 % Platelet Count 286 TH/MM3 Mean Platelet Volume 7.5 FL Neutrophils (%) (Auto) 88.5 % Lymphocytes (%) (Auto) 5.2 % Monocytes (%) (Auto) 5.9 % Eosinophils (%) (Auto) 0.1 % Basophils (%) (Auto) 0.3 % Neutrophils # (Auto) 14.8 TH/MM3 Lymphocytes # (Auto) 0.9 TH/MM3 Monocytes # (Auto) 1.0 TH/MM3 Eosinophils # (Auto) 0.0 TH/MM3 Basophils # (Auto) 0.1 TH/MM3 CBC Comment DIFF FINAL Differential Comment Blood Urea Nitrogen 19 MG/DL Creatinine 1.19 MG/DL Random Glucose 158 MG/DL Total Protein 7.7 GM/DL Albumin 2.9 GM/DL Calcium Level 9.0 MG/DL Alkaline Phosphatase 103 U/L Aspartate Amino Transf (AST/SGOT) 25 U/L Alanine Aminotransferase (ALT/SGPT) 31 U/L Total Bilirubin 0.6 MG/DL Sodium Level 137 MEQ/L Potassium Level 5.1 MEQ/L Chloride Level 99 MEQ/L Carbon Dioxide Level 27.5 MEQ/L Anion Gap 11 MEQ/L Estimat Glomerular Filtration Rate 43 ML/MIN Lipase 53 U/L Urine Color YELLOW Urine Turbidity CLOUDY Urine pH 5.5 Urine Specific Mckenzie 1.020 Urine Protein 30 mg/dL Urine Glucose (UA) NEG mg/dL Urine Ketones NEG mg/dL Urine Occult Blood SMALL Urine Nitrite NEG Urine Bilirubin NEG Urine Urobilinogen LESS THAN 2.0 MG/DL Urine Leukocyte Esterase LARGE Urine RBC 29 /hpf Urine WBC /hpf Urine WBC Clumps MANY Urine Squamous Epithelial Cells 4 /hpf Urine Transitional Epithelial Cells 2 /hpf Urine Amorphous Sediment RARE Urine Bacteria MANY /hpf Urine Hyaline Casts 14 /lpf Urine Mucus FEW /lpf Microscopic Urinalysis Comment CULTURE INDICATED MDM Medical Decision Making Medical Screen Exam Complete: Yes Emergency Medical Condition: Yes Medical Record Reviewed: Yes Interpretation(s) Vital Signs Date Time Temp Pulse Resp B/P (MAP) Pulse Ox O2 Delivery O2 Flow Rate FiO2 07/22/17 15:47 74 07/22/17 15:40 68 18 130/63 (85) 94 Room Air 07/22/17 14:21 18 97 Room Air 07/22/17 13:51 88 20 127/64 (85) 97 Last Impressions Chest X-Ray 07/22/17 0000 Signed Impressions: Service Date/Time: June 15:10 - CONCLUSION: 1. The heart size appears mildly prominent with no perihilar edema. 2. Mild motion artifact. Tony Campos MD Laboratory Tests Test 07/22/17 13:40 07/22/17 14:40 White Blood Count 16.8 TH/MM3 Red Blood Count 3.68 MIL/MM3 Hemoglobin 10.0 GM/DL Hematocrit 31.6 % Mean Corpuscular Volume 85.8 FL Mean Corpuscular Hemoglobin 27.0 PG Mean Corpuscular Hemoglobin Concent 31.5 % Red Cell Distribution Width 18.3 % Platelet Count 286 TH/MM3 Mean Platelet Volume 7.5 FL Neutrophils (%) (Auto) 88.5 % Lymphocytes (%) (Auto) 5.2 % Monocytes (%) (Auto) 5.9 % Eosinophils (%) (Auto) 0.1 % Basophils (%) (Auto) 0.3 % Neutrophils # (Auto) 14.8 TH/MM3 Lymphocytes # (Auto) 0.9 TH/MM3 Monocytes # (Auto) 1.0 TH/MM3 Eosinophils # (Auto) 0.0 TH/MM3 Basophils # (Auto) 0.1 TH/MM3 CBC Comment DIFF FINAL Differential Comment Blood Urea Nitrogen 19 MG/DL Creatinine 1.19 MG/DL Random Glucose 158 MG/DL Total Protein 7.7 GM/DL Albumin 2.9 GM/DL Calcium Level 9.0 MG/DL Alkaline Phosphatase 103 U/L Aspartate Amino Transf (AST/SGOT) 25 U/L Alanine Aminotransferase (ALT/SGPT) 31 U/L Total Bilirubin 0.6 MG/DL Sodium Level 137 MEQ/L Potassium Level 5.1 MEQ/L Chloride Level 99 MEQ/L Carbon Dioxide Level 27.5 MEQ/L Anion Gap 11 MEQ/L Estimat Glomerular Filtration Rate 43 ML/MIN Lipase 53 U/L Urine Color YELLOW Urine Turbidity CLOUDY Urine pH 5.5 Urine Specific Mckenzie 1.020 Urine Protein 30 mg/dL Urine Glucose (UA) NEG mg/dL Urine Ketones NEG mg/dL Urine Occult Blood SMALL Urine Nitrite NEG Urine Bilirubin NEG Urine Urobilinogen LESS THAN 2.0 MG/DL Urine Leukocyte Esterase LARGE Urine RBC 29 /hpf Urine WBC /hpf Urine WBC Clumps MANY Urine Squamous Epithelial Cells 4 /hpf Urine Transitional Epithelial Cells 2 /hpf Urine Amorphous Sediment RARE Urine Bacteria MANY /hpf Urine Hyaline Casts 14 /lpf Urine Mucus FEW /lpf Microscopic Urinalysis Comment CULTURE INDICATED Differential Diagnosis Bowel obstruction versus incarcerated hernia versus metabolic abnormality versus normal exam versus other Narrative Course Patient is an 82-year-old female that was sent to the emergency department for evaluation of a second umbilical hernia. Patient has also had nausea and vomiting which has been intermittent since her discharge last month. Patient's vital signs are stable, she is afebrile. IV access established, patient placed on telemetry monitoring and continuous pulse oximetry. Second area of herniation is likely secondary to the vomiting and increased pressure. CBC was with a white count of 16.8 with left shift Chemistry reviewed, BUN 19/1.19 which is elevated when compared to prior otherwise no acute findings identified Urinalysis with elevated red blood cells, rare bacteria, mucus, reflux culture pending. Patient was reviewed, she had Escherichia coli ESBL positive on a culture from May 2017, bacteria is susceptible to Bactrim DS, first dose ordered in the emergency department. Chest x-ray shows no acute disease. This was read by the radiologist. Patient was also seen and evaluated by my attending physician. Patient was reassured at this time. There are no emergent issues identified in regards to the umbilical hernia. Patient encouraged to follow-up with her primary doctor. She is encouraged to complete full course of antibiotics as prescribed. Patient verbalized understanding. Patient is stable for discharge. Diagnosis Primary Impression: UTI (urinary tract infection) Qualified Codes: N39.0 - Urinary tract infection, site not specified; R31.9 - Hematuria, unspecified Additional Impression: Umbilical hernia Qualified Codes: K42.9 - Umbilical hernia without obstruction or gangrene Referrals: Primary Care Physician 2 days Patient Instructions: General Instructions, Umbilical Hernia (ED), Urinary Tract Infection in Women (DC) Additional Instructions: Follow-up with your primary doctor Complete full course of antibiotics as prescribed Return to the emergency department for any new or worsening symptoms Maintain adequate fluid intake Med/Other Pt SpecificInfo: Prescription(s) given Scripts Sulfamethoxazole-Trimethoprim (Bactrim DS) 800-160 Mg Tab 1 TAB PO BID for Infection, #20 TAB 0 Refills Prov: Tasneem Delgadillo 07/22/17 Disposition: 01 DISCHARGE HOME Condition: Stable Tanseem Delgadillo Jul 22, 2017 13:47
[2017-07-22 13:51] VITALS: BP 127/64; PULSE 88; RESP 20; O2SAT 97
[2017-07-22 13:58] LABS: AUTOMATED NEUTROPHIL # 14.8 TH/MM3 (1.8-7.7); BASOPHIL # 0.1 TH/MM3 (0-0.2); BASOPHIL % 0.3 % (0.0-2.0); EOSINOPHIL % 0.1 % (0.0-4.0); HEMATOCRIT 31.6 % (35.0-46.0); HEMO FLAGS DIFF FINAL; LYMPH % 5.2 % (9.0-44.0); LYMPHOCYTE # 0.9 TH/MM3 (1.0-4.8); MEAN CELL VOLUME 85.8 FL (80.0-100.0); MEAN CORPUSCULAR HGB CONC 31.5 % (32.0-36.0); MONO % 5.9 % (0.0-8.0); NEUT % 88.5 % (16.0-70.0); PLATELET COUNT 286 TH/MM3 (150-450); RED BLOOD COUNT 3.68 MIL/MM3 (4.00-5.30); RED CELL DISTRIBUTION WIDTH 18.3 % (11.6-17.2); WHITE BLOOD COUNT 16.8 TH/MM3 (4.0-11.0)
--- NOTE | 2017-07-22 14:11 | PD ---
Data Data Last Documented VS Vital Signs Date Time Temp Pulse Resp B/P (MAP) Pulse Ox O2 Delivery O2 Flow Rate FiO2 07/22/17 13:51 88 20 127/64 (85) 97 Orders Orders Vascular Access Team Consult/P PRN (07/22/17 13:23) Vascular Poc Ultrasound (07/22/17 ) Complete Blood Count With Diff (07/22/17 13:28) Comprehensive Metabolic Panel (07/22/17 13:28) Lipase (07/22/17 13:28) Iv Access Insert/Monitor (07/22/17 13:28) Ecg Monitoring (07/22/17 13:28) Oximetry (07/22/17 13:28) Sodium Chloride 0.9% Flush (Ns Flush) (07/22/17 13:30) Labs Laboratory Tests Test 07/22/17 13:40 White Blood Count 16.8 TH/MM3 Red Blood Count 3.68 MIL/MM3 Hemoglobin 10.0 GM/DL Hematocrit 31.6 % Mean Corpuscular Volume 85.8 FL Mean Corpuscular Hemoglobin 27.0 PG Mean Corpuscular Hemoglobin Concent 31.5 % Red Cell Distribution Width 18.3 % Platelet Count 286 TH/MM3 Mean Platelet Volume 7.5 FL Neutrophils (%) (Auto) 88.5 % Lymphocytes (%) (Auto) 5.2 % Monocytes (%) (Auto) 5.9 % Eosinophils (%) (Auto) 0.1 % Basophils (%) (Auto) 0.3 % Neutrophils # (Auto) 14.8 TH/MM3 Lymphocytes # (Auto) 0.9 TH/MM3 Monocytes # (Auto) 1.0 TH/MM3 Eosinophils # (Auto) 0.0 TH/MM3 Basophils # (Auto) 0.1 TH/MM3 CBC Comment DIFF FINAL Differential Comment MDM Supervised Visit with BEKAH: Yes Narrative Course Is an 82 year-old woman, morbidly obese, here for some abdominal discomfort, tender hernia, some vomiting. She looks well. Hernia is easily reducible. 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 She is intermittent trouble with nausea and vomiting. She looks well now. We'll check screening labs. Outpatient follow-up. Luis Falk MD Jul 22, 2017 14:11
[2017-07-22 14:17] LABS: ALT (GPT) 31 U/L (10-53); ANION GAP 11 MEQ/L (5-15); AST (GOT) 25 U/L (15-37); BICARBONATE 27.5 MEQ/L (21.0-32.0); BLOOD UREA NITROGEN 19 MG/DL (7-18); CHLORIDE 99 MEQ/L (98-107); GLOMERULAR FILTRATION RATE 43 ML/MIN (>89); POTASSIUM 5.1 MEQ/L (3.5-5.1); SODIUM (NA) 137 MEQ/L (136-145)
[2017-07-22 14:20] LABS: ALKALINE PHOSPHATASE 103 U/L (45-117); TOTAL BILIRUBIN ADULT 0.6 MG/DL (0.2-1.0)
[2017-07-22 14:21] VITALS: RESP 18; O2SAT 97
[2017-07-22 15:11] LABS: BACTERIA, URINE MANY /hpf; BLOOD, URINE SMALL (NEG); COMMENT (UR) CULTURE INDICATED; CULTURE IF INDICATED CULTURE INDICATED; GLUCOSE,URINE NEG (NEG); HYALINE CAST, URINE 14 /lpf (RARE); KETONE, URINE NEG (NEG); MUCUS URINE FEW /lpf (OCC); NITRITE,URINE NEG (NEG); PH, URINE 5.5 (5.0-8.5); SQUAMOUS EPITHELIAL CELL URINE 4 /hpf (0-5); TRANSITIONAL EPI CELLS, URINE 2 /hpf; URINE COLOR YELLOW (YELLW/STRAW)
--- NOTE | 2017-07-22 15:26 | RADRPT ---
EXAM DATE/TIME: 07/22/2017 15:10 [facility] COMPARISON: CHEST SINGLE AP, February 09, 2017, 19:27. INDICATIONS : Short of breath and vomiting since yesterday. MEDICAL HISTORY : Cerebrovascular disease. Cardiovascular disease Hypertension.Diabetes SURGICAL HISTORY : Cholecystectomy. Hysterectomy.Bilateral knees ENCOUNTER: Initial ACUITY: 1 day PAIN SCORE: 0/10 LOCATION: Bilateral chest FINDINGS: A single view of the chest demonstrates the lungs to be symmetrically aerated without evidence of mas s, infiltrate or effusion. The heart size is mildly prominent with no perihilar edema. There is mild motion artifact. There are overlying electrocardiogram leads. Osseous structures are intact. Atheros clerotic changes are present in the aorta. CONCLUSION: 1. The heart size appears mildly prominent with no perihilar edema. 2. Mild motion artifact. Tony Campos MD on July 22, 2017 at 15:24 Board Certified Radiologist. This report was verified electronically.
[2017-07-22] MEDS ORDERED: SULFAMETHOXAZOLE-TRIMETHOPRIM DS 800-160 MG TAB PO ONE (15:30)
[2017-07-22 15:40] VITALS: BP 130/63; PULSE 68; RESP 18; O2SAT 94
[2017-07-22 15:47] VITALS: PULSE 74
[2017-07-22] MEDS ORDERED: BACT800T5 PO (16:01)
== END 2017-07-22 18:03 | disposition home or self-care (01) ==
LOC: NEPD 12:44 → NEDAMB 18:03
DX: N39.0 Urinary tract infection, site not specified (principal); B96.20 Unspecified Escherichia coli [E. coli] as the cause of diseases classified elsewhere; K42.9 Umbilical hernia without obstruction or gangrene; R11.2 Nausea with vomiting, unspecified; E66.01 Morbid (severe) obesity due to excess calories; I48.91 Unspecified atrial fibrillation; E11.9 Type 2 diabetes mellitus without complications; I10 Essential (primary) hypertension; Z86.73 Personal history of transient ischemic attack (TIA), and cerebral infarction without residual deficits
CPT/HCPCS: 71010; 80053; 81001; 83690; 85025; 87077; 87086; 87186; 99284; P9612

== ENCOUNTER 2017-07-28 13:58 | Inpatient (IN) | payer MEDICARE ==
[~2017-07-28] VITALS: Ht 160 cm; Wt 128.9 kg
[2017-07-28] MEDS ORDERED: IODIXANOL 320 MG/ML 50 ML VIAL (for Rad CT) IV ONE (13:59)
[2017-07-28] MEDS ORDERED: PANTOPRAZOLE INJ 80 MG in SODIUM CHLORIDE 0.9% INJ 35 ML IV ONE (14:19)
[2017-07-28] MEDS ORDERED: IMIPENEM/CILASTATIN INJ 500 MG in SODIUM CHLORIDE 0.9% INJ 100 ML IV STA (14:28)
--- NOTE | 2017-07-28 14:28 | PD ---
HPI Chief Complaint: abdominal pain Time Seen by Provider: 14:34 Travel History International Travel<30 days: No Contact w/Intl Traveler<30days: No Traveled to known affect area: No History of Present Illness HPI 82-year-old female with history of hypertension, diabetes, hyperlipidemia, TIA, gastroparesis, atrial fibrillation, presents via EMS from home for evaluation of nausea, vomiting, diarrhea, abdominal pain. Started yesterday. Pain is in the epigastrium, constant, aching, worse with palpation. She reports multiple episodes of diarrhea and emesis. Per EMS the emesis was coffee ground consistency. They report that the stools were dark in color. The patient reports that she is currently on Coumadin. She is somewhat of a poor historian and she appears uncomfortable on initial examination which limits history gathering. History is primarily obtained from patient records. She was seen here on July 22 and diagnosed with a urinary tract infection. Urine culture grow out ESBL Escherichia coli resistant to numerous antibiotics. She was started on Bactrim at that time, her UTI is resistant to Bactrim. She does not know if she has been taking the Bactrim. She reports that she was feeling well until yesterday. She denies fevers, chills, chest pain or shortness of breath, cough or congestion, flank pain. No other complaints. PFSH Past Medical History Hx Anticoagulant Therapy: Yes (COUMADIN) Arthritis: Yes Atrial Fibrillation: Yes High Cholesterol: Yes Chest Pain: Yes Cerebrovascular Accident: Yes (x three) Diabetes: Yes Endocrine: Yes Headaches: Yes Hypertension: Yes Musculoskeletal: Yes Neurologic: Yes (cva x3-4 latest 01/07) Immunizations Current: Yes Migraines: Yes Sleep Apnea: Yes Thyroid Disease: Yes Menopausal: Yes : 5 Para: 5 Past Surgical History Abdominal Surgery: Yes (GALLBLADDER OUT 1973) AICD: No Arteriovenous Shunt: No Cardiac Surgery: No Cholecystectomy: Yes Ear Surgery: No Endocrine Surgery: No Eye Surgery: Yes (cataract) Genitourinary Surgery: No Gynecologic Surgery: Yes Hysterectomy: Yes Insulin Pump: No Joint Replacement: Yes (KNEE REPLACEMENTS ) Oral Surgery: No Pacemaker: No Thoracic Surgery: No Other Surgery: Yes Social History Alcohol Use: No Tobacco Use: No Substance Use: No Allergies-Medications (Allergen,Severity, Reaction): Coded Allergies: penicillin G (Unverified Allergy, Severe, rash, 07/22/17) *MDRO Multi-Drug Resistant Organism (Verified Adverse Reaction, Unknown, ) ESBL - E. 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 Ecotrin Low Strength (Aspirin) 81 Mg Tabdr 81 Mg PO DAILY Spironolactone 50 Mg Tab 50 Mg PO DAILY Lisinopril 20 Mg Tab 20 Mg PO BID Lantus Solostar Pen Inj (Insulin Glargine) 300 Unit/3 Ml Pen 90 Units SQ HS Levothyroxine (Levothyroxine Sodium) 88 Mcg Tab 88 Mcg PO DAILY Lipitor (Atorvastatin Calcium) 20 Mg Tab 20 Mg PO HS Metformin (Metformin HCl) 1,000 Mg Tab 1,000 Mg PO BID With meals Lasix (Furosemide) 20 Mg Tab 20 Mg PO DAILY Review of Systems ROS Limitations: Clinical Condition Except as stated in HPI: all other systems reviewed are Neg Physical Exam Exam Limitations: Clinical Condition Narrative GENERAL: Obese female who appears very uncomfortable on initial examination. She is hypertensive and tachycardic. SKIN: Warm and dry. HEAD: Atraumatic. Normocephalic. EYES: Pupils equal and round. No scleral icterus. No injection or drainage. ENT: No nasal bleeding or discharge. Mucous membranes pink and moist. NECK: Trachea midline. No JVD. CARDIOVASCULAR: Regular rate and rhythm. No murmur appreciated. RESPIRATORY: No accessory muscle use. Clear to auscultation. Breath sounds equal bilaterally. GASTROINTESTINAL: Abdomen soft, abdominal wall hernias noted. Epigastric tenderness to palpation. Stool is dark brown in color during rectal examination. Guaiac positive. MUSCULOSKELETAL: No obvious deformities. No clubbing. No cyanosis. No edema. NEUROLOGICAL: Awake and alert. No obvious cranial nerve deficits. Motor grossly within normal limits. Normal speech. PSYCHIATRIC: Appropriate mood and affect; insight and judgment normal. Data Data Last Documented VS Vital Signs Date Time Temp Pulse Resp B/P (MAP) Pulse Ox O2 Delivery O2 Flow Rate FiO2 07/28/17 15:45 99.2 115 18 175/73 (107) 95 Room Air Orders Orders Complete Blood Count With Diff (07/28/17 14:19) Comprehensive Metabolic Panel (07/28/17 14:19) Lipase (07/28/17 14:19) Prothrombin Time / Inr (Pt) (07/28/17 14:19) Act Partial Throm Time (Ptt) (07/28/17 14:19) Urinalysis - C+S If Indicated (07/28/17 14:19) Ct Abd/Pel W Iv Contrast(Rout) (07/28/17 14:19) Iv Access Insert/Monitor (07/28/17 14:19) Ecg Monitoring (07/28/17 14:19) Oximetry (07/28/17 14:19) Morphine Inj (Morphine Inj) (07/28/17 14:30) Sodium Chloride 0.9% Flush (Ns Flush) (07/28/17 14:30) Electrocardiogram (07/28/17 14:19) Lactic Acid Sepsis Protocol (07/28/17 14:19) Blood Culture (07/28/17 14:19) Cath For Specimen (07/28/17 14:19) Sodium Chloride 0.9... W/Pantoprazole In (07/28/17 14:19) Type And Screen (07/28/17 14:21) Imipenem/Cilastatin Inj (Primaxin Inj) (07/28/17 14:28) Metronidazole 500 Mg Inj (Flagyl 500 Mg (07/28/17 14:30) Sodium Chlor 0.9% 1000 Ml Inj (Ns 1000 M (07/28/17 14:32) Vascular Access Team Consult/P PRN (07/28/17 14:35) Vascular Poc Ultrasound (07/28/17 ) Ondansetron Inj (Zofran Inj) (07/28/17 14:45) Ondansetron Inj (Zofran Inj) (07/28/17 14:35) Hydralazine Inj (Apresoline Inj) (07/28/17 14:45) Labetalol Inj (Trandate Inj) (07/28/17 14:45) Potassium, Serum (K) (07/28/17 18:20) Insulin Human Regular Inj (Novolin R Inj (07/28/17 15:30) Dextrose 50% In Viktoria (Vial) Inj (D50w (Vi (07/28/17 15:30) Albuterol Concentrated Neb (Albuterol Co (07/28/17 15:30) Sodium Chlor 0.9% 1000 Ml Inj (Ns 1000 M (07/28/17 15:20) Hydromorphone Pf Inj (Dilaudid Pf Inj) (07/28/17 15:30) Albuterol Neb (Albuterol Neb) (07/28/17 15:31) Urine Culture (07/28/17 15:00) Iodixanol 320 Inj (Rad Ct) (Visipaque 32 (07/28/17 13:59) Admit To Inpatient (07/28/17 ) Vital Signs (Adult) PAMELA.Q4H (07/28/17 18:23) Activity Oob With Assistance (07/28/17 18:23) Intake + Output 06,14,22 (07/28/17 18:23) Diet Npo (07/28/17 Dinner) Sodium Chlor 0.9% 1000 Ml Inj (Ns 1000 M (07/28/17 18:23) Inpatient Certification (07/28/17 ) Sodium Chloride 0.9% Flush (Ns Flush) (07/28/17 18:30) Sodium Chloride 0.9% Flush (Ns Flush) (07/28/17 21:00) Admit Order (Ed Use Only) (07/28/17 18:26) Labs Laboratory Tests Test 07/28/17 14:47 07/28/17 15:00 White Blood Count 19.9 TH/MM3 Red Blood Count 4.25 MIL/MM3 Hemoglobin 11.5 GM/DL Hematocrit 36.5 % Mean Corpuscular Volume 85.9 FL Mean Corpuscular Hemoglobin 27.1 PG Mean Corpuscular Hemoglobin Concent 31.5 % Red Cell Distribution Width 18.2 % Platelet Count 325 TH/MM3 Mean Platelet Volume 7.6 FL Neutrophils (%) (Auto) 93.7 % Lymphocytes (%) (Auto) 3.6 % Monocytes (%) (Auto) 2.3 % Eosinophils (%) (Auto) 0.1 % Basophils (%) (Auto) 0.3 % Neutrophils # (Auto) 18.7 TH/MM3 Lymphocytes # (Auto) 0.7 TH/MM3 Monocytes # (Auto) 0.5 TH/MM3 Eosinophils # (Auto) 0.0 TH/MM3 Basophils # (Auto) 0.1 TH/MM3 CBC Comment DIFF FINAL Differential Comment Prothrombin Time 12.2 SEC Prothromb Time International Ratio 1.1 RATIO Activated Partial Thromboplast Time 22.3 SEC Blood Urea Nitrogen 26 MG/DL Creatinine 1.43 MG/DL Random Glucose 320 MG/DL Total Protein 7.7 GM/DL Albumin 3.1 GM/DL Calcium Level 8.9 MG/DL Alkaline Phosphatase 107 U/L Aspartate Amino Transf (AST/SGOT) 22 U/L Alanine Aminotransferase (ALT/SGPT) 34 U/L Total Bilirubin 0.5 MG/DL Sodium Level 134 MEQ/L Potassium Level 6.1 MEQ/L Chloride Level 101 MEQ/L Carbon Dioxide Level 23.2 MEQ/L Anion Gap 10 MEQ/L Estimat Glomerular Filtration Rate 35 ML/MIN Lactic Acid Level 2.6 mmol/L Lipase 91 U/L Urine Color LIGHT-YELLOW Urine Turbidity HAZY Urine pH 7.0 Urine Specific [place] 1.013 Urine Protein NEG mg/dL Urine Glucose (UA) 1000 mg/dL Urine Ketones 40 mg/dL Urine Occult Blood NEG Urine Nitrite NEG Urine Bilirubin NEG Urine Urobilinogen LESS THAN 2.0 MG/DL Urine Leukocyte Esterase LARGE Urine RBC 1 /hpf Urine WBC 52 /hpf Urine Bacteria FEW /hpf Microscopic Urinalysis Comment CULTURE INDICATED MDM Medical Decision Making Medical Screen Exam Complete: Yes Emergency Medical Condition: Yes Medical Record Reviewed: Yes Interpretation(s) CONCLUSION: 1. Abnormal appearance to multiple loops of small bowel in the left hypogastric region with wall thickening and induration of the adjacent mesentery. This suggests an inflammatory or infectious process. 2. Infiltrate or mass in the medial right lower lung with solid component measuring 6 mm. 3. Free fluid about the dome of the liver, left paracolic gutter, and root of the mesentery. 4. Umbilical hernia and hiatus hernia similar in appearance to prior CT. Differential Diagnosis Dehydration, gastritis, gastroenteritis, colitis, abdominal perforation, diverticulitis, UTI, sepsis, GI bleed Narrative Course 82-year-old female 2 days of nausea, vomiting, abdominal pain, dark colored stools, [id number] emesis. EMS. She has dark brown guaiac positive stools. She has epigastric tenderness to palpation. She appears quite uncomfortable. Per chart review it appears that the patient was here on July 22, positive UTI, ESBL Escherichia coli with resistance to multiple antibiotics. The patient is allergic to penicillin. She will be given imipenem to cover for her ESBL Escherichia coli UTI as well as Flagyl empirically for anaerobic coverage. IV will be established, she'll be given morphine and Zofran as well as IV fluids, Protonix. The patient will be placed on ECG monitoring and pulse oximetry. A 12-lead EKG will be obtained. Plan is for basic lab work, blood cultures, urinalysis, CT abdomen and pelvis. The patient's blood pressure spontaneously improved after the administration of pain medication prior to the administration of antihypertensive medication. Laboratory has been reviewed. Lactic acid 2.6, potassium 6.1, BUN 26, creatinine 1.43, glucose 320, WBC 19.9, hemoglobin 11.5. CT the abdomen and pelvis has resulted in reveals abnormal appearance to multiple loops of small bowel in the left hypogastric region with wall thickening and induration of the adjacent mesentery suggesting an inflammatory infectious process. Infiltrate or mass in the medial right lower lung with solid component measuring 6 mm. Some free fluid about the dome of the liver, left paracolic gutter, root of the mesentery as well as a stable umbilical hernia. The patient will be given insulin and dextrose bolus, albuterol, additional IV fluids to treat her hyperkalemia/severe sepsis. Discussed with Dr. Morales who is agreeable with admission. [facility]pt Point of Care Internal Pos. & Neg. Controls: Passed Fecal Specimen Occult Blood: Positive Sepsis Criteria SIRS Criteria (2 or more): Heart rate over 90, WBC > 57216, < 4000 or > 10% bands Sepsis Criteria (SIRS+source): Infect source susp/known Severe Sepsis (+one): Lactate >2 Criteria Outcome: Meets severe sepsis criteria Diagnosis Primary Impression: Severe sepsis Additional Impressions: Hyperkalemia GI bleed Qualified Codes: K92.2 - Gastrointestinal hemorrhage, unspecified UTI (urinary tract infection) Qualified Codes: N39.0 - Urinary tract infection, site not specified; R31.9 - Hematuria, unspecified Enteritis Admitting Information Admitting Physician Requests: Paddy Curtis Jul 28, 2017 14:28
[2017-07-28] MEDS ORDERED: metroNIDAZOLE 500 MG INJ 100 ML IV ONE (14:30)
[2017-07-28] MEDS ORDERED: MORPHINE SULFATE 4 MG/ML INJ IV PUSH ONE (14:30)
[2017-07-28] MEDS ORDERED: SODIUM CHLORIDE 0.9% FLUSH 10 ML FLUSH IV FLUSH PRN ×2 (14:30→18:30)
[2017-07-28] MEDS ORDERED: SODIUM CHLOR 0.9% 1000 ML INJ 1,000 ML IV SCH ×3 (14:32→18:23)
[2017-07-28] MEDS ORDERED: ONDANSETRON HCL 4 MG/2 ML VIAL ONE (14:35)
[2017-07-28 14:37] VITALS: BP 241/104; PULSE 100; RESP 24; TEMP 98.2; O2SAT 96
[2017-07-28 14:44] VITALS: O2SAT 95
[2017-07-28] MEDS ORDERED: hydrALAZINE HCL 20 MG/ML VIAL IV PUSH ONE (14:45)
[2017-07-28] MEDS ORDERED: ONDANSETRON HCL 4 MG/2 ML VIAL IV PUSH ONE (14:45)
[2017-07-28] MEDS ORDERED: LABETALOL HCL 100 MG/20 ML VIAL IV PUSH ONE (14:45)
[2017-07-28 14:59] LABS: AUTOMATED NEUTROPHIL # 18.7 TH/MM3 (1.8-7.7); BASOPHIL # 0.1 TH/MM3 (0-0.2); BASOPHIL % 0.3 % (0.0-2.0); EOSINOPHIL % 0.1 % (0.0-4.0); HEMATOCRIT 36.5 % (35.0-46.0); HEMO FLAGS DIFF FINAL; LYMPH % 3.6 % (9.0-44.0); LYMPHOCYTE # 0.7 TH/MM3 (1.0-4.8); MEAN CELL VOLUME 85.9 FL (80.0-100.0); MEAN CORPUSCULAR HEMOGLOBIN 27.1 PG (27.0-34.0); MEAN CORPUSCULAR HGB CONC 31.5 % (32.0-36.0); MONO % 2.3 % (0.0-8.0); NEUT % 93.7 % (16.0-70.0); PLATELET COUNT 325 TH/MM3 (150-450); RED BLOOD COUNT 4.25 MIL/MM3 (4.00-5.30); RED CELL DISTRIBUTION WIDTH 18.2 % (11.6-17.2); WHITE BLOOD COUNT 19.9 TH/MM3 (4.0-11.0)
[2017-07-28 15:12] LABS: APTT (PATIENT) 22.3 SEC (24.3-30.1); INTERNATIONAL NORMALIZED RATIO 1.1 RATIO; PROTHROMBIN TIME - PATIENT 12.2 SEC (9.8-11.6)
[2017-07-28 15:18] LABS: ANION GAP 10 MEQ/L (5-15); AST (GOT) 22 U/L (15-37); BICARBONATE 23.2 MEQ/L (21.0-32.0); BLOOD UREA NITROGEN 26 MG/DL (7-18); CHLORIDE 101 MEQ/L (98-107); GLOMERULAR FILTRATION RATE 35 ML/MIN (>89); POTASSIUM 6.1 MEQ/L (3.5-5.1); SODIUM (NA) 134 MEQ/L (136-145)
[2017-07-28 15:22] LABS: ALKALINE PHOSPHATASE 107 U/L (45-117); ALT (GPT) 34 U/L (10-53); TOTAL BILIRUBIN ADULT 0.5 MG/DL (0.2-1.0)
[2017-07-28] MEDS ORDERED: INSULIN HUMAN REGULAR 1,000 UNITS/10 ML VIAL IV PUSH ONE (15:30)
[2017-07-28] MEDS ORDERED: RESP: ALBUTEROL CONC 2.5 MG/0.5 ML NEB INH ONE (15:30)
[2017-07-28] MEDS ORDERED: HYDROmorphone HCL PF 1 MG/ML VIAL IV PUSH ONE (15:30)
[2017-07-28] MEDS ORDERED: DEXTROSE 50% IN WATER 50 ML VIAL(D50) IV PUSH ONE (15:30)
[2017-07-28] MEDS ORDERED: RESP: ALBUTEROL 2.5 MG/3 ML NEB (PRN) ONE (15:31)
[2017-07-28 15:36] LABS: BACTERIA, URINE FEW /hpf; BLOOD, URINE NEG (NEG); COMMENT (UR) CULTURE INDICATED; CULTURE IF INDICATED CULTURE INDICATED; GLUCOSE,URINE 1000 mg/dL (NEG); KETONE, URINE 40 mg/dL (NEG); NITRITE,URINE NEG (NEG); URINE COLOR LIGHT-YELLOW (YELLW/STRAW)
[2017-07-28 15:45] VITALS: BP 175/73; PULSE 115; RESP 18; TEMP 99.2; O2SAT 95
[2017-07-28] MEDS ORDERED: HYDR-3800 PO (16:12)
[2017-07-28] MEDS ORDERED: GABA300C5 PO (16:12)
[2017-07-28 16:54] LABS: LACTIC ACID GHOST NOT REPORTABLE
[2017-07-28 17:00] VITALS: BP 168/68; PULSE 108; RESP 22; O2SAT 96
--- NOTE | 2017-07-28 18:06 | RADRPT ---
EXAM DATE/TIME: 07/28/2017 17:07 [facility] COMPARISON: CT ABDOMEN & PELVIS W CONTRAST, June 02, 2016, 7:50. INDICATIONS : Upper gastric pain for two days. IV CONTRAST: 50 cc Visipaque (iodixanol) IV ORAL CONTRAST: No oral contrast ingested. RADIATION DOSE: 32.61 CTDIvol (mGy) ; Patient body habitus MEDICAL HISTORY : Hypertension. Diabetes mellitus type 2. SURGICAL HISTORY : Cholecystectomy. Hysterectomy. ENCOUNTER: Initial ACUITY: 2 days PAIN SCALE: 6/10 LOCATION: Bilateral upper quadrant TECHNIQUE: Volumetric scanning of the abdomen and pelvis was performed. Using automated exposure control and ad justment of the mA and/or kV according to patient size, radiation dose was kept as low as reasonably achievable to obtain optimal diagnostic quality images. DICOM format image data is available electro nically for review and comparison. FINDINGS: LOWER LUNGS: There is a focal opacity in the posterior medial right lower lung with both infiltrative and nodular features. The nodule measures 6 mm. No evidence of pleural effusion. Small hiatus hernia measures 3.2 cm. LIVER: No focal lesions in the liver for noncontrast technique. There is focal ascites about the superior a nd lateral aspect of the liver underneath the right hemidiaphragm. Hemoclips in the yumiko from prior cholecystectomy. No biliary ductal dilatation. SPLEEN: Normal size without lesion. PANCREAS: 1.9 cm cystic lesion anterior mid body of the pancreas. No pancreatic ductal dilatation. KIDNEYS: Normal in size and shape. There is no mass, stone or hydronephrosis. ADRENAL GLANDS: Within normal limits. VASCULAR: There is no aortic aneurysm. Wall calcification. BOWEL/MESENTERY: There is induration of the mesentery centrally and in the left lower quadrant extending to several no ndistended loops of small bowel. The adjacent small bowel loops have thickened wall. There is also some free fluid tracking in the left paracolic gutter. The free fluid pools near the root of the mes entery. ABDOMINAL WALL: Moderate-sized umbilical hernia containing fat with separation measuring 4.3 cm; the configuration is similar to prior CT. Multiple subcutaneous varices in the lower pelvic wall are also stable. RETROPERITONEUM: There is no lymphadenopathy. BLADDER: Valdez catheter in a nondistended bladder. REPRODUCTIVE: Hysterectomy. INGUINAL: There is no lymphadenopathy or hernia. MUSCULOSKELETAL: Degenerative changes in the posterior elements of the lumbar spine. CONCLUSION: 1. Abnormal appearance to multiple loops of small bowel in the left hypogastric region with wall thic kening and induration of the adjacent mesentery. This suggests an inflammatory or infectious process . 2. Infiltrate or mass in the medial right lower lung with solid component measuring 6 mm. 3. Free fluid about the dome of the liver, left paracolic gutter, and root of the mesentery. 4. Umbilical hernia and hiatus hernia similar in appearance to prior CT. Joe Reyes MD on July 28, 2017 at 17:56 Board Certified Radiologist. This report was verified electronically.
[2017-07-28] MEDS ORDERED: DEXTROSE 50% IN WATER 50 ML SYRINGE IV ONE (19:00)
[2017-07-28] MEDS ORDERED: SODIUM POLYSTYRENE SULFONATE SUSP 15 GM/60 ML CUP PO ONE (20:00)
[2017-07-28 20:07] VITALS: BP 130/60; PULSE 101; RESP 22; O2SAT 97
--- NOTE | 2017-07-28 20:48 | HHI.HP ---
HPI Service [facility] Primary Care Physician Unknown Admission Diagnosis severe sepsis, UTI, enteritis, hyperkalemia Diagnoses: Chief Complaint: Vomiting and diarrhea Travel History International Travel<30 Days: No Contact w/Intl Traveler <30 Da: No Traveled to Known Affected Are: No History of Present Illness Written by Lucille Sales, acting as scribe for Dr. Dorado on 07/28/17 at 20:36. Vomiting and diarrhea x 2 days; emesis appeared like coffee grounds per EMS. The patient states she's vomiting > 10 times per day. Reports black diarrhea; she's not sure if her stool is usually black with iron supplementation. She is also complaining of pain in the central abdomen - severe. Diarrhea 5 - 10 times per day. The patient reports a history of diverticulitis and gastric ulcer. Denies recorded fever; denies chills but states she's felt somewhat warm over the past couple of days. Denies syncope, falls, chest pain, shortness of breath or dizziness. She reports taking Coumadin. Review of Systems Except as stated in HPI: all other systems reviewed are Neg Past Family Social History Past Medical History TIA x 3 Atrial fibrillation Diabetes Mellitus, Type 2 Hypothyroidism CHF Kidney disease Denies CAD, sleep apnea, liver problems, DVT, PE, seizure, cancer . Past Surgical History Knee replacements Cholecystectomy Hysterectomy . Reported Medications Reported Meds & Active Scripts Active Bactrim DS (Sulfamethoxazole-Trimethoprim) 800-160 Mg Tab 1 Tab PO BID Nifedipine ER 24 HR (Nifedipine) 30 Mg Tab 30 Mg PO DAILY Coumadin (Warfarin) 7.5 Mg Tab 7.5 Mg PO DAILY@16 Reported Gabapentin 300 Mg Cap 300 Mg PO TID Hydralazine HCl 50 Mg Tablet 50 Mg PO TID Clonidine (Clonidine HCl) 0.1 Mg Tab 0.1 Mg PO Q6HR PRN Novolog Inj (Insulin Aspart) 1,000 Unit/10 Ml Vial 25 Units SQ TIDAC Sliding Scale as directed. Ecotrin Low Strength (Aspirin) 81 Mg Tabdr 81 Mg PO DAILY Spironolactone 50 Mg Tab 50 Mg PO DAILY Lisinopril 20 Mg Tab 20 Mg PO BID Lantus Solostar Pen Inj (Insulin Glargine) 300 Unit/3 Ml Pen 90 Units SQ HS Levothyroxine (Levothyroxine Sodium) 88 Mcg Tab 88 Mcg PO DAILY Lipitor (Atorvastatin Calcium) 20 Mg Tab 20 Mg PO HS Metformin (Metformin HCl) 1,000 Mg Tab 1,000 Mg PO BID With meals Lasix (Furosemide) 20 Mg Tab 20 Mg PO DAILY . Allergies: Coded Allergies: penicillin G (Unverified Allergy, Severe, rash, 07/28/17) *MDRO Multi-Drug Resistant Organism (Verified Adverse Reaction, Unknown, ) ESBL - E. 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 Ordered Medications Current Medications Morphine Sulfate (Morphine Inj) 4 mg ONCE ONCE IV PUSH Last administered on 16:13; Start 07/28/17 at 14:30; Stop 07/28/17 at 14:31; Status DC Sodium Chloride (NS Flush) 2 ml UNSCH PRN IV FLUSH FLUSH AFTER USING IV ACCESS ; Start 07/28/17 at 14:30; Stop 07/28/17 at 18:28; Status DC Pantoprazole Sodium 80 mg/ Sodium Chloride 35 ml @ 420 mls/hr Q5M ONCE IV Last administered on 07/28/17 16:26; Start 07/28/17 at 14:19; Stop 07/28/17 at 14: 23; Status DC Imipenem/ Cilastatin Sodium 500 mg/Sodium Chloride 100 ml @ 200 mls/hr ONCE STAT IV Last administered on 07/28/17 18:54; Start 07/28/17 at 14:28; Stop at 14:57; Status DC Metronidazole 100 ml @ 100 mls/hr ONCE ONCE IV Last administered on 07/28/17 16:16; Start 07/28/17 at 14:30; Stop 07/28/17 at 15:29; Status DC Sodium Chloride 1,000 ml @ 1,000 mls/hr Q1H IV Last administered on 07/28/17 16:16; Start 07/28/17 at 14:32; Stop 07/28/17 at 15:31; Status DC Ondansetron HCl (Zofran Inj) 4 mg STK-MED ONCE .ROUTE ; Start 07/28/17 at 14:35; Stop 07/28/17 at 14:36; Status DC Ondansetron HCl (Zofran Inj) 4 mg ONCE ONCE IV PUSH Last administered on 14:47; Start 07/28/17 at 14:45; Stop 07/28/17 at 14:46; Status DC Hydralazine HCl (Apresoline Inj) 10 mg ONCE ONCE IV PUSH ; Start 07/28/17 at 14: 45; Stop 07/28/17 at 14:45; Status DC Labetalol HCl (Trandate Inj) 20 mg ONCE ONCE IV PUSH ; Start 07/28/17 at 14:45; Stop 07/28/17 at 14:46; Status DC Insulin Human Regular (NovoLIN R INJ) 10 units ONCE ONCE IV PUSH Last administered on 07/28/17 15:30; Start 07/28/17 at 15:30; Stop 07/28/17 at 15:31; Status DC Dextrose (D50w (Vial) Inj) 50 ml ONCE ONCE IV PUSH Last administered on 18:42; Start 07/28/17 at 15:30; Stop 07/28/17 at 15:31; Status DC Albuterol Sulfate (Albuterol Concentrated Neb) 10 mg ONCE ONCE INH ; Start 07/28 at 15:30; Stop 07/28/17 at 15:31; Status DC Sodium Chloride 1,000 ml @ 1,000 mls/hr Q1H IV Last administered on 07/28/17 16:27; Start 07/28/17 at 15:20; Stop 07/28/17 at 16:19; Status DC Hydromorphone HCl (Dilaudid Pf Inj) 0.5 mg ONCE ONCE IV PUSH ; Start 07/28/17 at 15:30; Stop 07/28/17 at 15:31; Status DC Albuterol Sulfate (Albuterol Neb) 5 mg STK-MED ONCE .ROUTE Last administered on 07/28/17 15:36; Start 07/28/17 at 15:31; Stop 07/28/17 at 15:32; Status DC Iodixanol (VISIPAQUE 320 INJ (Rad CT)) 50 ml STK-MED ONCE IV Last administered on 9/6/17at 17:28; Start 07/28/17 at 13:59; Stop 07/28/17 at 17:26; Status DC Sodium Chloride 1,000 ml @ 100 mls/hr Q10H IV ; Start 07/28/17 at 18:23; Stop at 19:43; Status DC Sodium Chloride (NS Flush) 2 ml UNSCH PRN IV FLUSH FLUSH AFTER USING IV ACCESS ; Start 07/28/17 at 18:30 Sodium Chloride (NS Flush) 2 ml BID IV FLUSH ; Start 07/28/17 at 21:00 Dextrose (D50w (Syr) Inj) 50 ml ONCE ONCE IV ; Start 07/28/17 at 19:00; Stop 07/28/17 at 19:01; Status DC Sodium Polystyrene Sulfonate (Kayexalate Liq) 30 gm ONCE ONCE PO ; Start at 20:00; Stop 07/28/17 at 20:01; Status DC . Family History Parents - father with complications related to aging and mother with ? heart problem? . Social History Tobacco: quit 40 years ago Alcohol: denies does not drive . Physical Exam Vital Signs Vital Signs Date Time Temp Pulse Resp B/P (MAP) Pulse Ox O2 Delivery O2 Flow Rate FiO2 07/28/17 20:07 101 22 130/60 (83) 97 Room Air 07/28/17 17:00 108 22 168/68 (101) 96 Room Air 07/28/17 15:45 99.2 115 18 175/73 (107) 95 Room Air 07/28/17 14:44 95 Room Air 07/28/17 14:37 98.2 100 24 241/104 (149) 96 Room Air Physical Exam GENERAL: This is a pale elderly female patient, in no apparent distress. SKIN: No rashes. Cool and dry. Appears pale. HEAD: Atraumatic. Normocephalic. EYES: No scleral icterus. No injection or drainage. ENT: Nose without bleeding, purulent drainage. NECK: Trachea midline. No JVD. CARDIOVASCULAR: Regular rate and rhythm without murmurs, gallops, or rubs. RESPIRATORY: Clear to auscultation. Breath sounds equal bilaterally. No wheezes , rales, or rhonchi. GASTROINTESTINAL: Abdomen obese, soft, tender in central umbilical area, nondistended. No hepato-splenomegaly, or palpable masses. No guarding. MUSCULOSKELETAL: Extremities without clubbing, cyanosis, or edema. NEUROLOGICAL: Awake and alert. Motor and sensory grossly within normal limits. Normal speech. Some memory impairment noted. . Laboratory Laboratory Tests Test 07/28/17 14:47 07/28/17 15:00 07/28/17 19:30 White Blood Count 19.9 Red Blood Count 4.25 Hemoglobin 11.5 Hematocrit 36.5 Mean Corpuscular Volume 85.9 Mean Corpuscular Hemoglobin 27.1 Mean Corpuscular Hemoglobin Concent 31.5 Red Cell Distribution Width 18.2 Platelet Count 325 Mean Platelet Volume 7.6 Neutrophils (%) (Auto) 93.7 Lymphocytes (%) (Auto) 3.6 Monocytes (%) (Auto) 2.3 Eosinophils (%) (Auto) 0.1 Basophils (%) (Auto) 0.3 Neutrophils # (Auto) 18.7 Lymphocytes # (Auto) 0.7 Monocytes # (Auto) 0.5 Eosinophils # (Auto) 0.0 Basophils # (Auto) 0.1 CBC Comment DIFF FINAL Differential Comment Prothrombin Time 12.2 Prothromb Time International Ratio 1.1 Activated Partial Thromboplast Time 22.3 Blood Urea Nitrogen 26 Creatinine 1.43 Random Glucose 320 Total Protein 7.7 Albumin 3.1 Calcium Level 8.9 Alkaline Phosphatase 107 Aspartate Amino Transf (AST/SGOT) 22 Alanine Aminotransferase (ALT/SGPT) 34 Total Bilirubin 0.5 Sodium Level 134 Potassium Level 6.1 4.8 Chloride Level 101 Carbon Dioxide Level 23.2 Anion Gap 10 Estimat Glomerular Filtration Rate 35 Lactic Acid Level 2.6 2.9 Lipase 91 Urine Color LIGHT-YELLOW Urine Turbidity HAZY Urine pH 7.0 Urine Specific [place] 1.013 Urine Protein NEG Urine Glucose (UA) 1000 Urine Ketones 40 Urine Occult Blood NEG Urine Nitrite NEG Urine Bilirubin NEG Urine Urobilinogen LESS THAN 2.0 Urine Leukocyte Esterase LARGE Urine RBC 1 Urine WBC 52 Urine Bacteria FEW Microscopic Urinalysis Comment CULTURE INDICATED Date/Time Source Procedure Growth Status 07/28/17 14:47 Blood Peripheral Aerobic Blood Culture Pending Received 07/28/17 14:47 Blood Peripheral Anaerobic Blood Culture Pending Received 07/28/17 15:00 Urine Clean Catch Urine Culture Pending Received Result Diagram: 07/28/17 1447 07/28/17 1930 Imaging Last Impressions Abdomen/Pelvis CT 07/28/17 1419 Signed Impressions: Service Date/Time: Friday, July 28, 2017 17:07 - CONCLUSION: 1. Abnormal appearance to multiple loops of small bowel in the left hypogastric region with wall thickening and induration of the adjacent mesentery. This suggests an inflammatory or infectious process. 2. Infiltrate or mass in the medial right lower lung with solid component measuring 6 mm. 3. Free fluid about the dome of the liver, left paracolic gutter, and root of the mesentery. 4. Umbilical hernia and hiatus hernia similar in appearance to prior CT. Joe Reyes MD [facility] VTE Risk Assessment Caprini VTE Risk Assessment: Mod/High Risk (score >= 2) VTE Pharm Contraindication: gi bleed suspected Caprini Risk Assessment Model Point Value = 1 Point Value = 2 Point Value = 3 Point Value = 5 Age 41-60 Minor surgery BMI > 25 kg/m2 Swollen legs Varicose veins or History of unexplained or recurrent spontaneous Oral contraceptives or hormone replacement Sepsis (< 1 month) Serious lung disease, including pneumonia (< 1 month) Abnormal pulmonary function Acute myocardial infarction Congestive heart failure (< 1 month) History of inflammatory bowel disease Medical patient at bed rest Age 61-74 Arthroscopic surgery Major open surgery (> 45 min) Laparoscopic surgery (> 45 min) Malignancy Confined to bed (> 72 hours) Immobilizing plaster cast Central venous access Age >= 75 History of VTE Family history of VTE Factor V Leiden Prothrombin [id number] Lupus anticoagulant Anticardiolipin antibodies Elevated serum homocysteine Heparin-induced thrombocytopenia Other congenital or acquired thrombophilia Stroke (< 1 month) Elective arthroplasty Hip, pelvis, or leg fracture Acute spinal cord injury (< 1 month) Prophylaxis Regimen Total Risk Factor Score Risk Level Prophylaxis Regimen 0-1 Low Early ambulation 2 Moderate Order ONE of the following: *Sequential Compression Device (SCD) *Heparin 5000 units SQ BID 3-4 Higher Order ONE of the following medications: *Heparin 5000 units SQ TID *Enoxaparin/Lovenox 40 mg SQ daily (WT < 150 kg, CrCl > 30 mL/min) *Enoxaparin/Lovenox 30 mg SQ daily (WT < 150 kg, CrCl > 10-29 mL/min) *Enoxaparin/Lovenox 30 mg SQ BID (WT < 150 kg, CrCl > 30 mL/min) AND/OR *Sequential Compression Device (SCD) 5 or more Highest Order ONE of the following medications: *Heparin 5000 units SQ TID (Preferred with Epidurals) *Enoxaparin/Lovenox 40 mg SQ daily (WT < 150 kg, CrCl > 30 mL/min) *Enoxaparin/Lovenox 30 mg SQ daily (WT < 150 kg, CrCl > 10-29 mL/min) *Enoxaparin/Lovenox 30 mg SQ BID (WT < 150 kg, CrCl > 30 mL/min) AND *Sequential Compression Device (SCD) Assessment and Plan Problem List: (1) Dehydration ICD Code: E86.0 - Dehydration (2) Acute renal insufficiency ICD Code: N28.9 - Disorder of kidney and ureter, unspecified (3) Hyperkalemia ICD Code: E87.5 - Hyperkalemia Status: Resolved (4) Enteritis ICD Code: K52.9 - Noninfective gastroenteritis and colitis, unspecified Status: Acute (5) GI bleed ICD Code: K92.2 - Gastrointestinal hemorrhage, unspecified Status: Acute Assessment and Plan 82 y/o female with 2 day history of nausea and vomiting: Acute renal insufficiency likely secondary to dehydration - patient received 2 liters IVF bolus in ED - has a history of grade 1 diastolic heart failure - recheck BMP in a.m. and follow trends in renal indices - avoid nephrotoxins Hyperkalemia - K+ 6.1 initially, treated with Insulin, D50W, was 4.8 on recheck - continue to monitor and follow results Enteritis - CT abdomen and pelvis with abnormal appearance of multiple loops of small bowel in the left hypogastric region with wall thickening and induration of the adjacent mesentery c/w inflammatory or infectious process. - check for c-difficile - Flagyl 500 mg q6h IV Possible gi bleed - consult gastroenterology - H&H repeat at midnight, then q4h - follow results Grade 1 diastolic heart failure per echocardiogram 10/27/15 - use caution regarding IVF hydration consult physical therapy to prevent deconditioning DVT prophylaxis - resume Coumadin once GI clears for GI bleed, SCDs/TEDs in interim This note was transcribed by jesus [Lucille Sales]. I, Dr. Genny Dorado personally performed the history, physical exam, and medical decision making; and confirmed the accuracy of the information in the transcribed note. Authenticated by Dr. Genny Dorado on 07/28/17 at 20:36. Discussed Condition With ER physician and patient . Physician Certification 2 Midnight Certification Type: Admission for Inpatient Services Order for Inpatient Services The services are ordered in accordance with Medicare regulations or non- Medicare payer requirements, as applicable. In the case of services not specified as inpatient-only, they are appropriately provided as inpatient services in accordance with the 2-midnight benchmark. Estimated LOS (days): 3 days is the estimated time the patient will need to remain in the hospital, assuming treatment plan goals are met and no additional complications. Post-Hospital Plan: Not yet determined Problem Qualifiers (1) GI bleed: Qualified Codes: K92.2 - Gastrointestinal hemorrhage, unspecified Lucille Sales Jul 28, 2017 20:48 Genny Dorado MD Jul 29, 2017 07:23
[2017-07-28] MEDS ORDERED: GLUCAGON 1 MG/ML VIAL OTHER PRN (21:30)
[2017-07-28] MEDS ORDERED: DEXTROSE 50% IN WATER 50 ML VIAL(D50) IV PRN (21:30)
[2017-07-28 22:00] VITALS: BP 140/67; PULSE 94; RESP 18; TEMP 97.9; O2SAT 96
[2017-07-29] VITALS (8 sets, daily range): BP systolic 121–171; BP diastolic 57–77; PULSE 70–86; RESP 18–20; TEMP 97.6–98.6; O2SAT 92–96
[2017-07-29] MEDS: SODIUM CHLORIDE 0.9% FLUSH 10 ML FLUSH IV FLUSH SCH ×3 (00:10→21:00)
[2017-07-29] MEDS: metroNIDAZOLE 500 MG INJ 100 ML IV SCH ×5 (00:10→21:24)
[2017-07-29 01:03] LABS: REVIEW FLAG FINAL
[2017-07-29 01:19] LABS: BICARBONATE 25.5 MEQ/L (21.0-32.0); POTASSIUM 4.8 MEQ/L (3.5-5.1)
[2017-07-29 03:52] LABS: HEMATOCRIT 28.9 % (35.0-46.0); REVIEW FLAG FINAL
[2017-07-29 04:11] LABS: BICARBONATE 27.5 MEQ/L (21.0-32.0); POTASSIUM 4.2 MEQ/L (3.5-5.1)
[2017-07-29] MEDS: LEVOTHYROXINE SODIUM 88 MCG TAB PO SCH (04:54)
[2017-07-29] MEDS: ACETAMINOPHEN 325 MG TAB PO PRN (04:55)
[2017-07-29] MEDS: INSULIN ASPART SUPPLEMENTAL SCALE SQ SCH ×4 (05:03→21:00)
--- NOTE | 2017-07-29 08:27 | PD.CONS ---
HPI History of Present Illness This is a 82 year old female with a history of peptic ulcer disease, gastroparesis, gastritis, Sanchez's esophagus, atrial fibrillation who presented to the ER with nausea/vomiting with coffee ground emesis and melena and abdominal pain. She has a history of atrial fibrillation and takes Coumadin at home. However, she reports that she has not had this in several days secondary to the nausea and vomiting. She started having dark tarry stools on Wednesday. She reports that this resolved on Wednesday, but she then started having mid/lower abdominal cramping (no radiation) with associated nausea and vomiting. She did not notice that it resembled coffee grounds at first, but states when [facility] arrived, they pointed this out. She denies any fevers or chills. She reports that she has been on antibiotics recently, although she cannot state what medication or what for. She was evaluated with EGD (12/14/16)----> Sanchez's esophagus, Gastritis in antrum, HH. Pathology with reactive gastropathy, as may be seen with bile reflux or drug therapy, gastric mucosa with intestinal metaplasia, consistent with sanchez's esophagus, small fragment of benign squamous mucosa. CT scan abdomen and pelvis (07/28/17)-- -> Abnormal appearance to multiple loops of small bowel in the left hypogastric region with wall thickening and induration of the adjacent mesentery. This suggests an inflammatory or infectious process. 2. Infiltrate or mass in the medial right lower lung with solid component measuring 6 mm. 3. Free fluid about the dome of the liver, left paracolic gutter, and root of the mesentery. 4. Umbilical hernia and hiatus hernia similar in appearance to prior CT. GI was consulted for further evaluation and treatment. ([place]rina [place]) PFSH Past Medical History CHF Kidney disease Atrial fibrillation PUD Gastritis Sanchez's Esophagus HTN DM TIA's Obesity Hypothyroidism Past Surgical History EGD Hysterectomy Cholecystectomy Left elbow surgery Bilateral knee replacement Bilateral cataract surgery Colonoscopy (Katrina South) Coded Allergies: penicillin G (Unverified Allergy, Severe, rash, 07/28/17) *MDRO Multi-Drug Resistant Organism (Verified Adverse Reaction, Unknown, ) ESBL - E. coli (urine) 07/2015,10/2015,06/08/17 MRSA PCR Screen POSITIVE - 06/02/2016 Medications Allergies Coded Allergies Type Severity Reaction Last Updated Verified penicillin G Allergy Severe rash 07/28/17 No *MDRO Multi-Drug Resistant Organism Adverse Reaction Unknown 07/28/17 Yes Active Scripts Medications Dose Route/Sig Max Daily Dose Days Date Category Dose Instructions Gabapentin 300 Mg Cap 300 Mg PO TID 07/28/17 Reported Hydralazine HCl 50 Mg Tablet 50 Mg PO TID 07/28/17 Reported Bactrim DS (Sulfamethoxazole-Trimethoprim) 800-160 Mg Tab 1 Tab PO BID 07/22/17 Rx Nifedipine ER 24 HR (Nifedipine) 30 Mg Tab 30 Mg PO DAILY 06/14/17 Rx Coumadin (Warfarin) 7.5 Mg Tab 7.5 Mg PO DAILY@16 06/14/17 Rx Clonidine (Clonidine HCl) 0.1 Mg Tab 0.1 Mg PO Q6HR PRN 06/09/17 Reported Novolog Inj (Insulin Aspart) 1,000 Unit/10 Ml Vial 25 Units SQ TIDAC 06/09/17 Reported Sliding Scale as directed. Ecotrin Low Strength (Aspirin) 81 Mg Tabdr 81 Mg PO DAILY 06/09/17 Reported Spironolactone 50 Mg Tab 50 Mg PO DAILY 06/09/17 Reported Lisinopril 20 Mg Tab 20 Mg PO BID 10/26/16 Reported Lantus Solostar Pen Inj (Insulin Glargine) 300 Unit/3 Ml Pen 90 Units SQ HS 10/26/16 Reported Levothyroxine (Levothyroxine Sodium) 88 Mcg Tab 88 Mcg PO DAILY 10/26/16 Reported Lipitor (Atorvastatin Calcium) 20 Mg Tab 20 Mg PO HS 10/26/16 Reported Metformin (Metformin HCl) 1,000 Mg Tab 1,000 Mg PO BID 10/26/16 Reported With meals Lasix (Furosemide) 20 Mg Tab 20 Mg PO DAILY 10/26/16 Reported Family History No esophageal, gastric, or colorectal cancer. Father from [place] Social History Quit smoking 40 years ago. She did smoke for 10-15 years No etoh No illicit drug use (Katrina South) Review of Systems Constitutional: COMPLAINS OF: Fatigue, Change in appetite, DENIES: Fever, Chills Respiratory: COMPLAINS OF: Cough, Wheezing Cardiovascular: DENIES: Chest pain Gastrointestinal: COMPLAINS OF: Abdominal pain, Black stools, Diarrhea, Nausea , Vomiting, Heartburn, Hematemesis, DENIES: Bloody stools, Constipation Musculoskeletal: COMPLAINS OF: Joint pain Integumentary: DENIES: Abnormal pigmentation Hematologic/lymphatic: COMPLAINS OF: Bruising Psychiatric: DENIES: Confusion ([place] MAYER) GI Exam Vitals I&O Vital Signs Date Time Temp Pulse Resp B/P (MAP) Pulse Ox O2 Delivery O2 Flow Rate FiO2 07/29/17 08:00 98.1 81 18 121/57 (78) 93 07/29/17 04:00 98.4 82 18 154/69 (97) 96 07/29/17 00:00 98.6 86 18 139/65 (89) 96 07/28/17 22:00 97.9 94 18 140/67 (91) 96 07/28/17 22:00 Room Air 07/28/17 20:07 101 22 130/60 (83) 97 Room Air 07/28/17 17:00 108 22 168/68 (101) 96 Room Air 07/28/17 15:45 99.2 115 18 175/73 (107) 95 Room Air 07/28/17 14:44 95 Room Air 07/28/17 14:37 98.2 100 24 241/104 (149) 96 Room Air I/O 07/28/17 07/28/17 07/28/17 07/29/17 07/29/17 07/29/17 07:00 15:00 23:00 07:00 15:00 23:00 Intake Total 4150 ml 0 ml Balance 4150 ml 0 ml Intake Oral 0 ml IV Total 4150 ml # Voids 3 # Bowel Movements 2 Imaging Last Impressions Abdomen/Pelvis CT 07/28/17 1419 Signed Impressions: Service Date/Time: Friday, July 28, 2017 17:07 - CONCLUSION: 1. Abnormal appearance to multiple loops of small bowel in the left hypogastric region with wall thickening and induration of the adjacent mesentery. This suggests an inflammatory or infectious process. 2. Infiltrate or mass in the medial right lower lung with solid component measuring 6 mm. 3. Free fluid about the dome of the liver, left paracolic gutter, and root of the mesentery. 4. Umbilical hernia and hiatus hernia similar in appearance to prior CT. Joe Reyes MD Laboratory Test 07/28/17 14:47 07/28/17 15:00 07/28/17 19:30 07/29/17 00:19 White Blood Count 19.9 TH/MM3 Red Blood Count 4.25 MIL/MM3 Hemoglobin 11.5 GM/DL 9.3 GM/DL Hematocrit 36.5 % 30.0 % Mean Corpuscular Volume 85.9 FL Mean Corpuscular Hemoglobin 27.1 PG Mean Corpuscular Hemoglobin Concent 31.5 % Red Cell Distribution Width 18.2 % Platelet Count 325 TH/MM3 Mean Platelet Volume 7.6 FL Neutrophils (%) (Auto) 93.7 % Lymphocytes (%) (Auto) 3.6 % Monocytes (%) (Auto) 2.3 % Eosinophils (%) (Auto) 0.1 % Basophils (%) (Auto) 0.3 % Neutrophils # (Auto) 18.7 TH/MM3 Lymphocytes # (Auto) 0.7 TH/MM3 Monocytes # (Auto) 0.5 TH/MM3 Eosinophils # (Auto) 0.0 TH/MM3 Basophils # (Auto) 0.1 TH/MM3 CBC Comment DIFF FINAL Differential Comment Prothrombin Time 12.2 SEC Prothromb Time International Ratio 1.1 RATIO Activated Partial Thromboplast Time 22.3 SEC Blood Urea Nitrogen 26 MG/DL 20 MG/DL Creatinine 1.43 MG/DL 1.11 MG/DL Random Glucose 320 MG/DL 203 MG/DL Total Protein 7.7 GM/DL Albumin 3.1 GM/DL Calcium Level 8.9 MG/DL 8.2 MG/DL Alkaline Phosphatase 107 U/L Aspartate Amino Transf (AST/SGOT) 22 U/L Alanine Aminotransferase (ALT/SGPT) 34 U/L Total Bilirubin 0.5 MG/DL Sodium Level 134 MEQ/L 141 MEQ/L Potassium Level 6.1 MEQ/L 4.8 MEQ/L 4.8 MEQ/L Chloride Level 101 MEQ/L 107 MEQ/L Carbon Dioxide Level 23.2 MEQ/L 25.5 MEQ/L Anion Gap 10 MEQ/L 9 MEQ/L Estimat Glomerular Filtration Rate 35 ML/MIN 47 ML/MIN Lactic Acid Level 2.6 mmol/L 2.9 mmol/L Lipase 91 U/L Urine Color LIGHT-YELLOW Urine Turbidity HAZY Urine pH 7.0 Urine Specific [place] 1.013 Urine Protein NEG mg/dL Urine Glucose (UA) 1000 mg/dL Urine Ketones 40 mg/dL Urine Occult Blood NEG Urine Nitrite NEG Urine Bilirubin NEG Urine Urobilinogen LESS THAN 2.0 MG/DL Urine Leukocyte Esterase LARGE Urine RBC 1 /hpf Urine WBC 52 /hpf Urine Bacteria FEW /hpf Microscopic Urinalysis Comment CULTURE INDICATED Test 07/29/17 03:32 Hemoglobin 9.1 GM/DL Hematocrit 28.9 % Blood Urea Nitrogen 17 MG/DL Creatinine 0.98 MG/DL Random Glucose 166 MG/DL Calcium Level 8.1 MG/DL Sodium Level 141 MEQ/L Potassium Level 4.2 MEQ/L Chloride Level 107 MEQ/L Carbon Dioxide Level 27.5 MEQ/L Anion Gap 7 MEQ/L Estimat Glomerular Filtration Rate 54 ML/MIN Date/Time Source Procedure Growth Status 07/28/17 14:47 Blood Peripheral Aerobic Blood Culture Pending Received 07/28/17 14:47 Blood Peripheral Anaerobic Blood Culture Pending Received 07/28/17 15:00 Urine Clean Catch Urine Culture Pending Received Physical Examination HEENT: Normocephalic; atraumatic; no jaundice. CHEST: Expiratory wheezing, bases diminished CARDIAC: RRR. ABDOMEN: Soft, morbidly obese, nondistended, mild to moderate diffuse tenderness; no hepatosplenomegaly; bowel sounds are present in all four quadrants. EXTREMITIES: No clubbing, cyanosis, or edema. SKIN: Normal; no rash; no jaundice. AXLE POLISHER: No focal deficits; lethargic and oriented times three. (Katrina South) Assessment and Plan Plan ASSESSMENT: - Upper GIB with coffee ground emesis and melena. Pt has hx of PUD, gastroparesis, gastritis, Barretts. Last EGD (12/14/16)----> Sanchez's esophagus , Gastritis in antrum, HH. Pathology with reactive gastropathy, as may be seen with bile reflux or drug therapy, gastric mucosa with intestinal metaplasia , consistent with sanchez's esophagus, small fragment of benign squamous mucosa. She takes coumadin, but has not had for several days. INR 1.1. - Anemia, acute blood loss. .9. - Leukocytosis. WBC 19.9. She has infiltrate or mass in right medial lower lung, but has had lung nodule in that same area, increasing in size since January 2016. Will defer to attending. - N/V, Abdominal pain. CT scan abdomen and pelvis (07/28/17)---> Abnormal appearance to multiple loops of small bowel in the left hypogastric region with wall thickening and induration of the adjacent mesentery. This suggests an inflammatory or infectious process. 2. Infiltrate or mass in the medial right lower lung with solid component measuring 6 mm. 3. Free fluid about the dome of the liver, left paracolic gutter, and root of the mesentery. 4. Umbilical hernia and hiatus hernia similar in appearance to prior CT. GI was consulted for further evaluation and treatment. - Gastroparesis. - Gastritis, Sanchez's Esophagus, GERD. - Atrial fibrillation, TIA. On coumadin at home, has not taken for a few days. - Umbilical hernia, reducible. - Wheezing with abnormal infiltrate vs. mass in the medial right lower lobe. Of note, she has had right lower lobe lung nodule increasing in size since January of 2016. Further workup per attending. - CKD, HTN, DM, Hypothyroidism per attending. PLAN: - Plan for egd today - Obtain consents - NPO - Add Protonix 40mg IV BID - CBC, BMP in am - Supportive care - Further recommendations to follow based on results of above - Pt seen and examined by Dr. Roque and myself and this note is written on his behalf (Katrina South) Physician Comments Patient was seen and examined, and with abdominal, plan for EGD today, further plan depending on the finding on the EGD (Ruperto Roque MD) Katrina South Jul 29, 2017 08:27 Ruperto Roque MD Jul 29, 2017 10:56
[2017-07-29] MEDS: GABAPENTIN 300 MG CAP PO SCH ×3 (09:00→18:54)
[2017-07-29] MEDS: LISINOPRIL 20 MG TAB PO SCH ×2 (09:00→21:24)
[2017-07-29] MEDS: SPIRONOLACTONE 50 MG TAB PO SCH (09:00)
[2017-07-29] MEDS: NIFEdipine 30 MG SUSTAINED RELEASE TAB PO SCH (09:00)
[2017-07-29] MEDS: hydrALAZINE HCL 50 MG TAB PO SCH ×3 (09:00→18:00)
[2017-07-29] MEDS: FUROSEMIDE 20 MG TAB PO SCH (09:00)
[2017-07-29] MEDS: PANTOPRAZOLE SODIUM 40 MG VIAL IV PUSH SCH ×2 (10:00→21:24)
[2017-07-29] MEDS ORDERED: PROPOFOL 200 MG/20 ML AMP IV ONE (10:08)
--- NOTE | 2017-07-29 10:16 | GIPROC ---
[facility] [address] [facility]. [facility], [id number] EGD PROCEDURE REPORT EXAM DATE: 07/29/2017 PATIENT NAME: Mirella Lucas V MR #: [id number] BIRTHDATE: 1935 ATTENDING: Ruperto Roque MD ORDER #: [id number] FIRST ASSIST: Ahsan Junior and Kailey Garcia STATUS: inpatient INDICATIONS: The patient is a 82 yr old female here for an EGD due to Anemia Nausea vomiting Abdominal pain PROCEDURE PERFORMED: EGD w/ biopsy MEDICATIONS: None and Per Anesthesia. TOPICAL ANESTHETIC: none CONSENT: The patient understands the risks and benefits of the procedure and understands that these risks include, but are not limited to: sedation, allergic reaction, infection, perforation and/or bleeding. Alternative means of evaluation and treatment include, among others: physical exam, x-rays, and/or surgical intervention. The patient elects to proceed with this endoscopic procedure. medical equipment was checked for proper function. Hand hygiene and appropriate measures for infection prevention was taken. After the risks, benefits and alternatives of the procedure were thoroughly explained, Informed consent was verified, confirmed and timeout was successfully executed by the treatment team. The patient was anesthetized with topical anesthesia and the Pentax EG-[id number] endoscope was introduced through the mouth and advanced to the second portion of the duodenum. Retroflexed views revealed no abnormalities The gastroscope was then slowly withdrawn and removed. Moderate grade C esophagitis Hooks esophagus 2-3 cm biopsy from the distal esophagus. Stomach normal Duodenum normal. No sign of active bleed. ADVERSE EVENTS: There were no complications. IMPRESSIONS: 1. Moderate grade C esophagitis Hooks esophagus 2-3 cm biopsy from the distal esophagus 2. Stomach normal Duodenum normal 3. No sign of active bleed 4. Retroflexed views revealed no abnormalities RECOMMENDATIONS: 1. Await biopsy results. Biopsy results will not be ready for 7-10 days. If you don't hear from us in two weeks, call our office for biopsy results. 2. Anti-reflux regimen 3. Continue PPI 4. Avoid NSAIDS 5. Symptoms could be related to gastroenteritis, gastroparesis and esophagitis PATIENT CONDITION: stable DISPOSITION: Inpatient REPEAT EXAM: Return 3 years EGD Ruperto Roque MD eSigned: Ruperto Roque MD 07/29/2017 10:16 AM cc: PATIENT NAME: Mirella Lucas V MR#: [id number]
--- NOTE | 2017-07-29 12:56 | EKG ---
Date Performed: 07/28/2017 Time Performed: 14:31:44 PTAGE: 82 years EKG: Sinus rhythm WITH FREQUENT SUPRAVENTRICULAR PREMATURE COMPLEXES ABNORMAL RHYTHM ECG PREVIOUS TRACING : 06/09/2017 09.49 DOCTOR: Fletcher Velez Interpretating Date/Time 07/29/2017 12:49:53
[2017-07-29] MEDS ORDERED: DO NOT ADM ANY ANTICOAGULANT DRUGS PRN (14:00)
[2017-07-29 14:29] LABS: HEMATOCRIT 28.8 % (35.0-46.0)
[2017-07-29 14:33] LABS: REVIEW FLAG FINAL
[2017-07-29 14:49] LABS: BICARBONATE 26.6 MEQ/L (21.0-32.0); POTASSIUM 3.9 MEQ/L (3.5-5.1)
--- NOTE | 2017-07-29 15:30 | HHI.PR ---
Subjective Remarks Follow-up for abdominal pain Status post EGD yesterday, abdominal pain is better, mildly nauseated but no vomiting. Afebrile. Objective Vitals Vital Signs Date Time Temp Pulse Resp B/P (MAP) Pulse Ox O2 Delivery O2 Flow Rate FiO2 07/29/17 12:00 97.6 80 20 171/77 (108) 92 07/29/17 10:21 98.0 77 20 128/78 (95) 99 07/29/17 08:00 98.1 81 18 121/57 (78) 93 07/29/17 04:00 98.4 82 18 154/69 (97) 96 07/29/17 00:00 98.6 86 18 139/65 (89) 96 07/28/17 22:00 97.9 94 18 140/67 (91) 96 07/28/17 22:00 Room Air 07/28/17 20:07 101 22 130/60 (83) 97 Room Air 07/28/17 17:00 108 22 168/68 (101) 96 Room Air 07/28/17 15:45 99.2 115 18 175/73 (107) 95 Room Air I/O 07/28/17 07/28/17 07/28/17 07/29/17 07/29/17 07/29/17 07:00 15:00 23:00 07:00 15:00 23:00 Intake Total 4150 ml 0 ml Balance 4150 ml 0 ml Intake Oral 0 ml IV Total 4150 ml # Voids 3 # Bowel Movements 2 Result Diagram: 07/29/17 1332 07/29/17 1332 Imaging Last Impressions Abdomen/Pelvis CT 07/28/17 1419 Signed Impressions: Service Date/Time: Friday, July 28, 2017 17:07 - CONCLUSION: 1. Abnormal appearance to multiple loops of small bowel in the left hypogastric region with wall thickening and induration of the adjacent mesentery. This suggests an inflammatory or infectious process. 2. Infiltrate or mass in the medial right lower lung with solid component measuring 6 mm. 3. Free fluid about the dome of the liver, left paracolic gutter, and root of the mesentery. 4. Umbilical hernia and hiatus hernia similar in appearance to prior CT. Joe Reyes MD Objective Remarks GENERAL: This is a pale elderly female patient, in no apparent distress. CARDIOVASCULAR: Regular rate and rhythm without murmurs, gallops, or rubs. RESPIRATORY: Clear to auscultation. Breath sounds equal bilaterally. No wheezes , rales, or rhonchi. GASTROINTESTINAL: Abdomen obese, soft, mildly tender in central umbilical area, nondistended. No guarding MUSCULOSKELETAL: Extremities without clubbing, cyanosis, or edema. NEUROLOGICAL: Awake and alert. Motor and sensory grossly within normal limits. Normal speech. Some memory impairment noted. A/P Problem List: (1) Dehydration ICD Code: E86.0 - Dehydration (2) Acute renal insufficiency ICD Code: N28.9 - Disorder of kidney and ureter, unspecified (3) Hyperkalemia Status: Resolved (4) Enteritis ICD Code: K52.9 - Noninfective gastroenteritis and colitis, unspecified Status: Acute (5) GI bleed ICD Code: K92.2 - Gastrointestinal hemorrhage, unspecified Status: Acute Assessment and Plan 82 y/o female with 2 day history of nausea and vomiting: Enteritis- CT abdomen and pelvis with abnormal appearance of multiple loops of small bowel in the left hypogastric region with wall thickening and induration of the adjacent mesentery c/w inflammatory or infectious process. C. difficile pending, continue Flagyl. GI consulted. Rule out GI bleed-status post EGD, showed esophagitis and Hooks's esophagus, continue Protonix per GI. Monitor Hemoglobin Anemia-hemoglobin 9, recheck CBC tomorrow UTI-urinalysis positive, urine culture growing gram-negative rods, start ceftriaxone Acute renal insufficiency likely secondary to dehydration-status post IVF, creatinine is now back to normal. She has a history of grade 1 diastolic heart failure, monitor BMP occasionally. Continue Lasix and Aldactone per home dose. Diabetes mellitus-on Lantus 90 units every night, will give Levemir 15 units for now with sliding scale insulin for now Hypertension-continue lisinopril, Procardia and hydralazine Hyperkalemia-resolved Grade 1 diastolic heart failure per echocardiogram 10/27/15 - use caution regarding IVF hydration consult physical therapy to prevent deconditioning DVT prophylaxis - resume Coumadin once GI clears for GI bleed, SCDs/TEDs in interim Problem Qualifiers (1) GI bleed: Qualified Codes: K92.2 - Gastrointestinal hemorrhage, unspecified Maria FernandaBennettdrex Jul 29, 2017 15:29
[2017-07-29] MEDS: cefTRIAXone INJ 1,000 MG in SODIUM CHLORIDE 0.9% INJ 100 ML IV SCH (18:54)
[2017-07-29] MEDS: ATORVASTATIN 20 MG TAB PO SCH (21:24)
[2017-07-29] MEDS: INSULIN DETEMIR 100 UNITS/ML VIAL SQ SCH (21:26)
[2017-07-30] VITALS (7 sets, daily range): BP systolic 108–184; BP diastolic 54–98; PULSE 67–75; RESP 20–21; TEMP 96.3–98.5; O2SAT 92–96
[2017-07-30] MEDS: ACETAMINOPHEN 325 MG TAB PO PRN (02:43)
[2017-07-30] MEDS: metroNIDAZOLE 500 MG INJ 100 ML IV SCH ×4 (04:27→20:37)
[2017-07-30] MEDS: LEVOTHYROXINE SODIUM 88 MCG TAB PO SCH (04:27)
[2017-07-30] MEDS: INSULIN ASPART SUPPLEMENTAL SCALE SQ SCH ×4 (06:11→20:34)
[2017-07-30 07:49] LABS: AUTOMATED NEUTROPHIL # 7.2 TH/MM3 (1.8-7.7); BASOPHIL # 0.1 TH/MM3 (0-0.2); BASOPHIL % 0.6 % (0.0-2.0); EOSINOPHIL # 0.2 TH/MM3 (0-0.4); HEMATOCRIT 26.7 % (35.0-46.0); HEMO FLAGS DIFF FINAL; LYMPH % 18.8 % (9.0-44.0); LYMPHOCYTE # 1.9 TH/MM3 (1.0-4.8); MEAN CELL VOLUME 86.4 FL (80.0-100.0); MEAN CORPUSCULAR HEMOGLOBIN 28.2 PG (27.0-34.0); MEAN CORPUSCULAR HGB CONC 32.6 % (32.0-36.0); MONO % 8.2 % (0.0-8.0); NEUT % 70.4 % (16.0-70.0); PLATELET COUNT 209 TH/MM3 (150-450); WHITE BLOOD COUNT 10.2 TH/MM3 (4.0-11.0)
[2017-07-30] MEDS: SODIUM CHLORIDE 0.9% FLUSH 10 ML FLUSH IV FLUSH SCH ×2 (09:17→20:37)
[2017-07-30] MEDS: hydrALAZINE HCL 50 MG TAB PO SCH ×3 (09:17→17:36)
[2017-07-30] MEDS: SPIRONOLACTONE 50 MG TAB PO SCH (09:17)
[2017-07-30] MEDS: GABAPENTIN 300 MG CAP PO SCH ×3 (09:17→17:36)
[2017-07-30] MEDS: FUROSEMIDE 20 MG TAB PO SCH (09:17)
[2017-07-30] MEDS: NIFEdipine 30 MG SUSTAINED RELEASE TAB PO SCH (09:18)
[2017-07-30] MEDS: LISINOPRIL 20 MG TAB PO SCH ×2 (09:18→20:35)
[2017-07-30] MEDS: PANTOPRAZOLE SODIUM 40 MG VIAL IV PUSH SCH ×2 (09:21→20:37)
--- NOTE | 2017-07-30 13:15 | HHI.PR ---
Subjective Remarks Follow-up abdominal pain. Patient states that she is feeling somewhat better today, but still having some abdominal pain. Denies diarrhea or constipation. Objective Vitals Vital Signs Date Time Temp Pulse Resp B/P (MAP) Pulse Ox O2 Delivery O2 Flow Rate FiO2 07/30/17 11:39 98.1 72 21 168/79 (108) 96 07/30/17 07:58 98.0 70 20 143/66 (91) 92 07/30/17 04:00 98.5 67 20 112/57 (75) 92 07/30/17 03:43 18 07/30/17 00:00 97.8 73 20 108/54 (72) 94 07/29/17 21:30 Room Air 07/29/17 20:15 70 07/29/17 20:00 98.1 74 20 142/69 (93) 92 07/29/17 17:49 93 21 07/29/17 16:00 98.4 71 20 149/70 (96) 93 I/O 07/29/17 07/29/17 07/29/17 07/30/17 07/30/17 07/30/17 07:00 15:00 23:00 07:00 15:00 23:00 Intake Total 0 ml 50 ml 920 ml 580 ml Balance 0 ml 50 ml 920 ml 580 ml Intake Oral 0 ml 720 ml 480 ml IV Total 200 ml 100 ml Other 50 ml # Voids 3 3 # Bowel Movements 2 2 Result Diagram: 07/30/17 0625 07/29/17 1332 Imaging Last Impressions Abdomen/Pelvis CT 07/28/17 1419 Signed Impressions: Service Date/Time: Friday, July 28, 2017 17:07 - CONCLUSION: 1. Abnormal appearance to multiple loops of small bowel in the left hypogastric region with wall thickening and induration of the adjacent mesentery. This suggests an inflammatory or infectious process. 2. Infiltrate or mass in the medial right lower lung with solid component measuring 6 mm. 3. Free fluid about the dome of the liver, left paracolic gutter, and root of the mesentery. 4. Umbilical hernia and hiatus hernia similar in appearance to prior CT. Joe Reyes MD Objective Remarks General: Obese elderly female in no acute distress. Heart: Regular rate and rhythm. No murmur. Lungs: Clear to auscultation bilaterally. No wheezes, rales, or rhonchi. Breathing is nonlabored. Abdomen: Soft, mild tenderness to palpation in the periumbilical area, nondistended. Extremities: No lower extremity edema. Psych: Alert and oriented. Procedures 07/29/17 EGD Urinary Catheter: No Vascular Central Line Catheter: No A/P Problem List: (1) Dehydration ICD Code: E86.0 - Dehydration (2) Acute renal insufficiency ICD Code: N28.9 - Disorder of kidney and ureter, unspecified (3) Hyperkalemia ICD Code: E87.5 - Hyperkalemia Status: Resolved (4) Enteritis ICD Code: K52.9 - Noninfective gastroenteritis and colitis, unspecified Status: Acute (5) GI bleed ICD Code: K92.2 - Gastrointestinal hemorrhage, unspecified Status: Acute Assessment and Plan 1. 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 Continue Protonix. Appreciate GI recommendations. Monitor H& H. C. difficile pending. Continue Flagyl. 2. Anemia: Possibly secondary to GI bleed. Monitor H&H. 3. UTI: Urine culture growing gram-negative rods. Continue Rocephin. 4. Acute renal insufficiency: Likely secondary to dehydration. Improved with IV fluids. 5. Chronic diastolic heart failure: Continue Lasix, Aldactone. Use caution with IV fluids. 6. Diabetes mellitus: Continue Lantus. Monitor Accu-Cheks and cover with sliding scale insulin. 7. Hypertension: Continue lisinopril, Procardia, hydralazine. 8. DVT prophylaxis: SCDs, TYLER mtz. Resume Coumadin once okay with gastroenterology. Problem Qualifiers (1) GI bleed: Qualified Codes: K92.2 - Gastrointestinal hemorrhage, unspecified Khanh Frankel MD Jul 30, 2017 13:15
--- NOTE | 2017-07-30 17:04 | HHI.GIFU ---
Subjective Remarks Pt resting in bed, about to order dinner. c/o gassiness. (Celi Barnard) Objective Vitals I&O Vital Signs Date Time Temp Pulse Resp B/P (MAP) Pulse Ox O2 Delivery O2 Flow Rate FiO2 07/30/17 16:17 94 Room Air 07/30/17 15:50 96.3 75 21 138/63 (88) 96 07/30/17 11:39 98.1 72 21 168/79 (108) 96 07/30/17 10:20 94 21 07/30/17 07:58 98.0 70 20 143/66 (91) 92 07/30/17 04:00 98.5 67 20 112/57 (75) 92 07/30/17 03:43 18 07/30/17 00:00 97.8 73 20 108/54 (72) 94 07/29/17 21:30 Room Air 07/29/17 20:15 70 07/29/17 20:00 98.1 74 20 142/69 (93) 92 07/29/17 17:49 93 21 I/O 07/29/17 07/29/17 07/29/17 07/30/17 07/30/17 07/30/17 07:00 15:00 23:00 07:00 15:00 23:00 Intake Total 0 ml 50 ml 920 ml 580 ml 700 ml Balance 0 ml 50 ml 920 ml 580 ml 700 ml Intake Oral 0 ml 720 ml 480 ml 700 ml IV Total 200 ml 100 ml Other 50 ml # Voids 3 3 3 # Bowel Movements 2 2 Laboratory Laboratory Tests Test 07/30/17 06:25 White Blood Count 10.2 Red Blood Count 3.10 Hemoglobin 8.7 Hematocrit 26.7 Mean Corpuscular Volume 86.4 Mean Corpuscular Hemoglobin 28.2 Mean Corpuscular Hemoglobin Concent 32.6 Red Cell Distribution Width 18.0 Platelet Count 209 Mean Platelet Volume 7.8 Neutrophils (%) (Auto) 70.4 Lymphocytes (%) (Auto) 18.8 Monocytes (%) (Auto) 8.2 Eosinophils (%) (Auto) 2.0 Basophils (%) (Auto) 0.6 Neutrophils # (Auto) 7.2 Lymphocytes # (Auto) 1.9 Monocytes # (Auto) 0.8 Eosinophils # (Auto) 0.2 Basophils # (Auto) 0.1 CBC Comment DIFF FINAL Differential Comment Date/Time Source Procedure Growth Status 07/28/17 14:47 Blood Peripheral Aerobic Blood Culture - Preliminary NO GROWTH IN 2 DAYS Resulted 07/28/17 14:47 Blood Peripheral Anaerobic Blood Culture - Preliminary NO GROWTH IN 2 DAYS Resulted 07/28/17 15:00 Urine Clean Catch Urine Culture - Final Escherichia Coli Esbl Positive Complete Physical Exam HEENT: PERRL; atraumatic; no jaundice. CHEST: diminished CARDIAC: RRR ABDOMEN: Soft, obese, nontender; no hepatosplenomegaly; bowel sounds are present in all four quadrants. EXTREMITIES: No clubbing, cyanosis, or edema. SKIN: Normal; no rash; no jaundice. MANAGER SHAREPOINT: No focal deficits; alert and oriented times three. (Celi Barnard) Assessment and Plan Plan ASSESSMENT: - Upper GIB with coffee ground emesis and melena. Pt has hx of PUD, gastroparesis, gastritis, Barretts. Last EGD (12/14/16)----> Sanchez's esophagus , Gastritis in antrum, HH. Pathology with reactive gastropathy, as may be seen with bile reflux or drug therapy, gastric mucosa with intestinal metaplasia , consistent with sanchez's esophagus, small fragment of benign squamous mucosa. She takes coumadin, but has not had for several days. INR 1.1. - Anemia, acute blood loss. 8.7 today - Leukocytosis. now WNL. She has infiltrate or mass in right medial lower lung , but has had lung nodule in that same area, increasing in size since January 2016. Will defer to attending. - N/V, Abdominal pain. CT scan abdomen and pelvis (07/28/17)---> Abnormal appearance to multiple loops of small bowel in the left hypogastric region with wall thickening and induration of the adjacent mesentery. This suggests an inflammatory or infectious process. 2. Infiltrate or mass in the medial right lower lung with solid component measuring 6 mm. 3. Free fluid about the dome of the liver, left paracolic gutter, and root of the mesentery. 4. Umbilical hernia and hiatus hernia similar in appearance to prior CT. GI was consulted for further evaluation and treatment. s/p EGD found esophagitis, sanchez's - Gastroparesis. - Gastritis, Sanchez's Esophagus, GERD. - Atrial fibrillation, TIA. On coumadin at home, has not taken for a few days. - Umbilical hernia, reducible. - Wheezing with abnormal infiltrate vs. mass in the medial right lower lobe. Of note, she has had right lower lobe lung nodule increasing in size since January of 2016. Further workup per attending. - CKD, HTN, DM, Hypothyroidism per attending. PLAN: - JOAN - continue Protonix 40mg IV BID - Supportive care - Further recommendations to follow based on results of above - Pt seen and examined by Dr. Roque and myself and this note is written on his behalf (Celi Barnard) Plan Patient was seen and examined, agree with the above noted, feeling better we will wait for the biopsy results (Ruperto Roque MD) Celi Barnard Jul 30, 2017 17:04 Ruperto Roque MD Jul 30, 2017 22:04
[2017-07-30] MEDS: cefTRIAXone INJ 1,000 MG in SODIUM CHLORIDE 0.9% INJ 100 ML IV SCH (17:35)
[2017-07-30] MEDS: INSULIN DETEMIR 100 UNITS/ML VIAL SQ SCH (20:33)
[2017-07-30] MEDS: ATORVASTATIN 20 MG TAB PO SCH (20:35)
[2017-07-31] VITALS (7 sets, daily range): BP systolic 136–168; BP diastolic 63–74; PULSE 71–91; RESP 16–20; TEMP 98.1–98.6; O2SAT 93–96
[2017-07-31] MEDS: metroNIDAZOLE 500 MG INJ 100 ML IV SCH ×3 (04:40→16:20)
[2017-07-31] MEDS: LEVOTHYROXINE SODIUM 88 MCG TAB PO SCH (05:46)
[2017-07-31] MEDS: INSULIN ASPART SUPPLEMENTAL SCALE SQ SCH ×4 (06:02→20:52)
[2017-07-31] MEDS: hydrALAZINE HCL 50 MG TAB PO SCH ×3 (09:39→18:41)
[2017-07-31] MEDS: GABAPENTIN 300 MG CAP PO SCH ×3 (09:39→18:41)
[2017-07-31] MEDS: SPIRONOLACTONE 50 MG TAB PO SCH (09:39)
[2017-07-31] MEDS: NIFEdipine 30 MG SUSTAINED RELEASE TAB PO SCH (09:39)
[2017-07-31] MEDS: PANTOPRAZOLE SODIUM 40 MG VIAL IV PUSH SCH ×2 (09:39→20:56)
[2017-07-31] MEDS: SODIUM CHLORIDE 0.9% FLUSH 10 ML FLUSH IV FLUSH SCH ×2 (09:39→20:55)
[2017-07-31] MEDS: FUROSEMIDE 20 MG TAB PO SCH (09:39)
[2017-07-31] MEDS: LISINOPRIL 20 MG TAB PO SCH ×2 (09:39→20:56)
[2017-07-31] MEDS: ACETAMINOPHEN 325 MG TAB PO PRN (11:33)
--- NOTE | 2017-07-31 12:06 | HHI.PR ---
Subjective Remarks Follow-up abdominal pain. Patient states that overall she feels better today, but is still having significant tenderness in her abdomen. She reports urinary incontinence. Denies burning with urination. Objective Vitals Vital Signs Date Time Temp Pulse Resp B/P (MAP) Pulse Ox O2 Delivery O2 Flow Rate FiO2 07/31/17 09:47 Room Air 07/31/17 09:31 98.2 91 16 148/65 (92) 94 07/31/17 04:00 98.2 75 18 152/69 (96) 93 07/31/17 00:00 98.6 79 20 160/74 (102) 95 07/30/17 20:40 Room Air 07/30/17 20:00 98.2 75 20 151/67 (95) 95 07/30/17 20:00 70 07/30/17 16:17 94 Room Air 07/30/17 15:50 96.3 75 21 138/63 (88) 96 I/O 07/30/17 07/30/17 07/30/17 07/31/17 07/31/17 07/31/17 06:59 14:59 22:59 06:59 14:59 22:59 Intake Total 580 ml 700 ml 200 ml 100 ml Balance 580 ml 700 ml 200 ml 100 ml Intake Oral 480 ml 700 ml IV Total 100 ml 200 ml 100 ml # Voids 3 3 2 # Bowel Movements 2 Result Diagram: 07/30/17 0625 07/29/17 1332 Imaging Last Impressions Abdomen/Pelvis CT 07/28/17 1419 Signed Impressions: Service Date/Time: Friday, July 28, 2017 17:07 - CONCLUSION: 1. Abnormal appearance to multiple loops of small bowel in the left hypogastric region with wall thickening and induration of the adjacent mesentery. This suggests an inflammatory or infectious process. 2. Infiltrate or mass in the medial right lower lung with solid component measuring 6 mm. 3. Free fluid about the dome of the liver, left paracolic gutter, and root of the mesentery. 4. Umbilical hernia and hiatus hernia similar in appearance to prior CT. Joe Reyes MD Objective Remarks General: Obese elderly female in no acute distress. Heart: Regular rate and rhythm. No murmur. Lungs: Clear to auscultation bilaterally. No wheezes, rales, or rhonchi. Breathing is nonlabored. Abdomen: Soft, tender to palpation in the periumbilical area, nondistended. Umbilical hernia noted, reducible. Extremities: No lower extremity edema. Psych: Alert and oriented. Procedures 07/29/17 EGD Urinary Catheter: No Vascular Central Line Catheter: No A/P Problem List: (1) Dehydration ICD Code: E86.0 - Dehydration (2) Acute renal insufficiency ICD Code: N28.9 - Disorder of kidney and ureter, unspecified (3) Hyperkalemia ICD Code: E87.5 - Hyperkalemia Status: Resolved (4) Enteritis ICD Code: K52.9 - Noninfective gastroenteritis and colitis, unspecified Status: Acute (5) GI bleed ICD Code: K92.2 - Gastrointestinal hemorrhage, unspecified Status: Acute Assessment and Plan 1. 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 Continue Protonix. Appreciate GI recommendations. Monitor H& H. C. difficile pending. Continue Flagyl. 2. Anemia: Possibly secondary to GI bleed. Monitor H&H. 3. UTI: Urine culture growing Escherichia coli ESBL. Infectious disease consult pending. 4. Acute renal insufficiency: Likely secondary to dehydration. Improved with IV fluids. 5. Chronic diastolic heart failure: Continue Lasix, Aldactone. Use caution with IV fluids. 6. Diabetes mellitus: Continue Lantus. Monitor Accu-Cheks and cover with sliding scale insulin. 7. Hypertension: Continue lisinopril, Procardia, hydralazine. 8. DVT prophylaxis: SCDs, TYLER hose. Resume Coumadin once okay with gastroenterology. 9. Umbilical hernia: Consult general surgery. 10. Lung aspiration is infiltrated: Check chest CT. Problem Qualifiers (1) GI bleed: Qualified Codes: K92.2 - Gastrointestinal hemorrhage, unspecified Khanh Frnakel MD Jul 31, 2017 12:06
--- NOTE | 2017-07-31 13:42 | PD.CONS ---
HPI Service General surgery Consult Requested By Dr. Frankel Reason for Consult Umbilical hernia Primary Care Physician Unknown History of Present Illness The patient is a 82-year-old female who presented with abdominal pain, vomiting , black diarrhea. She was evaluated with EGD and found to have severe esophagitis. She stopped having diarrhea and the pain is significantly improved. She's been tolerating a regular diet since last night but still was not had another bowel movement. Labs are normal at this time aside from anemia. CT abdomen and pelvis shows large umbilical hernia and hiatal hernia as well as enteritis. There is some free fluid in the abdomen. I reviewed the images. Review of Systems Constitutional: DENIES: Fever, Chills Eyes: DENIES: Eye inflammation, Eye pain Respiratory: DENIES: Cough, Shortness of breath Cardiovascular: DENIES: Chest pain, Palpitations Gastrointestinal: COMPLAINS OF: Abdominal pain, Diarrhea, Nausea Musculoskeletal: DENIES: Muscle aches, Stiffness Integumentary: DENIES: Pruritus, Rash Neurologic: DENIES: Paresthesias, Seizures Past Family Social History Past Medical History Morbid obesity TIA x 3 Atrial fibrillation on Coumadin Diabetes Mellitus, Type 2 Hypothyroidism CHF Kidney disease Past Surgical History Knee replacements Cholecystectomy Hysterectomy Reported Medications Reported Meds & Active Scripts Active Bactrim DS (Sulfamethoxazole-Trimethoprim) 800-160 Mg Tab 1 Tab PO BID Nifedipine ER 24 HR (Nifedipine) 30 Mg Tab 30 Mg PO DAILY Coumadin (Warfarin) 7.5 Mg Tab 7.5 Mg PO DAILY@16 Reported Gabapentin 300 Mg Cap 300 Mg PO TID Hydralazine HCl 50 Mg Tablet 50 Mg PO TID Clonidine (Clonidine HCl) 0.1 Mg Tab 0.1 Mg PO Q6HR PRN Novolog Inj (Insulin Aspart) 1,000 Unit/10 Ml Vial 25 Units SQ TIDAC Sliding Scale as directed. Ecotrin Low Strength (Aspirin) 81 Mg Tabdr 81 Mg PO DAILY Spironolactone 50 Mg Tab 50 Mg PO DAILY Lisinopril 20 Mg Tab 20 Mg PO BID Lantus Solostar Pen Inj (Insulin Glargine) 300 Unit/3 Ml Pen 90 Units SQ HS Levothyroxine (Levothyroxine Sodium) 88 Mcg Tab 88 Mcg PO DAILY Lipitor (Atorvastatin Calcium) 20 Mg Tab 20 Mg PO HS Metformin (Metformin HCl) 1,000 Mg Tab 1,000 Mg PO BID With meals Lasix (Furosemide) 20 Mg Tab 20 Mg PO DAILY Allergies: Coded Allergies: penicillin G (Unverified Allergy, Severe, rash, 07/28/17) *MDRO Multi-Drug Resistant Organism (Verified Adverse Reaction, Unknown, ) ESBL - E. 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 Ordered Medications Current Medications Medications (Trade) Dose Ordered Sig/Isaiah Route Start Time Stop Time Status Last Admin (NS Flush) 2 ml UNSCH PRN IV FLUSH 07/28/17 18:30 (NS Flush) 2 ml BID IV FLUSH 07/28/17 21:00 07/31/17 09:39 Metronidazole 100 ml @ 100 mls/hr Q6H IV 07/28/17 22:00 07/31/17 09:39 (D50w (Vial) Inj) 50 ml UNSCH PRN IV 07/28/17 21:30 (Glucagon Inj) 1 mg UNSCH PRN OTHER 07/28/17 21:30 (Lipitor) 20 mg HS PO 07/29/17 21:00 07/30/17 20:35 (Lasix) 20 mg DAILY PO 07/29/17 09:00 07/31/17 09:39 (Neurontin) 300 mg TID PO 07/29/17 09:00 07/31/17 09:39 (Apresoline) 50 mg TID PO 07/29/17 09:00 07/31/17 09:39 (Synthroid) 88 mcg DAILY@0600 PO 07/29/17 06:00 07/31/17 05:46 (Prinivil) 20 mg BID PO 07/29/17 09:00 07/31/17 09:39 (Procardia Xl) 30 mg DAILY PO 07/29/17 09:00 07/31/17 09:39 (Aldactone) 50 mg DAILY PO 07/29/17 09:00 07/31/17 09:39 (Tylenol) 650 mg Q4H PRN PO 07/29/17 04:45 07/31/17 11:33 (Protonix Inj) 40 mg Q12H IV PUSH 07/29/17 10:00 07/31/17 09:39 (Levemir Inj) 50 units HS SQ 07/29/17 21:00 07/30/17 20:33 (NovoLOG SUPPLEMENTAL SCALE) 1 ACHS SLIDING SCALE SQ 07/29/17 16:00 07/31/17 11:34 Ceftriaxone Sodium 1000 mg/ Sodium Chloride 100 ml @ 200 mls/hr Q24H IV 07/29/17 17:00 07/30/17 17:35 Family History Noncontributory Social History No alcohol tobacco or drug use Physical Exam Vital Signs Vital Signs Date Time Temp Pulse Resp B/P (MAP) Pulse Ox O2 Delivery O2 Flow Rate FiO2 07/31/17 12:26 71 07/31/17 12:00 98.6 80 20 168/72 (104) 94 07/31/17 09:47 Room Air 07/31/17 09:31 98.2 91 16 148/65 (92) 94 07/31/17 04:00 98.2 75 18 152/69 (96) 93 07/31/17 00:00 98.6 79 20 160/74 (102) 95 07/30/17 20:40 Room Air 07/30/17 20:00 98.2 75 20 151/67 (95) 95 07/30/17 20:00 70 07/30/17 16:17 94 Room Air 07/30/17 15:50 96.3 75 21 138/63 (88) 96 Physical Exam GENERAL: Awake and alert. No acute distress. Cooperative. Morbidly obese. HEAD: Normocephalic. Atraumatic. EYES: Pupils equal round and reactive to light bilaterally. No scleral icterus. ENT: Moist oral mucosa. NECK: Trachea midline. CHEST: Audible wheezing. No respiratory distress. CARDIOVASCULAR: Regular rate and rhythm. ABDOMEN: Obese. Incarcerated umbilical hernia moderately tender. No overlying skin changes. EXTREMITIES: No cyanosis or edema. SKIN: Warm, dry, nonjaundiced. Laboratory Date/Time Source Procedure Growth Status 07/28/17 14:47 Blood Peripheral Aerobic Blood Culture - Preliminary NO GROWTH IN 3 DAYS Resulted 07/28/17 14:47 Blood Peripheral Anaerobic Blood Culture - Preliminary NO GROWTH IN 3 DAYS Resulted 07/28/17 15:00 Urine Clean Catch Urine Culture - Final Escherichia Coli Esbl Positive Complete Result Diagram: 07/30/17 0625 07/29/17 1332 Imaging Last Impressions Abdomen/Pelvis CT 07/28/17 1419 Signed Impressions: Service Date/Time: Friday, July 28, 2017 17:07 - CONCLUSION: 1. Abnormal appearance to multiple loops of small bowel in the left hypogastric region with wall thickening and induration of the adjacent mesentery. This suggests an inflammatory or infectious process. 2. Infiltrate or mass in the medial right lower lung with solid component measuring 6 mm. 3. Free fluid about the dome of the liver, left paracolic gutter, and root of the mesentery. 4. Umbilical hernia and hiatus hernia similar in appearance to prior CT. Joe Reyes MD Assessment and Plan Assessment and Plan 82-year-old female morbidly obese with multiple comorbid medical conditions with incarcerated umbilical hernia. There does not appear to be any incarcerated bowel and she is currently tolerating a diet. She would be high risk for a ventral hernia repair. I recommend nonoperative management at this time. Werner Eaton MD Jul 31, 2017 13:42
--- NOTE | 2017-07-31 14:46 | PD.ID.CON ---
History of Present Illness Service ID Consult Requested By Dr Perez Reason for Consult ESBL + E.coli UTI Primary Care Physician Unknown Diagnoses: History of Present Illness Pt known to me ; I saw her 2 mos ago for the same problem (ESBL+ E.coli) 82-year-old morbidly obese female with multiple comorbid medical conditions ( hypertension, diabetes, hyperlipidemia, TIA, gastroparesis, atrial fibrillatio) presented with abdominal pain 3 days ago and wqas diagnosed with incarcerated umbilical hernia. She was seen by Dr Eaton and he ruled out any incarcerated bowel and recommended nonoperative management at this time, 2/2 high risk for a ventral hernia repair. I n May pt also had ESBL + E.coli UTI bu t at that time her organism was S to Bactrim and she was Rx'd with bactrim Pt was seen IN ER and discharged on July 22 and diagnosed with a urinary tract infection. Urine culture eventuallu grew out ESBL Escherichia coli resistant to numerous antibiotics. She was started on Bactrim at that time, her UTI is resistant to Bactrim. Her UA was repeated and she had 54 WBC in the urine; her clx again showed ESBL + E.coli She takes PO, had a solid bowel movement yday She co disuria, but denies back or flank pain Review of Systems Except as stated in HPI: all other systems reviewed are Neg Past Family Social History Allergies: Coded Allergies: penicillin G (Unverified Allergy, Severe, rash, 07/28/17) *MDRO Multi-Drug Resistant Organism (Verified Adverse Reaction, Unknown, ) ESBL - E. coli (urine) 07/2015,10/2015,06/08/17 MRSA PCR Screen POSITIVE - 06/02/2016 Past Medical History hypertension, diabetes, hyperlipidemia, gastroparesis, atrial fibrillation TIA x 3 Diabetes Mellitus, Type 2 Hypothyroidism CHF Kidney disease Past Surgical History Knee replacements Cholecystectomy Hysterectomy Active Ordered Medications Medications where reviewed in EMR Antibiotics Include: CFTX flagyl Family History reviewed Non-Contributory. Social History remote Tobacco. Quit 40 yrs ago No ETOH. No Illicit Drugs. Physical Exam Vital Signs Vital Signs Date Time Temp Pulse Resp B/P (MAP) Pulse Ox O2 Delivery O2 Flow Rate FiO2 07/31/17 12:26 71 07/31/17 12:00 98.6 80 20 168/72 (104) 94 07/31/17 09:47 Room Air 07/31/17 09:31 98.2 91 16 148/65 (92) 94 07/31/17 04:00 98.2 75 18 152/69 (96) 93 07/31/17 00:00 98.6 79 20 160/74 (102) 95 07/30/17 20:40 Room Air 07/30/17 20:00 98.2 75 20 151/67 (95) 95 07/30/17 20:00 70 07/30/17 16:17 94 Room Air 07/30/17 15:50 96.3 75 21 138/63 (88) 96 Physical Exam CONSTITUTIONAL/GENERAL: This is an morbidly obese elderly female patient, in no apparent distress. TUBES/LINES/DRAINS: SKIN: No jaundice, rashes, or lesions. . Skin temperature appropriate. Not diaphoretic. HEAD: Atraumatic. Normocephalic. EYES: Pupils equal and round and reactive. Extraocular motions intact. No scleral icterus. No injection or drainage. Fundi not examined. ENT: Hearing grossly normal. Nose without bleeding or purulent drainage. Throat without visible erythema, exudates, masses, or lesions. NECK: Trachea midline. Supple, nontender. No palpable thyroid enlargement or nodularity. CARDIOVASCULAR: Regular rate and rhythm without murmurs, gallops, or rubs. No JVD. Peripheral pulses symmetric. RESPIRATORY/CHEST: Symmetric, unlabored respirations. Clear to auscultation. Breath sounds equal bilaterally. No wheezes, rales, or rhonchi. GASTROINTESTINAL: Abdomen soft, obese non-tender, nondistended. No hepato- splenomegaly, or palpable masses. No guarding. Bowel sounds present. GENITOURINARY: Without palpable bladder distension. MUSCULOSKELETAL: Extremities without clubbing, cyanosis, or edema. No joint tenderness or effusion noted. No calf tenderness. No mottling or clubbing. LYMPHATICS: No palpable cervical or supraclavicular adenopathy. NEUROLOGICAL: Awake and alert. Motor and sensory grossly within normal limits. Follows commands. Clear speech . Moves all extremities. PSYCHIATRIC: No obvious anxiety/depression. no apparent hallucinations or other psychotic thought process. Laboratory Date/Time Source Procedure Growth Status 07/28/17 14:47 Blood Peripheral Aerobic Blood Culture - Preliminary NO GROWTH IN 3 DAYS Resulted 07/28/17 14:47 Blood Peripheral Anaerobic Blood Culture - Preliminary NO GROWTH IN 3 DAYS Resulted 07/28/17 15:00 Urine Clean Catch Urine Culture - Final Escherichia Coli Esbl Positive Complete Result Diagram: 07/30/17 0625 07/29/17 1332 Imaging Last Impressions Abdomen/Pelvis CT 07/28/17 1419 Signed Impressions: Service Date/Time: Friday, July 28, 2017 17:07 - CONCLUSION: 1. Abnormal appearance to multiple loops of small bowel in the left hypogastric region with wall thickening and induration of the adjacent mesentery. This suggests an inflammatory or infectious process. 2. Infiltrate or mass in the medial right lower lung with solid component measuring 6 mm. 3. Free fluid about the dome of the liver, left paracolic gutter, and root of the mesentery. 4. Umbilical hernia and hiatus hernia similar in appearance to prior CT. Joe Reyes MD Assessment and Plan Assessment and Plan UTI, ESBL+ E.coli Incarcerated hernia w/o bowel incarceration - gen sx ff, conservative mngmnt dc flagyl dc CFXT start Ertapenem; anticipate 2 weeks of IV Ertapenem - if duiarrhea will test stool for C.diff Norma Rosas MD Jul 31, 2017 14:46
[2017-07-31] MEDS ORDERED: IOHEXOL 350 MG/ML 10 ML VIAL (for RAD DIAG) IV PUSH ONE (15:17)
[2017-07-31] MEDS: cefTRIAXone INJ 1,000 MG in SODIUM CHLORIDE 0.9% INJ 100 ML IV SCH (16:20)
[2017-07-31] MEDS ORDERED: ASP: Documented ESBL, MDR A baumannii or P. aeruginosa PRN (17:45)
[2017-07-31] MEDS ORDERED: MISCELLANEOUS PHARMACY INFORMATION XX PRN (17:45)
[2017-07-31] MEDS: ERTAPENEM INJ 1,000 MG in SODIUM CHLORIDE 0.9% INJ 100 ML IV SCH (20:00)
--- NOTE | 2017-07-31 20:22 | RADRPT ---
EXAM DATE/TIME: 07/31/2017 14:47 [facility] COMPARISON: No previous studies available for comparison. INDICATIONS : Evaluate mass. IV CONTRAST: 100 cc Omnipaque 350 (iohexol) IV RADIATION DOSE: 9.59 CTDIvol (mGy) MEDICAL HISTORY : Cardiovascular disease. Hypertension. Diabetes mellitus type 2.CVA. SURGICAL HISTORY : Hysterectomy. Cholecystectomy. ENCOUNTER: Initial ACUITY: 1 day PAIN SCALE: 0/10 LOCATION: Bilateral chest TECHNIQUE: Volumetric scanning of the chest was performed. Using automated exposure control and adjustment of t he mA and/or kV according to patient size, radiation dose was kept as low as reasonably achievable to obtain optimal diagnostic quality images. DICOM format image data is available electronically for review and comparison. Follow-up recommendations for detected pulmonary nodules are based at a minimum on nodule size and pa tient risk factors according to Fleischner Society Guidelines. FINDINGS: LUNGS: A complex nodule measuring 1.4 x 1.8 cm in size is identified in the right lower lobe. The nodule has a bilobed appearance with central cavitation in one of the lobes. No other focal pulmonary abnormali ties are seen. PLEURA: There is no pleural thickening or pleural effusion. MEDIASTINUM: Prominent right bronchopulmonary lymph nodes are identified in the right hilum. The largest measures 2.3 cm in size. Calcific coronary disease is identified. AXILLAE: Within normal limits. No lymphadenopathy. SKELETAL: Within normal limits for patient age. MISCELLANEOUS: The visualized upper abdominal organs demonstrate no acute abnormality. CONCLUSION: 1. 1.8 cm bilobed complex mass in the right lower lobe with associated right bronchopulmonary lymphad enopathy. Malignancy is suspected. 2. Calcific coronary disease. Maximiliano Brown MD on July 31, 2017 at 20:15 Board Certified Radiologist. This report was verified electronically.
[2017-07-31] MEDS: INSULIN DETEMIR 100 UNITS/ML VIAL SQ SCH (20:53)
[2017-07-31] MEDS: ATORVASTATIN 20 MG TAB PO SCH (20:56)
[2017-07-31] MEDS: TEMAZEPAM 15 MG CAP PO PRN (22:07)
[2017-08-01] VITALS (7 sets, daily range): BP systolic 134–181; BP diastolic 60–77; PULSE 77–93; RESP 16–20; TEMP 97.7–98.5; O2SAT 93–95
[2017-08-01] MEDS: LEVOTHYROXINE SODIUM 88 MCG TAB PO SCH (05:17)
[2017-08-01] MEDS: INSULIN ASPART SUPPLEMENTAL SCALE SQ SCH ×4 (05:40→20:24)
--- NOTE | 2017-08-01 08:29 | HHI.PR ---
Subjective Subjective Notes Abdominal tenderness only if palpated. Tolerating diet. + flatus no bm. Objective Vitals/I&O Vital Signs Date Time Temp Pulse Resp B/P (MAP) Pulse Ox O2 Delivery O2 Flow Rate FiO2 08/01/17 04:00 Room Air 08/01/17 04:00 98.0 77 16 162/72 (102) 95 07/30/17 10:20 21 Labs Date/Time Source Procedure Growth Status 07/28/17 14:47 Blood Peripheral Aerobic Blood Culture - Preliminary NO GROWTH IN 3 DAYS Resulted 07/28/17 14:47 Blood Peripheral Anaerobic Blood Culture - Preliminary NO GROWTH IN 3 DAYS Resulted 07/28/17 15:00 Urine Clean Catch Urine Culture - Final Escherichia Coli Esbl Positive Complete Radiology Last Impressions Abdomen/Pelvis CT 07/28/17 1419 Signed Impressions: Service Date/Time: Friday, July 28, 2017 17:07 - CONCLUSION: 1. Abnormal appearance to multiple loops of small bowel in the left hypogastric region with wall thickening and induration of the adjacent mesentery. This suggests an inflammatory or infectious process. 2. Infiltrate or mass in the medial right lower lung with solid component measuring 6 mm. 3. Free fluid about the dome of the liver, left paracolic gutter, and root of the mesentery. 4. Umbilical hernia and hiatus hernia similar in appearance to prior CT. Joe Reyes MD Narrative Exam NAD, morbidly obese Abd: soft, mod ttp at umbilical hernia, nonreducible A/P Assessment and Plan 82 yo F morbidly obese multiple comorbidities with incarcerated umbilical hernia , clinically and by imaging no bowel involved. CT chest concerning for pulmonary malignancy. Continue nonoperative management of large incarcerated umbilical hernia. Bowel regimen. Werner Eaton MD Aug 01, 2017 08:29
[2017-08-01] MEDS: SODIUM CHLORIDE 0.9% FLUSH 10 ML FLUSH IV FLUSH SCH ×2 (09:00→20:31)
[2017-08-01] MEDS: LISINOPRIL 20 MG TAB PO SCH ×2 (09:35→20:32)
[2017-08-01] MEDS: NIFEdipine 30 MG SUSTAINED RELEASE TAB PO SCH (09:35)
[2017-08-01] MEDS: SPIRONOLACTONE 50 MG TAB PO SCH (09:35)
[2017-08-01] MEDS: GABAPENTIN 300 MG CAP PO SCH ×3 (09:35→17:30)
[2017-08-01] MEDS: DOCUSATE SODIUM 100 MG CAP PO SCH ×2 (09:35→20:31)
[2017-08-01] MEDS: FUROSEMIDE 20 MG TAB PO SCH (09:35)
[2017-08-01] MEDS: PANTOPRAZOLE SODIUM 40 MG VIAL IV PUSH SCH ×2 (09:35→23:01)
[2017-08-01] MEDS: POLYETHYLENE GLYCOL 17 GM PKG PO SCH (09:36)
[2017-08-01] MEDS: ACETAMINOPHEN 325 MG TAB PO PRN (09:36)
[2017-08-01] MEDS: hydrALAZINE HCL 50 MG TAB PO SCH ×3 (09:36→17:30)
--- NOTE | 2017-08-01 10:30 | MB ---
cc: ENRIQUE URIAS MD DATE OF CONSULTATION: 08/01/2017 REASON FOR CONSULTATION: Paroxysmal atrial fibrillation. HISTORY OF PRESENT ILLNESS The patient is a very pleasant 82-year-old woman with a history of chronic paroxysmal atrial fibrillation, maintained on warfarin but who has not been seeing any diabetes educator. She presented initially on 07/28 for coffee-ground emesis and black diarrhea. She has since underwent a GI workup which was significant for esophagitis with no active bleed. Currently the patient is completely asymptomatic denying chest pain, shortness of breath, lightheadedness, dizziness, syncope. She has had brief paroxysms of A-fib on telemetry. PAST MEDICAL HISTORY 1. Atrial fibrillation maintained on warfarin. 2. TIAs x3 3. CHF 4. Diabetes. 5. Hypothyroidism. 6. Chronic kidney disease. CURRENT MEDICATIONS 1. Colace. 2. Lipitor or 20 mg q.h.s. 3. Lasix 20 mg daily. 4. Protonix 5. Neurontin 300 milligrams t.i.d. 6. Apresoline 15 milligrams t.i.d. 7. Lisinopril 20 mg b.i.d. 8. Procardia 30 mg daily. 9. Aldactone 50 mg daily. 10. Synthroid 88 mcg daily. ALLERGIES PENICILLIN. PHYSICAL EXAMINATION VITAL SIGNS: Afebrile, pulse 77, respiratory rate 16, BP 162/70, sating 95 on room air. General: Pleasant obese woman in no distress. Neck: No JVD. Lungs: Clear to auscultation bilaterally. Cardiovascular: Regular rate rhythm. No murmurs appreciated. Abdomen: Benign. Extremities: No edema. LABORATORY DATA White count 10.2, hematocrit 26.7, platelets 209. Sodium 139, potassium 3.9, chloride 105, bicarb 26.6, BUN 14, creatinine 0.99, glucose 213. EKG shows sinus rhythm, PACs. Telemetry has shown brief paroxysms of atrial fibrillation. IMPRESSION Paroxysmal atrial fibrillation. The patient has a very high stroke risk with a CHADS vas score of at least 5 or 6. I will recommend resumption of her warfarin though I would like this to be cleared by the GI team given the recent bleeding. Otherwise she is cleared for discharge from a cardiac standpoint and I will have her see me in the office in this week or two for outpatient care. Thank you again for the opportunity to participate in this patient's care. MD CHRIS Goodman/DRAGAN /9:29 AM /10:20 AM
[2017-08-01 10:48] LABS: BASOPHIL # 0.1 TH/MM3 (0-0.2); BASOPHIL % 0.5 % (0.0-2.0); EOSINOPHIL # 0.2 TH/MM3 (0-0.4); EOSINOPHIL % 1.8 % (0.0-4.0); HEMATOCRIT 30.8 % (35.0-46.0); HEMO FLAGS DIFF FINAL; LYMPH % 16.8 % (9.0-44.0); LYMPHOCYTE # 1.8 TH/MM3 (1.0-4.8); MEAN CELL VOLUME 86.2 FL (80.0-100.0); MEAN CORPUSCULAR HEMOGLOBIN 27.3 PG (27.0-34.0); MEAN CORPUSCULAR HGB CONC 31.6 % (32.0-36.0); NEUT % 72.9 % (16.0-70.0); PLATELET COUNT 215 TH/MM3 (150-450); RED BLOOD COUNT 3.58 MIL/MM3 (4.00-5.30); RED CELL DISTRIBUTION WIDTH 17.9 % (11.6-17.2); WHITE BLOOD COUNT 10.9 TH/MM3 (4.0-11.0)
[2017-08-01 11:11] LABS: BICARBONATE 26.9 MEQ/L (21.0-32.0); POTASSIUM 3.4 MEQ/L (3.5-5.1)
--- NOTE | 2017-08-01 14:48 | HHI.PR ---
Subjective Remarks Follow up UTI, lung mass. Patient states that she feels a little bit better today. No abdominal pain, nausea, vomiting. Denies chest pain, dyspnea. Objective Vitals Vital Signs Date Time Temp Pulse Resp B/P (MAP) Pulse Ox O2 Delivery O2 Flow Rate FiO2 08/01/17 12:05 98.1 82 20 178/75 (109) 95 08/01/17 11:36 Room Air 21 08/01/17 08:05 98.4 83 20 181/77 (111) 94 08/01/17 04:00 Room Air 08/01/17 04:00 98.0 77 16 162/72 (102) 95 08/01/17 00:00 Room Air 08/01/17 00:00 97.7 81 16 152/70 (97) 93 07/31/17 20:00 98.1 80 16 154/70 (98) 94 07/31/17 20:00 90 07/31/17 20:00 Room Air 07/31/17 15:36 98.5 88 20 136/63 (87) 96 I/O 07/31/17 07/31/17 07/31/17 08/01/17 08/01/17 08/01/17 07:00 15:00 23:00 07:00 15:00 23:00 Intake Total 200 ml 1280 ml Balance 200 ml 1280 ml Intake Oral 1080 ml IV Total 200 ml 200 ml # Voids 2 3 4 # Bowel Movements 0 Result Diagram: 08/01/17 0957 08/01/17 0957 Imaging Last Impressions Chest CT 07/31/17 0000 Signed Impressions: Service Date/Time: Monday, July 31, 2017 14:47 - CONCLUSION: 1. 1.8 cm bilobed complex mass in the right lower lobe with associated right bronchopulmonary lymphadenopathy. Malignancy is suspected. 2. Calcific coronary disease. Maximiliano Brown MD Abdomen/Pelvis CT 07/28/17 1419 Signed Impressions: Service Date/Time: Friday, July 28, 2017 17:07 - CONCLUSION: 1. Abnormal appearance to multiple loops of small bowel in the left hypogastric region with wall thickening and induration of the adjacent mesentery. This suggests an inflammatory or infectious process. 2. Infiltrate or mass in the medial right lower lung with solid component measuring 6 mm. 3. Free fluid about the dome of the liver, left paracolic gutter, and root of the mesentery. 4. Umbilical hernia and hiatus hernia similar in appearance to prior CT. Joe Reyes MD Objective Remarks General: Obese elderly female in no acute distress. Heart: Regular rate and rhythm. No murmur. Lungs: Clear to auscultation bilaterally. No wheezes, rales, or rhonchi. Breathing is nonlabored. Abdomen: Soft, tender to palpation in the periumbilical area, nondistended. Umbilical hernia noted, reducible. Extremities: No lower extremity edema. Psych: Alert and oriented. Procedures 07/29/17 EGD Urinary Catheter: No Vascular Central Line Catheter: No A/P Problem List: (1) Dehydration ICD Code: E86.0 - Dehydration (2) Acute renal insufficiency ICD Code: N28.9 - Disorder of kidney and ureter, unspecified (3) Hyperkalemia ICD Code: E87.5 - Hyperkalemia Status: Resolved (4) Enteritis ICD Code: K52.9 - Noninfective gastroenteritis and colitis, unspecified Status: Acute (5) GI bleed ICD Code: K92.2 - Gastrointestinal hemorrhage, unspecified Status: Acute (6) Lung mass ICD Code: R91.8 - Other nonspecific abnormal finding of lung field Assessment and Plan 1. 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 Continue Protonix. Appreciate GI recommendations. Monitor H& H. C. difficile ordered, but patient not having loose stools. 2. Anemia: Possibly secondary to GI bleed. Monitor H&H. 3. UTI: Urine culture growing Escherichia coli ESBL. Appreciate infectious disease recommendations. Continue ertapenem, likely 2 weeks. 4. Acute renal insufficiency: Likely secondary to dehydration. Improved with IV fluids. 5. Chronic diastolic heart failure: Continue Lasix, Aldactone. Use caution with IV fluids. 6. Diabetes mellitus: Continue Levemir. Monitor Accu-Cheks and cover with sliding scale insulin. 7. Hypertension: Continue lisinopril, Procardia, hydralazine. 8. DVT prophylaxis: SCDs, TYLRE hose. Resume Coumadin. 9. Umbilical hernia: Consult general surgery. 10. Lung mass: Chest CT shows 1.8 cm bilobed complex mass in the right lower lobe with associated right bronchopulmonary lymphadenopathy. Concerning for malignancy. Consult pulmonology. 11. Atrial fibrillation: Appreciate cardiology recommendations. Started back on Coumadin. Problem Qualifiers (1) GI bleed: Qualified Codes: K92.2 - Gastrointestinal hemorrhage, unspecified Khanh Frankel MD Aug 01, 2017 14:48
[2017-08-01] MEDS: WARFARIN SOD 7.5 MG TAB PO SCH (17:30)
[2017-08-01] MEDS: ATORVASTATIN 20 MG TAB PO SCH (20:31)
[2017-08-01] MEDS: ERTAPENEM INJ 1,000 MG in SODIUM CHLORIDE 0.9% INJ 100 ML IV SCH (20:31)
[2017-08-01] MEDS: INSULIN DETEMIR 100 UNITS/ML VIAL SQ SCH (20:37)
[2017-08-02] VITALS (7 sets, daily range): BP systolic 122–167; BP diastolic 58–77; PULSE 70–94; RESP 18–19; TEMP 98.1–98.6; O2SAT 94–98
[2017-08-02] MEDS: LEVOTHYROXINE SODIUM 88 MCG TAB PO SCH (06:06)
[2017-08-02] MEDS: INSULIN ASPART SUPPLEMENTAL SCALE SQ SCH ×4 (06:07→20:41)
[2017-08-02] MEDS: SODIUM CHLORIDE 0.9% FLUSH 10 ML FLUSH IV FLUSH SCH ×2 (07:47→20:43)
[2017-08-02 08:13] LABS: AUTOMATED NEUTROPHIL # 8.1 TH/MM3 (1.8-7.7); BASOPHIL # 0.1 TH/MM3 (0-0.2); BASOPHIL % 0.8 % (0.0-2.0); EOSINOPHIL # 0.2 TH/MM3 (0-0.4); HEMATOCRIT 33.2 % (35.0-46.0); HEMO FLAGS DIFF FINAL; LYMPHOCYTE # 1.9 TH/MM3 (1.0-4.8); MEAN CELL VOLUME 86.5 FL (80.0-100.0); MEAN CORPUSCULAR HEMOGLOBIN 27.1 PG (27.0-34.0); MEAN CORPUSCULAR HGB CONC 31.3 % (32.0-36.0); MONO % 8.5 % (0.0-8.0); NEUT % 71.7 % (16.0-70.0); PLATELET COUNT 238 TH/MM3 (150-450); RED BLOOD COUNT 3.83 MIL/MM3 (4.00-5.30); RED CELL DISTRIBUTION WIDTH 18.1 % (11.6-17.2); WHITE BLOOD COUNT 11.3 TH/MM3 (4.0-11.0)
[2017-08-02] MEDS: POLYETHYLENE GLYCOL 17 GM PKG PO SCH (08:15)
[2017-08-02] MEDS: hydrALAZINE HCL 50 MG TAB PO SCH ×3 (08:16→17:06)
[2017-08-02] MEDS: ACETAMINOPHEN 325 MG TAB PO PRN (08:16)
[2017-08-02] MEDS: SPIRONOLACTONE 50 MG TAB PO SCH (08:16)
[2017-08-02] MEDS: LISINOPRIL 20 MG TAB PO SCH ×2 (08:16→20:44)
[2017-08-02] MEDS: GABAPENTIN 300 MG CAP PO SCH ×3 (08:16→17:06)
[2017-08-02] MEDS: DOCUSATE SODIUM 100 MG CAP PO SCH ×2 (08:16→20:43)
[2017-08-02] MEDS: NIFEdipine 30 MG SUSTAINED RELEASE TAB PO SCH (08:16)
[2017-08-02] MEDS: FUROSEMIDE 20 MG TAB PO SCH (08:16)
[2017-08-02 08:31] LABS: BICARBONATE 30.4 MEQ/L (21.0-32.0); MAGNESIUM 1.5 MG/DL (1.5-2.5); POTASSIUM 3.4 MEQ/L (3.5-5.1)
[2017-08-02] MEDS: PANTOPRAZOLE SODIUM 40 MG VIAL IV PUSH SCH ×2 (09:15→20:44)
--- NOTE | 2017-08-02 14:43 | HHI.PR ---
Subjective Remarks Follow-up UTI, lung mass. Patient feels tired today. She reports constipation. Denies chest pain or dyspnea. Cough is nonproductive. Objective Vitals Vital Signs Date Time Temp Pulse Resp B/P (MAP) Pulse Ox O2 Delivery O2 Flow Rate FiO2 08/02/17 12:05 98.6 72 19 156/74 (101) 95 08/02/17 09:25 Room Air 21 08/02/17 09:22 Room Air 21 08/02/17 08:05 98.5 74 19 160/77 (104) 94 08/02/17 04:00 98.4 90 18 167/75 (105) 98 08/02/17 00:00 98.1 94 18 122/58 (79) 98 08/02/17 00:00 Room Air 08/01/17 20:00 97.7 93 18 134/60 (84) 94 08/01/17 20:00 79 08/01/17 20:00 Room Air 08/01/17 16:05 98.5 85 19 157/72 (100) 93 I/O 08/01/17 08/01/17 08/01/17 08/02/17 08/02/17 08/02/17 07:00 15:00 23:00 07:00 15:00 23:00 Intake Total 320 ml 340 ml Balance 320 ml 340 ml Intake Oral 320 ml 240 ml IV Total 100 ml # Voids 4 4 3 # Bowel Movements 2 0 Result Diagram: 08/02/17 0710 08/02/17 0710 Imaging Last Impressions Chest CT 07/31/17 0000 Signed Impressions: Service Date/Time: Monday, July 31, 2017 14:47 - CONCLUSION: 1. 1.8 cm bilobed complex mass in the right lower lobe with associated right bronchopulmonary lymphadenopathy. Malignancy is suspected. 2. Calcific coronary disease. Maximiliano Brown MD Abdomen/Pelvis CT 07/28/17 1419 Signed Impressions: Service Date/Time: Friday, July 28, 2017 17:07 - CONCLUSION: 1. Abnormal appearance to multiple loops of small bowel in the left hypogastric region with wall thickening and induration of the adjacent mesentery. This suggests an inflammatory or infectious process. 2. Infiltrate or mass in the medial right lower lung with solid component measuring 6 mm. 3. Free fluid about the dome of the liver, left paracolic gutter, and root of the mesentery. 4. Umbilical hernia and hiatus hernia similar in appearance to prior CT. Joe Reyes MD Objective Remarks General: Obese elderly female in no acute distress. Sitting up in a chair. Heart: Regular rate and rhythm. No murmur. Lungs: Clear to auscultation bilaterally. No wheezes, rales, or rhonchi. Breathing is nonlabored. Abdomen: Soft, tender to palpation in the periumbilical area, nondistended. Umbilical hernia noted. Extremities: No lower extremity edema. Psych: Alert and oriented. Procedures 07/29/17 EGD Urinary Catheter: No Vascular Central Line Catheter: No A/P Problem List: (1) Dehydration ICD Code: E86.0 - Dehydration (2) Acute renal insufficiency ICD Code: N28.9 - Disorder of kidney and ureter, unspecified (3) Hyperkalemia ICD Code: E87.5 - Hyperkalemia Status: Resolved (4) Enteritis ICD Code: K52.9 - Noninfective gastroenteritis and colitis, unspecified Status: Acute (5) GI bleed ICD Code: K92.2 - Gastrointestinal hemorrhage, unspecified Status: Acute (6) Lung mass ICD Code: R91.8 - Other nonspecific abnormal finding of lung field Assessment and Plan 1. 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 Continue Protonix. Appreciate GI recommendations. Monitor H& H. 2. Anemia: Possibly secondary to GI bleed. H&H trending up. 3. UTI: Urine culture growing Escherichia coli ESBL. Appreciate infectious disease recommendations. Continue ertapenem, likely 2 weeks. 4. Acute renal insufficiency: Likely secondary to dehydration. Resolved. 5. Chronic diastolic heart failure: Continue Lasix, Aldactone. Use caution with IV fluids. 6. Diabetes mellitus: Continue Levemir. Monitor Accu-Cheks and cover with sliding scale insulin. 7. Hypertension: Continue lisinopril, Procardia, hydralazine. 8. DVT prophylaxis: SCDs, TYLER hose. Continue Coumadin. 9. Umbilical hernia: Appreciate general surgery recommendations. Nonoperative treatment at this time. 10. Lung mass: Chest CT shows 1.8 cm bilobed complex mass in the right lower lobe with associated right bronchopulmonary lymphadenopathy. Concerning for malignancy. Pulmonology consultation is pending. 11. Atrial fibrillation: Appreciate cardiology recommendations. Started back on Coumadin. Monitor INR. Problem Qualifiers (1) GI bleed: Qualified Codes: K92.2 - Gastrointestinal hemorrhage, unspecified Khanh Frankel MD Aug 02, 2017 14:43
[2017-08-02 15:06] LABS: INTERNATIONAL NORMALIZED RATIO 1.1 RATIO; PROTHROMBIN TIME - PATIENT 11.7 SEC (9.8-11.6)
[2017-08-02] MEDS: WARFARIN SOD 7.5 MG TAB PO SCH (17:06)
--- NOTE | 2017-08-02 17:27 | HHI.PR ---
Subjective Subjective Notes pt lying in bed comfortably no n/v pos flatus Objective Vitals/I&O Vital Signs Date Time Temp Pulse Resp B/P (MAP) Pulse Ox O2 Delivery O2 Flow Rate FiO2 08/02/17 12:05 98.6 72 19 156/74 (101) 95 08/02/17 09:25 Room Air 21 Labs Laboratory Tests Test 08/02/17 07:10 08/02/17 13:50 White Blood Count 11.3 Red Blood Count 3.83 Hemoglobin 10.4 Hematocrit 33.2 Mean Corpuscular Volume 86.5 Mean Corpuscular Hemoglobin 27.1 Mean Corpuscular Hemoglobin Concent 31.3 Red Cell Distribution Width 18.1 Platelet Count 238 Mean Platelet Volume 8.0 Neutrophils (%) (Auto) 71.7 Lymphocytes (%) (Auto) 17.0 Monocytes (%) (Auto) 8.5 Eosinophils (%) (Auto) 2.0 Basophils (%) (Auto) 0.8 Neutrophils # (Auto) 8.1 Lymphocytes # (Auto) 1.9 Monocytes # (Auto) 1.0 Eosinophils # (Auto) 0.2 Basophils # (Auto) 0.1 CBC Comment DIFF FINAL Differential Comment Blood Urea Nitrogen 9 Creatinine 0.83 Random Glucose 135 Calcium Level 8.6 Magnesium Level 1.5 Sodium Level 141 Potassium Level 3.4 Chloride Level 103 Carbon Dioxide Level 30.4 Anion Gap 8 Estimat Glomerular Filtration Rate 66 Prothrombin Time 11.7 Prothromb Time International Ratio 1.1 Date/Time Source Procedure Growth Status 07/28/17 14:47 Blood Peripheral Aerobic Blood Culture - Final NO GROWTH IN 5 DAYS Complete 07/28/17 14:47 Blood Peripheral Anaerobic Blood Culture - Final NO GROWTH IN 5 DAYS Complete 07/28/17 15:00 Urine Clean Catch Urine Culture - Final Escherichia Coli Esbl Positive Complete Radiology Last Impressions Abdomen/Pelvis CT 07/28/17 1829 Signed Impressions: Service Date/Time: Friday, July 28, 2017 17:07 - CONCLUSION: 1. Abnormal appearance to multiple loops of small bowel in the left hypogastric region with wall thickening and induration of the adjacent mesentery. This suggests an inflammatory or infectious process. 2. Infiltrate or mass in the medial right lower lung with solid component measuring 6 mm. 3. Free fluid about the dome of the liver, left paracolic gutter, and root of the mesentery. 4. Umbilical hernia and hiatus hernia similar in appearance to prior CT. Joe Reyes MD Narrative Exam umbilical defect with tenderness A/P Assessment and Plan Non obstructing umbilical hernia mina diet ' ambulate no surgical intervention Vinicio Rojas MD Aug 02, 2017 17:27
[2017-08-02] MEDS: INSULIN DETEMIR 100 UNITS/ML VIAL SQ SCH (20:40)
[2017-08-02] MEDS: ATORVASTATIN 20 MG TAB PO SCH (20:43)
[2017-08-02] MEDS: ERTAPENEM INJ 1,000 MG in SODIUM CHLORIDE 0.9% INJ 100 ML IV SCH (20:44)
[2017-08-03] VITALS (9 sets, daily range): BP systolic 134–175; BP diastolic 63–75; PULSE 61–106; RESP 18–34; TEMP 98–99.3; O2SAT 93–94
[2017-08-03] MEDS: INSULIN ASPART SUPPLEMENTAL SCALE SQ SCH ×3 (05:59→17:10)
[2017-08-03] MEDS: LEVOTHYROXINE SODIUM 88 MCG TAB PO SCH (06:13)
--- NOTE | 2017-08-03 08:22 | HHI.GIFU ---
Subjective Remarks Resting in bed. No nausea, vomiting. Umbilical hernia tender on exam, no other abdominal tenderness. No GI bleeding. Tolerating diet. (Katrina South) Objective Vitals I&O Vital Signs Date Time Temp Pulse Resp B/P (MAP) Pulse Ox O2 Delivery O2 Flow Rate FiO2 08/03/17 04:00 Room Air 08/03/17 04:00 99.3 61 18 142/64 (90) 94 08/03/17 00:00 98.0 87 18 137/63 (87) 93 08/03/17 00:00 Room Air 08/02/17 20:10 87 08/02/17 20:00 Room Air 08/02/17 20:00 98.6 70 18 143/65 (91) 94 08/02/17 16:05 98.5 76 18 149/65 (93) 94 08/02/17 12:05 98.6 72 19 156/74 (101) 95 08/02/17 09:25 Room Air 21 08/02/17 09:22 Room Air 21 I/O 08/02/17 08/02/17 08/02/17 08/03/17 08/03/17 08/03/17 07:00 15:00 23:00 07:00 15:00 23:00 Intake Total 340 ml 380 ml 340 ml Balance 340 ml 380 ml 340 ml Intake Oral 240 ml 380 ml 240 ml IV Total 100 ml 100 ml # Voids 3 3 2 # Bowel Movements 0 1 0 Laboratory Laboratory Tests Test 08/02/17 13:50 Prothrombin Time 11.7 Prothromb Time International Ratio 1.1 Date/Time Source Procedure Growth Status 07/28/17 14:47 Blood Peripheral Aerobic Blood Culture - Final NO GROWTH IN 5 DAYS Complete 07/28/17 14:47 Blood Peripheral Anaerobic Blood Culture - Final NO GROWTH IN 5 DAYS Complete 07/28/17 15:00 Urine Clean Catch Urine Culture - Final Escherichia Coli Esbl Positive Complete Imaging Last Impressions Chest CT 07/31/17 0000 Signed Impressions: Service Date/Time: Monday, July 31, 2017 14:47 - CONCLUSION: 1. 1.8 cm bilobed complex mass in the right lower lobe with associated right bronchopulmonary lymphadenopathy. Malignancy is suspected. 2. Calcific coronary disease. Maximiliano Brown MD Abdomen/Pelvis CT 07/28/17 7319 Signed Impressions: Service Date/Time: Friday, July 28, 2017 17:07 - CONCLUSION: 1. Abnormal appearance to multiple loops of small bowel in the left hypogastric region with wall thickening and induration of the adjacent mesentery. This suggests an inflammatory or infectious process. 2. Infiltrate or mass in the medial right lower lung with solid component measuring 6 mm. 3. Free fluid about the dome of the liver, left paracolic gutter, and root of the mesentery. 4. Umbilical hernia and hiatus hernia similar in appearance to prior CT. Joe Reyes MD Physical Exam HEENT: PERRL; atraumatic; no jaundice. CHEST: diminished CARDIAC: RRR ABDOMEN: Soft, obese, nontender; no hepatosplenomegaly; bowel sounds are present in all four quadrants. Umbilical hernia- reducible tender EXTREMITIES: BLE edema. SKIN: Normal; no rash; no jaundice. EMBEDDED FIRMWARE DEVELOPER: No focal deficits; alert and oriented times three. (Katrina SouthP) Assessment and Plan Plan ASSESSMENT: - Upper GIB with coffee ground emesis and melena. Pt has hx of PUD, gastroparesis, gastritis, Barretts. Last EGD (12/14/16)----> Sanchez's esophagus , Gastritis in antrum, HH. Pathology with reactive gastropathy, as may be seen with bile reflux or drug therapy, gastric mucosa with intestinal metaplasia , consistent with sanchez's esophagus, small fragment of benign squamous mucosa. PPI. - Gastritis, Sanchez's esophagus. PPI - Anemia, acute blood loss. 10.4/33.2 - N/V, Abdominal pain. CT scan abdomen and pelvis (07/28/17)---> Abnormal appearance to multiple loops of small bowel in the left hypogastric region with wall thickening and induration of the adjacent mesentery. This suggests an inflammatory or infectious process. 2. Infiltrate or mass in the medial right lower lung with solid component measuring 6 mm. 3. Free fluid about the dome of the liver, left paracolic gutter, and root of the mesentery. 4. Umbilical hernia and hiatus hernia similar in appearance to prior CT. S/P EGD as above - gastritis, barretts. S/P GS evaluation for umbilical hernia- no surgical intervention. - Leukocytosis. WBC 11.3. She has infiltrate or mass in right medial lower lung, but has had lung nodule in that same area, increasing in size since January 2016. Per attending. Invanz. - Gastroparesis. Not having n/v at this time. soft diet - Gastritis, Sanchez's Esophagus, GERD. - Atrial fibrillation, TIA. On coumadin at home, has not taken for a few days. - Umbilical hernia, reducible. S/P GS evaluation- no surgical intervention - Abnormal infiltrate vs. mass in the medial right lower lobe. Of note, she has had right lower lobe lung nodule increasing in size since January of 2016. Further workup per attending. Pulmonary evaluation pending. - CKD, HTN, DM, Hypothyroidism per attending. PLAN: - JOAN- soft diet, small frequent meals at home, chew food well - Change protonix to po - Monitor labs - GI will sign off, please reconsult as needed - Pt seen and examined by Dr. Dexter and myself and this note is written on her behalf (Katrina South) Katrina South Aug 03, 2017 08:22 Jacqui Dexter MD Aug 03, 2017 20:29
[2017-08-03] MEDS: SPIRONOLACTONE 50 MG TAB PO SCH (09:21)
[2017-08-03] MEDS: GABAPENTIN 300 MG CAP PO SCH ×3 (09:21→17:07)
[2017-08-03] MEDS: DOCUSATE SODIUM 100 MG CAP PO SCH ×2 (09:21→22:35)
[2017-08-03] MEDS: POLYETHYLENE GLYCOL 17 GM PKG PO SCH (09:21)
[2017-08-03] MEDS: LISINOPRIL 20 MG TAB PO SCH ×2 (09:22→22:35)
[2017-08-03] MEDS: SODIUM CHLORIDE 0.9% FLUSH 10 ML FLUSH IV FLUSH SCH ×2 (09:22→22:35)
[2017-08-03] MEDS: NIFEdipine 30 MG SUSTAINED RELEASE TAB PO SCH (09:22)
[2017-08-03] MEDS: hydrALAZINE HCL 50 MG TAB PO SCH ×3 (09:22→17:07)
[2017-08-03] MEDS: PANTOPRAZOLE SOD 40 MG DELAYED RELEASE TAB PO SCH (09:22)
[2017-08-03] MEDS: FUROSEMIDE 20 MG TAB PO SCH (09:22)
[2017-08-03 09:43] LABS: AUTOMATED NEUTROPHIL # 8.4 TH/MM3 (1.8-7.7); BASOPHIL # 0.1 TH/MM3 (0-0.2); BASOPHIL % 0.7 % (0.0-2.0); EOSINOPHIL # 0.3 TH/MM3 (0-0.4); EOSINOPHIL % 2.4 % (0.0-4.0); HEMATOCRIT 31.4 % (35.0-46.0); HEMO FLAGS DIFF FINAL; LYMPH % 18.7 % (9.0-44.0); LYMPHOCYTE # 2.2 TH/MM3 (1.0-4.8); MEAN CELL VOLUME 86.1 FL (80.0-100.0); MEAN CORPUSCULAR HEMOGLOBIN 27.6 PG (27.0-34.0); MEAN CORPUSCULAR HGB CONC 32.1 % (32.0-36.0); MONO % 7.9 % (0.0-8.0); NEUT % 70.3 % (16.0-70.0); PLATELET COUNT 211 TH/MM3 (150-450); RED BLOOD COUNT 3.65 MIL/MM3 (4.00-5.30); RED CELL DISTRIBUTION WIDTH 17.7 % (11.6-17.2); WHITE BLOOD COUNT 11.9 TH/MM3 (4.0-11.0)
[2017-08-03 09:51] LABS: INTERNATIONAL NORMALIZED RATIO 1.1 RATIO; PROTHROMBIN TIME - PATIENT 12.1 SEC (9.8-11.6)
[2017-08-03 09:56] LABS: BICARBONATE 27.3 MEQ/L (21.0-32.0); POTASSIUM 3.5 MEQ/L (3.5-5.1)
--- NOTE | 2017-08-03 11:55 | HHI.PR ---
Subjective Remarks Follow-up UTI, constipation. Patient still has not had a bowel movement. She states that she feels tired, but otherwise better. She feels close to ready to go home. Objective Vitals Vital Signs Date Time Temp Pulse Resp B/P (MAP) Pulse Ox O2 Delivery O2 Flow Rate FiO2 08/03/17 09:18 101 08/03/17 09:18 Room Air 08/03/17 08:06 98.8 100 19 175/72 (106) 94 08/03/17 04:00 Room Air 08/03/17 04:00 99.3 61 18 142/64 (90) 94 08/03/17 00:00 98.0 87 18 137/63 (87) 93 08/03/17 00:00 Room Air 08/02/17 20:10 87 08/02/17 20:00 Room Air 08/02/17 20:00 98.6 70 18 143/65 (91) 94 08/02/17 16:05 98.5 76 18 149/65 (93) 94 08/02/17 12:05 98.6 72 19 156/74 (101) 95 I/O 08/02/17 08/02/17 08/02/17 08/03/17 08/03/17 08/03/17 07:00 15:00 23:00 07:00 15:00 23:00 Intake Total 340 ml 380 ml 340 ml Balance 340 ml 380 ml 340 ml Intake Oral 240 ml 380 ml 240 ml IV Total 100 ml 100 ml # Voids 3 3 2 # Bowel Movements 0 1 0 Result Diagram: 08/03/17 0900 08/03/17 0900 Imaging Last Impressions Chest CT 07/31/17 0000 Signed Impressions: Service Date/Time: Monday, July 31, 2017 14:47 - CONCLUSION: 1. 1.8 cm bilobed complex mass in the right lower lobe with associated right bronchopulmonary lymphadenopathy. Malignancy is suspected. 2. Calcific coronary disease. Maximiliano Brown MD Abdomen/Pelvis CT 07/28/17 1419 Signed Impressions: Service Date/Time: Friday, July 28, 2017 17:07 - CONCLUSION: 1. Abnormal appearance to multiple loops of small bowel in the left hypogastric region with wall thickening and induration of the adjacent mesentery. This suggests an inflammatory or infectious process. 2. Infiltrate or mass in the medial right lower lung with solid component measuring 6 mm. 3. Free fluid about the dome of the liver, left paracolic gutter, and root of the mesentery. 4. Umbilical hernia and hiatus hernia similar in appearance to prior CT. Joe Reyes MD Objective Remarks General: Obese elderly female in no acute distress. Heart: Regular rate and rhythm. No murmur. Lungs: Clear to auscultation bilaterally. No wheezes, rales, or rhonchi. Breathing is nonlabored. Abdomen: Soft, tender to palpation in the periumbilical area, nondistended. Umbilical hernia noted. Extremities: No lower extremity edema. Psych: Alert and oriented. Procedures 07/29/17 EGD Urinary Catheter: No Vascular Central Line Catheter: No A/P Problem List: (1) Dehydration ICD Code: E86.0 - Dehydration (2) Acute renal insufficiency ICD Code: N28.9 - Disorder of kidney and ureter, unspecified (3) Hyperkalemia ICD Code: E87.5 - Hyperkalemia Status: Resolved (4) Enteritis ICD Code: K52.9 - Noninfective gastroenteritis and colitis, unspecified Status: Acute (5) GI bleed ICD Code: K92.2 - Gastrointestinal hemorrhage, unspecified Status: Acute (6) Lung mass ICD Code: R91.8 - Other nonspecific abnormal finding of lung field Assessment and Plan 1. 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 Continue Protonix. Appreciate GI recommendations. Monitor H& H. 2. Anemia: Possibly secondary to GI bleed. H&H stable. 3. UTI: Urine culture growing Escherichia coli ESBL. Appreciate infectious disease recommendations. Continue ertapenem, likely 2 weeks. 4. Acute renal insufficiency: Likely secondary to dehydration. Resolved. 5. Chronic diastolic heart failure: Continue Lasix, Aldactone. Use caution with IV fluids. 6. Diabetes mellitus: Continue Levemir. Monitor Accu-Cheks and cover with sliding scale insulin. 7. Hypertension: Continue lisinopril, Procardia, hydralazine. 8. DVT prophylaxis: SCDs, TYLER hose. Continue Coumadin. 9. Umbilical hernia: Appreciate general surgery recommendations. Nonoperative treatment at this time. 10. Lung mass: Chest CT shows 1.8 cm bilobed complex mass in the right lower lobe with associated right bronchopulmonary lymphadenopathy. Concerning for malignancy. Pulmonology consultation is pending. 11. Atrial fibrillation: Appreciate cardiology recommendations. Started back on Coumadin. Monitor INR. 12. Hypokalemia: Mild. Improved. Discharge Planning Possible discharge home with home health soon. Pulmonology consultation pending and outpatient IV antibiotics would need to be arranged prior to discharge. Problem Qualifiers (1) GI bleed: Qualified Codes: K92.2 - Gastrointestinal hemorrhage, unspecified Khanh Frankel MD Aug 03, 2017 11:55
[2017-08-03 14:19] LABS: BLOOD GAS BASE EXCESS 5.9 mmol/L (-2-2); BLOOD GAS CARBOXYHEMOGLOBIN 1.6 % (0-4); BLOOD GAS HCO3 30 mmol/L (22-26); BLOOD GAS METHEMOGLOBIN 0.9 % (0-2); BLOOD GAS O2 HGB SATURATION 92 % (90-100); BLOOD GAS OXYGEN CONTENT 18.5 Vol % (12.0-20.0); BLOOD GAS PCO2 43 mmHg (38-42); BLOOD GAS PO2 74 mmHg (61-120); BLOOD GAS TOTAL HGB 14.2 G/DL (12.0-16.0); TEMP CORR TO 98.6
[2017-08-03 14:20] LABS: CRITICAL VALUE NO; DRAW SITE RT RADIAL; FIO2 21 %; NUMBER OF ARTERIAL PUNCTURES 1; STAT NO; ULNAR PULSE PRESENT
[2017-08-03] MEDS ORDERED: WARFARIN SOD 2.5 MG TAB PO ONE (16:00)
[2017-08-03] MEDS: WARFARIN SOD 7.5 MG TAB PO SCH (17:07)
[2017-08-03] MEDS: TEMAZEPAM 15 MG CAP PO PRN (22:35)
[2017-08-03] MEDS: ERTAPENEM INJ 1,000 MG in SODIUM CHLORIDE 0.9% INJ 100 ML IV SCH (22:35)
[2017-08-03] MEDS: ATORVASTATIN 20 MG TAB PO SCH (22:36)
[2017-08-04] VITALS (9 sets, daily range): BP systolic 119–158; BP diastolic 61–83; PULSE 75–93; RESP 16–32; TEMP 96.2–98.6; O2SAT 93–96
[2017-08-04] MEDS: INSULIN DETEMIR 100 UNITS/ML VIAL SQ SCH ×2 (00:07→21:49)
[2017-08-04] MEDS: INSULIN ASPART SUPPLEMENTAL SCALE SQ SCH ×5 (00:08→21:50)
[2017-08-04] MEDS: LEVOTHYROXINE SODIUM 88 MCG TAB PO SCH (05:42)
[2017-08-04] MEDS: PANTOPRAZOLE SOD 40 MG DELAYED RELEASE TAB PO SCH (09:01)
[2017-08-04] MEDS: NIFEdipine 30 MG SUSTAINED RELEASE TAB PO SCH (09:01)
[2017-08-04] MEDS: SODIUM CHLORIDE 0.9% FLUSH 10 ML FLUSH IV FLUSH SCH ×2 (09:01→21:46)
[2017-08-04] MEDS: DOCUSATE SODIUM 100 MG CAP PO SCH ×2 (09:01→21:45)
[2017-08-04] MEDS: LISINOPRIL 20 MG TAB PO SCH ×2 (09:01→21:44)
[2017-08-04] MEDS: hydrALAZINE HCL 50 MG TAB PO SCH ×3 (09:01→17:25)
[2017-08-04] MEDS: GABAPENTIN 300 MG CAP PO SCH ×3 (09:01→17:25)
[2017-08-04] MEDS: SPIRONOLACTONE 50 MG TAB PO SCH (09:01)
[2017-08-04] MEDS: FUROSEMIDE 20 MG TAB PO SCH (09:01)
[2017-08-04] MEDS: POLYETHYLENE GLYCOL 17 GM PKG PO SCH (09:01)
--- NOTE | 2017-08-04 09:41 | MB ---
cc: SHAYNA CORRAL M.D. DATE OF CONSULTATION: 08/03/2017 REASON FOR CONSULTATION Right lower lobe lung mass malignancy suspect. HISTORY OF PRESENT ILLNESS Mrs. Lucas is a 82-year-old female nonsmoker who presents with coffee-ground emesis, underlying esophagitis was the diagnosis post endoscopy. The patient does have history of paroxysmal atrial fibrillation, is followed by cardiology as well. She denies shortness of breath, fever, chills, cough expectoration, admits to loud snoring, waking up at night with a choking sensation on occasion. PAST MEDICAL HISTORY Past medical history is that of: 1. Paroxysmal atrial fibrillation. 2. TIA times three. 3. Diabetes mellitus. 4. Hypothyroidism. 5. Chronic kidney disease. 6. Knee replacement. 7. Cholecystectomy. 8. Hysterectomy in the past. MEDICATIONS Medications at home include: 1. Nifedipine. 2. Coumadin. 3. Gabapentin. 4. Hydralazine. 5. Clonidine. 6. Insulin. 7. Ecotrin. 8. Aldactone. 9. Lisinopril. 10. Levothyroxine. 11. Lipitor. 12. Metformin. ALLERGIES PENICILLIN. FAMILY HISTORY Noncontributory. SOCIAL HISTORY Does not smoke, does not drink, does not use drugs. REVIEW OF SYSTEMS 12-point review of systems as per HPI and past history, otherwise negative. PHYSICAL EXAMINATION VITAL SIGNS: Temperature 98, pulse 84, respirations 18, blood pressure 140/70. HEENT: Exam unremarkable. Eyes without icterus. NECK: Without adenopathy, thyroid enlargement. Central trachea. CHEST: No dullness to percussion, clear to auscultation. CARDIAC: PMI not appreciated. S1-S2 audible. No murmur or rub. ABDOMEN: Lax. Bowel sounds audible. EXTREMITIES: No clubbing, cyanosis or edema. SKIN: Normal. No lymphadenopathy. IMPRESSION 1. Right lung mass malignancy suspect. 2. Paroxysmal atrial fibrillation. 3. GI bleed. PLAN The patient has no significant smoking history, however, the appearance of lung mass by CT is suspicious for malignancy. Therefore, will proceed with bronchoscopic examination in hopes of obtaining tissue diagnosis. Will obtain baseline pulmonary function as well as arterial blood gas. Follow up the patient's course with you and depending on progress proceed further. I do thank you for asking me to partake in Mrs. Lucas's care. Shayna Corral MD WWW/DINAHL /1:29 PM /9:24 AM
[2017-08-04 10:19] LABS: INTERNATIONAL NORMALIZED RATIO 1.3 RATIO; PROTHROMBIN TIME - PATIENT 14.6 SEC (9.8-11.6)
--- NOTE | 2017-08-04 10:30 | RSPPFT ---
DATE OF PROCEDURE: 08/03/17 COMMENTS: Spirometry with FVC of 1.8, FEV1 of 1.3, FEV1/FVC ratio at 70%. A non-significant response to acutely inhaled bronchodilator noted. IMPRESSION: 1. Moderately severe airways obstruction. 2. Non-significant response to acutely inhaled bronchodilator.
--- NOTE | 2017-08-04 12:29 | HHI.PR ---
Subjective Remarks ALERT NO SOB Objective Vital Signs Date Time Temp Pulse Resp B/P (MAP) Pulse Ox O2 Delivery O2 Flow Rate FiO2 08/04/17 12:00 97.2 85 18 119/61 (80) 95 08/04/17 08:55 89 08/04/17 08:55 Room Air 08/04/17 08:00 96.2 79 17 158/67 (97) 93 08/04/17 04:45 98.2 93 28 149/65 (93) 96 08/04/17 00:06 98.6 85 32 154/83 (106) 93 08/03/17 23:00 91 08/03/17 20:45 98.4 106 34 161/75 (103) 94 08/03/17 19:00 Room Air 08/03/17 16:06 98.1 85 20 142/68 (92) 93 I/O 08/03/17 08/03/17 08/03/17 08/04/17 08/04/17 08/04/17 07:00 15:00 23:00 07:00 15:00 23:00 Intake Total 340 ml 360 ml 570 ml Balance 340 ml 360 ml 570 ml Intake Oral 240 ml 360 ml 570 ml IV Total 100 ml # Voids 2 3 7 # Bowel Movements 0 1 0 Result Diagram: 08/03/17 0900 08/03/17 0900 Objective Remarks Laboratory Tests Test 08/02/17 07:10 08/02/17 13:50 08/03/17 09:00 08/03/17 14:03 White Blood Count 11.3 TH/MM3 (4.0-11.0) 11.9 TH/MM3 (4.0-11.0) Red Blood Count 3.83 MIL/MM3 (4.00-5.30) 3.65 MIL/MM3 (4.00-5.30) Hemoglobin 10.4 GM/DL (11.6-15.3) 10.1 GM/DL (11.6-15.3) Hematocrit 33.2 % (35.0-46.0) 31.4 % (35.0-46.0) Mean Corpuscular Hemoglobin Concent 31.3 % (32.0-36.0) Red Cell Distribution Width 18.1 % (11.6-17.2) 17.7 % (11.6-17.2) Neutrophils (%) (Auto) 71.7 % (16.0-70.0) 70.3 % (16.0-70.0) Monocytes (%) (Auto) 8.5 % (0.0-8.0) Neutrophils # (Auto) 8.1 TH/MM3 (1.8-7.7) 8.4 TH/MM3 (1.8-7.7) Monocytes # (Auto) 1.0 TH/MM3 (0-0.9) Random Glucose 135 MG/DL (74-106) 144 MG/DL (74-106) Potassium Level 3.4 MEQ/L (3.5-5.1) Estimat Glomerular Filtration Rate 66 ML/MIN (>89) 81 ML/MIN (>89) Prothrombin Time 11.7 SEC (9.8-11.6) 12.1 SEC (9.8-11.6) Calcium Level 8.0 MG/DL (8.5-10.1) Blood Gas HCO3 30 mmol/L (22-26) Blood Gas Base Excess 5.9 mmol/L (-2-2) Arterial Blood pH 7.46 (7.380-7.420) Arterial Blood Partial Pressure CO2 43 mmHg (38-42) Test 08/04/17 09:26 Prothrombin Time 14.6 SEC (9.8-11.6) Medications and IVs GENERAL: SKIN: Warm and dry. HEAD: Atraumatic. Normocephalic. EYES: Pupils equal and round. No scleral icterus. No injection or drainage. ENT: No nasal bleeding or discharge. Mucous membranes pink and moist. NECK: Trachea midline. No JVD. CARDIOVASCULAR: Regular rate and rhythm. RESPIRATORY: No accessory muscle use. Clear to auscultation. Breath sounds equal bilaterally. GASTROINTESTINAL: Abdomen soft, non-tender, nondistended. Hepatic and splenic margins not palpable. MUSCULOSKELETAL: Extremities without clubbing, cyanosis, or edema. No obvious deformities. NEUROLOGICAL: Awake and alert. No obvious cranial nerve deficits. Motor grossly within normal limits. Five out of 5 muscle strength in the arms and legs. Normal speech. PSYCHIATRIC: Appropriate mood and affect; insight and judgment normal. Assessment and Plan Assessment and Plan LUNG MASS GI BLEED, DUE TO OESOPHAGITIS PLAN BRONCHOSCOPY Shayna Corral MD Aug 04, 2017 12:29
--- NOTE | 2017-08-04 13:41 | HHI.PR ---
Subjective Remarks Follow-up lung mass, UTI, constipation. The patient states that she feels much better today. She has no specific complaints at this time. Denies chest pain or dyspnea. Objective Vitals Vital Signs Date Time Temp Pulse Resp B/P (MAP) Pulse Ox O2 Delivery O2 Flow Rate FiO2 08/04/17 12:30 Room Air 08/04/17 12:00 97.2 85 18 119/61 (80) 95 08/04/17 08:55 89 08/04/17 08:55 Room Air 08/04/17 08:00 96.2 79 17 158/67 (97) 93 08/04/17 04:45 98.2 93 28 149/65 (93) 96 08/04/17 00:06 98.6 85 32 154/83 (106) 93 08/03/17 23:00 91 08/03/17 20:45 98.4 106 34 161/75 (103) 94 08/03/17 19:00 Room Air 08/03/17 16:06 98.1 85 20 142/68 (92) 93 I/O 08/03/17 08/03/17 08/03/17 08/04/17 08/04/17 08/04/17 07:00 15:00 23:00 07:00 15:00 23:00 Intake Total 340 ml 360 ml 570 ml Balance 340 ml 360 ml 570 ml Intake Oral 240 ml 360 ml 570 ml IV Total 100 ml # Voids 2 3 7 # Bowel Movements 0 1 0 Result Diagram: 08/03/17 0900 08/03/17 0900 Imaging Last Impressions Chest CT 07/31/17 0000 Signed Impressions: Service Date/Time: Monday, July 31, 2017 14:47 - CONCLUSION: 1. 1.8 cm bilobed complex mass in the right lower lobe with associated right bronchopulmonary lymphadenopathy. Malignancy is suspected. 2. Calcific coronary disease. Maximiliano Brown MD Abdomen/Pelvis CT 07/28/17 1419 Signed Impressions: Service Date/Time: Friday, July 28, 2017 17:07 - CONCLUSION: 1. Abnormal appearance to multiple loops of small bowel in the left hypogastric region with wall thickening and induration of the adjacent mesentery. This suggests an inflammatory or infectious process. 2. Infiltrate or mass in the medial right lower lung with solid component measuring 6 mm. 3. Free fluid about the dome of the liver, left paracolic gutter, and root of the mesentery. 4. Umbilical hernia and hiatus hernia similar in appearance to prior CT. Joe Reyes MD Objective Remarks General: Obese elderly female in no acute distress. Heart: Regular rate and rhythm. No murmur. Lungs: Clear to auscultation bilaterally. No wheezes, rales, or rhonchi. Breathing is nonlabored. Abdomen: Soft, nondistended. Umbilical hernia is tender. Extremities: No lower extremity edema. Psych: Alert and oriented. Procedures 07/29/17 EGD Urinary Catheter: No Vascular Central Line Catheter: No A/P Problem List: (1) Dehydration ICD Code: E86.0 - Dehydration (2) Acute renal insufficiency ICD Code: N28.9 - Disorder of kidney and ureter, unspecified (3) Hyperkalemia ICD Code: E87.5 - Hyperkalemia Status: Resolved (4) Enteritis ICD Code: K52.9 - Noninfective gastroenteritis and colitis, unspecified Status: Acute (5) GI bleed ICD Code: K92.2 - Gastrointestinal hemorrhage, unspecified Status: Acute (6) Lung mass ICD Code: R91.8 - Other nonspecific abnormal finding of lung field Assessment and Plan 1. 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 Continue Protonix. Appreciate GI recommendations. Monitor H& H. 2. Anemia: Possibly secondary to GI bleed. H&H stable. 3. UTI: Urine culture growing Escherichia coli ESBL. Appreciate infectious disease recommendations. Continue ertapenem, likely 2 weeks. 4. Acute renal insufficiency: Likely secondary to dehydration. Resolved. 5. Chronic diastolic heart failure: Continue Lasix, Aldactone. Use caution with IV fluids. 6. Diabetes mellitus: Continue Levemir. Monitor Accu-Cheks and cover with sliding scale insulin. 7. Hypertension: Continue lisinopril, Procardia, hydralazine. 8. DVT prophylaxis: SCDs, TYLER hose. Continue Coumadin. 9. Umbilical hernia: Appreciate general surgery recommendations. Nonoperative treatment at this time. 10. Lung mass: Chest CT shows 1.8 cm bilobed complex mass in the right lower lobe with associated right bronchopulmonary lymphadenopathy. Concerning for malignancy. Appreciate pulmonology recommendations. Patient will likely need bronchoscopy. 11. Atrial fibrillation: Appreciate cardiology recommendations. Started back on Coumadin. Monitor INR. 12. Hypokalemia: Mild. Improved. Discharge Planning Possible discharge home with home health soon. Pulmonology consultation pending and outpatient IV antibiotics would need to be arranged prior to discharge. Problem Qualifiers (1) GI bleed: Qualified Codes: K92.2 - Gastrointestinal hemorrhage, unspecified Khanh Frankel MD Aug 04, 2017 13:41
[2017-08-04] MEDS ORDERED: WARFARIN SOD 2.5 MG TAB PO ONE (16:00)
[2017-08-04] MEDS: WARFARIN SOD 7.5 MG TAB PO SCH (17:25)
[2017-08-04 17:29] LABS: INTERNATIONAL NORMALIZED RATIO 1.3 RATIO; PROTHROMBIN TIME - PATIENT 15.1 SEC (9.8-11.6)
[2017-08-04] MEDS: ATORVASTATIN 20 MG TAB PO SCH (21:43)
[2017-08-04] MEDS: ERTAPENEM INJ 1,000 MG in SODIUM CHLORIDE 0.9% INJ 100 ML IV SCH (21:45)
[2017-08-05] VITALS (7 sets, daily range): BP systolic 111–138; BP diastolic 58–81; PULSE 78–93; RESP 16–22; TEMP 97.4–99.1; O2SAT 93–97
[2017-08-05] MEDS ORDERED: INSULIN HUMAN REGULAR 1,000 UNITS/10 ML VIAL SQ PRN (04:45)
[2017-08-05] MEDS ORDERED: POVIDONE IODINE 5% (ANTISEPSIS KIT) 4 APPLICATIONS EACH NARE PRN (04:45)
[2017-08-05] MEDS ORDERED: METOPROLOL TARTRATE 25 MG TAB PO PRN (04:45)
[2017-08-05] MEDS ORDERED: CHLORHEXIDINE GLUCONATE 2 % 1 PACK (2 CLOTHS) TOPICAL PRN (04:45)
[2017-08-05] MEDS ORDERED: LACTATED RINGER'S 1000 ML IV PRN (04:45)
[2017-08-05] MEDS ORDERED: SODIUM CHLORID 0.9% 500 ML IV PRN (04:45)
[2017-08-05] MEDS: LEVOTHYROXINE SODIUM 88 MCG TAB PO SCH (05:25)
[2017-08-05] MEDS: INSULIN ASPART SUPPLEMENTAL SCALE SQ SCH ×4 (08:25→20:46)
[2017-08-05 09:29] LABS: INTERNATIONAL NORMALIZED RATIO 1.8 RATIO; PROTHROMBIN TIME - PATIENT 20.1 SEC (9.8-11.6)
[2017-08-05] MEDS: POLYETHYLENE GLYCOL 17 GM PKG PO SCH (09:49)
[2017-08-05] MEDS: DOCUSATE SODIUM 100 MG CAP PO SCH ×2 (09:50→20:44)
[2017-08-05] MEDS: hydrALAZINE HCL 50 MG TAB PO SCH ×3 (09:50→18:22)
[2017-08-05] MEDS: LISINOPRIL 20 MG TAB PO SCH ×2 (09:50→20:44)
[2017-08-05] MEDS: PANTOPRAZOLE SOD 40 MG DELAYED RELEASE TAB PO SCH (09:50)
[2017-08-05] MEDS: FUROSEMIDE 20 MG TAB PO SCH (09:50)
[2017-08-05] MEDS: SPIRONOLACTONE 50 MG TAB PO SCH (09:50)
[2017-08-05] MEDS: SODIUM CHLORIDE 0.9% FLUSH 10 ML FLUSH IV FLUSH SCH ×2 (09:50→20:45)
[2017-08-05] MEDS: NIFEdipine 30 MG SUSTAINED RELEASE TAB PO SCH (09:50)
[2017-08-05] MEDS: GABAPENTIN 300 MG CAP PO SCH ×3 (09:50→18:22)
[2017-08-05] MEDS ORDERED: PROPOFOL 200 MG/20 ML AMP IV ONE (10:51)
[2017-08-05] MEDS ORDERED: LIDOCAINE HCL 2% 50 ML VIAL ONE (14:32)
[2017-08-05] MEDS ORDERED: EPINEPHrine HCL (1:1000) 1 MG/ML VIAL ONE (14:32)
[2017-08-05] MEDS ORDERED: MIDAZOLAM HCL 2 MG/2 ML VIAL ONE (15:10)
[2017-08-05] MEDS ORDERED: FAMOTIDINE 20 MG/2 ML VIAL ONE (15:10)
[2017-08-05] MEDS ORDERED: DO NOT ADM ANY ANTICOAGULANT DRUGS PRN (15:55)
[2017-08-05] MEDS ORDERED: WARFARIN SOD 10 MG TAB PO SCH (16:00)
--- NOTE | 2017-08-05 16:16 | HHI.PR ---
Subjective Remarks ALERT NO SOB Objective Vital Signs Date Time Temp Pulse Resp B/P (MAP) Pulse Ox O2 Delivery O2 Flow Rate FiO2 08/05/17 14:32 113 120/80 08/05/17 12:00 97.7 78 18 138/61 (86) 96 08/05/17 08:25 Room Air 08/05/17 08:00 98.2 82 16 122/69 (86) 93 08/05/17 04:25 98.9 90 16 131/68 (89) 94 08/04/17 23:00 98.6 75 16 152/69 (96) 93 08/04/17 21:07 98.3 90 16 133/61 (85) 94 08/04/17 20:00 85 08/04/17 20:00 Room Air I/O 08/04/17 08/04/17 08/04/17 08/05/17 08/05/17 08/05/17 07:00 15:00 23:00 07:00 15:00 23:00 Intake Total 570 ml 720 ml 600 ml 200 ml Balance 570 ml 720 ml 600 ml 200 ml Intake Oral 570 ml 720 ml 600 ml Other 200 ml # Voids 7 3 7 # Bowel Movements 0 0 1 Result Diagram: 08/03/17 0900 08/03/17 0900 Objective Remarks Laboratory Tests Test 08/02/17 07:10 08/02/17 13:50 08/03/17 09:00 08/03/17 14:03 White Blood Count 11.3 TH/MM3 (4.0-11.0) 11.9 TH/MM3 (4.0-11.0) Red Blood Count 3.83 MIL/MM3 (4.00-5.30) 3.65 MIL/MM3 (4.00-5.30) Hemoglobin 10.4 GM/DL (11.6-15.3) 10.1 GM/DL (11.6-15.3) Hematocrit 33.2 % (35.0-46.0) 31.4 % (35.0-46.0) Mean Corpuscular Hemoglobin Concent 31.3 % (32.0-36.0) Red Cell Distribution Width 18.1 % (11.6-17.2) 17.7 % (11.6-17.2) Neutrophils (%) (Auto) 71.7 % (16.0-70.0) 70.3 % (16.0-70.0) Monocytes (%) (Auto) 8.5 % (0.0-8.0) Neutrophils # (Auto) 8.1 TH/MM3 (1.8-7.7) 8.4 TH/MM3 (1.8-7.7) Monocytes # (Auto) 1.0 TH/MM3 (0-0.9) Random Glucose 135 MG/DL (74-106) 144 MG/DL (74-106) Potassium Level 3.4 MEQ/L (3.5-5.1) Estimat Glomerular Filtration Rate 66 ML/MIN (>89) 81 ML/MIN (>89) Prothrombin Time 11.7 SEC (9.8-11.6) 12.1 SEC (9.8-11.6) Calcium Level 8.0 MG/DL (8.5-10.1) Blood Gas HCO3 30 mmol/L (22-26) Blood Gas Base Excess 5.9 mmol/L (-2-2) Arterial Blood pH 7.46 (7.380-7.420) Arterial Blood Partial Pressure CO2 43 mmHg (38-42) Test 08/04/17 09:26 Prothrombin Time 14.6 SEC (9.8-11.6) Assessment and Plan Assessment and Plan LUNG MASS GI BLEED, DUE TO OESOPHAGITIS PLAN BRONCHOSCOPY today Shayna Corral MD Aug 05, 2017 16:16
--- NOTE | 2017-08-05 17:47 | MR ---
cc: CHARANJIT DONOHUE Corrected Copy: 08/06/17 DATE: 08/05/2017 PROCEDURE Fiberoptic bronchoscopy flexible fiberoptic. REASON FOR PROCEDURE: Reason for bronchoscopy, right lower lobe lung mass underlying malignancy, suspect fiberoptic bronchoscopy performed via endotracheal tube lower trachea moderately hyperemic with thick mucoid secretion right upper, middle and lower lobes, left upper and lower lobes inspected. Thick mucous plugs removed. Diffuse mild to moderate hyperemia throughout noted. No mass lesion or obstruction identified. Washings obtained from both sides of the tracheobronchial tree for routine TB, fungal cultures as well as cytological exam, cytological brushings right lower lung lobe obtained and brush biopsies obtained right lower lung lobe for cytological exam procedure well tolerated. The patient transferred to recovery in stable condition. IMPRESSION: 1. Moderate tracheobronchitis 2. Excess mucoid secretion and plugging. 3. No endobronchial obstruction or mass lesion 4. Samples obtained as above. 5. Procedure well tolerated. 6. The patient transferred to recovery in stable condition. MD EDUARD Flores/anibal /4:15 PM /8:13 AM
--- NOTE | 2017-08-05 18:15 | HHI.PR ---
Subjective Remarks Follow up UTI, lung mass. S/P bronchoscopy today. Patient is sleepy, but states that she feels OK. Denies chest pain, dyspnea. Objective Vitals Vital Signs Date Time Temp Pulse Resp B/P (MAP) Pulse Ox O2 Delivery O2 Flow Rate FiO2 08/05/17 16:25 85 22 122/59 (80) 97 Nasal Cannula 2 08/05/17 16:15 88 22 129/60 (83) 98 Nasal Cannula 3 08/05/17 16:00 91 24 136/63 (87) 98 Nasal Cannula 4 08/05/17 15:56 97.6 95 22 133/61 (85) 98 Nasal Cannula 5 08/05/17 14:32 113 120/80 08/05/17 12:00 97.7 78 18 138/61 (86) 96 08/05/17 08:25 Room Air 08/05/17 08:05 92 08/05/17 08:00 98.2 82 16 122/69 (86) 93 08/05/17 04:25 98.9 90 16 131/68 (89) 94 08/04/17 23:00 98.6 75 16 152/69 (96) 93 08/04/17 21:07 98.3 90 16 133/61 (85) 94 08/04/17 20:00 85 08/04/17 20:00 Room Air I/O 08/04/17 08/04/17 08/04/17 08/05/17 08/05/17 08/05/17 07:00 15:00 23:00 07:00 15:00 23:00 Intake Total 570 ml 720 ml 600 ml 220 ml Balance 570 ml 720 ml 600 ml 220 ml Intake Oral 570 ml 720 ml 600 ml IV Total 20 ml Other 200 ml # Voids 7 3 7 1 # Bowel Movements 0 0 1 Result Diagram: 08/03/17 0900 08/03/17 0900 Imaging Last Impressions Chest CT 07/31/17 0000 Signed Impressions: Service Date/Time: Monday, July 31, 2017 14:47 - CONCLUSION: 1. 1.8 cm bilobed complex mass in the right lower lobe with associated right bronchopulmonary lymphadenopathy. Malignancy is suspected. 2. Calcific coronary disease. Maximiliano Brown MD Abdomen/Pelvis CT 07/28/17 1419 Signed Impressions: Service Date/Time: Friday, July 28, 2017 17:07 - CONCLUSION: 1. Abnormal appearance to multiple loops of small bowel in the left hypogastric region with wall thickening and induration of the adjacent mesentery. This suggests an inflammatory or infectious process. 2. Infiltrate or mass in the medial right lower lung with solid component measuring 6 mm. 3. Free fluid about the dome of the liver, left paracolic gutter, and root of the mesentery. 4. Umbilical hernia and hiatus hernia similar in appearance to prior CT. Joe Reyes MD Objective Remarks General: Obese elderly female in no acute distress. Heart: Regular rate and rhythm. No murmur. Lungs: Clear to auscultation bilaterally. No wheezes, rales, or rhonchi. Breathing is nonlabored. Abdomen: Soft, nondistended. Umbilical hernia is tender. Extremities: No lower extremity edema. Psych: Sleepy, but answers questions. Procedures 07/29/17 EGD Urinary Catheter: No Vascular Central Line Catheter: No A/P Problem List: (1) Dehydration ICD Code: E86.0 - Dehydration (2) Acute renal insufficiency ICD Code: N28.9 - Disorder of kidney and ureter, unspecified (3) Hyperkalemia ICD Code: E87.5 - Hyperkalemia Status: Resolved (4) Enteritis ICD Code: K52.9 - Noninfective gastroenteritis and colitis, unspecified Status: Acute (5) GI bleed ICD Code: K92.2 - Gastrointestinal hemorrhage, unspecified Status: Acute (6) Lung mass ICD Code: R91.8 - Other nonspecific abnormal finding of lung field Assessment and Plan 1. 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 Continue Protonix. Appreciate GI recommendations. Monitor H& H. 2. Anemia: Possibly secondary to GI bleed. H&H stable. 3. UTI: Urine culture growing Escherichia coli ESBL. Appreciate infectious disease recommendations. Continue ertapenem, likely 2 weeks. 4. Acute renal insufficiency: Likely secondary to dehydration. Resolved. 5. Chronic diastolic heart failure: Continue Lasix, Aldactone. Use caution with IV fluids. 6. Diabetes mellitus: Continue Levemir. Monitor Accu-Cheks and cover with sliding scale insulin. 7. Hypertension: Continue lisinopril, Procardia, hydralazine. 8. DVT prophylaxis: SCDs, TYLER mtz. Continue Coumadin. 9. Umbilical hernia: Appreciate general surgery recommendations. Nonoperative treatment at this time. 10. Lung mass: Chest CT shows 1.8 cm bilobed complex mass in the right lower lobe with associated right bronchopulmonary lymphadenopathy. Concerning for malignancy. Appreciate pulmonology recommendations. S/P bronchoscopy. 11. Atrial fibrillation: Appreciate cardiology recommendations. Started back on Coumadin. Monitor INR. 12. Hypokalemia: Mild. Improved. Discharge Planning Possible discharge home with home health soon, pending pulmonology clearance and arrangement of outpatient IV antibiotics by infectious disease. Problem Qualifiers (1) GI bleed: Qualified Codes: K92.2 - Gastrointestinal hemorrhage, unspecified Khanh Frankel MD Aug 05, 2017 18:15
[2017-08-05] MEDS: ATORVASTATIN 20 MG TAB PO SCH (20:44)
[2017-08-05] MEDS: ERTAPENEM INJ 1,000 MG in SODIUM CHLORIDE 0.9% INJ 100 ML IV SCH (20:45)
[2017-08-05] MEDS: INSULIN DETEMIR 100 UNITS/ML VIAL SQ SCH (20:46)
[2017-08-06] VITALS (7 sets, daily range): BP systolic 122–158; BP diastolic 57–71; PULSE 77–96; RESP 18–22; TEMP 97.4–98.8; O2SAT 93–97
[2017-08-06] MEDS: LEVOTHYROXINE SODIUM 88 MCG TAB PO SCH (05:15)
[2017-08-06] MEDS: INSULIN ASPART SUPPLEMENTAL SCALE SQ SCH ×4 (08:00→23:01)
--- NOTE | 2017-08-06 08:24 | HHI.PR ---
Subjective Remarks ALERT NO SOB Objective Vital Signs Date Time Temp Pulse Resp B/P (MAP) Pulse Ox O2 Delivery O2 Flow Rate FiO2 08/06/17 04:47 93 Nasal Cannula 2.00 08/06/17 04:00 98.3 82 20 131/57 (81) 96 08/05/17 23:34 99.1 87 16 111/70 (84) 95 08/05/17 20:00 97.7 90 22 123/81 (95) 97 08/05/17 20:00 Room Air 08/05/17 20:00 93 08/05/17 16:25 85 22 122/59 (80) 97 Nasal Cannula 2 08/05/17 16:15 88 22 129/60 (83) 98 Nasal Cannula 3 08/05/17 16:00 91 24 136/63 (87) 98 Nasal Cannula 4 08/05/17 16:00 97.4 84 16 135/58 (83) 97 08/05/17 15:56 97.6 95 22 133/61 (85) 98 Nasal Cannula 5 08/05/17 14:32 113 120/80 08/05/17 12:00 97.7 78 18 138/61 (86) 96 08/05/17 08:25 Room Air I/O 08/05/17 08/05/17 08/05/17 08/06/17 08/06/17 08/06/17 07:00 15:00 23:00 07:00 15:00 23:00 Intake Total 600 ml 1060 ml 480 ml Balance 600 ml 1060 ml 480 ml Intake Oral 600 ml 840 ml 480 ml IV Total 20 ml Other 200 ml # Voids 7 5 3 # Bowel Movements 1 1 Result Diagram: 08/03/17 0908/03/17 09 Objective Remarks Laboratory Tests Test 08/02/17 07:10 08/02/17 13:50 08/03/17 09:00 08/03/17 14:03 White Blood Count 11.3 TH/MM3 (4.0-11.0) 11.9 TH/MM3 (4.0-11.0) Red Blood Count 3.83 MIL/MM3 (4.00-5.30) 3.65 MIL/MM3 (4.00-5.30) Hemoglobin 10.4 GM/DL (11.6-15.3) 10.1 GM/DL (11.6-15.3) Hematocrit 33.2 % (35.0-46.0) 31.4 % (35.0-46.0) Mean Corpuscular Hemoglobin Concent 31.3 % (32.0-36.0) Red Cell Distribution Width 18.1 % (11.6-17.2) 17.7 % (11.6-17.2) Neutrophils (%) (Auto) 71.7 % (16.0-70.0) 70.3 % (16.0-70.0) Monocytes (%) (Auto) 8.5 % (0.0-8.0) Neutrophils # (Auto) 8.1 TH/MM3 (1.8-7.7) 8.4 TH/MM3 (1.8-7.7) Monocytes # (Auto) 1.0 TH/MM3 (0-0.9) Random Glucose 135 MG/DL (74-106) 144 MG/DL (74-106) Potassium Level 3.4 MEQ/L (3.5-5.1) Estimat Glomerular Filtration Rate 66 ML/MIN (>89) 81 ML/MIN (>89) Prothrombin Time 11.7 SEC (9.8-11.6) 12.1 SEC (9.8-11.6) Calcium Level 8.0 MG/DL (8.5-10.1) Blood Gas HCO3 30 mmol/L (22-26) Blood Gas Base Excess 5.9 mmol/L (-2-2) Arterial Blood pH 7.46 (7.380-7.420) Arterial Blood Partial Pressure CO2 43 mmHg (38-42) Test 08/04/17 09:26 Prothrombin Time 14.6 SEC (9.8-11.6) Medications and IVs GENERAL: SKIN: Warm and dry. HEAD: Atraumatic. Normocephalic. EYES: Pupils equal and round. No scleral icterus. No injection or drainage. ENT: No nasal bleeding or discharge. Mucous membranes pink and moist. NECK: Trachea midline. No JVD. CARDIOVASCULAR: Regular rate and rhythm. RESPIRATORY: No accessory muscle use. Clear to auscultation. Breath sounds equal bilaterally. GASTROINTESTINAL: Abdomen soft, non-tender, nondistended. Hepatic and splenic margins not palpable. MUSCULOSKELETAL: Extremities without clubbing, cyanosis, or edema. No obvious deformities. NEUROLOGICAL: Awake and alert. No obvious cranial nerve deficits. Motor grossly within normal limits. Five out of 5 muscle strength in the arms and legs. Normal speech. PSYCHIATRIC: Appropriate mood and affect; insight and judgment normal. Assessment and Plan Assessment and Plan LUNG MASS GI BLEED, DUE TO OESOPHAGITIS PLAN BRONCHOSCOPY results pending Shayna Corral MD Aug 06, 2017 08:24
[2017-08-06] MEDS: POLYETHYLENE GLYCOL 17 GM PKG PO SCH (09:06)
[2017-08-06] MEDS: hydrALAZINE HCL 50 MG TAB PO SCH ×3 (09:06→17:24)
[2017-08-06] MEDS: PANTOPRAZOLE SOD 40 MG DELAYED RELEASE TAB PO SCH (09:06)
[2017-08-06] MEDS: DOCUSATE SODIUM 100 MG CAP PO SCH ×2 (09:07→23:00)
[2017-08-06] MEDS: FUROSEMIDE 20 MG TAB PO SCH (09:07)
[2017-08-06] MEDS: GABAPENTIN 300 MG CAP PO SCH ×3 (09:07→17:24)
[2017-08-06] MEDS: SPIRONOLACTONE 50 MG TAB PO SCH (09:07)
[2017-08-06] MEDS: LISINOPRIL 20 MG TAB PO SCH ×2 (09:07→23:00)
[2017-08-06] MEDS: NIFEdipine 30 MG SUSTAINED RELEASE TAB PO SCH (09:08)
[2017-08-06] MEDS: SODIUM CHLORIDE 0.9% FLUSH 10 ML FLUSH IV FLUSH SCH ×2 (10:27→22:59)
[2017-08-06 10:36] LABS: INTERNATIONAL NORMALIZED RATIO 2.4 RATIO
[2017-08-06 10:48] LABS: AUTOMATED NEUTROPHIL # 6.5 TH/MM3 (1.8-7.7); BASOPHIL % 0.4 % (0.0-2.0); EOSINOPHIL # 0.2 TH/MM3 (0-0.4); EOSINOPHIL % 2.5 % (0.0-4.0); HEMATOCRIT 32.4 % (35.0-46.0); HEMO FLAGS DIFF FINAL; LYMPH % 22.7 % (9.0-44.0); LYMPHOCYTE # 2.2 TH/MM3 (1.0-4.8); MEAN CELL VOLUME 86.5 FL (80.0-100.0); MEAN CORPUSCULAR HEMOGLOBIN 27.6 PG (27.0-34.0); MEAN CORPUSCULAR HGB CONC 31.9 % (32.0-36.0); MONO % 7.8 % (0.0-8.0); NEUT % 66.6 % (16.0-70.0); PLATELET COUNT 249 TH/MM3 (150-450); RED BLOOD COUNT 3.75 MIL/MM3 (4.00-5.30); RED CELL DISTRIBUTION WIDTH 17.6 % (11.6-17.2); WHITE BLOOD COUNT 9.7 TH/MM3 (4.0-11.0)
[2017-08-06 11:02] LABS: BICARBONATE 27.8 MEQ/L (21.0-32.0); POTASSIUM 3.9 MEQ/L (3.5-5.1)
--- NOTE | 2017-08-06 15:02 | HHI.DCPOC ---
Discharge Care Plan Diagnosis: (1) Lung mass (2) Acute renal insufficiency (3) Dehydration (4) UTI (urinary tract infection) (5) E. coli UTI (urinary tract infection) (6) ESBL (extended spectrum beta-lactamase) producing bacteria infection (7) Diabetes mellitus (8) HTN (hypertension) Goals to Promote Your Health * To prevent worsening of your condition and complications * To maintain your health at the optimal level Directions to Meet Your Goals Take your medications as prescribed Follow your dietary instruction Follow activity as directed Keep your appointments as scheduled Take your immunizations and boosters as scheduled If your symptoms worsen call your PCP, if no PCP go to Urgent Care Center or Emergency Room Smoking is Dangerous to Your Health. Avoid second hand smoke Call the 24-hour hour crisis hotline for domestic abuse at Khanh Frankel MD Aug 06, 2017 15:02
--- NOTE | 2017-08-06 15:02 | HHI.FF ---
Face to Face Verification Diagnosis: (1) E. coli UTI (urinary tract infection) (2) ESBL (extended spectrum beta-lactamase) producing bacteria infection (3) HTN (hypertension) (4) Diabetes mellitus (5) Constipation due to slow transit (6) Lung mass Physical Therapy Order: Evaluate and Treat Home Health Nursing Order: Nursing assessment with vital signs I have seen patient Mirella Lucas on 08/06/17. My clinical findings support the need for the requested home health care services because: High risk of falls I certify that my clinical findings support that this patient is homebound because: Unsteady gait/balance Khanh Frankel MD Aug 06, 2017 15:02
--- NOTE | 2017-08-06 15:17 | HHI.FF ---
Infusion Therapy Location of Infusion Therapy: [facility] IV Infusion Order Patient Information Patient Weight 130.6 kg Diagnosis: Diagnosis UTI, MDRO Coded Allergies: penicillin G (Unverified Allergy, Severe, rash, 07/28/17) Administer Medication Ertapenem 1 gram IV q 24 hours Start Treatment: Aug 07, 2017 Stop Treatment: Aug 13, 2017 Additional Information Venous access: PICC Line Additional Instructions [x] Peripheral flush and dressing changes per protocol [x] Implanted port and central line technician: * Implanted port: 10 ml Normal Saline followed by 5 ml Heparin 100 units/ml Heparin flush after each use and monthly to maintain. [] May leave port accessed during therapy. [] May leave peripheral site accessed for duration of therapy. [x] If patient has SOB or respiratory distress, check oxygen saturation. If less than 90% or clinical signs of respiratory distress, administer oxygen at 2 L/min. via nasal cannula and notify physician. [x] Anaphylaxis/Reaction orders: * Stop infusion. * Keep IV line open with saline flush. * Notify physician. * Monitor vital signs every 15 minutes until symptoms resolve. * Check Oxygen saturation; Oxygen at 2 L/min. via nasal cannula if less than 90% or clinical signs of respiratory distress. * Administer diphenhydramine (Benadryl) 25 mg IV STAT, (unless patient has received as pre-med). May repeat once, if necessary. * Solu-Cortef 250 mg IVP over 30-60 seconds, use 100 mg vials for each dissolution. * Epinephrine (1mg/1 ml) 0.3 mg subcutaneously or IVP now with any signs of respiratory distress. * Check with physician for new additional pre-med orders if patient is re- challenged or re-treated. [x] May remove PICC line when treatment complete, after confirming with Physician. [x] If the patient is admitted to the hospital, the ED, or transferred via [facility] , complete transfer form including medication reconciliation order sheet. Laboratory Tests Weekly Labs: CBC w/diff, Creatinine Norma Rosas MD Aug 06, 2017 15:17
[2017-08-06] MEDS ORDERED: EPIN1INJ21 IV PUSH (15:22)
[2017-08-06] MEDS ORDERED: EPIN1INJ21 SQ (15:22)
[2017-08-06] MEDS ORDERED: SOLU250I IV PUSH (15:22)
[2017-08-06] MEDS ORDERED: INVA1INJ IV (15:22)
--- NOTE | 2017-08-06 15:44 | HHI.PR ---
Subjective Remarks Follow up UTI, lung mass. Patient has no complaints at this time. She wants to go home. Denies chest pain, dyspnea. Objective Vitals Vital Signs Date Time Temp Pulse Resp B/P (MAP) Pulse Ox O2 Delivery O2 Flow Rate FiO2 08/06/17 12:00 98.7 87 18 122/63 (82) 97 08/06/17 11:45 Room Air 08/06/17 08:27 96 08/06/17 08:00 98.8 81 18 127/61 (83) 94 08/06/17 04:47 93 Nasal Cannula 2.00 08/06/17 04:00 98.3 82 20 131/57 (81) 96 08/05/17 23:34 99.1 87 16 111/70 (84) 95 08/05/17 20:00 97.7 90 22 123/81 (95) 97 08/05/17 20:00 Room Air 08/05/17 20:00 93 08/05/17 16:25 85 22 122/59 (80) 97 Nasal Cannula 2 08/05/17 16:15 88 22 129/60 (83) 98 Nasal Cannula 3 08/05/17 16:00 91 24 136/63 (87) 98 Nasal Cannula 4 08/05/17 16:00 97.4 84 16 135/58 (83) 97 08/05/17 15:56 97.6 95 22 133/61 (85) 98 Nasal Cannula 5 I/O 08/05/17 08/05/17 08/05/17 08/06/17 08/06/17 08/06/17 07:00 15:00 23:00 07:00 15:00 23:00 Intake Total 600 ml 1060 ml 480 ml Balance 600 ml 1060 ml 480 ml Intake Oral 600 ml 840 ml 480 ml IV Total 20 ml Other 200 ml # Voids 7 5 3 # Bowel Movements 1 1 Result Diagram: 08/06/17 0945 08/06/17 0945 Imaging Last Impressions Chest CT 07/31/17 0000 Signed Impressions: Service Date/Time: Monday, July 31, 2017 14:47 - CONCLUSION: 1. 1.8 cm bilobed complex mass in the right lower lobe with associated right bronchopulmonary lymphadenopathy. Malignancy is suspected. 2. Calcific coronary disease. Maximiliano Brown MD Abdomen/Pelvis CT 07/28/17 1419 Signed Impressions: Service Date/Time: Friday, July 28, 2017 17:07 - CONCLUSION: 1. Abnormal appearance to multiple loops of small bowel in the left hypogastric region with wall thickening and induration of the adjacent mesentery. This suggests an inflammatory or infectious process. 2. Infiltrate or mass in the medial right lower lung with solid component measuring 6 mm. 3. Free fluid about the dome of the liver, left paracolic gutter, and root of the mesentery. 4. Umbilical hernia and hiatus hernia similar in appearance to prior CT. Joe Reyes MD Objective Remarks General: Obese elderly female in no acute distress. Heart: Regular rate and rhythm. No murmur. Lungs: Clear to auscultation bilaterally. No wheezes, rales, or rhonchi. Breathing is nonlabored. Abdomen: Soft, nondistended. Umbilical hernia is tender. Extremities: No lower extremity edema. Psych: Alert, oriented. Procedures 07/29/17 EGD Urinary Catheter: No Vascular Central Line Catheter: No A/P Problem List: (1) Dehydration ICD Code: E86.0 - Dehydration (2) Acute renal insufficiency ICD Code: N28.9 - Disorder of kidney and ureter, unspecified (3) Hyperkalemia ICD Code: E87.5 - Hyperkalemia Status: Resolved (4) Enteritis ICD Code: K52.9 - Noninfective gastroenteritis and colitis, unspecified Status: Acute (5) GI bleed ICD Code: K92.2 - Gastrointestinal hemorrhage, unspecified Status: Acute (6) Lung mass ICD Code: R91.8 - Other nonspecific abnormal finding of lung field Assessment and Plan 1. 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 Continue Protonix. Appreciate GI recommendations. Monitor H& H. 2. Anemia: Possibly secondary to GI bleed. H&H stable. 3. UTI: Urine culture growing Escherichia coli ESBL. Appreciate infectious disease recommendations. Continue ertapenem 2 weeks total. Infectious disease has entered outpatient IV antibiotic orders. PICC ordered. 4. Acute renal insufficiency: Likely secondary to dehydration. Resolved. 5. Chronic diastolic heart failure: Continue Lasix, Aldactone. Use caution with IV fluids. 6. Diabetes mellitus: Continue Levemir. Monitor Accu-Cheks and cover with sliding scale insulin. 7. Hypertension: Continue lisinopril, Procardia, hydralazine. 8. DVT prophylaxis: TYLER Germain. Continue Coumadin. 9. Umbilical hernia: Appreciate general surgery recommendations. Nonoperative treatment at this time. 10. Lung mass: Chest CT shows 1.8 cm bilobed complex mass in the right lower lobe with associated right bronchopulmonary lymphadenopathy. Concerning for malignancy. Appreciate pulmonology recommendations. S/P bronchoscopy. Awaiting pathology. 11. Atrial fibrillation: Appreciate cardiology recommendations. Continue coumadin. INR is therapeutic. 12. Hypokalemia: Mild. Improved. Discharge Planning Plan for discharge home when cleared by pulmonology and outpatient antibiotics are arranged. Problem Qualifiers (1) GI bleed: Qualified Codes: K92.2 - Gastrointestinal hemorrhage, unspecified Khanh Frankel MD Aug 06, 2017 15:44
--- NOTE | 2017-08-06 16:27 | HHI.IDPN ---
Subjective Subjective Remarks pt is doing OK afebrile she tolerates abx ok w/o nausea, vomiting diarrhea sp bronchoscopy for suspected mass, no endobronchial lesion encounted Antibiotics rtapenmem Allergies: Coded Allergies: penicillin G (Unverified Allergy, Severe, rash, 07/28/17) Objective . Vital Signs Date Time Temp Pulse Resp B/P (MAP) Pulse Ox O2 Delivery O2 Flow Rate FiO2 08/06/17 12:00 98.7 87 18 122/63 (82) 97 08/06/17 11:45 Room Air 08/06/17 08:27 96 08/06/17 08:00 98.8 81 18 127/61 (83) 94 08/06/17 04:47 93 Nasal Cannula 2.00 08/06/17 04:00 98.3 82 20 131/57 (81) 96 08/05/17 23:34 99.1 87 16 111/70 (84) 95 08/05/17 20:00 97.7 90 22 123/81 (95) 97 08/05/17 20:00 Room Air 08/05/17 20:00 93 08/05/17 16:25 85 22 122/59 (80) 97 Nasal Cannula 2 . Laboratory Tests Test 08/06/17 09:45 White Blood Count 9.7 TH/MM3 Red Blood Count 3.75 MIL/MM3 Hemoglobin 10.3 GM/DL Hematocrit 32.4 % Mean Corpuscular Volume 86.5 FL Mean Corpuscular Hemoglobin 27.6 PG Mean Corpuscular Hemoglobin Concent 31.9 % Red Cell Distribution Width 17.6 % Platelet Count 249 TH/MM3 Mean Platelet Volume 8.3 FL Neutrophils (%) (Auto) 66.6 % Lymphocytes (%) (Auto) 22.7 % Monocytes (%) (Auto) 7.8 % Eosinophils (%) (Auto) 2.5 % Basophils (%) (Auto) 0.4 % Neutrophils # (Auto) 6.5 TH/MM3 Lymphocytes # (Auto) 2.2 TH/MM3 Monocytes # (Auto) 0.8 TH/MM3 Eosinophils # (Auto) 0.2 TH/MM3 Basophils # (Auto) 0.0 TH/MM3 CBC Comment DIFF FINAL Differential Comment Laboratory Tests Test 08/06/17 09:45 Blood Urea Nitrogen 17 MG/DL Creatinine 1.01 MG/DL Random Glucose 172 MG/DL Calcium Level 8.9 MG/DL Sodium Level 136 MEQ/L Potassium Level 3.9 MEQ/L Chloride Level 100 MEQ/L Carbon Dioxide Level 27.8 MEQ/L Anion Gap 8 MEQ/L Estimat Glomerular Filtration Rate 52 ML/MIN Microbiology Date/Time Source Procedure Growth Status 08/05/17 15:46 Bronchial Washings Other Fungal Smear - Final NO FUNGAL ELEMENTS SEEN. Resulted 08/05/17 15:46 Bronchial Washings Other Fungal Culture Pending Resulted 08/05/17 15:46 Bronchial Washings Other Acid Fast Stain - Final NO ACID FAST BACILLI SEEN Resulted 08/05/17 15:46 Bronchial Washings Other Mycobacterial Culture Pending Resulted 08/05/17 15:46 Bronchial Washings Other Gram Stain - Final Resulted 08/05/17 15:46 Bronchial Washings Other Bronchial Culture - Preliminary NO GROWTH IN 24 HOURS. Resulted Imaging Last Impressions Chest CT 07/31/17 0000 Signed Impressions: Service Date/Time: Monday, July 31, 2017 14:47 - CONCLUSION: 1. 1.8 cm bilobed complex mass in the right lower lobe with associated right bronchopulmonary lymphadenopathy. Malignancy is suspected. 2. Calcific coronary disease. Maximiliano Brown MD Abdomen/Pelvis CT 07/28/17 1419 Signed Impressions: Service Date/Time: Friday, July 28, 2017 17:07 - CONCLUSION: 1. Abnormal appearance to multiple loops of small bowel in the left hypogastric region with wall thickening and induration of the adjacent mesentery. This suggests an inflammatory or infectious process. 2. Infiltrate or mass in the medial right lower lung with solid component measuring 6 mm. 3. Free fluid about the dome of the liver, left paracolic gutter, and root of the mesentery. 4. Umbilical hernia and hiatus hernia similar in appearance to prior CT. Joe Reyes MD Physical Exam CONSTITUTIONAL/GENERAL: This is an morbidly obese elderly female patient, in no apparent distress. TUBES/LINES/DRAINS: SKIN: No jaundice, rashes, or lesions. . Skin temperature appropriate. Not diaphoretic. CARDIOVASCULAR: Regular rate and rhythm without murmurs, gallops, or rubs. No JVD. Peripheral pulses symmetric. RESPIRATORY/CHEST: Symmetric, unlabored respirations. Clear to auscultation. Breath sounds equal bilaterally. No wheezes, rales, or rhonchi. GASTROINTESTINAL: Abdomen soft, obese non-tender, nondistended. No hepato- splenomegaly, or palpable masses. No guarding. Bowel sounds present. GENITOURINARY: Without palpable bladder distension. MUSCULOSKELETAL: Extremities without clubbing, cyanosis, or edema. No joint tenderness or effusion noted. No calf tenderness. No mottling or clubbing. LYMPHATICS: No palpable cervical or supraclavicular adenopathy. NEUROLOGICAL: Awake and alert. Motor and sensory grossly within normal limits. Follows commands. Clear speech . Moves all extremities. Assessment & Plan Remarks UTI, ESBL+ E.coli Incarcerated hernia w/o bowel incarceration - gen sx ff, conservative mngmnt complete Ertapenem; 2 weeks of IV Ertapenem OK to dc OPAT foerms filled out PICC ordered, OK for midline if qualifies dw Norma Sow RN, MD Aug 06, 2017 16:27
[2017-08-06] MEDS: ERTAPENEM INJ 1,000 MG in SODIUM CHLORIDE 0.9% INJ 100 ML IV SCH (17:25)
[2017-08-06] MEDS: NYSTATIN 100,000 U/GM PWD 15 GM BTL TOPICAL SCH (22:59)
[2017-08-06] MEDS: ATORVASTATIN 20 MG TAB PO SCH (23:00)
[2017-08-06] MEDS: INSULIN DETEMIR 100 UNITS/ML VIAL SQ SCH (23:01)
[2017-08-07] VITALS (7 sets, daily range): BP systolic 126–164; BP diastolic 60–79; PULSE 78–92; RESP 18–22; TEMP 97.2–98.8; O2SAT 92–96
[2017-08-07] MEDS: LEVOTHYROXINE SODIUM 88 MCG TAB PO SCH (06:25)
[2017-08-07] MEDS: INSULIN ASPART SUPPLEMENTAL SCALE SQ SCH ×4 (09:29→22:19)
[2017-08-07] MEDS: hydrALAZINE HCL 50 MG TAB PO SCH ×3 (09:29→17:51)
[2017-08-07] MEDS: SPIRONOLACTONE 50 MG TAB PO SCH (09:29)
[2017-08-07] MEDS: SODIUM CHLORIDE 0.9% FLUSH 10 ML FLUSH IV FLUSH SCH ×2 (09:29→22:19)
[2017-08-07] MEDS: NYSTATIN 100,000 U/GM PWD 15 GM BTL TOPICAL SCH ×2 (09:30→22:20)
[2017-08-07] MEDS: GABAPENTIN 300 MG CAP PO SCH ×3 (09:30→17:51)
[2017-08-07] MEDS: FUROSEMIDE 20 MG TAB PO SCH (09:30)
[2017-08-07] MEDS: DOCUSATE SODIUM 100 MG CAP PO SCH ×2 (09:30→22:18)
[2017-08-07] MEDS: POLYETHYLENE GLYCOL 17 GM PKG PO SCH (09:30)
[2017-08-07] MEDS: PANTOPRAZOLE SOD 40 MG DELAYED RELEASE TAB PO SCH (09:30)
[2017-08-07] MEDS: NIFEdipine 30 MG SUSTAINED RELEASE TAB PO SCH (09:30)
[2017-08-07] MEDS: LISINOPRIL 20 MG TAB PO SCH ×2 (09:30→22:18)
[2017-08-07 12:02] LABS: AUTOMATED NEUTROPHIL # 6.7 TH/MM3 (1.8-7.7); BASOPHIL # 0.1 TH/MM3 (0-0.2); BASOPHIL % 0.6 % (0.0-2.0); EOSINOPHIL # 0.2 TH/MM3 (0-0.4); EOSINOPHIL % 2.2 % (0.0-4.0); HEMATOCRIT 30.7 % (35.0-46.0); HEMO FLAGS DIFF FINAL; LYMPH % 17.7 % (9.0-44.0); LYMPHOCYTE # 1.7 TH/MM3 (1.0-4.8); MEAN CELL VOLUME 86.2 FL (80.0-100.0); MEAN CORPUSCULAR HEMOGLOBIN 27.5 PG (27.0-34.0); MEAN CORPUSCULAR HGB CONC 31.9 % (32.0-36.0); NEUT % 70.5 % (16.0-70.0); PLATELET COUNT 252 TH/MM3 (150-450); RED BLOOD COUNT 3.57 MIL/MM3 (4.00-5.30); RED CELL DISTRIBUTION WIDTH 17.3 % (11.6-17.2); WHITE BLOOD COUNT 9.5 TH/MM3 (4.0-11.0)
[2017-08-07 12:11] LABS: INTERNATIONAL NORMALIZED RATIO 2.3 RATIO; PROTHROMBIN TIME - PATIENT 26.7 SEC (9.8-11.6)
[2017-08-07 12:29] LABS: BICARBONATE 27.4 MEQ/L (21.0-32.0); POTASSIUM 3.7 MEQ/L (3.5-5.1)
--- NOTE | 2017-08-07 14:29 | HHI.PR ---
Subjective Remarks Patient seen this morning around 11 AM. He says she is feeling tired, does not feel she can go home. She also says that she cannot afford the thousands of dollars for ertapenem IVsays her insurance company has told her she'll have to pay the full cost. She denies any chest pain. She reports constipation. Says she has not had a bowel movement for 11 days. denies abd pain currently. Nursing has documented 2 bowel movements yesterday. Objective Vital Signs Date Time Temp Pulse Resp B/P (MAP) Pulse Ox O2 Delivery O2 Flow Rate FiO2 08/07/17 13:52 94 Room Air 08/07/17 12:05 98.1 86 18 138/67 (90) 94 08/07/17 08:05 98.8 88 19 164/79 (107) 96 08/07/17 04:00 98.0 78 20 139/64 (89) 92 08/07/17 00:00 97.2 82 22 156/70 (98) 95 08/06/17 20:00 97.4 77 22 128/60 (82) 94 08/06/17 20:00 Room Air 08/06/17 20:00 78 08/06/17 16:00 98.1 83 18 158/71 (100) 94 08/06/17 16:00 Room Air I/O 08/06/17 08/06/17 08/06/17 08/07/17 08/07/17 08/07/17 07:00 15:00 23:00 07:00 15:00 23:00 Intake Total 480 ml 820 ml 360 ml Balance 480 ml 820 ml 360 ml Intake Oral 480 ml 720 ml 360 ml IV Total 100 ml # Voids 3 2 3 # Bowel Movements 0 Result Diagram: 08/07/17 1115 08/07/17 1115 Objective Remarks GENERAL: Patient lying in bed. Appears comfortable. Alert and oriented 3. SKIN: Warm and dry. HEAD: Normocephalic. EYES: No scleral icterus. No injection or drainage. NECK: Supple, trachea midline. No JVD. CARDIOVASCULAR: Regular rate and rhythm without murmurs, gallops, or rubs. RESPIRATORY: Breath sounds equal bilaterally. No accessory muscle use. GASTROINTESTINAL: Abdomen soft, non-tender, nondistended. MUSCULOSKELETAL: No cyanosis, or edema. BACK: Nontender without obvious deformity. No CVA tenderness. A/P Assessment and Plan === 08/07/17 //Constipation. With nonobstructing umbilical hernia. Laxatives, enema ordered. Continue to monitor //UTI with ESBL Escherichia coli. We'll need to continue ertapenem for 2 weeks. Patient unable to afford. We will discuss with case management to see if perhaps patient go to SNF, or obtain funding for outpatient IV ertapenem. 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 Continue Protonix. Appreciate GI recommendations. Monitor H& H. // Anemia: Possibly secondary to GI bleed. H&H stable. //UTI: Urine culture growing Escherichia coli ESBL. Appreciate infectious disease recommendations. Continue ertapenem 2 weeks total. Infectious disease has entered outpatient IV antibiotic orders. PICC ordered. //Acute renal insufficiency: Likely secondary to dehydration. Resolved. //Chronic diastolic heart failure: Continue Lasix, Aldactone. Use caution with IV fluids. // Diabetes mellitus: Continue Levemir. Monitor Accu-Cheks and cover with sliding scale insulin. // Hypertension: Continue lisinopril, Procardia, hydralazine. // Umbilical hernia: Appreciate general surgery recommendations. Nonoperative treatment at this time. //Lung mass: Chest CT shows 1.8 cm bilobed complex mass in the right lower lobe with associated right bronchopulmonary lymphadenopathy. Concerning for malignancy. Appreciate pulmonology recommendations. S/P bronchoscopy. Awaiting pathology. // Atrial fibrillation: Appreciate cardiology recommendations. Continue coumadin. INR is therapeutic. //Hypokalemia: Mild. Improved. // DVT prophylaxis: SCDs, TYLER hose. Continue Coumadin. Discharge Planning Everything is ready for patient to go home with IV ertapenem, however patient Unable afford home IV ertapenem. Ton Carmona MD Aug 07, 2017 14:29
[2017-08-07] MEDS ORDERED: SOD PHOSPHATE/SOD BIPHOSPHATE (ADULT) ENEMA 133ML RECTAL ONE (14:30)
[2017-08-07] MEDS ORDERED: MAGNESIUM HYDROXIDE SUSP 30 ML CUP PO ONE (14:30)
[2017-08-07] MEDS ORDERED: BISACODYL 10 MG SUPP RECTAL ONE (14:30)
[2017-08-07] MEDS ORDERED: DOCUSATE SODIUM 50 MG/SENNA 8.6 MG TAB PO ONE (14:30)
[2017-08-07] MEDS: ERTAPENEM INJ 1,000 MG in SODIUM CHLORIDE 0.9% INJ 100 ML IV SCH (17:49)
[2017-08-07] MEDS: WARFARIN SOD 7.5 MG TAB PO SCH (17:52)
[2017-08-07] MEDS: ATORVASTATIN 20 MG TAB PO SCH (22:19)
[2017-08-07] MEDS: INSULIN DETEMIR 100 UNITS/ML VIAL SQ SCH (22:20)
[2017-08-08] VITALS (9 sets, daily range): BP systolic 117–149; BP diastolic 57–67; PULSE 80–88; RESP 16–20; TEMP 97–98.8; O2SAT 93–96
[2017-08-08] MEDS: LEVOTHYROXINE SODIUM 88 MCG TAB PO SCH (06:44)
[2017-08-08] MEDS: INSULIN ASPART SUPPLEMENTAL SCALE SQ SCH ×4 (08:00→20:53)
[2017-08-08] MEDS: SODIUM CHLORIDE 0.9% FLUSH 10 ML FLUSH IV FLUSH SCH ×2 (08:53→20:51)
[2017-08-08] MEDS: PANTOPRAZOLE SOD 40 MG DELAYED RELEASE TAB PO SCH (08:53)
[2017-08-08] MEDS: NIFEdipine 30 MG SUSTAINED RELEASE TAB PO SCH (08:53)
[2017-08-08] MEDS: FUROSEMIDE 20 MG TAB PO SCH (08:53)
[2017-08-08] MEDS: SPIRONOLACTONE 50 MG TAB PO SCH (08:53)
[2017-08-08] MEDS: DOCUSATE SODIUM 100 MG CAP PO SCH ×2 (08:54→20:52)
[2017-08-08] MEDS: LISINOPRIL 20 MG TAB PO SCH ×2 (08:54→20:52)
[2017-08-08] MEDS: NYSTATIN 100,000 U/GM PWD 15 GM BTL TOPICAL SCH ×2 (08:54→20:54)
[2017-08-08] MEDS: POLYETHYLENE GLYCOL 17 GM PKG PO SCH (08:54)
[2017-08-08] MEDS: GABAPENTIN 300 MG CAP PO SCH ×3 (08:54→17:25)
[2017-08-08] MEDS: hydrALAZINE HCL 50 MG TAB PO SCH ×3 (08:54→17:27)
[2017-08-08 09:15] LABS: INTERNATIONAL NORMALIZED RATIO 2.3 RATIO; PROTHROMBIN TIME - PATIENT 26.4 SEC (9.8-11.6)
--- NOTE | 2017-08-08 15:40 | HHI.PR ---
Subjective Remarks Patient seen this morning around 10 AM. Says she is feeling all right. Denies any chest pain or shortness of breath. She reports abdominal pain improved. She does report a bowel movement, however none recorded in the past day. Objective Vital Signs Date Time Temp Pulse Resp B/P (MAP) Pulse Ox O2 Delivery O2 Flow Rate FiO2 08/08/17 13:25 94 Room Air 08/08/17 12:29 97.9 85 18 149/67 (94) 94 08/08/17 11:28 88 08/08/17 09:53 94 Nasal Cannula 2.00 08/08/17 08:08 98.3 86 18 144/65 (91) 94 08/08/17 04:00 98.8 84 18 131/59 (83) 93 08/08/17 00:00 98.8 83 20 135/61 (85) 96 08/07/17 20:00 88 08/07/17 20:00 98.0 81 18 148/67 (94) 93 08/07/17 20:00 Room Air 08/07/17 16:05 97.5 92 19 126/60 (82) 94 I/O 08/07/17 08/07/17 08/07/17 08/08/17 08/08/17 08/08/17 07:00 15:00 23:00 07:00 15:00 23:00 Intake Total 360 ml 600 ml 820 ml Balance 360 ml 600 ml 820 ml Intake Oral 360 ml 600 ml 820 ml # Voids 3 3 2 # Bowel Movements 0 0 Result Diagram: 08/07/17 1115 08/07/17 1115 Objective Remarks GENERAL: Patient lying in bed. Sleeping, wakes up for exam. Appears comfortable. Alert and oriented 3. SKIN: Warm and dry. HEAD: Normocephalic. EYES: No scleral icterus. No injection or drainage. NECK: Supple, trachea midline. No JVD. CARDIOVASCULAR: Regular rate and rhythm without murmurs, gallops, or rubs. RESPIRATORY: Breath sounds equal bilaterally. No accessory muscle use. GASTROINTESTINAL: Abdomen soft, non-tender, nondistended. MUSCULOSKELETAL: No cyanosis, or edema. BACK: Nontender without obvious deformity. No CVA tenderness. A/P Assessment and Plan === 08/07/17 //Constipation. With nonobstructing umbilical hernia. She refused Laxatives, enema ordered yesterday, however does report a bowel movement.. Continue to monitor //UTI with ESBL Escherichia coli. We'll need to continue ertapenem for 2 weeks. Patient unable to afford. Patient will likely be going to SNF. Appreciate case management assistance. 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 Continue Protonix. Appreciate GI recommendations. Monitor H& H. // Anemia: Possibly secondary to GI bleed. H&H stable. //UTI: Urine culture growing Escherichia coli ESBL. Appreciate infectious disease recommendations. Continue ertapenem 2 weeks total. Infectious disease has entered outpatient IV antibiotic orders. PICC ordered. //Acute renal insufficiency: Likely secondary to dehydration. Resolved. //Chronic diastolic heart failure: Continue Lasix, Aldactone. Use caution with IV fluids. // Diabetes mellitus: Continue Levemir. Monitor Accu-Cheks and cover with sliding scale insulin. // Hypertension: Continue lisinopril, Procardia, hydralazine. // Umbilical hernia: Appreciate general surgery recommendations. Nonoperative treatment at this time. //Lung mass: Chest CT shows 1.8 cm bilobed complex mass in the right lower lobe with associated right bronchopulmonary lymphadenopathy. Concerning for malignancy. Appreciate pulmonology recommendations. S/P bronchoscopy. Awaiting pathology. // Atrial fibrillation: Appreciate cardiology recommendations. Continue coumadin. INR is therapeutic. //Hypokalemia: Mild. Improved. // DVT prophylaxis: SCDs, TYLER mtz. Continue Coumadin. Discharge Planning Discharge to SNF. Discussed with case management. Appreciate assistance. We' ll need to continue ertapenem to complete 2 week course. Ton Carmona MD Aug 08, 2017 15:40
[2017-08-08] MEDS: ERTAPENEM INJ 1,000 MG in SODIUM CHLORIDE 0.9% INJ 100 ML IV SCH (17:24)
[2017-08-08] MEDS: WARFARIN SOD 7.5 MG TAB PO SCH (17:24)
[2017-08-08] MEDS: ATORVASTATIN 20 MG TAB PO SCH (20:52)
[2017-08-08] MEDS: INSULIN DETEMIR 100 UNITS/ML VIAL SQ SCH (20:53)
[2017-08-09] VITALS: BP 109/59; PULSE 86; RESP 16; TEMP 97.2; O2SAT 94
[2017-08-09 04:00] VITALS: BP 128/55; PULSE 83; RESP 14; TEMP 98.2; O2SAT 95
[2017-08-09] MEDS: LEVOTHYROXINE SODIUM 88 MCG TAB PO SCH (05:06)
[2017-08-09 08:00] VITALS: BP 146/65; PULSE 99; RESP 20; TEMP 98.7; O2SAT 93
[2017-08-09 08:30] VITALS: PULSE 111
[2017-08-09 08:57] LABS: INTERNATIONAL NORMALIZED RATIO 2.6 RATIO; PROTHROMBIN TIME - PATIENT 29.8 SEC (9.8-11.6)
[2017-08-09] MEDS: NYSTATIN 100,000 U/GM PWD 15 GM BTL TOPICAL SCH (09:00)
[2017-08-09] MEDS: INSULIN ASPART SUPPLEMENTAL SCALE SQ SCH ×3 (09:07→17:00)
[2017-08-09] MEDS: POLYETHYLENE GLYCOL 17 GM PKG PO SCH (09:08)
[2017-08-09] MEDS: GABAPENTIN 300 MG CAP PO SCH ×3 (09:08→17:02)
[2017-08-09] MEDS: NIFEdipine 30 MG SUSTAINED RELEASE TAB PO SCH (09:08)
[2017-08-09] MEDS: FUROSEMIDE 20 MG TAB PO SCH (09:08)
[2017-08-09] MEDS: PANTOPRAZOLE SOD 40 MG DELAYED RELEASE TAB PO SCH (09:08)
[2017-08-09] MEDS: DOCUSATE SODIUM 100 MG CAP PO SCH (09:09)
[2017-08-09] MEDS: LISINOPRIL 20 MG TAB PO SCH (09:09)
[2017-08-09] MEDS: hydrALAZINE HCL 50 MG TAB PO SCH ×3 (09:10→17:33)
[2017-08-09] MEDS: SPIRONOLACTONE 50 MG TAB PO SCH (09:11)
[2017-08-09] MEDS: SODIUM CHLORIDE 0.9% FLUSH 10 ML FLUSH IV FLUSH SCH (09:11)
[2017-08-09 12:00] VITALS: BP 128/62; PULSE 97; RESP 20; TEMP 97.5; O2SAT 94
[2017-08-09 16:00] VITALS: BP 146/71; PULSE 94; RESP 20; TEMP 98.2; O2SAT 91
[2017-08-09] MEDS ORDERED: WARFARIN SOD 6 MG TAB PO SCH (16:00)
[2017-08-09] MEDS: ERTAPENEM INJ 1,000 MG in SODIUM CHLORIDE 0.9% INJ 100 ML IV SCH (16:58)
--- NOTE | 2017-08-09 17:37 | HHI.PR ---
Subjective Remarks ALERT NO SOB PATHOLOGY PENDING Objective Vital Signs Date Time Temp Pulse Resp B/P (MAP) Pulse Ox O2 Delivery O2 Flow Rate FiO2 08/09/17 08:30 111 08/09/17 08:00 98.7 99 20 146/65 (92) 93 08/09/17 07:15 Room Air 08/09/17 04:00 98.2 83 14 128/55 (79) 95 08/09/17 00:00 97.2 86 16 109/59 (76) 94 08/08/17 21:00 97.0 80 16 139/64 (89) 94 08/08/17 21:00 Room Air 08/08/17 20:00 85 I/O 08/08/17 08/08/17 08/08/17 08/09/17 08/09/17 08/09/17 07:00 15:00 23:00 07:00 15:00 23:00 Intake Total 820 ml 600 ml Output Total 300 ml Balance 820 ml 600 ml -300 ml Intake Oral 820 ml 600 ml Output Urine Total 300 ml # Voids 2 3 4 # Bowel Movements 0 0 Result Diagram: 08/07/17 1115 08/07/17 1115 Objective Remarks Laboratory Tests Test 08/02/17 07:10 08/02/17 13:50 08/03/17 09:00 08/03/17 14:03 White Blood Count 11.3 TH/MM3 (4.0-11.0) 11.9 TH/MM3 (4.0-11.0) Red Blood Count 3.83 MIL/MM3 (4.00-5.30) 3.65 MIL/MM3 (4.00-5.30) Hemoglobin 10.4 GM/DL (11.6-15.3) 10.1 GM/DL (11.6-15.3) Hematocrit 33.2 % (35.0-46.0) 31.4 % (35.0-46.0) Mean Corpuscular Hemoglobin Concent 31.3 % (32.0-36.0) Red Cell Distribution Width 18.1 % (11.6-17.2) 17.7 % (11.6-17.2) Neutrophils (%) (Auto) 71.7 % (16.0-70.0) 70.3 % (16.0-70.0) Monocytes (%) (Auto) 8.5 % (0.0-8.0) Neutrophils # (Auto) 8.1 TH/MM3 (1.8-7.7) 8.4 TH/MM3 (1.8-7.7) Monocytes # (Auto) 1.0 TH/MM3 (0-0.9) Random Glucose 135 MG/DL (74-106) 144 MG/DL (74-106) Potassium Level 3.4 MEQ/L (3.5-5.1) Estimat Glomerular Filtration Rate 66 ML/MIN (>89) 81 ML/MIN (>89) Prothrombin Time 11.7 SEC (9.8-11.6) 12.1 SEC (9.8-11.6) Calcium Level 8.0 MG/DL (8.5-10.1) Blood Gas HCO3 30 mmol/L (22-26) Blood Gas Base Excess 5.9 mmol/L (-2-2) Arterial Blood pH 7.46 (7.380-7.420) Arterial Blood Partial Pressure CO2 43 mmHg (38-42) Test 08/04/17 09:26 Prothrombin Time 14.6 SEC (9.8-11.6) Assessment and Plan Assessment and Plan LUNG MASS GI BLEED, DUE TO OESOPHAGITIS PATH PENDING PLAN BRONCHOSCOPY results pending TO LONGTERM OFFICE 1 WEEK Discharge Planning GENERAL: SKIN: Warm and dry. HEAD: Atraumatic. Normocephalic. EYES: Pupils equal and round. No scleral icterus. No injection or drainage. ENT: No nasal bleeding or discharge. Mucous membranes pink and moist. NECK: Trachea midline. No JVD. CARDIOVASCULAR: Regular rate and rhythm. RESPIRATORY: No accessory muscle use. Clear to auscultation. Breath sounds equal bilaterally. GASTROINTESTINAL: Abdomen soft, non-tender, nondistended. Hepatic and splenic margins not palpable. MUSCULOSKELETAL: Extremities without clubbing, cyanosis, or edema. No obvious deformities. NEUROLOGICAL: Awake and alert. No obvious cranial nerve deficits. Motor grossly within normal limits. Five out of 5 muscle strength in the arms and legs. Normal speech. PSYCHIATRIC: Appropriate mood and affect; insight and judgment normal. Shayna Corral MD Aug 09, 2017 17:37
--- NOTE | 2017-08-09 17:44 | HHI.PR ---
Subjective Remarks Patient seen this morning. Says she feels well. Denies any chest pain or shortness breath. She reports having a normal bowel movement this morning. Objective Vital Signs Date Time Temp Pulse Resp B/P (MAP) Pulse Ox O2 Delivery O2 Flow Rate FiO2 08/09/17 08:30 111 08/09/17 08:00 98.7 99 20 146/65 (92) 93 08/09/17 07:15 Room Air 08/09/17 04:00 98.2 83 14 128/55 (79) 95 08/09/17 00:00 97.2 86 16 109/59 (76) 94 08/08/17 21:00 97.0 80 16 139/64 (89) 94 08/08/17 21:00 Room Air 08/08/17 20:00 85 I/O 08/08/17 08/08/17 08/08/17 08/09/17 08/09/17 08/09/17 07:00 15:00 23:00 07:00 15:00 23:00 Intake Total 820 ml 600 ml Output Total 300 ml Balance 820 ml 600 ml -300 ml Intake Oral 820 ml 600 ml Output Urine Total 300 ml # Voids 2 3 4 # Bowel Movements 0 0 Result Diagram: 08/07/17 1115 08/07/17 1115 Objective Remarks GENERAL: Patient lying in bed. awake. Alert.Appears comfortable. Alert and oriented 3. SKIN: Warm and dry. HEAD: Normocephalic. EYES: No scleral icterus. No injection or drainage. NECK: Supple, trachea midline. No JVD. CARDIOVASCULAR: Regular rate and rhythm without murmurs, gallops, or rubs. RESPIRATORY: Breath sounds equal bilaterally. No accessory muscle use. GASTROINTESTINAL: Abdomen soft, non-tender, nondistended. MUSCULOSKELETAL: No cyanosis, or edema. BACK: Nontender without obvious deformity. No CVA tenderness. A/P Assessment and Plan === 08/09/17 //Constipation. resolved //UTI with ESBL Escherichia coli. We'll need to continue ertapenem for 2 weeks. Discussed again with case management working on discharge. //Lung mass. Continue to await pathology from lung mass. 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 Continue Protonix. Appreciate GI recommendations. Monitor H& H. // Anemia: Possibly secondary to GI bleed. H&H stable. //UTI: Urine culture growing Escherichia coli ESBL. Appreciate infectious disease recommendations. Continue ertapenem 2 weeks total. Infectious disease has entered outpatient IV antibiotic orders. PICC ordered. //Acute renal insufficiency: Likely secondary to dehydration. Resolved. //Chronic diastolic heart failure: Continue Lasix, Aldactone. Use caution with IV fluids. // Diabetes mellitus: Continue Levemir. Monitor Accu-Cheks and cover with sliding scale insulin. // Hypertension: Continue lisinopril, Procardia, hydralazine. // Umbilical hernia: Appreciate general surgery recommendations. Nonoperative treatment at this time. //Lung mass: Chest CT shows 1.8 cm bilobed complex mass in the right lower lobe with associated right bronchopulmonary lymphadenopathy. Concerning for malignancy. Appreciate pulmonology recommendations. S/P bronchoscopy. Awaiting pathology. // Atrial fibrillation: Appreciate cardiology recommendations. Continue coumadin. INR is therapeutic. //Hypokalemia: Mild. Improved. // DVT prophylaxis: SCDs, TYLER mtz. Continue Coumadin. Discharge Planning Discharge to SNF. Discussed with case management again. Appreciate assistance. We'll need to continue ertapenem to complete 2 week course. Ton Carmona MD Aug 09, 2017 17:44
--- NOTE | 2017-08-09 17:50 | HHI.DS ---
Discharge Summary Admission Date Jul 28, 2017 at 18:27 Discharge Date: Aug 09, 2017 Admitting Diagnosis severe sepsis, UTI, enteritis, hyperkalemia (1) Dehydration ICD Code: E86.0 - Dehydration (2) Acute renal insufficiency ICD Code: N28.9 - Disorder of kidney and ureter, unspecified (3) Hyperkalemia ICD Code: E87.5 - Hyperkalemia Status: Resolved (4) Enteritis ICD Code: K52.9 - Noninfective gastroenteritis and colitis, unspecified Status: Acute (5) GI bleed ICD Code: K92.2 - Gastrointestinal hemorrhage, unspecified Status: Acute (6) Lung mass ICD Code: R91.8 - Other nonspecific abnormal finding of lung field Procedures 07/29/17 EGD bronchoscopy Brief History - From Admission Written by Lucille Sales, acting as scribe for Dr. Dorado on 07/28/17 at 20:36. Vomiting and diarrhea x 2 days; emesis appeared like coffee grounds per EMS. The patient states she's vomiting > 10 times per day. Reports black diarrhea; she's not sure if her stool is usually black with iron supplementation. She is also complaining of pain in the central abdomen - severe. Diarrhea 5 - 10 times per day. The patient reports a history of diverticulitis and gastric ulcer. Denies recorded fever; denies chills but states she's felt somewhat warm over the past couple of days. Denies syncope, falls, chest pain, shortness of breath or dizziness. She reports taking Coumadin. CBC/BMP: 08/07/17 1115 08/07/17 1115 Significant Findings Laboratory Tests Test 08/07/17 11:15 08/08/17 08:44 08/09/17 07:16 Red Blood Count 3.57 MIL/MM3 (4.00-5.30) Hemoglobin 9.8 GM/DL (11.6-15.3) Hematocrit 30.7 % (35.0-46.0) Mean Corpuscular Hemoglobin Concent 31.9 % (32.0-36.0) Red Cell Distribution Width 17.3 % (11.6-17.2) Neutrophils (%) (Auto) 70.5 % (16.0-70.0) Monocytes (%) (Auto) 9.0 % (0.0-8.0) Prothrombin Time 26.7 SEC (9.8-11.6) 26.4 SEC (9.8-11.6) 29.8 SEC (9.8-11.6) Random Glucose 202 MG/DL (74-106) Estimat Glomerular Filtration Rate 59 ML/MIN (>89) Imaging Last Impressions Chest CT 07/31/17 0000 Signed Impressions: Service Date/Time: Monday, July 31, 2017 14:47 - CONCLUSION: 1. 1.8 cm bilobed complex mass in the right lower lobe with associated right bronchopulmonary lymphadenopathy. Malignancy is suspected. 2. Calcific coronary disease. Maximiliano Brown MD Abdomen/Pelvis CT 07/28/17 1419 Signed Impressions: Service Date/Time: Friday, July 28, 2017 17:07 - CONCLUSION: 1. Abnormal appearance to multiple loops of small bowel in the left hypogastric region with wall thickening and induration of the adjacent mesentery. This suggests an inflammatory or infectious process. 2. Infiltrate or mass in the medial right lower lung with solid component measuring 6 mm. 3. Free fluid about the dome of the liver, left paracolic gutter, and root of the mesentery. 4. Umbilical hernia and hiatus hernia similar in appearance to prior CT. Joe Reyes MD PE at Discharge General: Obese elderly female in no acute distress. Heart: Regular rate and rhythm. No murmur. Lungs: Clear to auscultation bilaterally. No wheezes, rales, or rhonchi. Breathing is nonlabored. Abdomen: Soft, nondistended. Umbilical hernia is tender. Extremities: No lower extremity edema. Psych: Alert, oriented. Hospital Course Multiple issues addressed during admission. Patient presented with UTI, found to be ESBL Escherichia coli, for which infectious disease was consult at, and patient will need to continue on ertapenem to complete 2 week course. Patient also found to have lung mass on chest CT for which she underwent bronchoscopy with pathology pending. Patient did have acute renal insufficiency on admission , likely secondary to UTI, Which resolved. Patient did have umbilical hernia, as well as constipation, however, is resolved. She'll follow up with surgery as outpatient Pathology is still pending. Gilda to follow-up with pulmonology. For problem-based summary for most recent progress note, please see below. === 08/09/17 //Constipation. resolved //UTI with ESBL Escherichia coli. We'll need to continue ertapenem for 2 weeks. Discussed again with case management working on discharge. //Lung mass. Continue to await pathology from lung mass. 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 Continue Protonix. Appreciate GI recommendations. Monitor H& H. // Anemia: Possibly secondary to GI bleed. H&H stable. //UTI: Urine culture growing Escherichia coli ESBL. Appreciate infectious disease recommendations. Continue ertapenem 2 weeks total. Infectious disease has entered outpatient IV antibiotic orders. PICC ordered. //Acute renal insufficiency: Likely secondary to dehydration. Resolved. //Chronic diastolic heart failure: Continue Lasix, Aldactone. Use caution with IV fluids. // Diabetes mellitus: Continue Levemir. Monitor Accu-Cheks and cover with sliding scale insulin. // Hypertension: Continue lisinopril, Procardia, hydralazine. // Umbilical hernia: Appreciate general surgery recommendations. Nonoperative treatment at this time. //Lung mass: Chest CT shows 1.8 cm bilobed complex mass in the right lower lobe with associated right bronchopulmonary lymphadenopathy. Concerning for malignancy. Appreciate pulmonology recommendations. S/P bronchoscopy. Awaiting pathology. // Atrial fibrillation: Appreciate cardiology recommendations. Continue coumadin. INR is therapeutic. //Hypokalemia: Mild. Improved. // DVT prophylaxis: SCDs, TYLER mtz. Continue Coumadin. Pt Condition on Discharge: Good Discharge Disposition: Discharge to SNF Discharge Time: > 30 minutes Discharge Instructions DIET: Follow Instructions for: Diabetic Diet Activities you can perform: Regular-No Restrictions Follow up Referrals: Gastroenterology - 2 Weeks @ [facility] PCP Follow-up - 1 Week Pulmonology - 1 Week SNF/[facility]/ with [facility] [phone] SNF/[facility]/ with [facility] - 2 Weeks with AngelitoWerner MD New Medications: Epinephrine Inj (Epinephrine Inj) 1 Mg/Ml (1 Ml) Inj 0.3 MG IV PUSH ONCE PRN for ALLERGIC REACTION, #1 VIAL Epinephrine Inj (Epinephrine Inj) 1 Mg/Ml (1 Ml) Inj 0.3 MG SQ ONCE PRN for ALLERGIC REACTION, #1 VIAL Give with any signs of respiratory distress. Ertapenem Inj (Invanz Inj) 1 Gm Addvial 1 GM IV Q24H for Infection for 7 Days, INJECTION 0 Refills ADMINISTER IN 100ML NS Hydrocortisone Inj (Solu-Cortef Inj) 250 Mg/2 Ml Inj 250 MG IV PUSH ONCE PRN for ALLERGIC REACTION, #1 VIAL 0 Refills Give over 30-60 seconds. Continued Medications: Aspirin DR (Ecotrin Low Strength) 81 Mg Tabdr 81 MG PO DAILY, #30 TAB 0 Refills Atorvastatin (Lipitor) 20 Mg Tab 20 MG PO HS for Cholesterol Management, #30 TAB 0 Refills Furosemide (Lasix) 20 Mg Tab 20 MG PO DAILY, #30 TAB 0 Refills Gabapentin (Gabapentin) 300 Mg Cap 300 MG PO TID for Pain Management, #90 CAP 0 Refills Hydralazine HCl (Hydralazine HCl) 50 Mg Tablet 50 MG PO TID Insulin Aspart Inj (Novolog Inj) 1,000 Unit/10 Ml Vial 25 UNITS SQ TIDAC for Blood Sugar Management, #10 ML 0 Refills Sliding Scale as directed. Insulin Glargine Inj (Lantus Solostar Pen Inj) 300 Unit/3 Ml Pen 90 UNITS SQ HS for Blood Sugar Management, PEN 0 Refills Levothyroxine (Levothyroxine) 88 Mcg Tab 88 MCG PO DAILY for Thyroid, #30 TAB 0 Refills Lisinopril (Lisinopril) 20 Mg Tab 20 MG PO BID, #30 TAB 0 Refills Metformin (Metformin) 1,000 Mg Tab 1000 MG PO BID for Blood Sugar Management, #60 TAB 0 Refills With meals Nifedipine ER 24 HR (Nifedipine ER 24 HR) 30 Mg Tab 30 MG PO DAILY for Blood Pressure Management, #30 TAB Spironolactone (Spironolactone) 50 Mg Tab 50 MG PO DAILY, #30 TAB 0 Refills Warfarin (Coumadin) 7.5 Mg Tab 7.5 MG PO DAILY@16 for Prevent Blood Clot, #30 TAB Discontinued Medications: Clonidine (Clonidine) 0.1 Mg Tab 0.1 MG PO Q6HR PRN for INCREASE IN BLOOD PRESSURE, #60 TAB 0 Refills Sulfamethoxazole-Trimethoprim (Bactrim DS) 800-160 Mg Tab 1 TAB PO BID for Infection, #20 TAB 0 Refills Ton Carmona MD Aug 09, 2017 17:50
== END 2017-08-09 17:45 | DRG 988 ==
LOC: NEPD 13:58 → NEDA 18:27 → N04A 22:30
PROVIDERS: ADMIT Internal Medicine; ATTEND Internal Medicine
PROC: 0DB38ZX Excision of Lower Esophagus, Via Natural or Artificial Opening Endoscopic, Diagnostic (ICD-10-PCS; principal; 2017-07-29 09:57)
PROC: 0BBF8ZX Excision of Right Lower Lung Lobe, Via Natural or Artificial Opening Endoscopic, Diagnostic (ICD-10-PCS; 2017-08-05)
PROC: 0BB38ZX Excision of Right Main Bronchus, Via Natural or Artificial Opening Endoscopic, Diagnostic (ICD-10-PCS; 2017-08-05)
PROC: 0BB78ZX Excision of Left Main Bronchus, Via Natural or Artificial Opening Endoscopic, Diagnostic (ICD-10-PCS; 2017-08-05)
DX: K21.0 Gastro-esophageal reflux disease with esophagitis (principal); K92.1 Melena; E11.43 Type 2 diabetes mellitus with diabetic autonomic (poly)neuropathy; E11.22 Type 2 diabetes mellitus with diabetic chronic kidney disease; D62 Acute posthemorrhagic anemia; K31.84 Gastroparesis; E86.0 Dehydration; I48.0 Paroxysmal atrial fibrillation; I13.0 Hypertensive heart and chronic kidney disease with heart failure and stage 1 through stage 4 chronic kidney disease, or unspecified chronic kidney disease; I50.32 Chronic diastolic (congestive) heart failure; E87.5 Hyperkalemia; K42.0 Umbilical hernia with obstruction, without gangrene; Z68.43 Body mass index [BMI] 50.0-59.9, adult; K22.70 Barrett's esophagus without dysplasia; E66.01 Morbid (severe) obesity due to excess calories; E03.9 Hypothyroidism, unspecified; K44.9 Diaphragmatic hernia without obstruction or gangrene; B96.20 Unspecified Escherichia coli [E. coli] as the cause of diseases classified elsewhere; K52.9 Noninfective gastroenteritis and colitis, unspecified; K59.00 Constipation, unspecified; E87.6 Hypokalemia; J40 Bronchitis, not specified as acute or chronic; R91.1 Solitary pulmonary nodule; N18.9 Chronic kidney disease, unspecified; R32 Unspecified urinary incontinence; Z87.11 Personal history of peptic ulcer disease; Z87.891 Personal history of nicotine dependence; Z79.01 Long term (current) use of anticoagulants; Z79.4 Long term (current) use of insulin; Z79.84 Long term (current) use of oral hypoglycemic drugs; Z86.73 Personal history of transient ischemic attack (TIA), and cerebral infarction without residual deficits
CPT/HCPCS: 36569; 36600; 51703; 71260; 74177; 76937; 80048; 80053; 81001; 82805; 82948; 83605; 83690; 83735; 84132; 85014; 85018; 85025; 85610; 85730; 86850; 86900; 86901; 87015; 87040; 87070; 87077; 87086; 87102; 87116; 87186; 87205; 87206; 88112; 88305; 93005; 94060; 94664; 96361; 96374; 96375; C9113; J0171; J0696; J0743; J1335; J1815; J2250; J2270; J2405; J7030; J7613; Q9967

== ENCOUNTER 2018-01-11 14:07 | Inpatient (IN) | payer MEDICARE ==
[2018-01-11] VITALS (7 sets, daily range): BP systolic 140–164; BP diastolic 61–87; PULSE 84–99; RESP 18–22; TEMP 97.4–97.9; O2SAT 93–98
[~2018-01-11] VITALS: Ht 160 cm; Wt 136.1 kg
[~2018-01-11 14:07] MED LIST changes: -BACT800T5 PO; -BETH10TA2 PO; -CLON0.1T PO; +EPIN1INJ21 IV PUSH; +EPIN1INJ21 SQ; -FERR324T4 PO; +GABA300C5 PO; +HYDR-3800 PO; -HYDR-3801 PO; +INVA1INJ IV; -METO25TA3 PO; -REGL5TAB PO; +SOLU250I IV PUSH
[2018-01-11] MEDS ORDERED: SODIUM CHLOR 0.9% 1000 ML INJ 1,000 ML IV SCH (14:33)
--- NOTE | 2018-01-11 14:35 | PD ---
HPI Chief Complaint: Abdominal Pain Time Seen by Provider: 14:33 Travel History International Travel<30 days: No Contact w/Intl Traveler<30days: No Traveled to known affect area: No History of Present Illness HPI Patient is an 82-year-old female presents emergency department for evaluation of abdominal pain generalized fairly sudden onset this morning. Patient states that she thinks it might be a urinary tract infection coming on again. She has a history of diabetes gallbladder removal and what appears to be a hernia repair on her physical exam of the patient does not endorse this. Patient states she has also been having some nausea vomiting and diarrhea. States the pain is severe, generalized, context and associated signs and symptoms as above per [facility] Past Medical History Hx Anticoagulant Therapy: Yes (COUMADIN) Arthritis: Yes Asthma: No Atrial Fibrillation: Yes Autoimmune Disease: No Anxiety: No Depression: Yes (occas) Heart Rhythm Problems: Yes Cancer: No Cardiovascular Problems: Yes (A FIB) High Cholesterol: Yes Chemotherapy: No Chest Pain: Yes Congestive Heart Failure: No COPD: No Cerebrovascular Accident: Yes (x three) Diabetes: Yes Diminished Hearing: No Endocrine: Yes GERD: No Genitourinary: No Headaches: Yes Hiatal Hernia: No Hypertension: Yes Immune Disorder: No Kidney Stones: No Musculoskeletal: Yes Neurologic: Yes (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/07) Psychiatric: No Reproductive: No Respiratory: Yes Immunizations Current: Yes Migraines: No Radiation Therapy: No Renal Failure: No Seizures: No Sickle Cell Disease: No Sleep Apnea: Yes Thyroid Disease: Yes Ulcer: No ?: Not Menopausal: Yes : 5 Para: 5 Past Surgical History Abdominal Surgery: Yes (GALLBLADDER OUT 1973) AICD: No Arteriovenous Shunt: No Cardiac Surgery: No Cholecystectomy: Yes Ear Surgery: No Endocrine Surgery: No Eye Surgery: Yes (cataract) Genitourinary Surgery: No Gynecologic Surgery: Yes (hysterectomy) Hysterectomy: Yes Insulin Pump: No Joint Replacement: Yes (KNEE REPLACEMENTS ) Oral Surgery: No Pacemaker: No Thoracic Surgery: No Other Surgery: Yes Social History Alcohol Use: No Tobacco Use: No Substance Use: No Allergies-Medications (Allergen,Severity, Reaction): Coded Allergies: penicillin G (Unverified Allergy, Severe, rash, 01/11/18) Reported Meds & Prescriptions Reported Meds & Active Scripts Active Nifedipine ER 24 HR (Nifedipine) 30 Mg Tab 30 Mg PO DAILY Reported Gabapentin 300 Mg Cap 300 Mg PO TID Hydralazine HCl 50 Mg Tablet 50 Mg PO TID Novolog Inj (Insulin Aspart) 1,000 Unit/10 Ml Vial 25 Units SQ TIDAC Sliding Scale as directed. Ecotrin Low Strength (Aspirin) 81 Mg Tabdr 81 Mg PO DAILY Spironolactone 50 Mg Tab 50 Mg PO DAILY Lisinopril 20 Mg Tab 20 Mg PO BID Lantus Solostar Pen Inj (Insulin Glargine) 300 Unit/3 Ml Pen 90 Units SQ HS Levothyroxine (Levothyroxine Sodium) 88 Mcg Tab 88 Mcg PO DAILY Lipitor (Atorvastatin Calcium) 20 Mg Tab 20 Mg PO HS Metformin (Metformin HCl) 1,000 Mg Tab 1,000 Mg PO BID With meals Lasix (Furosemide) 20 Mg Tab 20 Mg PO DAILY Review of Systems Except as stated in HPI: all other systems reviewed are Neg Physical Exam Narrative GENERAL: Well-developed, well-nourished, appears quite uncomfortable, morbidly obese per SKIN: Focused skin assessment warm/dry. HEAD: Atraumatic. Normocephalic. EYES: Pupils equal and round. No scleral icterus. No injection or drainage. ENT: No nasal bleeding or discharge. Mucous membranes pink and moist. NECK: Trachea midline. No JVD. CARDIOVASCULAR: Regular rate and rhythm. No murmur appreciated. RESPIRATORY: No accessory muscle use. Clear to auscultation. Breath sounds equal bilaterally. GASTROINTESTINAL: Abdomen is obese, she has 2 small midline hernias just to the left of midline, there is associated scar probable from hernia repair in the past, both of these are soft and easily reducible, the abdomen is fairly tender without any rebound or guarding, minimal percussive tenderness. No CVA tenderness. MUSCULOSKELETAL: No obvious deformities. No clubbing. No cyanosis. No edema. NEUROLOGICAL: Awake and alert. No obvious cranial nerve deficits. Motor grossly within normal limits. Normal speech. PSYCHIATRIC: Appropriate mood and affect; insight and judgment normal. Data Data Last Documented VS Vital Signs Date Time Temp Pulse Resp B/P (MAP) Pulse Ox O2 Delivery O2 Flow Rate FiO2 01/11/18 19:08 92 18 158/62 (94) 95 01/11/18 18:42 Room Air 01/11/18 14:34 97.9 Orders Orders Complete Blood Count With Diff (01/11/18 14:33) Comprehensive Metabolic Panel (01/11/18 14:33) Lipase (01/11/18 14:33) Lactic Acid (01/11/18 14:33) Prothrombin Time / Inr (Pt) (01/11/18 14:33) Act Partial Throm Time (Ptt) (01/11/18 14:33) Urinalysis - C+S If Indicated (01/11/18 14:33) Ct Abd/Pel W Iv Contrast(Rout) (01/11/18 14:33) Iv Access Insert/Monitor (01/11/18 14:33) Ecg Monitoring (01/11/18 14:33) Oximetry (01/11/18 14:33) Morphine Inj (Morphine Inj) (01/11/18 14:45) Sodium Chlor 0.9% 1000 Ml Inj (Ns 1000 M (01/11/18 14:33) Sodium Chloride 0.9% Flush (Ns Flush) (01/11/18 14:45) C Diff Toxin Pcr (01/11/18 14:53) Ondansetron Inj (Zofran Inj) (01/11/18 15:30) Vascular Access Team Consult/P PRN (01/11/18 15:23) Vascular Poc Ultrasound (01/11/18 ) Urine Culture (01/11/18 16:50) Chest, Single Ap (01/11/18 ) Iohexol 350 Inj (Omnipaque 350 Inj) (01/11/18 19:31) Labs Laboratory Tests Test 01/11/18 16:09 01/11/18 16:40 01/11/18 16:50 01/11/18 18:24 White Blood Count 17.6 TH/MM3 Red Blood Count 4.47 MIL/MM3 Hemoglobin 12.8 GM/DL Hematocrit 39.9 % Mean Corpuscular Volume 89.3 FL Mean Corpuscular Hemoglobin 28.5 PG Mean Corpuscular Hemoglobin Concent 32.0 % Red Cell Distribution Width 16.2 % Platelet Count 284 TH/MM3 Mean Platelet Volume 8.3 FL Neutrophils (%) (Auto) 91.8 % Lymphocytes (%) (Auto) 4.3 % Monocytes (%) (Auto) 3.7 % Eosinophils (%) (Auto) 0.0 % Basophils (%) (Auto) 0.2 % Neutrophils # (Auto) 16.1 TH/MM3 Lymphocytes # (Auto) 0.8 TH/MM3 Monocytes # (Auto) 0.7 TH/MM3 Eosinophils # (Auto) 0.0 TH/MM3 Basophils # (Auto) 0.0 TH/MM3 CBC Comment DIFF FINAL Differential Comment Blood Urea Nitrogen 29 MG/DL Creatinine 1.00 MG/DL Random Glucose 224 MG/DL Total Protein 7.3 GM/DL Albumin 3.0 GM/DL Calcium Level 9.0 MG/DL Alkaline Phosphatase 129 U/L Aspartate Amino Transf (AST/SGOT) 22 U/L Alanine Aminotransferase (ALT/SGPT) 29 U/L Total Bilirubin 0.4 MG/DL Sodium Level 136 MEQ/L Potassium Level 4.9 MEQ/L Chloride Level 106 MEQ/L Carbon Dioxide Level 17.9 MEQ/L Anion Gap 12 MEQ/L Estimat Glomerular Filtration Rate 53 ML/MIN Lipase 51 U/L Stool C. difficile Toxin (PCR) NEGATIVE Stl C. difficile Toxin Epiderm 027 PRESUMPTIVE NEGATIVE Urine Color YELLOW Urine Turbidity CLOUDY Urine pH 6.5 Urine Specific [place] 1.019 Urine Protein 30 mg/dL Urine Glucose (UA) 300 mg/dL Urine Ketones 40 mg/dL Urine Occult Blood SMALL Urine Nitrite NEG Urine Bilirubin NEG Urine Urobilinogen LESS THAN 2.0 MG/DL Urine Leukocyte Esterase LARGE Urine RBC 3 /hpf Urine WBC /hpf Urine WBC Clumps MANY Urine Squamous Epithelial Cells 1 /hpf Urine Transitional Epithelial Cells 1 /hpf Urine Bacteria MOD /hpf Microscopic Urinalysis Comment CULTURE INDICATED Lactic Acid Level 1.6 mmol/L MDM Medical Decision Making Medical Screen Exam Complete: Yes Emergency Medical Condition: Yes Differential Diagnosis Acute abdomen, ischemic bowel is a possible but unlikely, UTI, UTI with sepsis, gastritis, gastroenteritis, Narrative Course Patient room to the emergency department, multiple attempts been placed by nursing and best IV access is a 24-gauge into her thumb, I have looked with ultrasound guidance, the vascular access team best axis is a 20-gauge in her right AC, this did not draw any blood, discussed with the patient that at this time no laboratory results have been obtained, she was given morphine and Zofran and is feeling better, discussed given her age her comorbidities and her pain level I recommended a CAT scan and to do this a central line must be started. After discussion with benefits competitions and alternatives the patient agreed for central line which was placed without complication. Basic labs are starting to return which do show an elevated white blood cell count, patient was recommended for CAT scan she is agreeable. She was discussed with Dr. Moctezuma [id number] shift change to follow-up CAT scan and disposition the patient appropriately. Her repeat abdominal exam prior to the end of my shift was now benign. Last 24 hours Impressions Chest X-Ray 01/11/18 0000 Signed Impressions: Service Date/Time: Thursday, January 11, 2018 19:00 - CONCLUSION: 1. Right IJ central line in good position without pneumothorax. 2. Minimal left lung base airspace disease, likely atelectasis. Tolu Garrison MD Procedures Procedure Narrative CENTRAL VENOUS LINE: The site was prepped with Betadine and sterilely draped. It was infiltrated with 1% lidocaine plain. The deep vein was cannulated using normal Seldinger technique. A 7 Chinese triple lumen central line was placed in the right IJ site and secured with simple interrupted suture. The site was sterilely dressed. The patient tolerated the procedure well. Was placed under ultrasound guidance. Olman Youngblood MD Jan 11, 2018 14:35
[2018-01-11] MEDS ORDERED: MORPHINE SULFATE 4 MG/ML INJ IV PUSH ONE (14:45)
[2018-01-11] MEDS ORDERED: SODIUM CHLORIDE 0.9% FLUSH 10 ML FLUSH IV FLUSH PRN ×2 (14:45→21:15)
[2018-01-11] MEDS ORDERED: ONDANSETRON HCL 4 MG/2 ML VIAL IV PUSH ONE (15:30)
[2018-01-11 17:37] LABS: AUTOMATED NEUTROPHIL # 16.1 TH/MM3 (1.8-7.7); BASOPHIL % 0.2 % (0.0-2.0); HEMATOCRIT 39.9 % (35.0-46.0); HEMOGLOBIN 12.8 GM/DL (11.6-15.3); LYMPH % 4.3 % (9.0-44.0); LYMPHOCYTE # 0.8 TH/MM3 (1.0-4.8); MEAN CELL VOLUME 89.3 FL (80.0-100.0); MEAN CORPUSCULAR HEMOGLOBIN 28.5 PG (27.0-34.0); MEAN PLATELET VOLUME 8.3 FL (7.0-11.0); MONO % 3.7 % (0.0-8.0); MONOCYTE # 0.7 TH/MM3 (0-0.9); NEUT % 91.8 % (16.0-70.0); PLATELET COUNT 284 TH/MM3 (150-450); RED BLOOD COUNT 4.47 MIL/MM3 (4.00-5.30); RED CELL DISTRIBUTION WIDTH 16.2 % (11.6-17.2); WHITE BLOOD COUNT 17.6 TH/MM3 (4.0-11.0)
[2018-01-11 18:03] LABS: AST (GOT) 22 U/L (15-37); BICARBONATE 17.9 MEQ/L (21.0-32.0); BLOOD UREA NITROGEN 29 MG/DL (7-18); CHLORIDE 106 MEQ/L (98-107); GLOMERULAR FILTRATION RATE 53 ML/MIN (>89); GLUCOSE,RANDOM 224 MG/DL (74-106); SODIUM (NA) 136 MEQ/L (136-145)
[2018-01-11 18:04] LABS: ALT (GPT) 29 U/L (10-53)
[2018-01-11 18:06] LABS: ALKALINE PHOSPHATASE 129 U/L (45-117); TOTAL BILIRUBIN ADULT 0.4 MG/DL (0.2-1.0); TOTAL PROTEIN 7.3 GM/DL (6.4-8.2)
[2018-01-11 18:08] LABS: BACTERIA, URINE MOD /hpf; BILIRUBIN, URINE NEG (NEG); BLOOD, URINE SMALL (NEG); GLUCOSE,URINE 300 mg/dL (NEG); KETONE, URINE 40 mg/dL (NEG); NITRITE,URINE NEG (NEG); PH, URINE 6.5 (5.0-8.5); SQUAMOUS EPITHELIAL CELL URINE 1 /hpf (0-5); TRANSITIONAL EPI CELLS, URINE 1 /hpf; URINE COLOR YELLOW (YELLW/STRAW); URINE LEUKOCYTE ESTERASE LARGE (NEG); WHITE BLOOD CELL CLUMPS MANY
[2018-01-11] MEDS ORDERED: METFORMIN HOLD POST IV CONTRAST SCH (19:25)
--- NOTE | 2018-01-11 19:25 | PD ---
Data Data Last Documented VS Vital Signs Date Time Temp Pulse Resp B/P (MAP) Pulse Ox O2 Delivery O2 Flow Rate FiO2 01/11/18 19:08 92 18 158/62 (94) 95 01/11/18 18:42 Room Air 01/11/18 14:34 97.9 Orders Orders Complete Blood Count With Diff (01/11/18 14:33) Comprehensive Metabolic Panel (01/11/18 14:33) Lipase (01/11/18 14:33) Lactic Acid (01/11/18 14:33) Prothrombin Time / Inr (Pt) (01/11/18 14:33) Act Partial Throm Time (Ptt) (01/11/18 14:33) Urinalysis - C+S If Indicated (01/11/18 14:33) Ct Abd/Pel W Iv Contrast(Rout) (01/11/18 14:33) Iv Access Insert/Monitor (01/11/18 14:33) Ecg Monitoring (01/11/18 14:33) Oximetry (01/11/18 14:33) Morphine Inj (Morphine Inj) (01/11/18 14:45) Sodium Chlor 0.9% 1000 Ml Inj (Ns 1000 M (01/11/18 14:33) Sodium Chloride 0.9% Flush (Ns Flush) (01/11/18 14:45) C Diff Toxin Pcr (01/11/18 14:53) Ondansetron Inj (Zofran Inj) (01/11/18 15:30) Vascular Access Team Consult/P PRN (01/11/18 15:23) Vascular Poc Ultrasound (01/11/18 ) Urine Culture (01/11/18 16:50) Chest, Single Ap (01/11/18 ) Iohexol 350 Inj (Omnipaque 350 Inj) (01/11/18 19:31) Sodium Chlorid 0.9% 500 Ml Inj (Ns 500 M (01/11/18 20:00) Admit Order (Ed Use Only) (01/11/18 20:33) Ertapenem Inj (Invanz Inj) (01/11/18 20:45) Labs Laboratory Tests Test 01/11/18 16:09 01/11/18 16:40 01/11/18 16:50 01/11/18 18:24 White Blood Count 17.6 TH/MM3 Red Blood Count 4.47 MIL/MM3 Hemoglobin 12.8 GM/DL Hematocrit 39.9 % Mean Corpuscular Volume 89.3 FL Mean Corpuscular Hemoglobin 28.5 PG Mean Corpuscular Hemoglobin Concent 32.0 % Red Cell Distribution Width 16.2 % Platelet Count 284 TH/MM3 Mean Platelet Volume 8.3 FL Neutrophils (%) (Auto) 91.8 % Lymphocytes (%) (Auto) 4.3 % Monocytes (%) (Auto) 3.7 % Eosinophils (%) (Auto) 0.0 % Basophils (%) (Auto) 0.2 % Neutrophils # (Auto) 16.1 TH/MM3 Lymphocytes # (Auto) 0.8 TH/MM3 Monocytes # (Auto) 0.7 TH/MM3 Eosinophils # (Auto) 0.0 TH/MM3 Basophils # (Auto) 0.0 TH/MM3 CBC Comment DIFF FINAL Differential Comment Blood Urea Nitrogen 29 MG/DL Creatinine 1.00 MG/DL Random Glucose 224 MG/DL Total Protein 7.3 GM/DL Albumin 3.0 GM/DL Calcium Level 9.0 MG/DL Alkaline Phosphatase 129 U/L Aspartate Amino Transf (AST/SGOT) 22 U/L Alanine Aminotransferase (ALT/SGPT) 29 U/L Total Bilirubin 0.4 MG/DL Sodium Level 136 MEQ/L Potassium Level 4.9 MEQ/L Chloride Level 106 MEQ/L Carbon Dioxide Level 17.9 MEQ/L Anion Gap 12 MEQ/L Estimat Glomerular Filtration Rate 53 ML/MIN Lipase 51 U/L Stool C. difficile Toxin (PCR) NEGATIVE Stl C. difficile Toxin Epiderm 027 PRESUMPTIVE NEGATIVE Urine Color YELLOW Urine Turbidity CLOUDY Urine pH 6.5 Urine Specific [place] 1.019 Urine Protein 30 mg/dL Urine Glucose (UA) 300 mg/dL Urine Ketones 40 mg/dL Urine Occult Blood SMALL Urine Nitrite NEG Urine Bilirubin NEG Urine Urobilinogen LESS THAN 2.0 MG/DL Urine Leukocyte Esterase LARGE Urine RBC 3 /hpf Urine WBC /hpf Urine WBC Clumps MANY Urine Squamous Epithelial Cells 1 /hpf Urine Transitional Epithelial Cells 1 /hpf Urine Bacteria MOD /hpf Microscopic Urinalysis Comment CULTURE INDICATED Lactic Acid Level 1.6 mmol/L [facility] Medical Record Reviewed: Yes Supervised Visit with BEKAH: No Interpretation(s) Last Impressions Abdomen/Pelvis CT 01/11/18 1433 Signed Impressions: Service Date/Time: Thursday, January 11, 2018 19:17 - CONCLUSION: 1. Interval enlargement of right lung base nodule now measuring 2.3 x 3.4 cm in comparison to 1.6 x 2.0 cm. This again is concerning for malignancy. 2. Moderate sigmoid diverticulosis with trace amount of ascites and mesenteric fluid extending to the region of the sigmoid colon. Sigmoid diverticulitis cannot be excluded as the mesenteric fluid significantly reduces sensitivity for diagnosis of early acute diverticulitis. This trace free fluid was present on prior exam. 3. Stable large fat containing periumbilical hernia. 4. Remainder of the exam is unchanged. Tolu Garrison MD Chest X-Ray 01/11/18 0000 Signed Impressions: Service Date/Time: Thursday, January 11, 2018 19:00 - CONCLUSION: 1. Right IJ central line in good position without pneumothorax. 2. Minimal left lung base airspace disease, likely atelectasis. Tolu Garrison MD Narrative Course During the course of the patient's emergency department visit, the patient's history, examination, and differential diagnosis were reviewed with the patient. The patient was placed on a monitoring engineer with oximetry and frequent blood pressure monitoring. The patient had IV access obtained and blood work sent for analysis. The patient's case was checked out to me by Dr. Youngblood. Please see his complete history and physical. The patient's case was checked out to me at the conclusion of his shift. The patient was initially provided normal saline 1 L IV fluid bolus, morphine 4 mg IV for pain, Zofran 8 mg IV for nausea. The patient's laboratory studies were reviewed and remarkable for White count is 17.6, hemoglobin 12.8, platelets 284 with 91.8 nutritive, CMP is remarkable for a CO2 of 17.9, BUN 29, GFR 53, glucose 224, alk phos 129, albumin 3.0, lipase 51, lactic acid is 1.6. Urinalysis shows 30 protein 300 glucose 40 ketones small occult blood, large leukocyte esterase, WBCs innumerable, many clumps, moderate bacteria, culture indicated. Stool study is negative for C. difficile toxin. Radiology studies were reviewed and remarkable for a chest x-ray that shows a right IJ and position, no pneumothorax, atelectasis at the lung base. Review of the electronic medical record reveals that the patient has had resistant urinary tract infections in the past, most recently in July 2017 which responded only to Invanz administration. The patient was given a dose of Invanz in the emergency department. Patient was continued on normal saline IV fluids. The patient's results were discussed with the patient, including the plan of care. I explained that further testing and/ or monitoring is indicated based on the patient's history, examination, and/ or laboratory findings. Therefore, I recommended admission for additional evaluation. The patient expressed understanding and was agreeable with this plan. The patient was admitted to the hospital in stable condition and sent to a bed under the care of the [facility] service. Sepsis Criteria SIRS Criteria (2 or more): Heart rate over 90, WBC > 04664, < 4000 or > 10% bands Sepsis Criteria (SIRS+source): Infect source susp/known Criteria Outcome: Meets SIRS criteria, Meets sepsis criteria Physician Communication Physician Communication The patient's case including history, pertinent physical examination findings, and laboratory studies were discussed with Dr. Daily. It was agreed that the patient would be admitted to the [facility] service. Diagnosis Primary Impression: Urinary tract infection Qualified Codes: N39.0 - Urinary tract infection, site not specified Additional Impressions: Lung mass Abdominal pain Qualified Codes: R10.84 - Generalized abdominal pain Admitting Information Admitting Physician Requests: it Aracelis Moctezuma MD Jan 11, 2018 19:25
[2018-01-11] MEDS ORDERED: IOHEXOL 350 MG/ML 10 ML VIAL (for RAD DIAG) IVCONTRAST ONE (19:31)
--- NOTE | 2018-01-11 19:35 | RADRPT ---
EXAM DATE/TIME: 01/11/2018 19:00 [facility] COMPARISON: CHEST SINGLE AP, July 22, 2017, 15:10. INDICATIONS : Post central line placement. MEDICAL HISTORY : Diabetes mellitus type II. Stroke. Hypertension. SURGICAL HISTORY : Cholecystectomy. Hysterectomy. ENCOUNTER: Initial ACUITY: 1 day PAIN SCORE: Non-responsive. LOCATION: Bilateral chest FINDINGS: Right IJ central line with tip in the central SVC. No significant pneumothorax. Mild airspace disease in the left lower lung zone. Cardiomediastinal contours are stable. Remainder of exam is unchanged. CONCLUSION: 1. Right IJ central line in good position without pneumothorax. 2. Minimal left lung base airspace disease, likely atelectasis. Tolu Garrison MD on January 11, 2018 at 19:32 Board Certified Radiologist. This report was verified electronically.
[2018-01-11] MEDS ORDERED: ERTAPENEM SODIUM 1000 MG VIAL IV STA (19:39)
--- NOTE | 2018-01-11 19:54 | RADRPT ---
EXAM DATE/TIME: 01/11/2018 19:17 [facility] COMPARISON: CT ABDOMEN & PELVIS W CONTRAST, July 28, 2017, 17:07. INDICATIONS : Diffuse abdominal pain with nausea and vomiting. IV CONTRAST: 70 cc Omnipaque 350 (iohexol) IV ORAL CONTRAST: No oral contrast ingested. RADIATION DOSE: 30.96 CTDIvol (mGy) MEDICAL HISTORY : Cardiovascular disease. CVA. SURGICAL HISTORY : Cholecystectomy. Cholecystectomy. ENCOUNTER: Initial ACUITY: 1 day PAIN SCALE: 3/10 LOCATION: Abdomen. TECHNIQUE: Volumetric scanning of the abdomen and pelvis was performed. Using automated exposure control and ad justment of the mA and/or kV according to patient size, radiation dose was kept as low as reasonably achievable to obtain optimal diagnostic quality images. DICOM format image data is available electro nically for review and comparison. FINDINGS: LOWER LUNGS: Interval enlargement of nodule in the right lung base which now measures 2.3 x 3.4 cm in comparison t o 1.6 x 2.0 cm. LIVER: Homogeneous density without lesion. There is no dilation of the biliary tree. No calcified gallston es. SPLEEN: Normal size without lesion. PANCREAS: Within normal limits. KIDNEYS: Normal in size and shape. There is no mass, stone or hydronephrosis. ADRENAL GLANDS: Within normal limits. VASCULAR: Moderate atherosclerotic calcifications of the infrarenal aorta without aneurysm. BOWEL/MESENTERY: Moderate sigmoid diverticulosis. There is trace amount of ascites with fluid extending into the pelvi s. Associated mesenteric stranding in the deep pelvis adjacent the sigmoid colon. No evidence for bow el obstruction. Small hiatal hernia. ABDOMINAL WALL: Large periumbilical and tibial wall hernia containing fat. RETROPERITONEUM: There is no lymphadenopathy. BLADDER: Decompressed REPRODUCTIVE: Within normal limits. INGUINAL: There is no lymphadenopathy or hernia. MUSCULOSKELETAL: Degenerative spondylosis of the lower lumbar spine. CONCLUSION: 1. Interval enlargement of right lung base nodule now measuring 2.3 x 3.4 cm in comparison to 1.6 x 2 .0 cm. This again is concerning for malignancy. 2. Moderate sigmoid diverticulosis with trace amount of ascites and mesenteric fluid extending to the region of the sigmoid colon. Sigmoid diverticulitis cannot be excluded as the mesenteric fluid signi ficantly reduces sensitivity for diagnosis of early acute diverticulitis. This trace free fluid was p resent on prior exam. 3. Stable large fat containing periumbilical hernia. 4. Remainder of the exam is unchanged. Tolu Garrison MD on January 11, 2018 at 19:45 Board Certified Radiologist. This report was verified electronically.
[2018-01-11] MEDS ORDERED: SODIUM CHLORID 0.9% 500 ML INJ 500 ML IV ONE (20:00)
[2018-01-11] MEDS ORDERED: ERTAPENEM 1,000 MG/NS 100 ML IV ONE ×2 (20:45)
[2018-01-11] MEDS: SODIUM CHLOR 0.9% 1000 ML INJ 1,000 ML IV SCH ×2 (21:02→22:10)
[2018-01-11] MEDS ORDERED: NALOXONE HCL 0.4 MG/ML AMP IV PUSH PRN (21:15)
[2018-01-11] MEDS ORDERED: DEXTROSE 50% IN WATER 50 ML VIAL(D50) IV PUSH PRN (21:15)
[2018-01-11] MEDS ORDERED: GLUCAGON 1 MG/ML VIAL OTHER PRN (21:15)
[2018-01-11] MEDS ORDERED: ONDANSETRON HCL 4 MG/2 ML VIAL IVP PRN (21:15)
[2018-01-11 21:35] LABS: PROTHROMBIN TIME - PATIENT 10.5 SEC (9.8-11.6)
[2018-01-11] MEDS: LISINOPRIL 20 MG TAB PO SCH (22:00)
[2018-01-11] MEDS: HEPARIN SODIUM - SQ 10,000 UNITS/ML VIAL SQ SCH (22:00)
--- NOTE | 2018-01-11 22:04 | HHI.HP ---
[facility] Primary Care Physician Unknown Admission Diagnosis UTI, Sepsis Diagnoses: Travel History International Travel<30 Days: No Contact w/Intl Traveler <30 Da: No Traveled to Known Affected Are: No History of Present Illness 2-year-old female with past medical history significant for multiple TIAs, atrial fibrillation not currently on anticoagulation secondary to GI bleed, type 2 diabetes mellitus, hypothyroidism, CHF and kidney disease resents to the emergency department for evaluation of abdominal pain. The patient reports that she has diffuse abdominal pain in the bilateral lower quadrants that began this morning. She endorses associated nausea/vomiting/diarrhea. She reports approximately 10 episodes of diarrhea and emesis since this morning. She also reports that she has burning with urination that started today. Denies fever/ chills denies shortness of breath and chest pain. Past Family Social History Past Medical History TIA x 3 Atrial fibrillation Diabetes Mellitus, Type 2 Hypothyroidism CHF Kidney disease Past Surgical History Knee replacements Cholecystectomy Hysterectomy Reported Medications Reported Meds & Active Scripts Active Nifedipine ER 24 HR (Nifedipine) 30 Mg Tab 30 Mg PO DAILY Reported Gabapentin 300 Mg Cap 300 Mg PO TID Hydralazine HCl 50 Mg Tablet 50 Mg PO TID Novolog Inj (Insulin Aspart) 1,000 Unit/10 Ml Vial 25 Units SQ TIDAC Sliding Scale as directed. Ecotrin Low Strength (Aspirin) 81 Mg Tabdr 81 Mg PO DAILY Spironolactone 50 Mg Tab 50 Mg PO DAILY Lisinopril 20 Mg Tab 20 Mg PO BID Lantus Solostar Pen Inj (Insulin Glargine) 300 Unit/3 Ml Pen 90 Units SQ HS Levothyroxine (Levothyroxine Sodium) 88 Mcg Tab 88 Mcg PO DAILY Lipitor (Atorvastatin Calcium) 20 Mg Tab 20 Mg PO HS Metformin (Metformin HCl) 1,000 Mg Tab 1,000 Mg PO BID With meals Lasix (Furosemide) 20 Mg Tab 20 Mg PO DAILY Allergies: Coded Allergies: penicillin G (Verified Allergy, Severe, rash, 01/11/18) Family History Denies family history of diabetes mellitus and CAD Social History Tobacco: quit 40 years ago Alcohol: denies illicit drugs: Denies Physical Exam Vital Signs Vital Signs Date Time Temp Pulse Resp B/P (MAP) Pulse Ox O2 Delivery O2 Flow Rate FiO2 01/11/18 19:08 92 18 158/62 (94) 95 01/11/18 18:42 99 22 143/61 (88) 93 Room Air 01/11/18 14:35 98 Room Air 01/11/18 14:34 97.9 93 21 164/75 (104) 96 Room Air Physical Exam GENERAL: Obese, female lying in bed SKIN: No rashes, ecchymoses or lesions. Cool and dry. HEAD: Atraumatic. Normocephalic. No temporal or scalp tenderness. EYES: Pupils equal round and reactive. Extraocular motions intact. No scleral icterus. No injection or drainage. ENT: Nose without bleeding, purulent drainage or septal hematoma. Throat without erythema, tonsillar hypertrophy or exudate. Uvula midline. Airway patent. NECK: Trachea midline. No JVD or lymphadenopathy. Supple, nontender, no meningeal signs. CARDIOVASCULAR: Regular rate and rhythm without murmurs, gallops, or rubs. RESPIRATORY: Clear to auscultation. Breath sounds equal bilaterally. No wheezes , rales, or rhonchi. GASTROINTESTINAL: Abdomen soft, diffusely tender to palpation in the lower quadrants, nondistended. No hepato-splenomegaly, or palpable masses. No guarding. MUSCULOSKELETAL: Extremities without clubbing, cyanosis, or edema. No joint tenderness, effusion, or edema noted. No calf tenderness. NEUROLOGICAL: Awake and alert. Cranial nerves II through XII intact. Motor and sensory grossly within normal limits. Normal speech. Laboratory Laboratory Tests Test 01/11/18 16:09 01/11/18 16:40 01/11/18 16:50 01/11/18 18:24 White Blood Count 17.6 Red Blood Count 4.47 Hemoglobin 12.8 Hematocrit 39.9 Mean Corpuscular Volume 89.3 Mean Corpuscular Hemoglobin 28.5 Mean Corpuscular Hemoglobin Concent 32.0 Red Cell Distribution Width 16.2 Platelet Count 284 Mean Platelet Volume 8.3 Neutrophils (%) (Auto) 91.8 Lymphocytes (%) (Auto) 4.3 Monocytes (%) (Auto) 3.7 Eosinophils (%) (Auto) 0.0 Basophils (%) (Auto) 0.2 Neutrophils # (Auto) 16.1 Lymphocytes # (Auto) 0.8 Monocytes # (Auto) 0.7 Eosinophils # (Auto) 0.0 Basophils # (Auto) 0.0 CBC Comment DIFF FINAL Differential Comment Blood Urea Nitrogen 29 Creatinine 1.00 Random Glucose 224 Total Protein 7.3 Albumin 3.0 Calcium Level 9.0 Alkaline Phosphatase 129 Aspartate Amino Transf (AST/SGOT) 22 Alanine Aminotransferase (ALT/SGPT) 29 Total Bilirubin 0.4 Sodium Level 136 Potassium Level 4.9 Chloride Level 106 Carbon Dioxide Level 17.9 Anion Gap 12 Estimat Glomerular Filtration Rate 53 Lipase 51 Stool C. difficile Toxin (PCR) NEGATIVE Stl C. difficile Toxin Epiderm 027 PRESUMPTIVE NEGATIVE Urine Color YELLOW Urine Turbidity CLOUDY Urine pH 6.5 Urine Specific [place] 1.019 Urine Protein 30 Urine Glucose (UA) 300 Urine Ketones 40 Urine Occult Blood SMALL Urine Nitrite NEG Urine Bilirubin NEG Urine Urobilinogen LESS THAN 2.0 Urine Leukocyte Esterase LARGE Urine RBC 3 Urine WBC Urine WBC Clumps MANY Urine Squamous Epithelial Cells 1 Urine Transitional Epithelial Cells 1 Urine Bacteria MOD Microscopic Urinalysis Comment CULTURE INDICATED Lactic Acid Level 1.6 Date/Time Source Procedure Growth Status 01/11/18 16:50 Urine Random Urine Urine Culture Pending Received Result Diagram: 01/11/18 1609 01/11/18 1609 Caprini VTE Risk Assessment Caprini VTE Risk Assessment: Mod/High Risk (score >= 2) Caprini Risk Assessment Model Point Value = 1 Point Value = 2 Point Value = 3 Point Value = 5 Age 41-60 Minor surgery BMI > 25 kg/m2 Swollen legs Varicose veins or History of unexplained or recurrent spontaneous Oral contraceptives or hormone replacement Sepsis (< 1 month) Serious lung disease, including pneumonia (< 1 month) Abnormal pulmonary function Acute myocardial infarction Congestive heart failure (< 1 month) History of inflammatory bowel disease Medical patient at bed rest Age 61-74 Arthroscopic surgery Major open surgery (> 45 min) Laparoscopic surgery (> 45 min) Malignancy Confined to bed (> 72 hours) Immobilizing plaster cast Central venous access Age >= 75 History of VTE Family history of VTE Factor V Leiden Prothrombin [id number] Lupus anticoagulant Anticardiolipin antibodies Elevated serum homocysteine Heparin-induced thrombocytopenia Other congenital or acquired thrombophilia Stroke (< 1 month) Elective arthroplasty Hip, pelvis, or leg fracture Acute spinal cord injury (< 1 month) Prophylaxis Regimen Total Risk Factor Score Risk Level Prophylaxis Regimen 0-1 Low Early ambulation 2 Moderate Order ONE of the following: *Sequential Compression Device (SCD) *Heparin 5000 units SQ BID 3-4 Higher Order ONE of the following medications: *Heparin 5000 units SQ TID *Enoxaparin/Lovenox 40 mg SQ daily (WT < 150 kg, CrCl > 30 mL/min) *Enoxaparin/Lovenox 30 mg SQ daily (WT < 150 kg, CrCl > 10-29 mL/min) *Enoxaparin/Lovenox 30 mg SQ BID (WT < 150 kg, CrCl > 30 mL/min) AND/OR *Sequential Compression Device (SCD) 5 or more Highest Order ONE of the following medications: *Heparin 5000 units SQ TID (Preferred with Epidurals) *Enoxaparin/Lovenox 40 mg SQ daily (WT < 150 kg, CrCl > 30 mL/min) *Enoxaparin/Lovenox 30 mg SQ daily (WT < 150 kg, CrCl > 10-29 mL/min) *Enoxaparin/Lovenox 30 mg SQ BID (WT < 150 kg, CrCl > 30 mL/min) AND *Sequential Compression Device (SCD) Assessment and Plan Assessment and Plan Assessment/plan: 1. Urinary tract infection/history of ESBL Escherichia coli UTI/sepsis UA consistent with urinary tract infection Urine culture pending Patient with history of ESBL Escherichia coli on 07/28/17 Resume previous antibiotics - ertapenem Factious disease consulted, appreciate recommendations Blood cultures pending 2. Abdominal pain CT of the abdomen/pelvis shows moderate sigmoid diverticulosis although given presence of free fluid diverticulitis cannot be excluded Patient's abdominal pain is bilateral in nature and associated with nausea/ vomiting - likely gastroenteritis Patient does have history of gastroenteritis and colitis Monitor and clinically correlate 3. Lung mass Patient with interval enlargement of right lung base nodule Status post bronchoscopy with washings negative for malignant cells on 08/05/17 Pulmonary consulted, appreciate recommendations 4. Diabetes mellitus Continue home Lantus SSI Monitor blood glucose 5. Atrial fibrillation Rate controlled Continue home medications Patient's Coumadin stopped 2 weeks ago secondary to GI bleed 6. CHF/kidney disease/hypothyroidism Continue home medications FEN Heart healthy diet as tolerated Electrolytes: Monitor and replete when necessary Heparin Physician Certification 2 Midnight Certification Type: Admission for Inpatient Services Order for Inpatient Services The services are ordered in accordance with Medicare regulations or non- Medicare payer requirements, as applicable. In the case of services not specified as inpatient-only, they are appropriately provided as inpatient services in accordance with the 2-midnight benchmark. Estimated LOS (days): 2 2 days is the estimated time the patient will need to remain in the hospital, assuming treatment plan goals are met and no additional complications. Post-Hospital Plan: Not yet determined Dena Daily MD Jan 11, 2018 22:04
[2018-01-12] VITALS (7 sets, daily range): BP systolic 133–148; BP diastolic 66–82; PULSE 78–94; RESP 16–22; TEMP 97.4–98.1; O2SAT 92–97
[2018-01-12] MEDS: HEPARIN SODIUM - SQ 10,000 UNITS/ML VIAL SQ SCH ×3 (04:49→22:04)
[2018-01-12] MEDS: LEVOTHYROXINE SODIUM 88 MCG TAB PO SCH (04:49)
[2018-01-12 05:05] LABS: AUTOMATED NEUTROPHIL # 8.8 TH/MM3 (1.8-7.7); BASOPHIL # 0.1 TH/MM3 (0-0.2); BASOPHIL % 0.7 % (0.0-2.0); EOSINOPHIL # 0.1 TH/MM3 (0-0.4); EOSINOPHIL % 0.9 % (0.0-4.0); HEMATOCRIT 31.9 % (35.0-46.0); HEMOGLOBIN 10.4 GM/DL (11.6-15.3); LYMPH % 14.4 % (9.0-44.0); LYMPHOCYTE # 1.7 TH/MM3 (1.0-4.8); MEAN CELL VOLUME 87.4 FL (80.0-100.0); MEAN CORPUSCULAR HEMOGLOBIN 28.5 PG (27.0-34.0); MEAN CORPUSCULAR HGB CONC 32.6 % (32.0-36.0); MEAN PLATELET VOLUME 7.7 FL (7.0-11.0); MONO % 9.5 % (0.0-8.0); MONOCYTE # 1.1 TH/MM3 (0-0.9); NEUT % 74.5 % (16.0-70.0); PLATELET COUNT 257 TH/MM3 (150-450); RED BLOOD COUNT 3.65 MIL/MM3 (4.00-5.30); RED CELL DISTRIBUTION WIDTH 15.8 % (11.6-17.2); WHITE BLOOD COUNT 11.8 TH/MM3 (4.0-11.0)
[2018-01-12 05:30] LABS: BICARBONATE 26.2 MEQ/L (21.0-32.0); CREATININE 0.93 MG/DL (0.50-1.00)
[2018-01-12] MEDS: SODIUM CHLORIDE 0.9% FLUSH 10 ML FLUSH IV FLUSH SCH ×2 (07:31→20:36)
[2018-01-12] MEDS: NIFEdipine 30 MG SUSTAINED RELEASE TAB PO SCH (08:41)
[2018-01-12] MEDS: LISINOPRIL 20 MG TAB PO SCH ×2 (08:41→20:35)
[2018-01-12] MEDS: FUROSEMIDE 20 MG TAB PO SCH (08:41)
[2018-01-12] MEDS: SPIRONOLACTONE 50 MG TAB PO SCH (08:41)
[2018-01-12] MEDS: hydrALAZINE HCL 50 MG TAB PO SCH ×3 (08:41→17:25)
[2018-01-12] MEDS: GABAPENTIN 300 MG CAP PO SCH ×3 (08:42→17:25)
[2018-01-12] MEDS: ASPIRIN EC 81 MG TABEC PO SCH (08:42)
[2018-01-12] MEDS: SODIUM CHLOR 0.9% 1000 ML INJ 1,000 ML IV SCH ×2 (08:45→22:06)
[2018-01-12] MEDS: INSULIN ASPART SUPPLEMENTAL SCALE SQ SCH ×4 (08:58→21:59)
--- NOTE | 2018-01-12 09:56 | MB ---
cc: CHARANJIT DONOHUE M.D. DATE OF CONSULTATION 01/12/2018 REASON FOR CONSULTATION Right lung nodule, enlarged from previous, malignancy suspect. HISTORY OF PRESENT ILLNESS The patient is an 82-year-old female who was admitted with urosepsis. The patient had a CT scan of the abdomen revealing evidence of a right lower lobe lung nodule which enlarged from 1-2 cm. I am asked to see her at this time for same. Previous bronchoscopy has been negative. PAST MEDICAL HISTORY 1. Diabetes mellitus. 2. Congestive heart failure. 3. Atrial fibrillation. 4. Hypothyroidism. 5. Chronic kidney disease. PAST SURGICAL HISTORY 1. Knee replacements. 2. Cholecystectomy. 3. Hysterectomy. SOCIAL HISTORY Does not smoke; last smoked over 40 years ago. Does not drink. No history of drug use. FAMILY HISTORY Noncontributory. ALLERGIES PENICILLIN. MEDICATIONS 1. Gabapentin. 2. Hydralazine. 3. NovoLog. 4. Ecotrin. 5. Aldactone. 6. Lisinopril. 7. Insulin. 8. Levothyroxine. 9. Lipitor. REVIEW OF SYSTEMS A 12-point review of systems as per HPI and past history, otherwise negative. PHYSICAL EXAMINATION VITAL SIGNS: Temperature 98, pulse 90, respiration 20, blood pressure 140/60. Oxygen saturation 95% on room air. HEENT: Exam unremarkable. Eyes without icterus. NECK: Without adenopathy or thyroid enlargement. Central trachea. CHEST: Without dullness to percussion, clear to auscultation. CARDIAC: PMI distant. S1, S2 audible. No murmur or rub. ABDOMEN: Obese, lax. Bowel sounds audible. EXTREMITIES: No clubbing, cyanosis or edema. LABORATORY White count 17,000, hemoglobin 12, hematocrit 39, platelets 284,000. Sodium 136, potassium 4.9, BUN 29, creatinine 1.0. IMAGING Chest x-ray: No acute abnormality seen. CT scan of the abdomen with enlarged right lower lung lobe nodule. IMPRESSION 1. Lung nodule enlarging; needs tissue diagnosis. 2. Urinary tract infection; on antibiotic therapy. 3. Diabetes mellitus. 4. Atrial fibrillation. 5. Congestive heart failure. PLAN Will obtain baseline pulmonary function and ask interventional radiology to proceed with a needle biopsy should the lesion be accessible to same. I do thank you for asking me to partake in Mrs. Vega's care. MD EDUARD Flores/ANNALISA /9:16 AM /9:27 AM
--- NOTE | 2018-01-12 13:24 | HHI.PR ---
Subjective Remarks complains of burning urniation for past 4 days, no fever but feels cold no gross hematuria noted blood in the stools lower abdominal discomfort/pain- no nausea or vomiting Objective Vitals Vital Signs Date Time Temp Pulse Resp B/P (MAP) Pulse Ox O2 Delivery O2 Flow Rate FiO2 01/12/18 08:09 97.7 85 22 138/82 (100) 94 01/12/18 04:00 97.4 82 16 148/80 (102) 95 01/12/18 04:00 Room Air 01/12/18 04:00 78 01/12/18 00:00 94 01/12/18 00:00 97.9 79 16 145/80 (101) 97 01/12/18 00:00 Room Air 01/11/18 22:41 84 01/11/18 22:00 Room Air 01/11/18 21:57 97.4 85 18 140/87 (104) 96 01/11/18 21:44 01/11/18 19:08 92 18 158/62 (94) 95 01/11/18 18:42 99 22 143/61 (88) 93 Room Air 01/11/18 14:35 98 Room Air 01/11/18 14:34 97.9 93 21 164/75 (104) 96 Room Air I/O 01/11/18 01/11/18 01/11/18 01/12/18 01/12/18 01/12/18 06:59 14:59 22:59 06:59 14:59 22:59 Intake Total 1000 ml 582 ml Output Total 650 ml Balance 1000 ml -68 ml Intake IV Total 1000 ml 582 ml Output Urine Total 650 ml # Voids 1 Result Diagram: 01/12/18 0445 01/12/18 0445 Imaging Last Impressions Abdomen/Pelvis CT 01/11/18 1433 Signed Impressions: Service Date/Time: Thursday, January 11, 2018 19:17 - CONCLUSION: 1. Interval enlargement of right lung base nodule now measuring 2.3 x 3.4 cm in comparison to 1.6 x 2.0 cm. This again is concerning for malignancy. 2. Moderate sigmoid diverticulosis with trace amount of ascites and mesenteric fluid extending to the region of the sigmoid colon. Sigmoid diverticulitis cannot be excluded as the mesenteric fluid significantly reduces sensitivity for diagnosis of early acute diverticulitis. This trace free fluid was present on prior exam. 3. Stable large fat containing periumbilical hernia. 4. Remainder of the exam is unchanged. Tolu Garrison MD Chest X-Ray 01/11/18 0000 Signed Impressions: Service Date/Time: Thursday, January 11, 2018 19:00 - CONCLUSION: 1. Right IJ central line in good position without pneumothorax. 2. Minimal left lung base airspace disease, likely atelectasis. Tolu Garrison MD Objective Remarks awake and alert, no acute distress right IJ line in place lungs- no rales or wheezes irregular rhythm abdomen soft, nontender, flabby, no guarding extremities no edema A/P Assessment and Plan 82 years old female Urinary tract infection with history of ESBL Escherichia coli UTI/sepsis- 2016 Urine culture pending Started on - ertapenem Infectious disease consult Abdominal pain- with lower GI bleeding- maybe due to diverticuloses CT of the abdomen/pelvis shows moderate sigmoid diverticulosis although given presence of free fluid diverticulitis cannot be excluded - GI consult Lung mass Patient with interval enlargement of right lung base nodule Status post bronchoscopy with washings negative for malignant cells on 08/05/17 Pulmonary consulted Diabetes mellitus Continue home Lantus SSI Monitor blood glucose chronic Atrial fibrillation Rate controlled Continue home medications Patient's Coumadin stopped 2 weeks ago secondary to GI bleed Tonny Meza MD Jan 12, 2018 13:24
--- NOTE | 2018-01-12 13:40 | PD.CONS ---
History of Present Illness Service Infectious Disease Consult Requested By Dr Lisy Meza Reason for Consult Evaluate patient with UTI, Hx ESBL Primary Care Physician Unknown Diagnoses: History of Present Illness Patient seen and examined. Records reviewed. Patient is an 82-year-old female presented to the hospital complaining of about 4 day history of diffuse abdominal pain. Associated with that is that she complains of dysuria, as well as urinary incontinence. She has had problem with urinary tract infection in the past, and her primary care physician usually gives her an antibiotic. Her doctor just recently gave her a prescription, but she didn't have time to pick it up saying she presented to the hospital. She denies any fevers or chills. No nausea or vomiting. She denies any sensation of urgency or incomplete emptying of her bladder. 3 days ago she had about 3 episodes of diarrhea per day and it lasted for about 3 days. That has resolved. She denies any significant cough or congestion. On presentation her WBC was elevated. Her urinalysis has significant pyuria. CT of the abdomen and pelvis showed evidence of diverticulosis. There was no evidence of hydronephrosis. Add an episode of Escherichia coli ESBL-positive urinary tract infection last year treated with ertapenem. Currently afebrile. Patient stated that her abdominal pain has resolved. Her imaging study also showed findings of a lung not yield which has increased in size compared to her previous CT. Pulmonary has been consulted to to evaluate that. Infectious disease consultation has been requested to evaluate the patient for her UTI. Review of Systems Constitutional: DENIES: Fever, Chills Eyes: DENIES: Eye pain Ears, nose, mouth, throat: DENIES: Nasal discharge, Oral lesions, Throat pain, Ear Pain Respiratory: DENIES: Cough, Sputum production Cardiovascular: COMPLAINS OF: Dyspnea on Exertion, DENIES: Chest pain, Palpitations, Syncope Gastrointestinal: COMPLAINS OF: Abdominal pain, Diarrhea, DENIES: Nausea, Vomiting, Difficulty Swallowing Genitourinary: COMPLAINS OF: Urinary incontinence, Dysuria, DENIES: Urgency, Hematuria Musculoskeletal: COMPLAINS OF: Back pain, DENIES: Joint pain Integumentary: DENIES: Rash Neurologic: DENIES: Localized weakness Psychiatric: DENIES: Hallucinations Past Family Social History Allergies: Coded Allergies: penicillin G (Verified Allergy, Severe, rash, 01/11/18) Past Medical History TIA x 3 Atrial fibrillation Diabetes Mellitus, Type 2 Hypothyroidism CHF Kidney disease Past Surgical History Knee replacements Cholecystectomy Hysterectomy Reported Medications I attest that I obtained, updated or reviewed the home and current medications. Reported Meds & Active Scripts Active Nifedipine ER 24 HR (Nifedipine) 30 Mg Tab 30 Mg PO DAILY Reported Gabapentin 300 Mg Cap 300 Mg PO TID Hydralazine HCl 50 Mg Tablet 50 Mg PO TID Novolog Inj (Insulin Aspart) 1,000 Unit/10 Ml Vial 25 Units SQ TIDAC Sliding Scale as directed. Ecotrin Low Strength (Aspirin) 81 Mg Tabdr 81 Mg PO DAILY Spironolactone 50 Mg Tab 50 Mg PO DAILY Lisinopril 20 Mg Tab 20 Mg PO BID Lantus Solostar Pen Inj (Insulin Glargine) 300 Unit/3 Ml Pen 90 Units SQ HS Levothyroxine (Levothyroxine Sodium) 88 Mcg Tab 88 Mcg PO DAILY Lipitor (Atorvastatin Calcium) 20 Mg Tab 20 Mg PO HS Metformin (Metformin HCl) 1,000 Mg Tab 1,000 Mg PO BID With meals Lasix (Furosemide) 20 Mg Tab 20 Mg PO DAILY Active Ordered Medications Current Medications Medications (Trade) Dose Ordered Sig/Isaiah Route Start Time Stop Time Status Last Admin (NS Flush) 2 ml UNSCH PRN IV FLUSH 01/11/18 14:45 01/11/18 15:56 (D50w (Vial) Inj) 50 ml UNSCH PRN IV PUSH 01/11/18 21:15 (Glucagon Inj) 1 mg UNSCH PRN OTHER 01/11/18 21:15 (NovoLOG SUPPLEMENTAL SCALE) 1 ACHS SLIDING SCALE SQ 01/12/18 08:00 01/12/18 12:06 Sodium Chloride 1,000 ml @ 75 mls/hr [id number] IV 01/11/18 21:02 01/12/18 08:45 (NS Flush) 2 ml UNSCH PRN IV FLUSH 01/11/18 21:15 (NS Flush) 2 ml BID IV FLUSH 01/12/18 09:00 01/12/18 07:31 (Tylenol) 650 mg Q4H PRN PO 01/11/18 21:15 (Zofran Inj) 4 mg Q6H PRN IVP 01/11/18 21:15 (Heparin Inj) 5,000 units Q8H SQ 01/11/18 22:00 01/12/18 04:49 (Narcan Inj) 0.4 mg UNSCH PRN IV PUSH 01/11/18 21:15 (Ecotrin Ec) 81 mg DAILY PO 01/12/18 09:00 01/12/18 08:42 (Lipitor) 20 mg HS PO 01/12/18 21:00 (Lasix) 20 mg DAILY PO 01/12/18 09:00 01/12/18 08:41 (Neurontin) 300 mg TID PO 01/12/18 09:00 01/12/18 12:06 (Apresoline) 50 mg TID PO 01/12/18 09:00 01/12/18 12:06 (Synthroid) 88 mcg DAILY@0600 PO 01/12/18 06:00 01/12/18 04:49 (Prinivil) 20 mg BID PO 01/11/18 22:00 01/12/18 08:41 (Procardia Xl) 30 mg DAILY PO 01/12/18 09:00 01/12/18 08:41 (Aldactone) 50 mg DAILY PO 01/12/18 09:00 01/12/18 08:41 (Levemir Inj) 90 units HS SQ 01/12/18 21:00 Miscellaneous Information HOLD METFORMIN FOR... Q24H .XX 01/11/18 19:25 01/13/18 19:24 (Flu (Quadrivalent) Vaccine Inj) 0.5 ml ONCE ONCE IM 01/13/18 10:00 01/13/18 10:01 Ertapenem 1000 mg/ Sodium Chloride 100 ml @ 200 mls/hr Q24H IV 01/12/18 21:00 Family History Noncontributory Social History Lives alone Ex smoker, quit 40 years ago Denies alcohol abuse Denies illicit drugs Physical Exam Vital Signs Vital Signs Date Time Temp Pulse Resp B/P (MAP) Pulse Ox O2 Delivery O2 Flow Rate FiO2 01/12/18 08:09 97.7 85 22 138/82 (100) 94 01/12/18 04:00 97.4 82 16 148/80 (102) 95 01/12/18 04:00 Room Air 01/12/18 04:00 78 01/12/18 00:00 94 01/12/18 00:00 97.9 79 16 145/80 (101) 97 01/12/18 00:00 Room Air 01/11/18 22:41 84 01/11/18 22:00 Room Air 01/11/18 21:57 97.4 85 18 140/87 (104) 96 01/11/18 21:44 01/11/18 19:08 92 18 158/62 (94) 95 01/11/18 18:42 99 22 143/61 (88) 93 Room Air 01/11/18 14:35 98 Room Air 01/11/18 14:34 97.9 93 21 164/75 (104) 96 Room Air Physical Exam GENERAL: Patient is an obese, well-developed female, awake and alert, not in respiratory distress. SKIN: Cool and dry. No generalized rash, no ecchymoses and no evidence of embolic lesions. HEAD: Atraumatic. Normocephalic. No temporal wasting, or tenderness. EYES: [place] conjunctiva. No petechia or hemorrhage. Pupils equal, round and reactive to light. Extraocular movements full and intact. No scleral icterus. No injection or drainage. EARS, NOSE AND THROAT: Nose without bleeding or purulent nasal discharge. No sinus tenderness. Mucous membranes pink and moist. No oral lesions noted. NECK: Trachea midline. Supple and not tender, no meningeal signs CARDIOVASCULAR: Regular rate and rhythm. No murmurs, rubs or gallops heard RESPIRATORY: Clear to auscultation. Breath sounds equal bilaterally. No rales , wheezing or rhonchi. Decreased breath sounds at the bases BACK: No CVA tenderness ABDOMEN: Soft, obese, non-tender, nondistended. Bowel sounds present and normoactive. Has a reducible umbilical hernia. No guarding. No rebound. No organomegaly. EXTREMITIES: No clubbing, cyanosis, or edema. Scars both knees C/W surgical history. No calf tenderness. Well perfused and warm. NEUROLOGICAL: Awake and alert. Cranial nerves grossly intact. Motor grossly within normal limits. PSYCHIATRIC: Normal affect, calm and cooperative. LINE: No evidence of infection Laboratory Laboratory Tests Test 01/11/18 16:09 01/11/18 16:40 01/11/18 16:50 01/11/18 18:24 White Blood Count 17.6 Red Blood Count 4.47 Hemoglobin 12.8 Hematocrit 39.9 Mean Corpuscular Volume 89.3 Mean Corpuscular Hemoglobin 28.5 Mean Corpuscular Hemoglobin Concent 32.0 Red Cell Distribution Width 16.2 Platelet Count 284 Mean Platelet Volume 8.3 Neutrophils (%) (Auto) 91.8 Lymphocytes (%) (Auto) 4.3 Monocytes (%) (Auto) 3.7 Eosinophils (%) (Auto) 0.0 Basophils (%) (Auto) 0.2 Neutrophils # (Auto) 16.1 Lymphocytes # (Auto) 0.8 Monocytes # (Auto) 0.7 Eosinophils # (Auto) 0.0 Basophils # (Auto) 0.0 CBC Comment DIFF FINAL Differential Comment Blood Urea Nitrogen 29 Creatinine 1.00 Random Glucose 224 Total Protein 7.3 Albumin 3.0 Calcium Level 9.0 Alkaline Phosphatase 129 Aspartate Amino Transf (AST/SGOT) 22 Alanine Aminotransferase (ALT/SGPT) 29 Total Bilirubin 0.4 Sodium Level 136 Potassium Level 4.9 Chloride Level 106 Carbon Dioxide Level 17.9 Anion Gap 12 Estimat Glomerular Filtration Rate 53 Lipase 51 Stool C. difficile Toxin (PCR) NEGATIVE Stl C. difficile Toxin Epiderm 027 PRESUMPTIVE NEGATIVE Urine Color YELLOW Urine Turbidity CLOUDY Urine pH 6.5 Urine Specific [place] 1.019 Urine Protein 30 Urine Glucose (UA) 300 Urine Ketones 40 Urine Occult Blood SMALL Urine Nitrite NEG Urine Bilirubin NEG Urine Urobilinogen LESS THAN 2.0 Urine Leukocyte Esterase LARGE Urine RBC 3 Urine WBC Urine WBC Clumps MANY Urine Squamous Epithelial Cells 1 Urine Transitional Epithelial Cells 1 Urine Bacteria MOD Microscopic Urinalysis Comment CULTURE INDICATED Prothrombin Time 10.5 Prothromb Time International Ratio 1.0 Activated Partial Thromboplast Time 18.2 Lactic Acid Level 1.6 Test 01/12/18 04:45 White Blood Count 11.8 Red Blood Count 3.65 Hemoglobin 10.4 Hematocrit 31.9 Mean Corpuscular Volume 87.4 Mean Corpuscular Hemoglobin 28.5 Mean Corpuscular Hemoglobin Concent 32.6 Red Cell Distribution Width 15.8 Platelet Count 257 Mean Platelet Volume 7.7 Neutrophils (%) (Auto) 74.5 Lymphocytes (%) (Auto) 14.4 Monocytes (%) (Auto) 9.5 Eosinophils (%) (Auto) 0.9 Basophils (%) (Auto) 0.7 Neutrophils # (Auto) 8.8 Lymphocytes # (Auto) 1.7 Monocytes # (Auto) 1.1 Eosinophils # (Auto) 0.1 Basophils # (Auto) 0.1 CBC Comment DIFF FINAL Differential Comment Blood Urea Nitrogen 26 Creatinine 0.93 Random Glucose 192 Calcium Level 8.0 Sodium Level 140 Potassium Level 4.4 Chloride Level 107 Carbon Dioxide Level 26.2 Anion Gap 7 Estimat Glomerular Filtration Rate 58 Date/Time Source Procedure Growth Status 01/11/18 23:55 Blood Peripheral Aerobic Blood Culture Pending Received 01/11/18 23:55 Blood Peripheral Anaerobic Blood Culture Pending Received 01/11/18 16:50 Urine Random Urine Urine Culture Pending Received Result Diagram: 01/12/18 0445 01/12/18 0445 Imaging RADIOLOGY STUDIES/FILMS REVIEWED Abdomen/Pelvis CT 01/11/18 1433 Signed Impressions: Service Date/Time: Thursday, January 11, 2018 19:17 - CONCLUSION: 1. Interval enlargement of right lung base nodule now measuring 2.3 x 3.4 cm in comparison to 1.6 x 2.0 cm. This again is concerning for malignancy. 2. Moderate sigmoid diverticulosis with trace amount of ascites and mesenteric fluid extending to the region of the sigmoid colon. Sigmoid diverticulitis cannot be excluded as the mesenteric fluid significantly reduces sensitivity for diagnosis of early acute diverticulitis. This trace free fluid was present on prior exam. 3. Stable large fat containing periumbilical hernia. 4. Remainder of the exam is unchanged. Tolu Garrison MD Chest X-Ray 01/11/18 0000 Signed Impressions: Service Date/Time: Thursday, January 11, 2018 19:00 - CONCLUSION: 1. Right IJ central line in good position without pneumothorax. 2. Minimal left lung base airspace disease, likely atelectasis. Tolu Garrison MD Assessment and Plan Assessment and Plan IMPRESSION UTI, hx recurrent UTI Hx E coli ESBL+ UTI Diverticulosis, clinically no evidence of diverticulitis Lung nodule, elnarging in size, worrisome for malignancy Obesity RECOMMENDATION Follow C/S Continue Ertapenem Will adjust Abx once C/S finalized Pulmonary evaluating the lung noduel Follow CBC Monitor progress I will follow along with you Thank you for this consultation Discussed Condition With Explained plan to the patient D/W Rosa Isela Kang MD Jan 12, 2018 13:40
--- NOTE | 2018-01-12 15:24 | PD.CONS ---
HPI History of Present Illness This is a 82 year old female with hx multiple TIAs, AF, DM, CHF who presented with abd pain, n/v, diarrhea, rectal bleeding, onset 2 days ago. She now denies n/v, diarrhea and rectal bleeding. Does have pain in the LLQ. She was found to have UTI and says her main complaint was urinary pain. CT showed moderate sigmoid diverticulosis but can't exclude diverticulitis due to presence of mesenteric fluid. She is known to us from previous admission. 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 SHe was on coumadin but has not been recently. Poor historian. (Celi Barnard) PFSH Past Medical History TIA x 3 Atrial fibrillation Diabetes Mellitus, Type 2 Hypothyroidism CHF Kidney disease Past Surgical History Knee replacements Cholecystectomy Hysterectomy (Celi Barnard) Coded Allergies: penicillin G (Verified Allergy, Severe, rash, 01/11/18) Family History Denies family history of diabetes mellitus and CAD Social History Tobacco: quit 40 years ago Alcohol: denies illicit drugs: Denies (Celi Barnard) Review of Systems Constitutional: DENIES: Fever Endocrine: DENIES: Polydipsia Eyes: DENIES: Blurred vision Ears, nose, mouth, throat: DENIES: Hearing loss Respiratory: DENIES: Cough Cardiovascular: DENIES: Chest pain Gastrointestinal: COMPLAINS OF: Abdominal pain, DENIES: Black stools, Bloody stools, Diarrhea, Nausea Genitourinary: DENIES: Hematuria Musculoskeletal: DENIES: Joint Swelling Hematologic/lymphatic: DENIES: Lymphadenopathy Neurologic: DENIES: Headache Psychiatric: DENIES: Confusion (Celi Barnard) GI Exam Vitals I&O Vital Signs Date Time Temp Pulse Resp B/P (MAP) Pulse Ox O2 Delivery O2 Flow Rate FiO2 01/12/18 12:09 97.9 86 22 140/80 (100) 95 01/12/18 08:09 97.7 85 22 138/82 (100) 94 01/12/18 04:00 97.4 82 16 148/80 (102) 95 01/12/18 04:00 Room Air 01/12/18 04:00 78 01/12/18 00:00 94 01/12/18 00:00 97.9 79 16 145/80 (101) 97 01/12/18 00:00 Room Air 01/11/18 22:41 84 01/11/18 22:00 Room Air 01/11/18 21:57 97.4 85 18 140/87 (104) 96 01/11/18 21:44 01/11/18 19:08 92 18 158/62 (94) 95 01/11/18 18:42 99 22 143/61 (88) 93 Room Air I/O 01/11/18 01/11/18 01/11/18 01/12/18 01/12/18 01/12/18 07:00 15:00 23:00 07:00 15:00 23:00 Intake Total 1000 ml 582 ml Output Total 650 ml Balance 1000 ml -68 ml Intake IV Total 1000 ml 582 ml Output Urine Total 650 ml # Voids 1 Imaging Last Impressions Abdomen/Pelvis CT 01/11/18 1433 Signed Impressions: Service Date/Time: Thursday, January 11, 2018 19:17 - CONCLUSION: 1. Interval enlargement of right lung base nodule now measuring 2.3 x 3.4 cm in comparison to 1.6 x 2.0 cm. This again is concerning for malignancy. 2. Moderate sigmoid diverticulosis with trace amount of ascites and mesenteric fluid extending to the region of the sigmoid colon. Sigmoid diverticulitis cannot be excluded as the mesenteric fluid significantly reduces sensitivity for diagnosis of early acute diverticulitis. This trace free fluid was present on prior exam. 3. Stable large fat containing periumbilical hernia. 4. Remainder of the exam is unchanged. Tolu Garrison MD Chest X-Ray 01/11/18 0000 Signed Impressions: Service Date/Time: Thursday, January 11, 2018 19:00 - CONCLUSION: 1. Right IJ central line in good position without pneumothorax. 2. Minimal left lung base airspace disease, likely atelectasis. Tolu Garrison MD Laboratory Test 01/11/18 16:09 01/11/18 16:40 01/11/18 16:50 01/11/18 18:24 White Blood Count 17.6 TH/MM3 Red Blood Count 4.47 MIL/MM3 Hemoglobin 12.8 GM/DL Hematocrit 39.9 % Mean Corpuscular Volume 89.3 FL Mean Corpuscular Hemoglobin 28.5 PG Mean Corpuscular Hemoglobin Concent 32.0 % Red Cell Distribution Width 16.2 % Platelet Count 284 TH/MM3 Mean Platelet Volume 8.3 FL Neutrophils (%) (Auto) 91.8 % Lymphocytes (%) (Auto) 4.3 % Monocytes (%) (Auto) 3.7 % Eosinophils (%) (Auto) 0.0 % Basophils (%) (Auto) 0.2 % Neutrophils # (Auto) 16.1 TH/MM3 Lymphocytes # (Auto) 0.8 TH/MM3 Monocytes # (Auto) 0.7 TH/MM3 Eosinophils # (Auto) 0.0 TH/MM3 Basophils # (Auto) 0.0 TH/MM3 CBC Comment DIFF FINAL Differential Comment Blood Urea Nitrogen 29 MG/DL Creatinine 1.00 MG/DL Random Glucose 224 MG/DL Total Protein 7.3 GM/DL Albumin 3.0 GM/DL Calcium Level 9.0 MG/DL Alkaline Phosphatase 129 U/L Aspartate Amino Transf (AST/SGOT) 22 U/L Alanine Aminotransferase (ALT/SGPT) 29 U/L Total Bilirubin 0.4 MG/DL Sodium Level 136 MEQ/L Potassium Level 4.9 MEQ/L Chloride Level 106 MEQ/L Carbon Dioxide Level 17.9 MEQ/L Anion Gap 12 MEQ/L Estimat Glomerular Filtration Rate 53 ML/MIN Lipase 51 U/L Stool C. difficile Toxin (PCR) NEGATIVE Stl C. difficile Toxin Epiderm 027 PRESUMPTIVE NEGATIVE Urine Color YELLOW Urine Turbidity CLOUDY Urine pH 6.5 Urine Specific [place] 1.019 Urine Protein 30 mg/dL Urine Glucose (UA) 300 mg/dL Urine Ketones 40 mg/dL Urine Occult Blood SMALL Urine Nitrite NEG Urine Bilirubin NEG Urine Urobilinogen LESS THAN 2.0 MG/DL Urine Leukocyte Esterase LARGE Urine RBC 3 /hpf Urine WBC /hpf Urine WBC Clumps MANY Urine Squamous Epithelial Cells 1 /hpf Urine Transitional Epithelial Cells 1 /hpf Urine Bacteria MOD /hpf Microscopic Urinalysis Comment CULTURE INDICATED Prothrombin Time 10.5 SEC Prothromb Time International Ratio 1.0 RATIO Activated Partial Thromboplast Time 18.2 SEC Lactic Acid Level 1.6 mmol/L Test 01/12/18 04:45 White Blood Count 11.8 TH/MM3 Red Blood Count 3.65 MIL/MM3 Hemoglobin 10.4 GM/DL Hematocrit 31.9 % Mean Corpuscular Volume 87.4 FL Mean Corpuscular Hemoglobin 28.5 PG Mean Corpuscular Hemoglobin Concent 32.6 % Red Cell Distribution Width 15.8 % Platelet Count 257 TH/MM3 Mean Platelet Volume 7.7 FL Neutrophils (%) (Auto) 74.5 % Lymphocytes (%) (Auto) 14.4 % Monocytes (%) (Auto) 9.5 % Eosinophils (%) (Auto) 0.9 % Basophils (%) (Auto) 0.7 % Neutrophils # (Auto) 8.8 TH/MM3 Lymphocytes # (Auto) 1.7 TH/MM3 Monocytes # (Auto) 1.1 TH/MM3 Eosinophils # (Auto) 0.1 TH/MM3 Basophils # (Auto) 0.1 TH/MM3 CBC Comment DIFF FINAL Differential Comment Blood Urea Nitrogen 26 MG/DL Creatinine 0.93 MG/DL Random Glucose 192 MG/DL Calcium Level 8.0 MG/DL Sodium Level 140 MEQ/L Potassium Level 4.4 MEQ/L Chloride Level 107 MEQ/L Carbon Dioxide Level 26.2 MEQ/L Anion Gap 7 MEQ/L Estimat Glomerular Filtration Rate 58 ML/MIN Date/Time Source Procedure Growth Status 01/11/18 23:55 Blood Peripheral Aerobic Blood Culture Pending Received 01/11/18 23:55 Blood Peripheral Anaerobic Blood Culture Pending Received 01/11/18 16:50 Urine Random Urine Urine Culture Pending Received Physical Examination HEENT: PERRL normocephalic; atraumatic; no jaundice. CHEST: diminished CARDIAC: RRR ABDOMEN: Soft, obese, LLQ TTP; no hepatosplenomegaly; bowel sounds are present in all four quadrants. EXTREMITIES: No clubbing, cyanosis, + BLE edema. SKIN: Normal; no rash; no jaundice. 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 (Celi Barnard [facility]) Assessment and Plan Plan ASSESSMENT - n/v/d, rectal bleeding, abd pain - onset 2 days ago since resolved except for LLQ pain still present but has improved CT showed moderate sigmoid diverticulosis and couldnt exclude diverticulitis d/t presence mesenteric fluid. Pt says she had colonoscopy here but do not see record of recent colonoscopy. c diff neg. - anemia - mild, normocytic could be dilutional. no obvious bleeding at this time. - leukocytosis, ID following - lung mass on CT PLAN - colonoscopy in am - obtain consent - clear liquids - npo after MN - Golyt[place] - monitor labs - abx per ID - further recs to follow depending on results above pt seen by myself and Dr Bourgeois and this note is written on his behalf (Celi Barnard) Physician Comments Seen and examined with POWER MULE OPERATOR, starting bowel prep. No active bleeding. colonoscopy tomorrow. (Ludwig Bourgeois MD) Celi Barnard Jan 12, 2018 15:24 Ludwig Bourgeois MD Jan 12, 2018 16:59
[2018-01-12] MEDS ORDERED: PEG (High)/E-LYTE SOLN 4000 ML BTL PO ONE (16:00)
[2018-01-12] MEDS: ATORVASTATIN 20 MG TAB PO SCH (20:35)
[2018-01-12] MEDS ORDERED: ERTAPENEM SODIUM 1000 MG VIAL IV SCH (21:00)
[2018-01-12] MEDS ORDERED: ERTAPENEM 1,000 MG/NS 100 ML IV SCH ×2 (21:00)
[2018-01-12] MEDS: INSULIN DETEMIR 100 UNITS/ML VIAL SQ SCH (21:59)
[2018-01-13] VITALS (10 sets, daily range): BP systolic 120–166; BP diastolic 61–77; PULSE 72–87; RESP 20–22; TEMP 98–99.1; O2SAT 92–95
[2018-01-13] MEDS: HEPARIN SODIUM - SQ 10,000 UNITS/ML VIAL SQ SCH ×3 (05:09→21:59)
[2018-01-13] MEDS: LEVOTHYROXINE SODIUM 88 MCG TAB PO SCH (05:11)
[2018-01-13] MEDS: INSULIN ASPART SUPPLEMENTAL SCALE SQ SCH ×4 (08:00→21:58)
[2018-01-13] MEDS: SODIUM CHLORIDE 0.9% FLUSH 10 ML FLUSH IV FLUSH SCH ×2 (09:00→21:00)
[2018-01-13] MEDS: ACETAMINOPHEN 325 MG TAB PO PRN (09:06)
[2018-01-13] MEDS: LISINOPRIL 20 MG TAB PO SCH ×2 (09:07→21:58)
[2018-01-13] MEDS: ASPIRIN EC 81 MG TABEC PO SCH (09:07)
[2018-01-13] MEDS: NIFEdipine 30 MG SUSTAINED RELEASE TAB PO SCH (09:07)
[2018-01-13] MEDS: SPIRONOLACTONE 50 MG TAB PO SCH (09:07)
[2018-01-13] MEDS: GABAPENTIN 300 MG CAP PO SCH ×3 (09:07→18:07)
[2018-01-13] MEDS: FUROSEMIDE 20 MG TAB PO SCH (09:07)
[2018-01-13] MEDS: hydrALAZINE HCL 50 MG TAB PO SCH ×3 (09:07→18:07)
[2018-01-13] MEDS ORDERED: INFLUENZA VIRUS VACCINE (QUADRIVALENT) 0.5 ML SYR IM ONE (10:00)
--- NOTE | 2018-01-13 10:13 | HHI.PR ---
Subjective Remarks seen 3 pm after GI procedure tolerated well hungry "can I eat now" no pain complains no urinary complains Objective Vitals Vital Signs Date Time Temp Pulse Resp B/P (MAP) Pulse Ox O2 Delivery O2 Flow Rate FiO2 01/13/18 07:15 Room Air 01/13/18 04:00 Nasal Cannula 2.00 01/13/18 04:00 98.1 77 22 120/65 (83) 95 01/13/18 04:00 72 01/13/18 00:00 Room Air 01/13/18 00:00 85 01/13/18 00:00 98.0 85 20 138/61 (86) 94 01/12/18 20:00 Room Air 01/12/18 20:00 84 01/12/18 20:00 98.1 81 20 133/66 (88) 93 01/12/18 16:09 97.7 81 22 135/70 (91) 92 01/12/18 15:47 79 01/12/18 12:09 97.9 86 22 140/80 (100) 95 I/O 01/12/18 01/12/18 01/12/18 01/13/18 01/13/18 01/13/18 07:00 15:00 23:00 07:00 15:00 23:00 Intake Total 582 ml 1520 ml 1090 ml Output Total 650 ml 900 ml Balance -68 ml 620 ml 1090 ml Intake Oral 420 ml 500 ml IV Total 582 ml 1100 ml 590 ml Output Urine Total 650 ml 900 ml # Voids 1 4 3 # Bowel Movements 2 3 Result Diagram: 01/12/18 0445 01/12/18 0445 Imaging Last Impressions Abdomen/Pelvis CT 01/11/18 1433 Signed Impressions: Service Date/Time: Thursday, January 11, 2018 19:17 - CONCLUSION: 1. Interval enlargement of right lung base nodule now measuring 2.3 x 3.4 cm in comparison to 1.6 x 2.0 cm. This again is concerning for malignancy. 2. Moderate sigmoid diverticulosis with trace amount of ascites and mesenteric fluid extending to the region of the sigmoid colon. Sigmoid diverticulitis cannot be excluded as the mesenteric fluid significantly reduces sensitivity for diagnosis of early acute diverticulitis. This trace free fluid was present on prior exam. 3. Stable large fat containing periumbilical hernia. 4. Remainder of the exam is unchanged. Tolu Garrison MD Chest X-Ray 01/11/18 0000 Signed Impressions: Service Date/Time: Thursday, January 11, 2018 19:00 - CONCLUSION: 1. Right IJ central line in good position without pneumothorax. 2. Minimal left lung base airspace disease, likely atelectasis. Tolu Garrison MD Objective Remarks awake and alert, no acute distress right IJ line in place lungs- no rales or wheezes irregular rhythm abdomen soft, nontender, flabby, no guarding extremities no edema Procedures 01/13- colonoscopy- diverticuloses, hemorrhoids A/P Assessment and Plan 82 years old female Urinary tract infection- now with Proteus history of ESBL Escherichia coli UTI/sepsis- 07/28/2017 DC Ertapenem- switch to Levaquin po Abdominal pain-- resolved lower GI bleeding- due to diverticuloses S/P colonoscopy - start po diet Lung mass Patient with interval enlargement of right lung base nodule Status post bronchoscopy with washings negative for malignant cells on 08/05/17 Pulmonary - Dr. Corral ff Diabetes mellitus Continue home Lantus SSI Monitor blood glucose - restart Metformin in am- post IV contrast 01/11 chronic Atrial fibrillation Rate controlled Continue home medications Patient's Coumadin stopped 2 weeks ago secondary to GI bleed DC planning- home with home health care service Tonny Meza MD Jan 13, 2018 10:13
[2018-01-13] MEDS ORDERED: PROPOFOL 200 MG/20 ML AMP IV ONE (12:00)
[2018-01-13] MEDS ORDERED: LIDOCAINE HCL 1% PF 5 ML SYRINGE OTHER ONE (12:00)
--- NOTE | 2018-01-13 12:43 | HHI.IDPN ---
Subjective Subjective Remarks Patient is an 82-year-old female presented to the hospital complaining of about 4 day history of diffuse abdominal pain. Associated with that is that she complains of dysuria, as well as urinary incontinence. She has had problem with urinary tract infection in the past, and her primary care physician usually gives her an antibiotic. Her doctor just recently gave her a prescription, but she didn't have time to pick it up saying she presented to the hospital. She denies any fevers or chills. No nausea or vomiting. She denies any sensation of urgency or incomplete emptying of her bladder. 3 days ago she had about 3 episodes of diarrhea per day and it lasted for about 3 days. That has resolved. She denies any significant cough or congestion. On presentation her WBC was elevated. Her urinalysis has significant pyuria. CT of the abdomen and pelvis showed evidence of diverticulosis. There was no evidence of hydronephrosis. Add an episode of Escherichia coli ESBL-positive urinary tract infection last year treated with ertapenem. Currently afebrile. Patient stated that her abdominal pain has resolved. Her imaging study also showed findings of a lung not yield which has increased in size compared to her previous CT. Pulmonary has been consulted to to evaluate that. Infectious disease consultation has been requested to evaluate the patient for her UTI. Notes reviewed isauro lynn D/W RN For colonoscopy UC with proteus (not MDR) Antibiotics Current Medications Invanz Medications (Trade) Dose Ordered Sig/Isaiah Route Start Time Stop Time Status Last Admin (NS Flush) 2 ml UNSCH PRN IV FLUSH 01/11/18 14:45 01/11/18 15:56 (D50w (Vial) Inj) 50 ml UNSCH PRN IV PUSH 01/11/18 21:15 (Glucagon Inj) 1 mg UNSCH PRN OTHER 01/11/18 21:15 (NovoLOG SUPPLEMENTAL SCALE) 1 ACHS SLIDING SCALE SQ 01/12/18 08:00 01/12/18 21:59 Sodium Chloride 1,000 ml @ 75 mls/hr [id number] IV 01/11/18 21:02 01/12/18 22:06 (NS Flush) 2 ml UNSCH PRN IV FLUSH 01/11/18 21:15 (NS Flush) 2 ml BID IV FLUSH 01/12/18 09:00 01/12/18 20:36 (Tylenol) 650 mg Q4H PRN PO 01/11/18 21:15 01/13/18 09:06 (Zofran Inj) 4 mg Q6H PRN IVP 01/11/18 21:15 (Heparin Inj) 5,000 units Q8H SQ 01/11/18 22:00 01/12/18 22:04 (Narcan Inj) 0.4 mg UNSCH PRN IV PUSH 01/11/18 21:15 (Ecotrin Ec) 81 mg DAILY PO 01/12/18 09:00 01/13/18 09:07 (Lipitor) 20 mg HS PO 01/12/18 21:00 01/12/18 20:35 (Lasix) 20 mg DAILY PO 01/12/18 09:00 01/13/18 09:07 (Neurontin) 300 mg TID PO 01/12/18 09:00 01/13/18 09:07 (Apresoline) 50 mg TID PO 01/12/18 09:00 01/13/18 09:07 (Synthroid) 88 mcg DAILY@0600 PO 01/12/18 06:00 01/13/18 05:11 (Prinivil) 20 mg BID PO 01/11/18 22:00 01/13/18 09:07 (Procardia Xl) 30 mg DAILY PO 01/12/18 09:00 01/13/18 09:07 (Aldactone) 50 mg DAILY PO 01/12/18 09:00 01/13/18 09:07 (Levemir Inj) 90 units HS SQ 01/12/18 21:00 01/12/18 21:59 Miscellaneous Information HOLD METFORMIN FOR... Q24H .XX 01/11/18 19:25 01/13/18 19:24 Ertapenem 1000 mg/ Sodium Chloride 100 ml @ 200 mls/hr Q24H IV 01/12/18 21:00 01/12/18 20:36 Past Medical History TIA x 3 Atrial fibrillation Diabetes Mellitus, Type 2 Hypothyroidism CHF Kidney disease Past Surgical History Knee replacements Cholecystectomy Hysterectomy Allergies: Coded Allergies: penicillin G (Verified Allergy, Severe, rash, 01/11/18) Objective . Vital Signs Date Time Temp Pulse Resp B/P (MAP) Pulse Ox O2 Delivery O2 Flow Rate FiO2 01/13/18 08:03 98.6 82 20 151/77 (101) 92 01/13/18 07:41 83 01/13/18 07:15 Room Air 01/13/18 04:00 Nasal Cannula 2.00 01/13/18 04:00 98.1 77 22 120/65 (83) 95 01/13/18 04:00 72 01/13/18 00:00 Room Air 01/13/18 00:00 85 01/13/18 00:00 98.0 85 20 138/61 (86) 94 01/12/18 20:00 Room Air 01/12/18 20:00 84 01/12/18 20:00 98.1 81 20 133/66 (88) 93 01/12/18 16:09 97.7 81 22 135/70 (91) 92 01/12/18 15:47 79 . Laboratory Tests Test 01/11/18 16:09 01/12/18 04:45 White Blood Count 17.6 TH/MM3 11.8 TH/MM3 Red Blood Count 4.47 MIL/MM3 3.65 MIL/MM3 Hemoglobin 12.8 GM/DL 10.4 GM/DL Hematocrit 39.9 % 31.9 % Mean Corpuscular Volume 89.3 FL 87.4 FL Mean Corpuscular Hemoglobin 28.5 PG 28.5 PG Mean Corpuscular Hemoglobin Concent 32.0 % 32.6 % Red Cell Distribution Width 16.2 % 15.8 % Platelet Count 284 TH/MM3 257 TH/MM3 Mean Platelet Volume 8.3 FL 7.7 FL Neutrophils (%) (Auto) 91.8 % 74.5 % Lymphocytes (%) (Auto) 4.3 % 14.4 % Monocytes (%) (Auto) 3.7 % 9.5 % Eosinophils (%) (Auto) 0.0 % 0.9 % Basophils (%) (Auto) 0.2 % 0.7 % Neutrophils # (Auto) 16.1 TH/MM3 8.8 TH/MM3 Lymphocytes # (Auto) 0.8 TH/MM3 1.7 TH/MM3 Monocytes # (Auto) 0.7 TH/MM3 1.1 TH/MM3 Eosinophils # (Auto) 0.0 TH/MM3 0.1 TH/MM3 Basophils # (Auto) 0.0 TH/MM3 0.1 TH/MM3 CBC Comment DIFF FINAL DIFF FINAL Differential Comment Laboratory Tests Test 01/11/18 16:09 01/11/18 18:24 01/12/18 04:45 Blood Urea Nitrogen 29 MG/DL 26 MG/DL Creatinine 1.00 MG/DL 0.93 MG/DL Random Glucose 224 MG/DL 192 MG/DL Total Protein 7.3 GM/DL Albumin 3.0 GM/DL Calcium Level 9.0 MG/DL 8.0 MG/DL Alkaline Phosphatase 129 U/L Aspartate Amino Transf (AST/SGOT) 22 U/L Alanine Aminotransferase (ALT/SGPT) 29 U/L Total Bilirubin 0.4 MG/DL Sodium Level 136 MEQ/L 140 MEQ/L Potassium Level 4.9 MEQ/L 4.4 MEQ/L Chloride Level 106 MEQ/L 107 MEQ/L Carbon Dioxide Level 17.9 MEQ/L 26.2 MEQ/L Anion Gap 12 MEQ/L 7 MEQ/L Estimat Glomerular Filtration Rate 53 ML/MIN 58 ML/MIN Lipase 51 U/L Lactic Acid Level 1.6 mmol/L Microbiology Date/Time Source Procedure Growth Status 01/11/18 23:55 Blood Peripheral Aerobic Blood Culture - Preliminary NO GROWTH IN 1 DAY Resulted 01/11/18 23:55 Blood Peripheral Anaerobic Blood Culture - Final QNS - SEE AEROBE REPORT Resulted 01/11/18 23:50 Blood Peripheral Aerobic Blood Culture - Preliminary NO GROWTH IN 1 DAY Resulted 01/11/18 23:50 Blood Peripheral Anaerobic Blood Culture - Final QNS - SEE AEROBE REPORT Resulted 01/11/18 16:50 Urine Random Urine Urine Culture - Final Proteus Mirabilis Complete Physical Exam GENERAL: awake and alert, not in respiratory distress. SKIN: Cool and dry. No generalized rash HEAD: Atraumatic. Normocephalic. No temporal wasting, or tenderness. EYES: [place] conjunctiva. No petechia or hemorrhage. Pupils equal, round and reactive to light. Extraocular movements full and intact. No scleral icterus. No injection or drainage. EARS, NOSE AND THROAT: Nose without bleeding or purulent nasal discharge. No sinus tenderness. Mucous membranes pink and moist. No oral lesions noted. NECK: Trachea midline. Supple and not tender, no meningeal signs CARDIOVASCULAR: Regular rate and rhythm. No murmurs, rubs or gallops heard RESPIRATORY: Clear to auscultation. Breath sounds equal bilaterally. No rales , wheezing or rhonchi. Decreased breath sounds at the bases BACK: No CVA tenderness ABDOMEN: Soft, obese, non-tender, nondistended. Bowel sounds present and normoactive. Has a reducible umbilical hernia. No guarding. No rebound. No organomegaly. EXTREMITIES: No clubbing, cyanosis, or edema. Scars both knees C/W surgical history. No calf tenderness. Well perfused and warm. NEUROLOGICAL: Awake and alert. Cranial nerves grossly intact. Motor grossly within normal limits. PSYCHIATRIC: Normal affect, calm and cooperative. LINE: No evidence of infection Assessment & Plan Remarks IMPRESSION UTI, hx recurrent UTI - UC with proteus Hx E coli ESBL+ UTI Diverticulosis, clinically no evidence of diverticulitis Lung nodule, elnarging in size, worrisome for malignancy Obesity RECOMMENDATION Chane to po Levaquin and complete Rx - end date ordered in CX I will be available prn Please call if with any other ID question or issue D/W RN D/W Rosa Isela Fernandez MD Jan 13, 2018 12:43
--- NOTE | 2018-01-13 13:19 | GIPROC ---
[facility] [address] [facility]. [facility], [address] COLONOSCOPY PROCEDURE REPORT EXAM DATE: 01/13/2018 PATIENT NAME: Mirella Lucas V MR #: [id number] BIRTHDATE: 1935 ENDOSCOPIST: Ludwig Bourgeois MD ORDER #: [id number] MARINE CARGO INSPECTOR: Rajan Jalloh and Kailey Garcia STATUS: inpatient INDICATIONS: The patient is a 82 yr old female here for a colonoscopy due to abdominal pain and unexplained diarrhea PROCEDURE PERFORMED: Colonoscopy with biopsy MEDICATIONS: Per Anesthesia and None. PREP QUALITY: The [place] Bowel Prep Score was Right colon 1, Mid colon 1, and Left colon 1. Total = 3. PREP TYPE:Go[place]ytely ESTIMATED BLOOD LOSS: None CONSENT: The patient understands the risks and benefits of the procedure and understands that these risks include, but are not limited to: sedation, allergic reaction, infection, perforation and/or bleeding. Alternative means of evaluation and treatment include, among others: physical exam, x-rays, and/or surgical intervention. The patient elects to proceed with this endoscopic procedure. medical equipment was checked for proper function. Hand hygiene and appropriate measures for infection prevention was taken. After the risks, benefits and alternatives of the procedure were thoroughly explained, Informed consent was verified, confirmed and timeout was successfully executed by the treatment team. A digital exam revealed external hemorrhoids The Pentax [id number] endoscope was introduced through the anus and advanced to the cecum, which was identified by both the appendix and ileocecal valve. The instrument was then slowly withdrawn as the colon was fully examined. COLON FINDINGS: Biopsy rendom. There was moderate diverticulosis noted in the sigmoid colon with associated tortuosity. No bleeding was noted from the diverticulosis. Retroflexed views revealed internal hemorrhoids and Retroflexed views revealed small internal hemorrhoids The scope was then completely withdrawn from the patient and the procedure terminated. PROCEDURE WITHDRAWAL TIME:7minutes ADVERSE EVENTS: There were no complications. IMPRESSIONS: 1. Biopsy rendom 2. There was moderate diverticulosis noted in the sigmoid colon 3. Retroflexed views revealed internal hemorrhoids 4. Retroflexed views revealed small internal hemorrhoids 5. Revealed external hemorrhoids RECOMMENDATIONS: 1. Await biopsy results. Biopsy results will not be ready for 7-10 days. If you don't hear from us in two weeks, call our office for results. 2. Continue surveillance 3. Benefiber 2 tsp daily 4. Yearly hemoccult 5. No seeds, nuts and popcorn in diet RECALL: Return 1 year Colonoscopy, pending biopsy results Ludwig Bourgeois MD eSigned: Ludwig Bourgeois MD 01/13/2018 1:19 PM cc: PATIENT NAME: Mirella Lucas V MR#: [id number]
[2018-01-13] MEDS: SODIUM CHLOR 0.9% 1000 ML INJ 1,000 ML IV SCH (14:12)
[2018-01-13] MEDS: LEVOFLOXACIN 750 MG TAB PO SCH (14:15)
--- NOTE | 2018-01-13 17:00 | HHI.PR ---
Subjective Remarks ALERT NO SOB Objective Vital Signs Date Time Temp Pulse Resp B/P (MAP) Pulse Ox O2 Delivery O2 Flow Rate FiO2 01/13/18 14:10 77 20 157/70 (99) 01/13/18 13:42 125/53 (77) 92 01/13/18 13:32 98.2 70 18 106/48 (67) 96 01/13/18 08:03 98.6 82 20 151/77 (101) 92 01/13/18 07:41 83 01/13/18 07:15 Room Air 01/13/18 04:00 Nasal Cannula 2.00 01/13/18 04:00 98.1 77 22 120/65 (83) 95 01/13/18 04:00 72 01/13/18 00:00 Room Air 01/13/18 00:00 85 01/13/18 00:00 98.0 85 20 138/61 (86) 94 01/12/18 20:00 Room Air 01/12/18 20:00 84 01/12/18 20:00 98.1 81 20 133/66 (88) 93 I/O 01/12/18 01/12/18 01/12/18 01/13/18 01/13/18 01/13/18 07:00 15:00 23:00 07:00 15:00 23:00 Intake Total 582 ml 1520 ml 1090 ml 510 ml Output Total 650 ml 900 ml Balance -68 ml 620 ml 1090 ml 510 ml Intake Oral 420 ml 500 ml IV Total 582 ml 1100 ml 590 ml 410 ml Other 100 ml Output Urine Total 650 ml 900 ml # Voids 1 4 3 # Bowel Movements 2 3 Result Diagram: 01/12/1844401/12/18444 Objective Remarks GENERAL: SKIN: Warm and dry. HEAD: Atraumatic. Normocephalic. EYES: Pupils equal and round. No scleral icterus. No injection or drainage. ENT: No nasal bleeding or discharge. Mucous membranes pink and moist. NECK: Trachea midline. No JVD. CARDIOVASCULAR: Regular rate and rhythm. RESPIRATORY: No accessory muscle use. Clear to auscultation. Breath sounds equal bilaterally. GASTROINTESTINAL: Abdomen soft, non-tender, nondistended. Hepatic and splenic margins not palpable. MUSCULOSKELETAL: Extremities without clubbing, cyanosis, or edema. No obvious deformities. NEUROLOGICAL: Awake and alert. No obvious cranial nerve deficits. Motor grossly within normal limits. Five out of 5 muscle strength in the arms and legs. Normal speech. PSYCHIATRIC: Appropriate mood and affect; insight and judgment normal. Assessment and Plan Assessment and Plan LUNG NODULE MALIGNANCY SUSPECT UTI PLAN LUNG BX Shayna Corral MD Jan 13, 2018 17:00
[2018-01-13 20:35] LABS: CREATININE 0.86 MG/DL (0.50-1.00)
[2018-01-13] MEDS: ATORVASTATIN 20 MG TAB PO SCH (21:58)
[2018-01-13] MEDS: INSULIN DETEMIR 100 UNITS/ML VIAL SQ SCH (21:59)
[2018-01-14] VITALS (8 sets, daily range): BP systolic 135–161; BP diastolic 66–89; PULSE 80–96; RESP 20–22; TEMP 97.9–98.4; O2SAT 92–96
[2018-01-14] MEDS: SODIUM CHLOR 0.9% 1000 ML INJ 1,000 ML IV SCH (01:06)
[2018-01-14] MEDS: ACETAMINOPHEN 325 MG TAB PO PRN (03:04)
[2018-01-14] MEDS: LEVOTHYROXINE SODIUM 88 MCG TAB PO SCH (05:15)
[2018-01-14] MEDS: HEPARIN SODIUM - SQ 10,000 UNITS/ML VIAL SQ SCH (05:16)
--- NOTE | 2018-01-14 07:49 | HHI.GIFU ---
Subjective Remarks Pt resting in bed Some continued abdominal pain/tenderness Denies BM since procedure yesterday Tolerating diet (Bethany Mcdonnell) Objective Vitals I&O Vital Signs Date Time Temp Pulse Resp B/P (MAP) Pulse Ox O2 Delivery O2 Flow Rate FiO2 01/14/18 04:35 82 01/14/18 04:18 17 01/14/18 04:00 97.9 80 20 135/67 (89) 93 01/14/18 04:00 Room Air 01/14/18 00:00 Room Air 01/14/18 00:00 98.4 81 22 159/66 (97) 93 01/13/18 23:51 81 01/13/18 22:00 Room Air 01/13/18 20:07 81 01/13/18 20:00 98.0 87 21 166/67 (100) 95 01/13/18 16:03 99.1 83 20 128/71 (90) 92 01/13/18 15:32 87 01/13/18 14:10 77 20 157/70 (99) 01/13/18 13:42 125/53 (77) 92 01/13/18 13:32 98.2 70 18 106/48 (67) 96 01/13/18 08:03 98.6 82 20 151/77 (101) 92 I/O 01/13/18 01/13/18 01/13/18 01/14/18 01/14/18 01/14/18 07:00 15:00 23:00 07:00 15:00 23:00 Intake Total 1090 ml 510 ml 360 ml 1200 ml Output Total 800 ml Balance 1090 ml 510 ml 360 ml 400 ml Intake Oral 500 ml 360 ml 200 ml IV Total 590 ml 410 ml 1000 ml Other 100 ml Output Urine Total 800 ml # Voids 3 3 3 # Bowel Movements 3 0 0 Laboratory Laboratory Tests Test 01/13/18 19:50 Creatinine 0.86 Estimat Glomerular Filtration Rate 63 Date/Time Source Procedure Growth Status 01/11/18 23:55 Blood Peripheral Aerobic Blood Culture - Preliminary NO GROWTH IN 1 DAY Resulted 01/11/18 23:55 Blood Peripheral Anaerobic Blood Culture - Final QNS - SEE AEROBE REPORT Resulted 01/11/18 16:50 Urine Random Urine Urine Culture - Final Proteus Mirabilis Complete Imaging Last Impressions Abdomen/Pelvis CT 01/11/18 1433 Signed Impressions: Service Date/Time: Thursday, January 11, 2018 19:17 - CONCLUSION: 1. Interval enlargement of right lung base nodule now measuring 2.3 x 3.4 cm in comparison to 1.6 x 2.0 cm. This again is concerning for malignancy. 2. Moderate sigmoid diverticulosis with trace amount of ascites and mesenteric fluid extending to the region of the sigmoid colon. Sigmoid diverticulitis cannot be excluded as the mesenteric fluid significantly reduces sensitivity for diagnosis of early acute diverticulitis. This trace free fluid was present on prior exam. 3. Stable large fat containing periumbilical hernia. 4. Remainder of the exam is unchanged. Tolu Garrison MD Chest X-Ray 01/11/18 0000 Signed Impressions: Service Date/Time: Thursday, January 11, 2018 19:00 - CONCLUSION: 1. Right IJ central line in good position without pneumothorax. 2. Minimal left lung base airspace disease, likely atelectasis. Tolu Garrison MD Physical Exam HEENT: Normocephalic; atraumatic CHEST: Even/unlabored CARDIAC: RRR ABDOMEN: Obese, soft, diffusely tender worse with palpation of hernia, bowel sounds active SKIN: Normal; no rash; no jaundice. TOOL MAINTENANCE TECHNICIAN: No focal deficits; alert and oriented times three. (Bethany Mcdonnell) Assessment and Plan Plan ASSESSMENT - n/v/d, rectal bleeding, abd pain - onset 2 days ago since resolved except for LLQ pain still present but has improved CT showed moderate sigmoid diverticulosis and couldnt exclude diverticulitis d/t presence mesenteric fluid. Pt says she had colonoscopy here but do not see record of recent colonoscopy. c diff neg. - anemia - mild, normocytic could be dilutional. no obvious bleeding at this time. - leukocytosis, ID following - lung mass on CT (01/14) --> Pt denies any continued nausea and vomiting. Has not had BM since procedure yesterday. Tolerating diet. Abdomen remains tender to palpation. S/P colonoscopy yesterday --> Random biopsy. Moderate diverticulosis in the sigmoid colon. Internal and external hemorrhoids. H/H has not been rechecked yet today. Pt on Levaquin, leukocytosis improving. ID following. PLAN - Colon biopsy pending - Benefiber 2 tsp daily - Avoid seeds, nuts, popcorn - Repeat colon in one year - Monitor H/H - Notify GI of active bleeding - OK to restart pt on Coumadin - Pt is stable from GI standpoint, we will sign off, please reconsult as needed Pt has been seen and examined by myself and Dr. Bourgeois and this note is written on his behalf (Bethany Mcdonnell) Physician Comments Seen and examined with LEYLA, Biopsies pending. No active bleeding. Needs fu of lung lesions on CT. GI fu upon dc. Thank you (Ludwig Bourgeois MD) Bethany Mcdonnell Jan 14, 2018 07:49 Ludwig Bourgeois MD Jan 14, 2018 19:19
[2018-01-14] MEDS: INSULIN ASPART SUPPLEMENTAL SCALE SQ SCH ×2 (08:00→12:32)
[2018-01-14] MEDS: SPIRONOLACTONE 50 MG TAB PO SCH (08:28)
[2018-01-14] MEDS: LISINOPRIL 20 MG TAB PO SCH (08:28)
[2018-01-14] MEDS: hydrALAZINE HCL 50 MG TAB PO SCH ×2 (08:28→12:32)
[2018-01-14] MEDS: ASPIRIN EC 81 MG TABEC PO SCH (08:29)
[2018-01-14] MEDS: NIFEdipine 30 MG SUSTAINED RELEASE TAB PO SCH (08:29)
[2018-01-14] MEDS: FUROSEMIDE 20 MG TAB PO SCH (08:29)
[2018-01-14] MEDS: GABAPENTIN 300 MG CAP PO SCH ×2 (08:29→12:33)
[2018-01-14] MEDS: LEVOFLOXACIN 750 MG TAB PO SCH (08:29)
[2018-01-14] MEDS: SODIUM CHLORIDE 0.9% FLUSH 10 ML FLUSH IV FLUSH SCH (08:32)
--- NOTE | 2018-01-14 10:04 | HHI.PR ---
Subjective Remarks no complains of abdominal pain ,nausea or vomiting no hematochezia d/w her Lung nodule- refused further work up Objective Vitals Vital Signs Date Time Temp Pulse Resp B/P (MAP) Pulse Ox O2 Delivery O2 Flow Rate FiO2 01/14/18 07:54 Room Air 01/14/18 07:54 83 01/14/18 07:51 98.0 87 22 156/71 (99) 92 01/14/18 04:35 82 01/14/18 04:18 17 01/14/18 04:00 97.9 80 20 135/67 (89) 93 01/14/18 04:00 Room Air 01/14/18 00:00 Room Air 01/14/18 00:00 98.4 81 22 159/66 (97) 93 01/13/18 23:51 81 01/13/18 22:00 Room Air 01/13/18 20:07 81 01/13/18 20:00 98.0 87 21 166/67 (100) 95 01/13/18 16:03 99.1 83 20 128/71 (90) 92 01/13/18 15:32 87 01/13/18 14:10 77 20 157/70 (99) 01/13/18 13:42 125/53 (77) 92 01/13/18 13:32 98.2 70 18 106/48 (67) 96 I/O 01/13/18 01/13/18 01/13/18 01/14/18 01/14/18 01/14/18 07:00 15:00 23:00 07:00 15:00 23:00 Intake Total 1090 ml 510 ml 360 ml 1200 ml Output Total 800 ml Balance 1090 ml 510 ml 360 ml 400 ml Intake Oral 500 ml 360 ml 200 ml IV Total 590 ml 410 ml 1000 ml Other 100 ml Output Urine Total 800 ml # Voids 3 3 3 # Bowel Movements 3 0 0 Result Diagram: 01/12/18 0445 01/13/18 1950 Imaging Last Impressions Abdomen/Pelvis CT 01/11/18 1433 Signed Impressions: Service Date/Time: Thursday, January 11, 2018 19:17 - CONCLUSION: 1. Interval enlargement of right lung base nodule now measuring 2.3 x 3.4 cm in comparison to 1.6 x 2.0 cm. This again is concerning for malignancy. 2. Moderate sigmoid diverticulosis with trace amount of ascites and mesenteric fluid extending to the region of the sigmoid colon. Sigmoid diverticulitis cannot be excluded as the mesenteric fluid significantly reduces sensitivity for diagnosis of early acute diverticulitis. This trace free fluid was present on prior exam. 3. Stable large fat containing periumbilical hernia. 4. Remainder of the exam is unchanged. Tolu Garrison MD Chest X-Ray 01/11/18 0000 Signed Impressions: Service Date/Time: Thursday, January 11, 2018 19:00 - CONCLUSION: 1. Right IJ central line in good position without pneumothorax. 2. Minimal left lung base airspace disease, likely atelectasis. Tolu Garrison MD Objective Remarks awake and alert, no acute distress right IJ line in place lungs- no rales or wheezes irregular rhythm abdomen soft, nontender, flabby, no guarding extremities no edema Procedures 01/13- colonoscopy- diverticuloses, hemorrhoids A/P Assessment and Plan 82 years old female Urinary tract infection- now with Proteus history of ESBL Escherichia coli UTI/sepsis- 07/28/2017 Levaquin 750 mg po daily Abdominal pain-- improved lower GI bleeding- due to diverticuloses S/P colonoscopy - tolerating po - no further bleeding Lung mass- rapid growth - very suspicious for malignancy Status post bronchoscopy with washings negative for malignant cells on 08/05/17 Pulmonary - Dr. Corral ff - get IR consult for CT guided biopsy- patient refusing "I don't want to" - d/w patient- she is refusing- states to discuss this with her niece and nephew - called number and left message- [phone]- for them to call back - pretty adamant - will consult Palliative care Diabetes mellitus Continue home Lantus SSI Monitor blood glucose - restart Metformin as OP chronic Atrial fibrillation Rate controlled Continue home medications Patient's Coumadin stopped 2 weeks ago secondary to GI bleed - d/w GI- OK to restart coumadin DC planning- home with home health care- d/w niece on the phone will consult palliative care service to determine goals of care Tonny Meza MD Jan 14, 2018 10:04
--- NOTE | 2018-01-14 10:33 | HHI.FF ---
Face to Face Verification Diagnosis: (1) GIB (gastrointestinal bleeding) (2) DM (diabetes mellitus) (3) Lung nodule Physical Therapy Order: Evaluate and Treat Occupational Therapy Order: Evaluate and Treat Home Health Nursing Order: Medical education Signs/symptoms of disease process Diabetic education Nursing assessment with vital signs I have seen patient Mirella Lucas on 01/14/18. My clinical findings support the need for the requested home health care services because: Ltd mobility - disease progression Deconditioned w/ increased weakness Need for psychosocial assistance Infection w/ risk of complications I certify that my clinical findings support that this patient is homebound because: Need for psychosocial assistance Tonny Meza MD Jan 14, 2018 10:33
[2018-01-14] MEDS ORDERED: LEVO750T3 PO (10:44)
--- NOTE | 2018-01-14 10:50 | HHI.DS ---
Discharge Summary Admission Date Jan 11, 2018 at 20:35 Discharge Date: Jan 14, 2018 Admitting Diagnosis UTI, Sepsis Procedures 01/13- colonoscopy- diverticuloses, hemorrhoids Brief History - From Admission 2-year-old female with past medical history significant for multiple TIAs, atrial fibrillation not currently on anticoagulation secondary to GI bleed, type 2 diabetes mellitus, hypothyroidism, CHF and kidney disease resents to the emergency department for evaluation of abdominal pain. The patient reports that she has diffuse abdominal pain in the bilateral lower quadrants that began this morning. She endorses associated nausea/vomiting/diarrhea. She reports approximately 10 episodes of diarrhea and emesis since this morning. She also reports that she has burning with urination that started today. Denies fever/ chills denies shortness of breath and chest pain. CBC/BMP: 01/12/18 0445 01/13/18 1950 Significant Findings Laboratory Tests Test 01/11/18 16:09 01/11/18 16:40 01/11/18 16:50 01/11/18 18:24 White Blood Count 17.6 TH/MM3 (4.0-11.0) Neutrophils (%) (Auto) 91.8 % (16.0-70.0) Lymphocytes (%) (Auto) 4.3 % (9.0-44.0) Neutrophils # (Auto) 16.1 TH/MM3 (1.8-7.7) Lymphocytes # (Auto) 0.8 TH/MM3 (1.0-4.8) Blood Urea Nitrogen 29 MG/DL (7-18) Random Glucose 224 MG/DL (74-106) Albumin 3.0 GM/DL (3.4-5.0) Alkaline Phosphatase 129 U/L (45-117) Carbon Dioxide Level 17.9 MEQ/L (21.0-32.0) Estimat Glomerular Filtration Rate 53 ML/MIN (>89) Lipase 51 U/L (73-393) Urine Turbidity CLOUDY (CLEAR) Urine Protein 30 mg/dL (NEG-TRACE) Urine Glucose (UA) 300 mg/dL (NEG) Urine Ketones 40 mg/dL (NEG) Urine Occult Blood SMALL (NEG) Urine Leukocyte Esterase LARGE (NEG) Urine WBC Clumps MANY (NONE) Urine Bacteria MOD /hpf (NONE) Activated Partial Thromboplast Time 18.2 SEC (24.3-30.1) Test 01/12/18 04:45 01/13/18 19:50 White Blood Count 11.8 TH/MM3 (4.0-11.0) Red Blood Count 3.65 MIL/MM3 (4.00-5.30) Hemoglobin 10.4 GM/DL (11.6-15.3) Hematocrit 31.9 % (35.0-46.0) Neutrophils (%) (Auto) 74.5 % (16.0-70.0) Monocytes (%) (Auto) 9.5 % (0.0-8.0) Neutrophils # (Auto) 8.8 TH/MM3 (1.8-7.7) Monocytes # (Auto) 1.1 TH/MM3 (0-0.9) Blood Urea Nitrogen 26 MG/DL (7-18) Random Glucose 192 MG/DL (74-106) Calcium Level 8.0 MG/DL (8.5-10.1) Estimat Glomerular Filtration Rate 58 ML/MIN (>89) 63 ML/MIN (>89) PE at Discharge awake and alert, no acute distress right IJ line in place lungs- no rales or wheezes irregular rhythm abdomen soft, nontender, flabby, no guarding extremities no edema Pt update on day of discharge afebrile, awake and alert, no GI bleeding, no complains discuss with her at length regarding lung mass- refused any work up - states has living will in place - niece and nephew has it - Hospital Course 82 years old female Urinary tract infection- now with Proteus history of ESBL Escherichia coli UTI/sepsis- 07/28/2017 Levaquin 750 mg po daily Abdominal pain-- improved lower GI bleeding- due to diverticuloses S/P colonoscopy - tolerating po - no further bleeding Benefibre 2 tsp daily- hand script given Lung mass- rapid growth - very suspicious for malignancy Status post bronchoscopy with washings negative for malignant cells on 08/05/17 Pulmonary - Dr. Corral ff - get IR consult for CT guided biopsy- patient refusing "I don't want to" - d/w patient- she is refusing- states to discuss this with her niece and nephew - called number and left message- [phone]- for them to call back - mark chadwick - will consult Palliative care Diabetes mellitus Continue home Lantus SSI Monitor blood glucose - restart Metformin as OP chronic Atrial fibrillation Rate controlled Continue home medications Patient's Coumadin stopped 2 weeks ago secondary to GI bleed - d/w GI- OK to restart coumadin DC planning- home with home health care- d/w niece on the phone- they know her wishes Pt Condition on Discharge: Stable Discharge Disposition: Disch w/ Home Health Serv Discharge Time: > 30 minutes Discharge Instructions DIET: Follow Instructions for: Heart Healthy Diet, Diabetic Diet, Coumadin ( Warfarin) Diet Activities you can perform: Weight Bearing as Day Follow up Referrals: PCP Follow-up - 2-3 Days with PCP New Medications: Levofloxacin (Levofloxacin) 750 Mg Tablet 750 MG PO DAILY for Infection for 9 Days, #9 TAB 0 Refills Continued Medications: Aspirin DR (Ecotrin Low Strength) 81 Mg Tabdr 81 MG PO DAILY, #30 TAB 0 Refills Atorvastatin (Lipitor) 20 Mg Tab 20 MG PO HS for Cholesterol Management, #30 TAB 0 Refills Furosemide (Lasix) 20 Mg Tab 20 MG PO DAILY, #30 TAB 0 Refills Gabapentin (Gabapentin) 300 Mg Cap 300 MG PO TID for Pain Management, #90 CAP 0 Refills Hydralazine HCl (Hydralazine HCl) 50 Mg Tablet 50 MG PO TID Levothyroxine (Levothyroxine) 88 Mcg Tab 88 MCG PO DAILY for Thyroid, #30 TAB 0 Refills Lisinopril (Lisinopril) 20 Mg Tab 20 MG PO BID, #30 TAB 0 Refills Nifedipine ER 24 HR (Nifedipine ER 24 HR) 30 Mg Tab 30 MG PO DAILY for Blood Pressure Management, #30 TAB Spironolactone (Spironolactone) 50 Mg Tab 50 MG PO DAILY, #30 TAB 0 Refills Tonny Meza MD Jan 14, 2018 10:50
[2018-01-14] MEDS ORDERED: COUM5TAB PO (10:57)
== END 2018-01-14 14:10 | disposition home health service (06) | DRG 872 ==
LOC: NEPC 14:07 → NEDA 20:35 → N04B 21:48
PROVIDERS: ADMIT Internal Medicine; ATTEND Internal Medicine
PROC: 02HV33Z Insertion of Infusion Device into Superior Vena Cava, Percutaneous Approach (ICD-10-PCS; principal; 2018-01-11)
PROC: 0DBE8ZX Excision of Large Intestine, Via Natural or Artificial Opening Endoscopic, Diagnostic (ICD-10-PCS; 2018-01-13)
DX: A41.9 Sepsis, unspecified organism (principal); I13.0 Hypertensive heart and chronic kidney disease with heart failure and stage 1 through stage 4 chronic kidney disease, or unspecified chronic kidney disease; E11.22 Type 2 diabetes mellitus with diabetic chronic kidney disease; I50.9 Heart failure, unspecified; N39.0 Urinary tract infection, site not specified; Z68.43 Body mass index [BMI] 50.0-59.9, adult; B96.4 Proteus (mirabilis) (morganii) as the cause of diseases classified elsewhere; N18.9 Chronic kidney disease, unspecified; M19.90 Unspecified osteoarthritis, unspecified site; I48.2 Chronic atrial fibrillation; F32.9 Major depressive disorder, single episode, unspecified; E78.00 Pure hypercholesterolemia, unspecified; G47.30 Sleep apnea, unspecified; E03.9 Hypothyroidism, unspecified; Z96.653 Presence of artificial knee joint, bilateral; E66.01 Morbid (severe) obesity due to excess calories; K57.30 Diverticulosis of large intestine without perforation or abscess without bleeding; K64.8 Other hemorrhoids; R91.1 Solitary pulmonary nodule; K64.4 Residual hemorrhoidal skin tags; D64.9 Anemia, unspecified; R32 Unspecified urinary incontinence; Z87.440 Personal history of urinary (tract) infections; Z87.891 Personal history of nicotine dependence; Z79.4 Long term (current) use of insulin; Z86.73 Personal history of transient ischemic attack (TIA), and cerebral infarction without residual deficits; Z23 Encounter for immunization; K52.9 Noninfective gastroenteritis and colitis, unspecified
CPT/HCPCS: 36415; 36556; 71045; 74177; 76937; 80048; 80053; 81001; 82565; 82948; 83605; 83690; 85025; 85610; 85730; 87040; 87077; 87086; 87186; 87493; 88305; 90686; 94618; 96361; 96374; 96375; J1335; J1644; J1815; J2270; J2405; J7030; J7040; Q2038; Q9967